=== PATIENT | female | born 1990 | race Caucasian/White ===

== ENCOUNTER 2019-05-08 18:53 | Inpatient (IN) | payer MEDICAID, SELFPAY ==
[2019-05-08 18:53] VITALS: BP 108/82; PULSE 86; RESP 16; TEMP 36.9; O2SAT 99
[2019-05-08 18:54] VITALS: BP 117/86; PULSE 88; RESP 16; TEMP 37; O2SAT 98; BMI 31.6
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
[2019-05-08 19:41] LABS: Basophils # 0.1 10^3/uL (0.0-0.1); Basophils % 0.5 %; Eosinophils # 0.3 10^3/uL (0.0-0.8); Eosinophils % 2.3 %; Hematocrit 39.1 % (37.0-47.0); Lymphocytes # 3.5 10^3/uL (0.8-4.8); Mean Corpuscular HGB Conc 33.2 g/dL (30.0-36.0); Mean Corpuscular Hemoglobin 28.3 pg (28.0-34.0); Mean Platelet Volume 9.3 fL (7.4-10.4); Monocytes # 0.8 10^3/uL (0.2-0.9); Monocytes % 6.2 %; Neutrophils # 8.6 10^3/uL (1.8-7.7); Neutrophils % 64.5 %; Nucleated Red Blood Cells % 0 %; Platelet Count 405 10^3/cmm (130-400); Red Cell Distribution Width 12.3 % (12.1-15.1); White Blood Count 13.3 10^3/uL (4.0-10.0)
--- NOTE | 2019-05-08 19:45 | PC.NURSE ---
Allergy band applied to wrist.
--- NOTE | 2019-05-08 19:50 | PC.NURSE ---
Addendum entered by Seun Viera 05/08/19 23:03: Pt placed in blue scrubs and all items secured in file cabinet. Original Note: Introduced self to patient and initiated vital signs. Patient presents A&O x 3. NAD, ABCs intact, MAEW and agreeable to treatment. Respirations are even and unlabored. Pt states that the chief complaint for the ER visit today is due to suicidal ideation. Pt has plan and would jump off of a bridge or hang herself. Pt denies any vision disturbances or lightheadedness. Bed left in lowest position in semi-fowlers with side rails up.Reassured patient of needs and will continue to monitor. Awaiting provider at bedside.
[2019-05-08 19:52] LABS: HCG Qualitative Urine. Negative (Negative)
[2019-05-08 20:09] LABS: Alanine Aminotransferase 14 U/L (0-33); Albumin Level 4.7 g/dL (3.5-5.2); Alkaline Phosphatase 58 IU/L (35-105); Anion Gap 19.6 (5-19); Aspartate Amino Transferase 15 U/L (0-32); Blood Urea Nitrogen 8 mg/dL (6-20); Calcium 9.9 mg/dL (8.5-10.5); Carbon Dioxide 23 mmol/L (22-29); Chloride 101 mmol/L (98-107); Globulin 2.9 g/dL (1.3-4.6); Glomerular Filtration Rate 98.3 mL/min (90-130); Glucose 115 mg/dL (65-115); Potassium 3.6 mmol/L (3.5-5.1); Sodium 140 mmol/L (136-145); Thyroid Stimulating Hormone 4.35 uIU/mL (0.27-4.20); Total Bilirubin 0.3 mg/dL (0.15-1.2); Total Protein 7.6 g/dL (6.6-8.7)
[2019-05-08 20:10] LABS: Acetaminophen < 5.0 ug/mL (10-30); Alcohol Level < 10 mg/dL (0-10); Salicylate < 0.3 mg/dL (3-10)
[2019-05-08] MEDS: nicotine 2 mg Gum 4 MG BUCCAL (20:53)
[2019-05-08 22:04] LABS: Add Urine Microscopic? YES; Bilirubin Urine Neg (NEGATIVE); Blood Urine Trace (Negative); Glucose Urine UA Norm (Normal); Ketones Urine Negative (Negative); Leukocyte Esterase Urine Negative (Negative); Nitrate Urine Negative (Negative); Protein Urine Neg (Negative); Urine Appearance Clear (CLEAR); Urine Color Straw (Yellow); Urobilinogen Urine Norm (Negative); pH Urine 5 (5-7)
[2019-05-08 22:11] LABS: Amphetamines Screen Urine Negative (Negative); Barbiturates Screen Urine Negative (Negative); Benzodiazepines Screen Urine Negative (Negative); Cocaine Screen Urine Negative (Negative); Opiate Screen Urine Negative (Negative); PCP Screen Urine Negative (Negative); THC Screen Urine Negative (Negative)
[2019-05-08 22:12] LABS: Add Urine Culture? No; Bacteria Urine 1+; Mucus Urine TRACE; RBC Urine 0-4 /hpf (0-2); Squamous Epithelial Cell Urine 0-4 (0-5)
[2019-05-08 22:25] VITALS: PULSE 68; RESP 16; O2SAT 98
[2019-05-08 23:43] VITALS: BP 117/80; PULSE 83; RESP 18; TEMP 36.8; O2SAT 97
[2019-05-09] MEDS: mirtazapine 15 mg Tablet PO (00:18)
[2019-05-09] MEDS: hyDROXYzine 25 mg Capsule 50 MG PO ×2 (00:18→20:53)
[2019-05-09 06:00] VITALS: BP 109/71; PULSE 81; RESP 21; TEMP 36.9; O2SAT 98
[2019-05-09] MEDS: acetaminophen 325 mg Tablet 650 MG PO ×2 (07:39→14:41)
[2019-05-09] MEDS: metformin 500 mg Tablet PO ×2 (09:21→17:33)
[2019-05-09] MEDS: atorvastatin 40 mg Tablet 20 MG PO (09:21)
[2019-05-09] MEDS: levothyroxine 50 mcg Tablet PO (09:21)
[2019-05-09 13:34] VITALS: BP 106/68; PULSE 75; RESP 20; TEMP 36.8; O2SAT 98
[2019-05-09] MEDS: nicotine 2 mg Gum BUCCAL ×2 (14:42→17:33)
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
[2019-05-09 17:54] LABS: Free T4 Free Thyroxine 1.65 ng/dL (0.82-1.77); Thyroid Stimulating Hormone 4.42 uIU/mL (0.27-4.20)
[2019-05-09] MEDS: mirtazapine 30 mg Tablet PO (20:52)
[2019-05-09 21:28] VITALS: BP 111/68; PULSE 74; RESP 19; TEMP 36.9; O2SAT 99
[2019-05-10 05:55] VITALS: BP 109/68; PULSE 85; RESP 17; TEMP 37.1; O2SAT 97
--- NOTE | 2019-05-10 08:14 | P.DS_ITS ---
Diagnoses at Discharge Discharge Diagnosis (1) Adjustment disorder with mixed disturbance of emotions and conduct: Status: Acute Reason for Visit Reason for Visit: Reason For Visit: SI Hospital Course Discharge Summary Chief complaint: I got upset yesterday. At the. The kidney out of my home. I just lost it. History of present illness: Afia Vidales is a 29 year old female who carries a questionable diagnosis of schizoaffective disorder by history with a documented history of major depression?recurrent and borderline intellectual function. She also has risk factors for PTSD. In spite of all that, she reported that she had been doing well. However she has poor coping skills and decompensates under strong emotion. She ripped her pants at the sheltered workshop yesterday. This was incredibly embarrassing for her and she felt as though that nobody was helping her avoid worsened embarrassment. Then when she returned to her half-way at [facility], they told her that she was going to find another place to live. The exact details of how that occurred remain unclear because it has become apparent that in fact she is welcome to go back there if she likes. At any rate, she decided that this was all too much for her and she was going to go throw herself off a bridge or in front of a moving vehicle. This was not an idle threat. She was intent on seriously doing that. However, after she slept and by the next morning, all of these thoughts of self injury were gone. She would like to go back to her home and she would also like to go back to work. She denies suicidal or homicidal ideation. She denies auditory or visual hallucinations. She does complain about her medications. She says that the Invega is not working because she has episodes of depression. She has poor understanding of the intended uses of her medications. At the same time, she denies a history of hallucinations except when she is in acute distress or medical depression. Mental health history: she has 4 prior hospitalizations in this unit extending back over the last 3 years. Her last hospitalization was in October 2018 a similar circumstances were she became agitated over adverse events in her life and made threats to harm herself. Over her for hospitalizations, her average length of stay is approximately 48 hours. She is active in outpatient treatment and has an outpatient provider [facility]. Diagnoses:adjustment disorder with disturbance of mood and conduct Major depression?recurrent, in remission Borderline intellectual function Assessment: the patient is admitted to the psychiatric unit primarily due to the fact that her coping skills were overwhelmed with the rather severe acute stressors that she describes. her chart was reviewed. She does complain of symptoms that might be due to her Invega. The lack of christa psychotic symptoms and the lack of support for a historic diagnosis of schizoaffective disorder questions the utility of that medication. Intense this time is to reduce the dosage milligrams daily consideration of discontinuing by her outpatient and psychiatrist if warranted. mirtazapine be continued. Treatment plan: Due to the psychiatric conditions and treatment listed in the Assessment and Plan - the patient requires continued hospitalization. Will provide a safe and therapeutic environment for patient.. Will continue inpatient treatment to allow for medication adjustment and monitoring. Will continue q15 min safety checks. decrease Invega to 3 mg in the morning and continue mirtazapine 30 mg at bedtime. Will get thyroid panel while here. Laboratory Tests 05/08/19 19:35 TSH 4.42 H Free T4 1.65 Involuntary Hold Information 96 Hour Hold: 96 Hour Involuntary Admission: No Mental Status Exam MSE Comments: Mental Status Exam: the patient is alert interpersonally engaged female appearing approximately her stated age. Eye contact is good. She is believed to be a reliable informant the best of her ability. She has difficulty providing much complicated personal history but that she provides is internally consistent and consistent with fat in the chart. Appearance: hygiene is fair; no gross neurological deficits., gait is unremarkable; AIMS=0 Speech: Speech is of normal rate and rhythm and easily understood. Thought processes: Thought processes are concrete. Judgment is adequate for safety. Associations: intact Psychotic processes: There is no indication of guarding or paranoia. There is no attention to the internal stimuli. Auditory and visual hallucinations are denied. Judgment: Insight is fair. Problem solving skills are adequate for safety. Orientation: The patient is oriented to person, place time and situation. Memory: no deficits noted in immediate, intermediate, or remote spheres. Attention: The patient is alert and interpersonally engaged. Language: Verbalizations are coherent. Fund of knowledge: Fund of knowledge is adequate. Affect/Mood: Affect is consistent with a euthymic mood. she denied suicidal ideation Affective range appropriate. Psychosis: perception unimpaired except through cognitive distortion; reality testing intact. Discharge Data Data Completed and Pending: Labs from last 24 hours 05/08/19 19:35 TSH 4.42 H Free T4 1.65 Vitals: Last Vital Signs Temp 98.8 F 05/10/19 05:55 Pulse 85 05/10/19 05:55 Resp 17 05/10/19 05:55 BP 109/68 05/10/19 05:55 Pulse Ox 97 05/10/19 05:55 Discharge Plan Discharge Patient Disposition: Home, Self-Care Condition: Stable Prescriptions: New paliperidone 3 mg Tablet Extended Release 24hr 3 mg PO DAILY Qty: 30 RF: 4 Continued levothyroxine 50 mcg capsule 50 mcg PO QDAY RF: 0 Lo Loestrin Fe 1 mg-10 mcg (24)/10 mcg (2) tablet 1 tab PO QDAY RF: 0 metformin 500 mg tablet 500 mg PO BID RF: 0 simvastatin 20 mg tablet 20 mg PO QDAY RF: 0 sumatriptan succinate [Imitrex] 50 mg tablet 50 mg PO ONCE RF: 0 ergocalciferol (vitamin D2) 1,250 mcg (50,000 unit) capsule 1,250 mcg PO .COMPLEX RF: 0 mirtazapine [Remeron] 15 mg tablet 15 mg PO .QHS Qty: 30 RF: 4 hydroxyzine HCl 50 mg tablet 50 mg PO BID PRN (Reason: anxiety) Qty: 60 RF: 3 Discontinued paliperidone [Invega] 6 mg tablet extended release 24hr 6 mg PO QAM Qty: 30 RF: 4 Discharge Orders: Discharge Order (Routine); Ordered 05/10/19 Ordered By: Ángel Celeste Referrals: Dorita Madden, PMHNP [Staff Physician] - 07/12/19 9:15 am Discharge Attestations NPU Time Spent in Discharge Care*: greater than 30 min Coding Level of Care Code Acute Distribution A Class Lineman for Chg Fwd Diagnoses Adjustment disorder with mixed disturbance of emotions and conduct F43.25
[2019-05-10] MEDS: atorvastatin 40 mg Tablet 20 MG PO (08:35)
[2019-05-10] MEDS: metformin 500 mg Tablet PO (08:35)
[2019-05-10] MEDS: paliperidone ER 3 mg Tablet PO (08:35)
[2019-05-10] MEDS: levothyroxine 50 mcg Tablet PO (08:35)
[2019-05-10 10:14] VITALS: BP 109/68; PULSE 85; RESP 17; TEMP 37.1; O2SAT 97
--- NOTE | 2019-05-10 11:32 | PC.SOCIAL ---
Medicaid ride called, trip ID #[id number]. Should arrive between 11:30am-2:30pm. If for some reason the ride does not show up you may call the Where's My Ride number at
[2019-05-10] MEDS: nicotine 2 mg Gum BUCCAL (13:00)
== END 2019-05-10 13:57 | disposition home or self-care (01) | DRG 882 ==
LOC: ER 19:22 → NP 22:41
PROVIDERS: Admitting Provider Psychiatry & Neurology Psychiatry; Emergency Provider Family Medicine; Family Provider Physician Assistant; Visit Provider Psychiatry & Neurology Psychiatry
DX: F43.25 Adjustment disorder with mixed disturbance of emotions and conduct (principal); R45.851 Suicidal ideations; F33.40 Major depressive disorder, recurrent, in remission, unspecified; Z87.891 Personal history of nicotine dependence; R41.83 Borderline intellectual functioning; E11.9 Type 2 diabetes mellitus without complications; R01.1 Cardiac murmur, unspecified
CPT/HCPCS: 12345; 36415; 80053; 80306; 80307; 81001; 81025; 84439; 84443; 85025; 99284

== ENCOUNTER 2019-05-08 18:53 | Emergency (ER) | payer MEDICAID, SELFPAY | END 2019-05-08 23:15 | disposition admitted as inpatient to this hospital (09) | LOC: ER 06-13 12:12 | PROVIDERS: Emergency Provider Family Medicine; Family Provider Physician Assistant | DX: Z76.89 Persons encountering health services in other specified circumstances (principal) | CPT/HCPCS: 36415; 80053; 80306; 80307; 81001; 81025; 84439; 84443; 85025; 99284; 99285 ==

== ENCOUNTER → 2019-07-12 08:04 | Outpatient (BNVA) | payer MEDICAID, SELFPAY | PROVIDERS: Family Provider Physician Assistant; Visit Provider Nurse Practitioner Psychiatric/Mental Health | DX: F25.0 Schizoaffective disorder, bipolar type (principal); F43.12 Post-traumatic stress disorder, chronic; F71 Moderate intellectual disabilities; F17.220 Nicotine dependence, chewing tobacco, uncomplicated | CPT/HCPCS: 99213 ==

== ENCOUNTER 2019-08-15 21:52 | Inpatient (IN) | payer MEDICAID, SELFPAY ==
[2019-08-15 21:53] VITALS: BP 124/75; PULSE 78; RESP 16; TEMP 36.6; O2SAT 97; BMI 27.8
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
[2019-08-15 22:21] LABS: Basophils # 0.1 10^3/uL (0.0-0.1); Basophils % 0.6 %; Eosinophils # 0.6 10^3/uL (0.0-0.8); Eosinophils % 4.9 %; Lymphocytes # 4.3 10^3/uL (0.8-4.8); Lymphocytes % 32.8 %; Mean Corpuscular HGB Conc 32.4 g/dL (30.0-36.0); Mean Corpuscular Hemoglobin 27.5 pg (28.0-34.0); Mean Corpuscular Volume 84.9 fL (81-99); Mean Platelet Volume 9.5 fL (7.4-10.4); Monocytes # 0.9 10^3/uL (0.2-0.9); Monocytes % 6.9 %; Neutrophils # 7.1 10^3/uL (1.8-7.7); Neutrophils % 54.3 %; Nucleated Red Blood Cells % 0 %; Platelet Count 316 10^3/cmm (130-400); Red Blood Count 4.36 10^6/uL (4.1-5.3); Red Cell Distribution Width 12.2 % (12.1-15.1)
[2019-08-15 22:48] LABS: Alanine Aminotransferase 12 U/L (0-33); Albumin Level 4.2 g/dL (3.5-5.2); Alkaline Phosphatase 44 IU/L (35-105); Anion Gap 19.3 (5-19); Aspartate Amino Transferase 13 U/L (0-32); Blood Urea Nitrogen 10 mg/dL (6-20); Calcium 10.3 mg/dL (8.5-10.5); Carbon Dioxide 25 mmol/L (22-29); Chloride 100 mmol/L (98-107); Globulin 2.5 g/dL (1.3-4.6); Glomerular Filtration Rate 117.4 mL/min (90-130); Glucose 114 mg/dL (65-115); Osmolality Calculated 287 mOsm/kg (285-295); Potassium 4.3 mmol/L (3.5-5.1); Sodium 140 mmol/L (136-145); Thyroid Stimulating Hormone 6.92 uIU/mL (0.27-4.20); Total Bilirubin 0.4 mg/dL (0.15-1.2); Total Protein 6.7 g/dL (6.6-8.7)
[2019-08-15 22:49] LABS: Acetaminophen < 5.0 ug/mL (10-30); Alcohol Level < 10 mg/dL (0-10); Salicylate < 0.3 mg/dL (3-10)
[2019-08-15 23:11] LABS: HCG Qualitative Urine. Negative (Negative)
[2019-08-15 23:22] LABS: Slide Review Slide Review Perform
[2019-08-15 23:31] VITALS: BP 117/82; PULSE 94; RESP 21; TEMP 36.8; O2SAT 100
[2019-08-16] MEDS: mirtazapine 15 mg Tablet PO ×2 (00:41→20:13)
[2019-08-16] MEDS: gabapentin 300 mg Capsule PO ×4 (00:41→20:13)
[2019-08-16] MEDS: trazodone 50 mg Tablet PO ×2 (00:41→20:13)
[2019-08-16 03:21] LABS: Add Urine Microscopic? NO
[2019-08-16 03:25] LABS: Bilirubin Urine Neg (NEGATIVE); Blood Urine Neg (Negative); Glucose Urine UA Norm (Normal); Ketones Urine Negative (Negative); Leukocyte Esterase Urine Negative (Negative); Nitrate Urine Negative (Negative); Protein Urine Neg (Negative); Urine Appearance Clear (CLEAR); Urine Color Yellow (Yellow); Urobilinogen Urine Norm (Negative); pH Urine 7 (5-7)
[2019-08-16 03:50] LABS: Amphetamines Screen Urine Negative (Negative); Barbiturates Screen Urine Negative (Negative); Benzodiazepines Screen Urine Negative (Negative); Cocaine Screen Urine Negative (Negative); Opiate Screen Urine Negative (Negative); PCP Screen Urine Negative (Negative); THC Screen Urine Negative (Negative)
[2019-08-16 06:00] VITALS: BP 103/71; PULSE 91; RESP 20; TEMP 36.8; O2SAT 96
[2019-08-16 06:17] LABS: Glucose Point of Care 167 mg/dL (70-110)
[2019-08-16] MEDS: paliperidone ER 3 mg Tablet PO (08:25)
[2019-08-16] MEDS: metformin 500 mg Tablet PO ×2 (08:25→17:07)
[2019-08-16] MEDS: levothyroxine 50 mcg Tablet PO (08:25)
[2019-08-16] MEDS: atorvastatin 40 mg Tablet 20 MG PO (08:26)
[2019-08-16] MEDS: nicotine 2 mg Gum BUCCAL ×3 (12:39→18:41)
[2019-08-16 13:59] VITALS: BP 118/82; PULSE 112; RESP 18; TEMP 37; O2SAT 97
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
[2019-08-16 16:13] LABS: Glucose Point of Care 243 mg/dL (70-110)
[2019-08-16 19:49] LABS: Glucose Point of Care 123 mg/dL (70-110)
[2019-08-16 21:18] VITALS: BP 108/73; PULSE 103; RESP 22; TEMP 36.9; O2SAT 97
[2019-08-17 06:00] VITALS: BP 108/76; PULSE 60; RESP 17; TEMP 36.5; O2SAT 96
[2019-08-17] MEDS: gabapentin 300 mg Capsule PO ×3 (06:08→22:01)
[2019-08-17 06:23] LABS: Glucose Point of Care 137 mg/dL (70-110)
[2019-08-17] MEDS: paliperidone ER 3 mg Tablet PO ×2 (08:09→12:49)
[2019-08-17] MEDS: atorvastatin 40 mg Tablet 20 MG PO (08:09)
[2019-08-17] MEDS: metformin 500 mg Tablet PO ×2 (08:09→17:21)
[2019-08-17] MEDS: levothyroxine 50 mcg Tablet PO (08:09)
--- NOTE | 2019-08-17 13:52 | PM.NPN ---
Subjective NPU Subjective: Interval history: Afia presented today reporting that she feels a little better. But still struggling with the likely plan to discharge back to her intermediate. We reviewed the plan increase Invega to 6 mg daily and she understood and agreed to proceed as is documented in this note. She reported a plan to contact her intermediate to see if they were still will allow her to come home which we discussed the fact that they were no indications of any plan to get rid of her. Mental Status Exam MSE Comments: This is an obese white female with adequate dress grooming and eye contact. No abnormal movements except for mild psychomotor retardation. Cooperative with exam in no acute distress. Speech was more normal rate and volume mood described as less depressed, affect congruent. Thought process organized. Thought content: Patient denied any suicidal or homicidal ideation there were no delusions reported or noted, she denied any auditory or visual hallucinations. Attention and concentration were intact and memory was unreliable but none were formally tested. She is alert and oriented x3. Insight and judgment are improving. Impulse control is limited. Intellectual ability is impaired. Vitals/I&O/Wt Last Vital Signs Temp 97.9 F 08/17/19 22:00 Pulse 90 08/17/19 22:00 Resp 16 08/17/19 22:00 BP 123/89 08/17/19 22:00 Pulse Ox 97 08/17/19 22:00 Data NPU : 08/15/19 22:16 08/15/19 22:16 A&P Additional A&P Information (1) Adjustment disorder with mixed disturbance of emotions and conduct: This is a 29-year-old white female with a long history of mental health issues intellectual disability and para-suicidal ideation and threats who presents after a conflict with a coworker which led to her voicing a desire to move and be admitted to the hospital. 1. Continue current medication except: increase Invega to 6 mg daily. 2. We will speak with guardian to confirm increasing the Invega. 3. Continue individual, group and milieu therapy. 4. Continue to 15-minute checks for safety. 5. Encourage some de-stressing exercises to practice when in the midst of conflicts. (2) Schizoaffective disorder, bipolar type: (3) Chronic post-traumatic stress disorder: (4) Moderate intellectual disabilities: (5) Nicotine dependence, chewing tobacco, uncomplicated: Involuntary Hold Information 96 Hour Hold: 96 Hour Involuntary Admission: No Attestations NPU Medical Necessity Statement*: Inpatient hospitalization is medically necessary and the clinically appropriate intervention at this time. She will be in the hospital for over 2 midnights. We will monitor her medication and evaluate for adjustments as indicated. Likely length of stay 1-3 days. Coding Level of Care Code Acute Traveling Accountant for Eh Vallecillo
[2019-08-17 14:00] VITALS: BP 117/63; PULSE 81; RESP 17; TEMP 37
[2019-08-17 16:47] LABS: Glucose Point of Care 129 mg/dL (70-110)
[2019-08-17] MEDS: nicotine 2 mg Gum BUCCAL ×2 (18:06→22:24)
[2019-08-17 22:00] VITALS: BP 123/89; PULSE 90; RESP 16; TEMP 36.6; O2SAT 97
[2019-08-17] MEDS: mirtazapine 15 mg Tablet PO (22:01)
[2019-08-17] MEDS: hyDROXYzine 25 mg Capsule 50 MG PO (22:02)
[2019-08-18] MEDS: gabapentin 300 mg Capsule PO ×3 (05:49→20:29)
[2019-08-18 06:00] VITALS: BP 136/81; PULSE 74; RESP 15; TEMP 36.4; O2SAT 96
[2019-08-18 06:30] LABS: Glucose Point of Care 106 mg/dL (70-110)
[2019-08-18] MEDS: paliperidone ER 6 mg Tablet PO (08:44)
[2019-08-18] MEDS: levothyroxine 50 mcg Tablet PO (08:45)
[2019-08-18] MEDS: atorvastatin 40 mg Tablet 20 MG PO (08:45)
[2019-08-18] MEDS: metformin 500 mg Tablet PO ×2 (08:45→16:44)
[2019-08-18] MEDS: nicotine 2 mg Gum BUCCAL ×5 (11:59→20:59)
--- NOTE | 2019-08-18 13:07 | P.PN_ITS ---
Subjective NPU Subjective: Interval history: Afia presented today reporting that she is feeling much better and interested in going home. We had attempted to call her senior living without significant success yesterday. We discussed the plan to discharge her to her senior living as soon as they are available to receive her and comfortable with her progress. She was somewhat frustrated feeling the staff at her senior living were saying she could not return, which we assured her that was not the message we were getting. Mental Status Exam 2 MSE Comments: This is an obese white female with adequate dress grooming and eye contact. No abnormal movements except for improving psychomotor retardation. Cooperative with exam in no acute distress. Speech was more normal rate and volume mood described as pretty good, affect congruent. Thought process organized. Thought content: Patient denied any suicidal or homicidal ideation there were no delusions reported or noted, she denied any auditory or visual hallucinations. Attention and concentration were intact and memory was more reliable but none were formally tested. She is alert and oriented x3. Insight and judgment are improving. Impulse control is limited. Intellectual ability is impaired. Vitals/I&O/Wt Last Vital Signs Temp 98.4 F 08/18/19 20:02 Pulse 94 08/18/19 20:02 Resp 17 08/18/19 20:02 BP 106/74 08/18/19 20:02 Pulse Ox 97 08/18/19 20:02 08/18/19 08/18/19 08/19/19 14:59 22:59 06:59 Intake Total 360 / 360 Balance 360 / 360 Weight last 48 hrs Weight 63.049 kg Data NPU : 08/15/19 22:16 08/15/19 22:16 A&P Additional A&P Information (1) Adjustment disorder with mixed disturbance of emotions and conduct: This is a 29-year-old white female with a long history of mental health issues intellectual disability and para-suicidal ideation and threats who pr esents after a conflict with a coworker which led to her voicing a desire to move and be admitted to the hospital. 1. Continue current medication except: increase Invega to 6 mg daily. 2. We will speak with guardian to confirm increasing the Invega. 3. Continue individual, group and milieu therapy. 4. Continue to 15-minute checks for safety. 5. Encourage some de-stressing exercises to practice when in the midst of conflicts.Plan for discharge tomorrow. (2) Schizoaffective disorder, bipolar type: (3) Chronic post-traumatic stress disorder: (4) Moderate intellectual disabilities: (5) Nicotine dependence, chewing tobacco, uncomplicated: Involuntary Hold Information 96 Hour Hold: 96 Hour Involuntary Admission: No Attestations NPU Medical Necessity Statement*: Inpatient hospitalization is medically necessary and the clinically appropriate intervention at this time. We will monitor her medication and evaluate for adjustments as indicated. Likely length of stay 1-2 days. Tentative plan for discharge tomorrow. Coding Level of Care Code Acute Industrial Automation Specialist for Eh Vallecillo
[2019-08-18 14:00] VITALS: BP 112/73; PULSE 84; RESP 19; TEMP 36.9
[2019-08-18] MEDS: acetaminophen 325 mg Tablet 650 MG PO (14:52)
[2019-08-18 17:32] LABS: Glucose Point of Care 178 mg/dL (70-110)
[2019-08-18 20:02] VITALS: BP 106/74; PULSE 94; RESP 17; TEMP 36.9; O2SAT 97
[2019-08-18] MEDS: mirtazapine 15 mg Tablet PO (20:29)
[2019-08-19 06:00] VITALS: BP 108/74; PULSE 68; RESP 16; TEMP 36.3; O2SAT 97
[2019-08-19] MEDS: gabapentin 300 mg Capsule PO ×2 (06:27→11:55)
[2019-08-19 06:36] LABS: Glucose Point of Care 117 mg/dL (70-110)
[2019-08-19] MEDS: metformin 500 mg Tablet PO (08:22)
[2019-08-19] MEDS: levothyroxine 50 mcg Tablet PO (08:22)
[2019-08-19] MEDS: paliperidone ER 6 mg Tablet PO (08:22)
[2019-08-19] MEDS: atorvastatin 40 mg Tablet 20 MG PO (08:23)
[2019-08-19] MEDS: nicotine 2 mg Gum BUCCAL ×2 (09:48→11:53)
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
[2019-08-19 13:42] VITALS: BP 108/74; PULSE 68; RESP 16; TEMP 36.3; O2SAT 97
== END 2019-08-19 14:03 | disposition home or self-care (01) | DRG 882 ==
LOC: ER 22:37 → NP 23:18
PROVIDERS: Admitting Provider Psychiatry & Neurology Psychiatry; Emergency Provider Nurse Practitioner Family; Family Provider Family Medicine; PCP Family Medicine; Visit Provider Psychiatry & Neurology Psychiatry
DX: F43.25 Adjustment disorder with mixed disturbance of emotions and conduct (principal); F25.0 Schizoaffective disorder, bipolar type; F43.12 Post-traumatic stress disorder, chronic; F71 Moderate intellectual disabilities; F17.220 Nicotine dependence, chewing tobacco, uncomplicated; E11.9 Type 2 diabetes mellitus without complications
CPT/HCPCS: 12345; 36416; 80053; 80306; 80307; 81003; 81025; 82962; 84443; 85025; 99281; 99285

== ENCOUNTER 2019-08-15 21:52 | Emergency (ER) | payer MEDICAID, SELFPAY | END 2019-08-15 23:18 | disposition home or self-care (01) | LOC: ER 08-29 01:28 | PROVIDERS: Emergency Provider Nurse Practitioner Family; Family Provider Family Medicine; PCP Family Medicine | DX: R45.851 Suicidal ideations (principal) | CPT/HCPCS: 12345; 80053; 80307; 81025; 84443; 85025; 99281; 99285 ==

== ENCOUNTER 2019-09-14 16:40 | Emergency (ER) | payer MEDICAID, SELFPAY ==
[2019-09-14 16:41] VITALS: BMI 30.2
[2019-09-14 16:46] VITALS: BP 110/82; PULSE 116; RESP 20; TEMP 36.8; O2SAT 97
--- NOTE | 2019-09-14 19:03 | PC.NURSE ---
Report received from KOREY Guerrero and care transferred to KOREY Evangelista
--- NOTE | 2019-09-14 19:23 | ED_ITS ---
HPI - Psych General: Chief Complaint: Psychiatric Symptoms Stated Complaint: PSYCH EVAL Time Seen by Provider: 09/14/19 16:46 Source: patient Mode of arrival: EMS History of Present Illness: HPI Narrative: 29-year-old female patient with a history of developmental delay and frequent ER visits for behavioral issues was recently placed in a half-way because her parents were unable to care for her any longer. Today the patient attempted to run away from the half-way. When asked why she told me that it was because she wanted to see her kids and her adopted stepparents. She said the home refused to let her do these things and so she ran away. She complains that they are treating her like a kid when she is not 1. She would rather not go back today home. She denies homicidal or suicidal ideation, she just wants to see her parents. Associated symptoms: Deny auditory hallucinations, visual hallucinations, homicidal ideation or suicidal ideation Review of Systems General: Reports: 10 or more systems reviewed and unremarkable except in HPI and below Const: Denies: fever(s), chills or body aches Eyes: Denies: change in vision or blurry vision ENMT: Denies: throat pain, enlarged tonsils, odynophagia, hoarseness, mouth pain or swelling of lips/tongue Card: Denies: palpitations, irregular heart rhythm, edema or swelling of feet/ankles Resp: Denies: dyspnea, productive cough or non-productive cough GI: Denies: abdominal pain, nausea or vomiting : Denies: flank pain, difficulty voiding, dysuria, urinary frequency, urinary urgency or urinary hesitancy Musc: Denies: neck pain, back pain or extremity swelling Skin/Breast: Denies: rash, pruritus or erythema Neuro: Denies: headache(s), numbness in extremities or weakness in extremities Psych: Reports: mood swings and irritability; Denies: visual hallucinations, auditory hallucinations, tactile hallucinations, suicidal ideation or homicidal ideation Endo: Denies: polyuria, polydipsia or tired all the time PFS ED PFSH: Medical History Chronic post-traumatic stress disorder Moderate intellectual disabilities Nicotine dependence, chewing tobacco, uncomplicated Schizoaffective disorder, bipolar type Social History Smoking and tobacco status: never smoked Physical Exam Const: COMMON NORMALS: no acute distress, average body habitus, patient oriented x3, no limitations, healthy appearing, alert and well nourished Neck/C-Spine: COMMON NORMALS: no meningeal signs and no JVD Resp: COMMON NORMALS: normal respiratory effort, No retractions, No use of accessory muscles, clear to auscultation bilaterally and percussion normal AUSCULTATION: clear to auscultation bilaterally PERCUSSION: percussion normal Cardio: COMMON NORMALS: no JVD, regular rate, regular rhythm, S1 normal heart sound present, S2 normal heart sound present, No gallops present (Cardio), No clicks present (Cardio), No murmurs present (Cardio), No rub (Cardio) and Peripheral pulses 2+ throughout RATE: regular rate RHYTHM: regular rhythm HEART SOUNDS: S1 normal heart sound present and S2 normal heart sound present PERIPHERAL PULSES: Peripheral pulses 2+ throughout GI: COMMON NORMALS: Normal to inspection, nondistended, normoactive bowel so unds present, Soft to palpation, non-tender, No hepatosplenomegaly present, no masses and no bruits PALPATION: Yes Soft to palpation and Yes No hepatosplenomegaly present Extremity: COMMON NORMALS: normal to inspection, full ROM, capillary refill normal, no calf tenderness and no pedal edema Neuro: COMMON NORMALS: patient oriented x3 SENSORIUM/ORIENTATION: Yes alert MENINGEAL SIGNS: Yes no meningeal signs Psych: APPEARANCE: Yes grossly normal ATTITUDE: Yes paranoid ACTIVITY/MOTOR BEHAVIOR: Yes psychomotor agitation THOUGHT CONTENT: No Suicidality present and No Homicidality present Skin: COMMON NORMALS: no rashes or lesions noted, no wounds, turgor normal, no jaundice, no petechiae and no mottling GENERAL SKIN EXAM: no rashes or lesions noted and turgor normal MDM - Psych MDM Narrative: Medical decision making narrative: 29-year-old female patient with developmental delay and behavioral issues run away from her half-way today. After evaluation by the psychiatrist in this hospital it was decided she could be discharged back to her home. I got in touch with her legal guardian Stu Mcintyre who said the patient can be discharged back to the home. The half-way initially said that they would not accept her back and felt like a legal guardian had abandoned her but eventually they accepted the patient back. Medical Records: Attestation: I reviewed the patient's medical records. Lab Data: Attestation: I reviewed the patient's lab results. Discharge Plan Discharge Patient Disposition: Home, Self-Care Clinical Impression: Adjustment disorder with mixed disturbance of emotions and conduct, Schizoaffective disorder, bipolar type, Behavior involving running away Condition: Stable Prescriptions: Continued levothyroxine 50 mcg capsule 50 mcg PO DAILY RF: 0 metformin 500 mg tablet 500 mg PO BID RF: 0 simvastatin 20 mg tablet 40 mg PO DAILY RF: 0 ergocalciferol (vitamin D2) 1,250 mcg (50,000 unit) capsule 1,250 mcg PO Q7D RF: 0 hydroxyzine HCl 50 mg tablet 50 mg PO BID PRN (Reason: anxiety) Qty: 60 RF: 3 Vitamin B-12 1,000 mcg Tablet 1,000 mcg PO DAILY RF: 0 Lo Loestrin Fe 1 mg-10 mcg (24)/10 mcg (2) Tablet 1 tab PO DAILY RF: 0 paliperidone 6 mg tablet extended release 24hr 6 mg PO QAM RF: 0 gabapentin 300 mg Capsule 300 mg PO TID RF: 0 mirtazapine [Remeron] 15 mg tablet 15 mg PO BEDTIME RF: 0 Discharge Orders: Discharge Order (Routine); Ordered 09/14/19 Ordered By: Tee St Referrals: Jose Dinero [Primary Care Provider] - 4-7 days Activity Restrictions/Additional Instructions: Return for any new or worsening symptoms. It is important that you cooperate with the staff at [facility]. Have a conversation with your legal guardian and your parents during the week so you guys can come up with some plan for permanent placement so he can have a place to live that you like. Discharge Date/Time: 09/14/19 22:40 Coding Level of Care Code ED Professor Of Chemical Engineering for Eh Vallecillo
[2019-09-14 22:40] VITALS: PULSE 98; RESP 16; O2SAT 96
== END 2019-09-14 22:40 | disposition home or self-care (01) ==
PROVIDERS: Emergency Provider Family Medicine; PCP Family Medicine
DX: F43.25 Adjustment disorder with mixed disturbance of emotions and conduct (principal); F25.0 Schizoaffective disorder, bipolar type
CPT/HCPCS: 12345; 99284

== ENCOUNTER → 2021-11-02 15:37 | Outpatient (BNVA) | payer MEDICAID, SELFPAY | PROVIDERS: PCP Family Medicine; Referring Provider Nurse Practitioner Family; Visit Provider Podiatrist Foot & Ankle Surgery | DX: M21.611 Bunion of right foot (principal); M79.671 Pain in right foot | CPT/HCPCS: 73630; 99204 ==

== ENCOUNTER 2021-11-26 08:21 | Day surgery (SDC) | payer MEDICAID, SELFPAY ==
--- NOTE | 2021-11-26 | SCC_ITS ---
Left Lapidus bunionectomy. CPT code 05994 Left Abilio osteotomy. CPT code 38753 57 seconds of fluoroscopic guidance, for a cumulative dose of 0.971 mGy, was provided to Dr. Francisco by the radiology department. C-arm images of the RIGHT foot were saved for the patient's permanent record. [facility]
[2021-11-26] MEDS: sodium chloride 0.9% 1,000 ML 30 ML IV (09:00)
[2021-11-26 09:11] LABS: Glucose Point of Care 120 mg/dL (70-110)
--- NOTE | 2021-11-26 09:24 | P.OP_ITS ---
Operative Report Date of procedure: November 26, 2021 Pre-op diagnosis: Preop Diagnosis Left bunion Post-op diagnosis: Left bunion deformity, left hallux valgus. Procedure done: Left Lapidus bunionectomy. CPT code 69457 Left Abilio osteotomy. CPT code 35967 Implants: 3-0 Vicryl, 4-0 Vicryl, 4-0 nylon, Abilio screw provided by [employer], Lapaplasty dual plate with locking screw x8 provided by [employer] Specimens removed/disposition: None Pathology: None Surgeon: Bob Francisco D.P.M. Radiology Orderly: Pritesh Estimated blood loss: Less than 5 110 minutes IV fluids: None Urine output: None Complications: None Findings: Capsular adhesions with decreased plantarflexion at the right first metatarsophalangeal joint. Brief History: Patient is a pleasant 31-year-old female lives in a long term, presents with complaints of bilateral bunion pain right is more severe.? Had a history of previous bunionectomies they were distal metatarsal osteotomies, has had a reoccurrence of the deformity that causes pain on a daily basis.? She has already been wearing wider shoes, wearing prefabricated orthotics, daily stretching anti-inflammatories and activity modifications.? States that her bunions prevent her from being more active and wearing shoes.? Would like to discuss revision of her right bunion and eventually her left.? States that she would like to proceed with next available surgical opportunity as she has failed conservative treatments over the course of several years.? Recommended Lapidus bunionectomy with possible Abilio osteotomy given her hypermobility and young age.? Risks include but are not limited to pain, bleeding, numbness, infection, under correction of deformity, overcorrection of deformity, delayed union, malunion, nonunion, hardware rotation, hardware failure, decreased range of motion at the first metatarsal phalangeal joint, painful scar, paresthesias, chronic swelling, hallux varus, need for further surgical intervention.? Also risk for deep vein thrombosis, heart attack, stroke and .? Patient advised on recovery consisting of approximately 6 to 8 weeks of nonweightbearing and immobilization transitioning into weightbearing in the cam boot for approximately 2 weeks additional and potentially to a tennis shoe at approximately 8 to 12 weeks out.? She was advised that the aches and pains of surgical intervention for this type of a bunionectomy could linger for approximately 12 months or even permanently Procedure: Under mild sedation the patient was brought to the operating room and placed on the operating table in supine position. A timeout was performed. Anesthesia was then administered by the anesthesia service. Local anesthesia was injected by myself consisting of 30 cc of 0.5% Marcaine plain and a proximal Abrams block fashion to the right foot. Well-padded pneumatic tourniquet was then applied to the right high calf. The right lower extremity was then scrubbed, prepped and draped utilizing normal aseptic technique. Attention was directed to the dorsal medial aspect of the right first metatarsal base and medial cuneiform joint. A linear longitudinal incision was made medial and parallel to the extensor houses longus tendon. Dissection was carried down through subcutaneous tissue to the layer of periosteum and joint capsule utilizing a combination of blunt and sharp technique. Care was taken to retract and preserve neurovascular and tendinous structures. All bleeders were ligated and cauterized as necessary. Periosteal and capsular incision was performed dorsally at the first tarsometatarsal joint and the joint was accessed and planes with a sagittal saw followed by release of all capsular and soft tissue attachments at the first metatarsal base and distal articular surface of the medial cuneiform. Next utilizing a cut guide dorsally a sagittal saw was utilized to resect the base of the first metatarsal perpendicular to its longitudinal access as well as the distal articular surface of the medial cuneiform taking more laterally to allow correction of intermetatarsal angle, wafers were removed and the incision was flushed with saline solution followed by subchondral drilling at the base of the first metatarsal and distal surface of the medial cuneiform. Utilizing instrumentation to reduce the intermetatarsal angle this was a jig provided by [employer] securing it to the second metatarsal through a stab incision the intermetatarsal angle of the first intermetatarsal space was reduced parallel to the second metatarsal followed by fixation utilizing standard AO technique with a dorsal plate and medial plate with locking screws with excellent bony apposition and compression noted. Each plate had 4 screws with a total of 8 screws inserted. Intraoperative fluoroscopy demonstrated reduction of the intermetatarsal angle and frontal plane correction with improved sesamoid position, excellent placement of hardware not violating the cuneiforms joints or navicular cuneiform joints or intercuneiform joints. Incision was flushed with copious amounts of sterile skin solution, temporary fixation was removed and the incision was closed in a layered fashion with periosteum closed with 3-0 Vicryl, subcutaneous tissue closed with 4-0 Vicryl and skin with 4-0 nylon. Range of motion dorsally at the right first metatarsal phalangeal joint was appreciated at 50 degrees, there was no plantarflexion appreciated and this was attributed to likely capsular adhesions from previous bunionectomy dorsally at the right first metatarsal phalangeal joint. There was residual hallux valgus intraoperatively appreciated even after intermetatarsal angle of the first and second metatarsals of the right foot was reduced and corrected. This necessitated a release of capsular adhesions and Abilio osteotomy for further correction. A linear longitudinal incision was made medial to the first metatarsal phalangeal joint at the right foot with a #15 blade with dissection carried down bluntly and sharply to the layer of periosteum and first metatarsal phalangeal joint capsule. Care was taken to retract and preserve neurovascular and tendinous structures. All bleeders were ligated and cauterized as necessary. Capsular incision was performed and adhesions were released sharply at the dorsal aspect of the first metatarsal phalangeal joint with increased plantar flexion appreciated. A lateral release was also performed of the suspensory sesamoid ligament and lateral capsule, hallux valgus remained and decision was made to perform a Abiilo osteotomy followed by fixation with 2.7 millimeter screw provided by [employer] with excellent bony apposition and compression noted and maintaining a lateral cortical hinge. The Boundary osteotomy was performed with a sagittal saw and a rectus first ray was appreciated after fixation. All 3 views of intraoperative fluoroscopy confirmed excellent placement of the Khushboo screw not violating the first metatarsal phalangeal joint and bicortical fashion was appreciated. The incision was flushed with saline solution and closed in a layered fashion with periosteum and capsule closed with 3-0 Vicryl and skin closed with 4-0 nylon. The incision sites were then dressed with Adaptic, sterile 4 x 4, Kerlix and Edouard wrap followed by application of cam boot. Tourniquet was deflated and a prompt hyperemic response was noted to the distal digits of the right foot. Patient tolerated the procedure and anesthesia well and was transferred to the PACU with vital signs stable and vascular status intact. Following a period of postop monitoring she will be discharged home is to be protected weightbearing as tolerated below threshold to pain with a cam boot at all times. She is to elevate her right foot while resting. She was prescribed hydrocodone to be taken judiciously as needed for pain and has scheduled follow-up next week in podiatry clinic. She was also provided my cell phone number to contact me with any postoperative questions or concerns.
[2021-11-26] MEDS: clindamycin 600 MG/50 ML PREMIX 100 MG IV (10:00)
--- NOTE | 2021-11-26 10:00 | W.PM.OPSUD ---
Surgery/Procedure H&P Update DATE OF PROCEDURE: November 26, 2021 DATE H&P PERFORMED: 11/02/21 CHANGES TO PREVIOUS DOCUMENTATION: none PREOP DIAGNOSIS: Left bunion PLANNED PROCEDURE: Operation Date: 11/26/21 10:00 Proposed Procedures p Lapidus and Abilio bunionectomy, right foot [id number],M21.611(Right) - Bob Francisco DPM
--- NOTE | 2021-11-26 10:15 | P.ANESASSM_ITS ---
Pre-Anesthetic Assessment Height/Weight: Height 1.4 m Weight 55.111 kg O2 Del Method 11/26/21 09:00 Preop Diagnosis: Left bunion Operation Date: 11/26/21 10:00 Proposed Procedures p Lapidus and Abilio bunionectomy, right foot [id number],M21.611(Right) - Bob Francisco DPM Familial anesthetic complications: none Was Beta Vidhya taken within 24 hours: N/A Was Clonidine taken within 24 hours: N/A Last intake: Intake Last Liquid Date 11/25/21 Last Liquid Time 19:00 Last Solid Date 11/25/21 Last Solid Time 19:00 Social Tobacco and No alcohol Exam alert, oriented x 3, clear to auscultation bilaterally and regular rate & rhythm Airway Submandibular: within normal limits Cervical ROM: within normal limits Mallampati: Class II Dentition: false CV/HEM Murmur h/o ASD repair Metabolic Thyroid Disease Neuropsych schizoaffective Anesthetic Plan ASA status: 3 Anesthesia: General Medications/Allergies Home Medications Medication Instructions Recorded Confirmed Last Taken Type ergocalciferol (vitamin D2) 1,250 1,250 mcg PO Q7D 04/15/19 11/26/21 11/25/21 History mcg (50,000 unit) capsule levothyroxine 50 mcg capsule 50 mcg PO DAILY 04/15/19 11/26/21 11/25/21 History metformin 500 mg tablet 500 mg PO BID 04/15/19 11/26/21 11/25/21 History simvastatin 20 mg tablet 40 mg PO DAILY 04/15/19 11/26/21 11/25/21 History hydroxyzine HCl 50 mg tablet 50 mg PO BID PRN anxiety #60 tabs 07/12/19 11/26/21 11/25/21 Rx gabapentin 300 mg capsule 300 mg PO TID 08/15/19 11/26/21 11/25/21 History mirtazapine 15 mg tablet (Remeron) 15 mg PO BEDTIME 08/15/19 11/26/21 11/25/21 History cyanocobalamin (vitamin B-12) 1,000 mcg PO DAILY 09/14/19 11/26/21 11/25/21 History 1,000 mcg tablet (Vitamin B-12) norethindrone 1 mg-ethinyl 1 tab PO DAILY 09/14/19 11/26/2111/25/22 History estradiol 10 mcg (24)-iron 10 mcg(2) tablet (Lo Loestrin Fe) atorvastatin 40 mg tablet 40 mg PO DAILY 11/25/21 11/26/21 11/25/21 History buspirone 10 mg tablet 10 mg PO TID 11/25/21 11/26/21 11/25/21 History dulaglutide 1.5 mg/0.5 mL 1.5 mg SUBCUT DIRECTED 11/25/21 11/26/21 11/25/21 History subcutaneous pen injector (Trulicity) loratadine 10 mg tablet 10 mg PO DAILY 11/25/21 11/26/21 11/25/21 History mirtazapine 7.5 mg tablet 7.5 mg PO DAILY 11/25/21 11/26/21 11/25/21 History norgestimate 0.25 mg-ethinyl 0.25 tab PO DAILY 11/25/21 11/26/21 11/25/21 History estradiol 35 mcg tablet (Estarylla) olanzapine 5 mg tablet 5 mg PO BID 11/25/21 11/26/21 11/25/21 History prazosin 5 mg capsule 5 mg PO DAILY 11/25/21 11/26/21 11/25/21 History trazodone 100 mg tablet 100 mg PO DAILY 11/25/21 11/26/21 11/25/21 History valacyclovir 500 mg tablet 500 mg PO DAILY 11/25/21 11/26/21 11/25/21 History ziprasidone HCl 60 mg capsule 60 mg PO DAILY 11/25/21 11/26/21 11/25/21 History Allergies Allergy/AdvReac Type Severity Reaction Status Date / Time ibuprofen Allergy Unknown Unknown Verified 11/02/21 15:27 Penicillins Allergy Unknown Unknown Verified 11/02/21 15:27 strawberry Allergy Unknown Unknown Verified 11/02/21 15:27 carbamazepine Allergy Unknown Verified 11/02/21 15:27 egg Allergy Unknown Verified 11/25/21 10:06 latex Allergy Unknown Verified 11/25/21 10:06 REPLACED BY [facility] Anesthesia Medical History Chronic post-traumatic stress disorder Moderate intellectual disabilities Nicotine dependence, chewing tobacco, uncomplicated Schizoaffective disorder, bipolar type Social History Smoking and tobacco status: never smoked Female Reproductive History Date of last menstrual period: 11/11/21 Data Anesthesia Cardiac Studies: No Data to Display
[2021-11-26 12:14] VITALS: BP 111/71; PULSE 94; RESP 15; TEMP 36.8; O2SAT 99
[2021-11-26 12:15] VITALS: BP 111/71; PULSE 110; RESP 19; O2SAT 98
--- NOTE | 2021-11-26 12:18 | XR_ITS ---
WS: [id number] Right foot, 3 views portable, 11/26/2021 Clinical Data: post op Comparison: Right foot, 11/02/2021. Findings: The joint space between the right first metatarsal and first cuneiform has been fused with 2 plates a nd multiple screws. The right first toe proximal phalanx has had an osteotomy which is held in place by an oblique orthopedic pin. There is soft tissue swelling over the operative site. XR/XR foot RT min 3V* [id number] Impression: Fusion of the right first metatarsal cuneiform joint and osteotomy of the right first toe proximal phalanx correcting a bunion.
[2021-11-26 12:20] VITALS: BP 105/68; PULSE 95; RESP 20; TEMP 36.8; O2SAT 99
[2021-11-26 12:25] VITALS: BP 111/75; PULSE 92; RESP 17; TEMP 36.8; O2SAT 99
--- NOTE | 2021-11-26 12:34 | SUR.PHASEI ---
1212 PT TO PACU 5 PT AWAKE ALERT FOLLOWS COMMMAND, GOOD RESP EFFORT, MONITOR SR NO ECTOPY, IV TO RT AC #20 WITH NS 200ML UP AT KVO RATE PER GRAVITY, BOOT AND SOFT DRESSING IN PLACE DISTAL TOES PINK FOOT ELEVATED PER DR BALBUENA AT BEDSIDE, PT DENIES PAIN AND NAUSEA WARM BLANKETS TO PT X 3 ID BRACELET TO LT WRIST PT ID/D. X RAY CALLED 1226 PT VERY AAWKE ALERT ASKING FOR MOM, PT COOPERATIVE, DENIES PAIN AND NAUSEA VERBALLY X RAYS DONE, VSS PT TO OPS BAY 9 HANDOFF AT BEDSIDE, FAMILY AT BEDSIDE WELL.
--- NOTE | 2021-11-26 14:51 | ANE.PACU2 ---
Inpatient post-anesthesia follow up: Airway intact: Yes Vital signs: Temperature 98.3 F Pulse Rate 92 Respiratory Rate 17 Blood Pressure 111/75 Pulse Oximetry 99 Oxygen Delivery Me thod Room Air Oxygen Flow Rate Fraction of Inspir ed Oxygen Hydration adequate: Yes Nausea and vomiting: No Pain level: 2 Mental status: Baseline
== END 2021-11-26 13:18 | disposition home or self-care (01) ==
PROVIDERS: PCP Family Medicine; Visit Provider Podiatrist Foot & Ankle Surgery
PROC: (CPT 28297; principal; 2021-11-26 09:50)
DX: M21.612 Bunion of left foot (principal); M20.12 Hallux valgus (acquired), left foot; F17.220 Nicotine dependence, chewing tobacco, uncomplicated
CPT/HCPCS: 28297; 28298; 36416; 73630; 76000; 82962; C1713 ×2; C9290; J1100; J2250; J2405; J2704; J3010; J3490; J7030

== ENCOUNTER → 2021-12-09 14:48 | Outpatient (BNVA) | payer MEDICAID, SELFPAY | PROVIDERS: PCP Nurse Practitioner Family; Visit Provider Podiatrist Foot & Ankle Surgery | DX: Z98.890 Other specified postprocedural states (principal) | CPT/HCPCS: 73630; 99024 ==

== ENCOUNTER → 2021-12-23 14:16 | Outpatient (BNVA) | payer MEDICAID, SELFPAY | PROVIDERS: PCP Nurse Practitioner Family; Visit Provider Podiatrist Foot & Ankle Surgery | DX: Z98.890 Other specified postprocedural states (principal) | CPT/HCPCS: 73630; 99024 ==

== ENCOUNTER → 2022-01-13 09:54 | Outpatient (BNVA) | payer MEDICAID, SELFPAY | PROVIDERS: PCP Nurse Practitioner Family; Visit Provider Podiatrist Foot & Ankle Surgery | DX: Z98.890 Other specified postprocedural states (principal) | CPT/HCPCS: 73630; 99024 ==

== ENCOUNTER 2022-01-15 19:34 | Emergency (ER) | payer MEDICAID, SELFPAY ==
--- NOTE | 2022-01-15 19:38 | ED.C_ITS ---
Documented by User: Rancho Zapien MD 01/23/22 16:35 HPI - Psych General: Chief Complaint: Psychiatric Symptoms Stated Complaint: SI Time Seen by Provider: 01/15/22 19:37 History of Present Illness: Ms. Muniz is a 31-year-old lady with history of moderate intellectual disability, PTSD, schizoaffective disorder presenting to the emergency department due to suicidal ideation with a plan. She reports worsening symptoms for a few days which seems to be triggered by increased social stressors. She endorses difficulty sleeping associated with hallucinations and thoughts of hanging herself. Some auditory hallucinations tell her to kill her self. She sees visual hallucinations of family members. Denies actual attempt at this time. Intensity symptoms is severe. Course has worsened. No other specific changes in health, exacerbating, or alleviating factors identified. Onset (ago): day(s) Duration: getting worse History of same: Yes Context: significant life stressor Associated psychiatric symptoms: suicidal ideation Associated symptoms: Reports visual hallucinations, suicidal ideation and racing thoughts If self harm: admits thoughts of self harm and has plan Review of Systems General: Reports: 10 or more systems reviewed and unremarkable except in HPI and below Psych: Reports: visual hallucinations and suicidal ideation PFS ED PFSH: Medical History (Updated 01/15/22 @ 22:20 by Rancho Zapien MD) Chronic post-traumatic stress disorder Moderate intellectual disabilities Nicotine dependence, chewing tobacco, uncomplicated Schizoaffective disorder, bipolar type Social History Smoking and tobacco status: never smoked Female Reproductive History: Date of last menstrual period: 11/11/21 Physical Exam Const: COMMON NORMALS: alert GENERAL APPEARANCE: cooperative and well developed HENMT: COMMON NORMALS: normocephalic and atraumatic HEAD & SCALP: normocephalic and atraumatic THROAT: posterior oropharynx normal Eye: COMMON NORMALS: conjunctivae normal CONJUNCTIVA: Yes conjunctivae normal SCLERA: sclerae normal Neck/C-Spine: COMMON NORMALS: supple GENERAL: Yes trachea midline Resp: COMMON NORMALS: normal respiratory effort EFFORT & INSPECTION: Yes able to speak in complete sentences Cardio: COMMON NORMALS: regular rate and regular rhythm RATE: regular rate RHYTHM: regular rhythm GI: COMMON NORMALS: Soft to palpation PALPATION: Yes Soft to palpation and No Tenderness to palpation present (GI) PERCUSSION: normal to percussion Extremity: GENERAL: Yes normal exam except as noted and No edema Neuro: COMMON NORMALS: moves all extremities SENSORIUM/ORIENTATION: Yes alert and No Orientation impaired Psych: COMMON NORMALS: mental status grossly normal and Normal thought process present ATTITUDE: Yes Withdrawn affect present MOOD & AFFECT: Yes depressed mood THOUGHT PROCESS: Normal thought process present THOUGHT CONTENT: Yes Suicidality present and Yes Hallucination(s) present INSIGHT: Good insight present (Psych) Course Vital Signs: Vital signs: Vital Signs Temperature 96.7 F L 01/16/22 05:04 Pulse Rate 108 H 01/16/22 17:17 Respiratory Rate 12 01/16/22 05:04 Blood Pressure 118/74 01/16/22 17:17 Pulse Oximetry 98 01/16/22 17:17 Oxygen Delivery Me thod 01/16/22 05:04 MDM - Psych Medical Decision Making 31-year-old with history of schizoaffective disorder presenting to the emergency department due to depression with suicidal ideation and plan to hang herself. Worsening symptoms over the past few days in the context of social stressors. Has been compliant with medication regimen. Initial exam with cooperative calm patient, nontoxic in appearance without medical complaints. EKG shows nonspecific changes though given absence of cardiac symptoms and patient's age as well as risk factors this does not require acute intervention or testing further, okay for further outpatient follow-up with primary care provider. Laboratory studies reviewed, mild leukocytosis which is nonspecific in the ab sence of infectious symptoms, hemoglobin negative. Electrolyte panel unremarkable. TSH elevated but free T4 is normal. Urinalysis not concerning for urinary tract infection. hCG negative. Toxic ingestions and UDS negative. No indication for imaging at this time. Based on worsening symptoms including suicidal ideation with a plan I believe the patient is reasonable for inpatient management and psychiatric assessment, stabilization, and treatment. Based on ED evaluation at this point there is no obvious condition that would preclude inpatient management of psychiatric concerns. Plan to look for placement as our facility has no beds at this time. Patient handed off to Dr. Cruz pending accepting outside facility. Medical Records I reviewed the patient's medical records. Lab Data I reviewed the patient's lab results. : 01/15/22 19:55 01/15/22 19:55 Laboratory Results WBC 12.9 10^3/uL (4.0-10.0) H 01/15/22 19:55 RBC 4.32 10^6/uL (4.1-5.3) 01/15/22 19:55 Hgb 13.1 g/dL (11.5-15.3) 01/15/22 19:55 Hct 40.2 % (37.0-47.0) 01/15/22 19:55 MCV 93.1 fl (81-99) 01/15/22 19:55 MCH 30.3 pg (28.0-34.0) 01/15/22 19:55 MCHC 32.6 g/dL (30.0-36.0) 01/15/22 19:55 RDW 12.8 % (12.1-15.1) 01/15/22 19:55 Plt Count 368 10^3/cmm (130-400) 01/15/22 19:55 MPV 9.5 fL (7.4-10.4) 01/15/22 19:55 Neut % (Auto) 56.7 % 01/15/22 19:55 Lymph % (Auto) 33.2 % 01/15/22 19:55 Sully % (Auto) 5.0 % 01/15/22 19:55 Eos % (Auto) 4.2 % 01/15/22 19:55 Baso % (Auto) 0.5 % 01/15/22 19:55 Neut # (Auto) 7.34 10^3/uL (1.8-7.7) 01/15/22 19:55 Lymph # (Auto) 4.3 10^3/uL (0.8-4.8) 01/15/22 19:55 Sully # (Auto) 0.7 10^3/uL (0.2-0.9) 01/15/22 19:55 Eos # (Auto) 0.5 10^3/uL (0.0-0.8) 01/15/22 19:55 Baso # (Auto) 0.1 10^3/uL (0.0-0.1) 01/15/22 19:55 Nucleated RBC % (auto) 0 % 01/15/22 19:55 Nucleated RBCs # 0.0 /100WBC 01/15/22 19:55 Sodium 136 mmol/L (136-145) 01/15/22 19:55 Potassium 3.8 mmol/L (3.5-5.1) 01/15/22 19:55 Chloride 104 mmol/L (98-107) 01/15/22 19:55 Carbon Dioxide 20 mmol/L (22-29) L 01/15/22 19:55 Anion Gap 15.8 (5-19) 01/15/22 19:55 BUN 8 mg/dL (6-20) 01/15/22 19:55 Creatinine 0.7 mg/dL (0.5-0.9) 01/15/22 19:55 GFR Calculation 97.0 mL/min (90-130) 01/15/22 19:55 Glucose 113 mg/dL (65-115) 01/15/22 19:55 Calculated Osmolality 281 mOsm/kg (285-295) L 01/15/22 19:55 Calcium 9.4 mg/dL (8.5-10.5) 01/15/22 19:55 Total Bilirubin 0.2 mg/dL (0.15-1.2) 01/15/22 19:55 AST 14 U/L (0-32) 01/15/22 19:55 ALT 24 U/L (0-33) 01/15/22 19:55 Alkaline Phosphatase 74 U/L (35-105) 01/15/22 19:55 Total Protein 6.8 g/dL (6.6-8.7) 01/15/22 19:55 Albumin 4.0 g/dL (3.5-5.2) 01/15/22 19:55 Globulin 2.8 g/dL (1.3-4.6) 01/15/22 19:55 TSH 6.15 uIU/mL (0.27-4.20) H 01/15/22 19:55 Free T4 1.40 ng/dL (0.82-1.77) 01/15/22 19:55 HCG, Qual Negative (Negative) 01/15/22 20:19 Urine Color Yellow (Yellow) 01/15/22 20:19 Urine Appearance Sl hazy (CLEAR) A 01/15/22 20:19 Urine pH 9 (5-7) H 01/15/22 20:19 Ur Specific [place] 1.015 (1.005-1.030) 01/15/22 20:19 Urine Protein Neg (Negative) 01/15/22 20:19 Urine Glucose (UA) Norm (Normal) 01/15/22 20:19 Urine Ketones Negative (Negative) 01/15/22 20:19 Urine Blood Neg (Negative) 01/15/22 20:19 Urine Nitrate Negative (Negative) 01/15/22 20:19 Urine Bilirubin Neg (Negative) 01/15/22 20:19 Prot Sulfosalicylic Acd Negative (Negative) 01/15/22 20:19 Urine Urobilinogen 1 mg/dL (Negative) H 01/15/22 20:19 Ur Leukocyte Esterase Negative (Negative) 01/15/22 20:19 Salicylates < 0.3 mg/dL (3-10) L 01/15/22 19:55 Urine Opiates Screen Negative ng/mL (Negative) 01/15/22 20:19 Acetaminophen < 5.0 ug/mL (10-30) L 01/15/22 19:55 Ur Barbiturates Screen Negative ng/mL (Negative) 01/15/22 20:19 Ur Phencyclidine Scrn Negative ng/mL (Negative) 01/15/22 20:19 Ur Amphetamines Screen Negative ng/mL (Negative) 01/15/22 20:19 U Benzodiazepines Scrn Negative ng/mL (Negative) 01/15/22 20:19 Urine Cocaine Screen Negative ng/mL (Negative) 01/15/22 20:19 U Marijuana (THC) Screen Negative ng/mL (Negative) 01/15/22 20:19 Ethyl Alcohol < 10 mg/dL (0-10) 01/15/22 19:55 SARS-CoV-2 Ag (Rapid) negative (Negative) 01/15/22 20:25 Discharge Plan Discharge Patient Disposition: Home Clinical Impression: Schizoaffective disorder, bipolar type, Depression with suicidal ideation, Hallucinations Condition: Stable Prescriptions: No Action levothyroxine 50 mcg capsule 50 mcg PO DAILY metformin 500 mg tablet 500 mg PO BID simvastatin 20 mg tablet 40 mg PO DAILY ergocalciferol (vitamin D2) 1,250 mcg (50,000 unit) capsule 1,250 mcg PO Q7D Rx Instructions: TAKES ON MONDAY hydroxyzine HCl 50 mg tablet 50 mg PO BID PRN (Reason: anxiety) Qty: 60 3RF cyanocobalamin (vitamin B-12) [Vitamin B-12] 1,000 mcg Tablet 1,000 mcg PO DAILY Lo Loestrin Fe 1 mg-10 mcg (24)/10 mcg (2) Tablet 1 tab PO DAILY gabapentin 300 mg Capsule 300 mg PO TID mirtazapine [Remeron] 15 mg tablet 15 mg PO BEDTIME atorvastatin 40 mg tablet 40 mg PO DAILY norgestimate-ethinyl estradiol [Estarylla] 0.25-35 mg-mcg tablet 0.25 tab PO DAILY olanzapine 5 mg tablet 5 mg PO BID valacyclovir 500 mg tablet 500 mg PO DAILY prazosin 5 mg capsule 5 mg PO DAILY trazodone 100 mg tablet 100 mg PO DAILY buspirone 10 mg tablet 10 mg PO TID ziprasidone HCl 60 mg capsule 60 mg PO DAILY loratadine 10 mg tablet 10 mg PO DAILY mirtazapine 7.5 mg tablet 7.5 mg PO DAILY Trulicity 1.5 mg/0.5 mL pen injector 1.5 mg SUBCUT DIRECTED Rx Instructions: once weekly Discharge Orders: Discharge ED (Routine); Ordered 01/16/22 Ordered By: Emory Bergman Referrals: Alayna Holland FNP [Primary Care Provider] - Discharge Diet: Usual diet Discharge Activity: Resume usual activity Patient Instructions: Opioid Safety, Pain Management Activity Restrictions/Additional Instructions: These follow-up with outpatient behavioral health and follow discharge plans discussed with Dr. Lowe Sign Out Sign Out Data: Patient Sign Out occurred on 01/16/22 at 06:45. Patient's care was discussed, and care was transferred from to Emory Bergman DO. Coding Level of Care Code ED Director Of Diagnostic Imaging for Chg Fwd Exam Comprehensive Documented by User: Elijah Cruz DO 01/16/22 05:14 HPI - Psych General: Chief Complaint: Psychiatric Symptoms Stated Complaint: SI Time Seen by Provider: 01/15/22 19:37 PFSH ED PFSH: Medical History (Updated 01/15/22 @ 22:20 by Rancho Zapien MD) Chronic post-traumatic stress disorder Moderate intellectual disabilities Nicotine dependence, chewing tobacco, uncomplicated Schizoaffective disorder, bipolar type Social History Smoking and tobacco status: never smoked Course Vital Signs: Vital signs: Vital Signs Temperature 96.7 F L 01/16/22 05:04 Pulse Rate 108 H 01/16/22 17:17 Respiratory Rate 12 01/16/22 05:04 Blood Pressure 118/74 01/16/22 17:17 Pulse Oximetry 98 01/16/22 17:17 Oxygen Delivery Me thod 01/16/22 05:04 MDM - Psych Medical Decision Making 31-year-old with history of schizoaffective disorder presenting to the emergency department due to depression with suicidal ideation and plan to hang herself. Worsening symptoms over the past few days in the context of social stressors. Has been compliant with medication regimen. Initial exam with cooperative calm patient, nontoxic in appearance without medical complaints. EKG shows nonspecific changes though given absence of cardiac symptoms and new méndez's age as well as risk factors this does not require acute intervention or testing further, okay for further outpatient follow-up with primary care provider. Laboratory studies reviewed, mild leukocytosis which is nonspecific in the absence of infectious symptoms, hemoglobin negative. Electrolyte panel unremarkable. TSH elevated but free T4 is normal. Urinalysis not concerning for urinary tract infection. hCG negative. Toxic ingestions and UDS negative. No indication for imaging at this time. Based on worsening symptoms including suicidal ideation with a plan I believe the patient is reasonable for inpatient management and psychiatric assessment, stabilization, and treatment. Based on ED evaluation at this point there is no obvious condition that would preclude inpatient management of psychiatric concerns. Plan to look for placement as our facility has no beds at this time. Patient handed off to Dr. Cruz pending accepting outside facility. 5:08 AM: This patient was checked out to me at shift change as above. She remains medically stable. No beds available at our facility. We are still looking for her a bed at an appropriate psychiatric facility. She will be leidy cked out to the oncoming physician at shift change. Lab Data : 01/15/22 19:55 01/15/22 19:55 Laboratory Results WBC 12.9 10^3/uL (4.0-10.0) H 01/15/22 19:55 RBC 4.32 10^6/uL (4.1-5.3) 01/15/22 19:55 Hgb 13.1 g/dL (11.5-15.3) 01/15/22 19:55 Hct 40.2 % (37.0-47.0) 01/15/22 19:55 MCV 93.1 fl (81-99) 01/15/22 19:55 MCH 30.3 pg (28.0-34.0) 01/15/22 19:55 MCHC 32.6 g/dL (30.0-36.0) 01/15/22 19:55 RDW 12.8 % (12.1-15.1) 01/15/22 19:55 Plt Count 368 10^3/cmm (130-400) 01/15/22 19:55 MPV 9.5 fL (7.4-10.4) 01/15/22 19:55 Neut % (Auto) 56.7 % 01/15/22 19:55 Lymph % (Auto) 33.2 % 01/15/22 19:55 Sully % (Auto) 5.0 % 01/15/22 19:55 Eos % (Auto) 4.2 % 01/15/22 19:55 Baso % (Auto) 0.5 % 01/15/22 19:55 Neut # (Auto) 7.34 10^3/uL (1.8-7.7) 01/15/22 19:55 Lymph # (Auto) 4.3 10^3/uL (0.8-4.8) 01/15/22 19:55 Sully # (Auto) 0.7 10^3/uL (0.2-0.9) 01/15/22 19:55 Eos # (Auto) 0.5 10^3/uL (0.0-0.8) 01/15/22 19:55 Baso # (Auto) 0.1 10^3/uL (0.0-0.1) 01/15/22 19:55 Nucleated RBC % (auto) 0 % 01/15/22 19:55 Nucleated RBCs # 0.0 /100WBC 01/15/22 19:55 Sodium 136 mmol/L (136-145) 01/15/22 19:55 Potassium 3.8 mmol/L (3.5-5.1) 01/15/22 19:55 Chloride 104 mmol/L (98-107) 01/15/22 19:55 Carbon Dioxide 20 mmol/L (22-29) L 01/15/22 19:55 Anion Gap 15.8 (5-19) 01/15/22 19:55 BUN 8 mg/dL (6-20) 01/15/22 19:55 Creatinine 0.7 mg/dL (0.5-0.9) 01/15/22 19:55 GFR Calculation 97.0 mL/min (90-130) 01/15/22 19:55 Glucose 113 mg/dL (65-115) 01/15/22 19:55 Calculated Osmolality 281 mOsm/kg (285-295) L 01/15/22 19:55 Calcium 9.4 mg/dL (8.5-10.5) 01/15/22 19:55 Total Bilirubin 0.2 mg/dL (0.15-1.2) 01/15/22 19:55 AST 14 U/L (0-32) 01/15/22 19:55 ALT 24 U/L (0-33) 01/15/22 19:55 Alkaline Phosphatase 74 U/L (35-105) 01/15/22 19:55 Total Protein 6.8 g/dL (6.6-8.7) 01/15/22 19:55 Albumin 4.0 g/dL (3.5-5.2) 01/15/22 19:55 Globulin 2.8 g/dL (1.3-4.6) 01/15/22 19:55 TSH 6.15 uIU/mL (0.27-4.20) H 01/15/22 19:55 Free T4 1.40 ng/dL (0.82-1.77) 01/15/22 19:55 HCG, Qual Negative (Negative) 01/15/22 20:19 Urine Color Yellow (Yellow) 01/15/22 20:19 Urine Appearance Sl hazy (CLEAR) A 01/15/22 20:19 Urine pH 9 (5-7) H 01/15/22 20:19 Ur Specific [place] 1.015 (1.005-1.030) 01/15/22 20:19 Urine Protein Neg (Negative) 10/29/22 20:19 Urine Glucose (UA) Norm (Normal) 01/15/22 20:19 Urine Ketones Negative (Negative) 01/15/22 20:19 Urine Blood Neg (Negative) 01/15/22 20:19 Urine Nitrate Negative (Negative) 01/15/22 20:19 Urine Bilirubin Neg (Negative) 01/15/22 20:19 Prot Sulfosalicylic Acd Negative (Negative) 01/15/22 20:19 Urine Urobilinogen 1 mg/dL (Negative) H 01/15/22 20:19 Ur Leukocyte Esterase Negative (Negative) 01/15/22 20:19 Salicylates < 0.3 mg/dL (3-10) L 01/15/22 19:55 Urine Opiates Screen Negative ng/mL (Negative) 01/15/22 20:19 Acetaminophen < 5.0 ug/mL (10-30) L 01/15/22 19:55 Ur Barbiturates Screen Negative ng/mL (Negative) 01/15/22 20:19 Ur Phencyclidine Scrn Negative ng/mL (Negative) 01/15/22 20:19 Ur Amphetamines Screen Negative ng/mL (Negative) 01/15/22 20:19 U Benzodiazepines Scrn Negative ng/mL (Negative) 01/15/22 20:19 Urine Cocaine Screen Negative ng/mL (Negative) 01/15/22 20:19 U Marijuana (THC) Screen Negative ng/mL (Negative) 01/15/22 20:19 Ethyl Alcohol < 10 mg/dL (0-10) 01/15/22 19:55 SARS-CoV-2 Ag (Rapid) negative (Negative) 01/15/22 20:25 Discharge Plan Discharge Patient Disposition: Home Clinical Impression: Schizoaffective disorder, bipolar type, Depression with suicidal ideation, Hallucinations Condition: Stable Prescriptions: No Action levothyroxine 50 mcg capsule 50 mcg PO DAILY metformin 500 mg tablet 500 mg PO BID simvastatin 20 mg tablet 40 mg PO DAILY ergocalciferol (vitamin D2) 1,250 mcg (50,000 unit) capsule 1,250 mcg PO Q7D Rx Instructions: TAKES ON MONDAY hydroxyzine HCl 50 mg tablet 50 mg PO BID PRN (Reason: anxiety) Qty: 60 3RF cyanocobalamin (vitamin B-12) [Vitamin B-12] 1,000 mcg Tablet 1,000 mcg PO DAILY Lo Loestrin Fe 1 mg-10 mcg (24)/10 mcg (2) Tablet 1 tab PO DAILY gabapentin 300 mg Capsule 300 mg PO TID mirtazapine [Remeron] 15 mg tablet 15 mg PO BEDTIME atorvastatin 40 mg tablet 40 mg PO DAILY norgestimate-ethinyl estradiol [Estarylla] 0.25-35 mg-mcg tablet 0.25 tab PO DAILY olanzapine 5 mg tablet 5 mg PO BID valacyclovir 500 mg tablet 500 mg PO DAILY prazosin 5 mg capsule 5 mg PO DAILY trazodone 100 mg tablet 100 mg PO DAILY buspirone 10 mg tablet 10 mg PO TID ziprasidone HCl 60 mg capsule 60 mg PO DAILY loratadine 10 mg tablet 10 mg PO DAILY mirtazapine 7.5 mg tablet 7.5 mg PO DAILY Trulicity 1.5 mg/0.5 mL pen injector 1.5 mg SUBCUT DIRECTED Rx Instructions: once weekly Discharge Orders: Discharge ED (Routine); Ordered 01/16/22 Ordered By: Emory Bergman Referrals: Alayna Holland FNP [Primary Care Provider] - Discharge Diet: Usual diet Discharge Activity: Resume usual activity Patient Instructions: Opioid Safety, Pain Management Activity Restrictions/Additional Instructions: These follow-up with outpatient behavioral health and follow discharge plans discussed with Dr. Lowe Sign Out Sign Out Data: Patient Sign Out occurred on 01/16/22 at 06:45. Patient's care was discussed, and care was transferred from to Emory Bergman DO. Coding Level of Care Code ED Director Of Diagnostic Imaging for Chg Fwd Exam Comprehensive Documented by User: Emory Bergman DO 01/16/22 17:09 HPI - Psych General: Chief Complaint: Psychiatric Symptoms Stated Complaint: SI Time Seen by Provider: 01/15/22 19:37 PFSH ED PFSH: Medical History (Updated 01/15/22 @ 22:20 by Rancho Zapien MD) Chronic post-traumatic stress disorder Moderate intellectual disabilities Nicotine dependence, chewing tobacco, uncomplicated Schizoaffective disorder, bipolar type Social History Smoking and tobacco status: never smoked Course Vital Signs: Vital signs: Vital Signs Temperature 96.7 F L 01/16/22 05:04 Pulse Rate 108 H 01/16/22 17:17 Respiratory Rate 12 01/16/22 05:04 Blood Pressure 118/74 01/16/22 17:17 Pulse Oximetry 98 01/16/22 17:17 Oxygen Delivery Me thod 01/16/22 05:04 MDM - Psych Medical Decision Making 31-year-old with history of schizoaffective disorder presenting to the emergency department due to depression with suicidal ideation and plan to hang herself. Worsening symptoms over the past few days in the context of social stressors. Has been compliant with medication regimen. Initial exam with cooperative calm patient, nontoxic in appearance without medical complaints. EKG shows nonspecific changes though given absence of cardiac symptoms and patie nt's age as well as risk factors this does not require acute intervention or testing further, okay for further outpatient follow-up with primary care provider. Laboratory studies reviewed, mild leukocytosis which is nonspecific in the absence of infectious symptoms, hemoglobin negative. Electrolyte panel unremarkable. TSH elevated but free T4 is normal. Urinalysis not concerning for urinary tract infection. hCG negative. Toxic ingestions and UDS negative. No indication for imaging at this time. Based on worsening symptoms including suicidal ideation with a plan I believe the patient is reasonable for inpatient management and psychiatric assessment, stabilization, and treatment. Based on ED evaluation at this point there is no obvious condition that would preclude inpatient management of psychiatric concerns. Plan to look for placement as our facility has no beds at this time. Patient handed off to Dr. Cruz pending accepting outside facility. 5:08 AM: This patient was checked out to me at shift change as above. She remains medically stable. No beds available at our facility. We are still looking for her a bed at an appropriate psychiatric facility. She will be checked out to the oncoming physician at shift change. 1700 patient was reevaluated by Dr. Lowe. Following reevaluation Dr. Lowe felt that she was okay to be discharged home as she is not currently suicidal and she does have some developmental delay. Patient remained stable throughout her ER stay. Patient was discharged in stable condition Lab Data : 01/15/22 19:55 01/15/22 19:55 Laboratory Results WBC 12.9 10^3/uL (4.0-10.0) H 01/15/22 19:55 RBC 4.32 10^6/uL (4.1-5.3) 01/15/22 19:55 Hgb 13.1 g/dL (11.5-15.3) 01/15/22 19:55 Hct 40.2 % (37.0-47.0) 01/15/22 19:55 MCV 93.1 fl (81-99) 01/15/22 19:55 MCH 30.3 pg (28.0-34.0) 01/15/22 19:55 MCHC 32.6 g/dL (30.0-36.0) 01/15/22 19:55 RDW 12.8 % (12.1-15.1) 01/15/22 19:55 Plt Count 368 10^3/cmm (130-400) 01/15/22 19:55 MPV 9.5 fL (7.4-10.4) 01/15/22 19:55 Neut % (Auto) 56.7 % 01/15/22 19:55 Lymph % (Auto) 33.2 % 01/15/22 19:55 Sully % (Auto) 5.0 % 01/15/22 19:55 Eos % (Auto) 4.2 % 01/15/22 19:55 Baso % (Auto) 0.5 % 01/15/22 19:55 Neut # (Auto) 7.34 10^3/uL (1.8-7.7) 01/15/22 19:55 Lymph # (Auto) 4.3 10^3/uL (0.8-4.8) 01/15/22 19:55 Sully # (Auto) 0.7 10^3/uL (0.2-0.9) 01/15/22 19:55 Eos # (Auto) 0.5 10^3/uL (0.0-0.8) 01/15/22 19:55 Baso # (Auto) 0.1 10^3/uL (0.0-0.1) 01/15/22 19:55 Nucleated RBC % (auto) 0 % 01/15/22 19:55 Nucleated RBCs # 0.0 /100WBC 01/15/22 19:55 Sodium 136 mmol/L (136-145) 01/15/22 19:55 Potassium 3.8 mmol/L (3.5-5.1) 01/15/22 19:55 Chloride 104 mmol/L (98-107) 01/15/22 19:55 Carbon Dioxide 20 mmol/L (22-29) L 01/15/22 19:55 Anion Gap 15.8 (5-19) 01/15/22 19:55 BUN 8 mg/dL (6-20) 01/15/22 19:55 Creatinine 0.7 mg/dL (0.5-0.9) 01/15/22 19:55 GFR Calculation 97.0 mL/min (90-130) 01/15/22 19:55 Glucose 113 mg/dL (65-115) 01/15/22 19:55 Calculated Osmolality 281 mOsm/kg (285-295) L 01/15/22 19:55 Calcium 9.4 mg/dL (8.5-10.5) 01/15/22 19:55 Total Bilirubin 0.2 mg/dL (0.15-1.2) 01/15/22 19:55 AST 14 U/L (0-32) 01/15/22 19:55 ALT 24 U/L (0-33) 01/15/22 19:55 Alkaline Phosphatase 74 U/L (35-105) 01/15/22 19:55 Total Protein 6.8 g/dL (6.6-8.7) 01/15/22 19:55 Albumin 4.0 g/dL (3.5-5.2) 01/15/22 19:55 Globulin 2.8 g/dL (1.3-4.6) 01/15/22 19:55 TSH 6.15 uIU/mL (0.27-4.20) H 01/15/22 19:55 Free T4 1.40 ng/dL (0.82-1.77) 01/15/22 19:55 HCG, Qual Negative (Negative) 01/15/22 20:19 Urine Color Yellow (Yellow) 01/15/22 20:19 Urine Appearance Sl hazy (CLEAR) A 01/15/22 20:19 Urine pH 9 (5-7) H 01/15/22 20:19 Ur Specific [place] 1.015 (1.005-1.030) 01/15/22 20:19 Urine Protein Neg (Negative) 01/15/22 20:19 Urine Glucose (UA) Norm (Normal) 01/15/22 20:19 Urine Ketones Negative (Negative) 01/15/22 20:19 Urine Blood Neg (Negative) 01/15/22 20:19 Urine Nitrate Negative (Negative) 01/15/22 20:19 Urine Bilirubin Neg (Negative) 01/15/22 20:19 Prot Sulfosalicylic Acd Negative (Negative) 01/15/22 20:19 Urine Urobilinogen 1 mg/dL (Negative) H 01/15/22 20:19 Ur Leukocyte Esterase Negative (Negative) 01/15/22 20:19 Salicylates < 0.3 mg/dL (3-10) L 01/15/22 19:55 Urine Opiates Screen Negative ng/mL (Negative) 01/15/22 20:19 Acetaminophen < 5.0 ug/mL (10-30) L 01/15/22 19:55 Ur Barbiturates Screen Negative ng/mL (Negative) 01/15/22 20:19 Ur Phencyclidine Scrn Negative ng/mL (Negative) 01/15/22 20:19 Ur Amphetamines Screen Negative ng/mL (Negative) 01/15/22 20:19 U Benzodiazepines Scrn Negative ng/mL (Negative) 01/15/22 20:19 Urine Cocaine Screen Negative ng/mL (Negative) 01/15/22 20:19 U Marijuana (THC) Screen Negative ng/mL (Negative) 01/15/22 20:19 Ethyl Alcohol < 10 mg/dL (0-10) 01/15/22 19:55 SARS-CoV-2 Ag (Rapid) negative (Negative) 01/15/22 20:25 Discharge Plan Discharge Patient Disposition: Home Clinical Impression: Schizoaffective disorder, bipolar type, Depression with suicidal ideation, Hallucinations Condition: Stable Prescriptions: No Action levothyroxine 50 mcg capsule 50 mcg PO DAILY metformin 500 mg tablet 500 mg PO BID simvastatin 20 mg tablet 40 mg PO DAILY ergocalciferol (vitamin D2) 1,250 mcg (50,000 unit) capsule 1,250 mcg PO Q7D Rx Instructions: TAKES ON MONDAY hydroxyzine HCl 50 mg tablet 50 mg PO BID PRN (Reason: anxiety) Qty: 60 3RF cyanocobalamin (vitamin B-12) [Vitamin B-12] 1,000 mcg Tablet 1,000 mcg PO DAILY Lo Loestrin Fe 1 mg-10 mcg (24)/10 mcg (2) Tablet 1 tab PO DAILY gabapentin 300 mg Capsule 300 mg PO TID mirtazapine [Remeron] 15 mg tablet 15 mg PO BEDTIME atorvastatin 40 mg tablet 40 mg PO DAILY norgestimate-ethinyl estradiol [Estarylla] 0.25-35 mg-mcg tablet 0.25 tab PO DAILY olanzapine 5 mg tablet 5 mg PO BID valacyclovir 500 mg tablet 500 mg PO DAILY prazosin 5 mg capsule 5 mg PO DAILY trazodone 100 mg tablet 100 mg PO DAILY buspirone 10 mg tablet 10 mg PO TID ziprasidone HCl 60 mg capsule 60 mg PO DAILY loratadine 10 mg tablet 10 mg PO DAILY mirtazapine 7.5 mg tablet 7.5 mg PO DAILY Trulicity 1.5 mg/0.5 mL pen injector 1.5 mg SUBCUT DIRECTED Rx Instructions: once weekly Discharge Orders: Discharge ED (Routine); Ordered 01/16/22 Ordered By: Emory Bergman Referrals: Alayna Holland FNP [Primary Care Provider] - Discharge Diet: Usual diet Discharge Activity: Resume usual activity Patient Instructions: Opioid Safety, Pain Management Activity Restrictions/Additional Instructions: These follow-up with outpatient behavioral health and follow discharge plans discussed with Dr. Lowe Sign Out Sign Out Data: Patient Sign Out occurred on 01/16/22 at 06:45. Patient's care was discussed, and care was transferred from to Emory Bergman DO. Coding Level of Care Code ED Director Of Diagnostic Imaging for Misag Fwd Exam Comprehensive
[2022-01-15 19:44] VITALS: BP 128/84; PULSE 96; RESP 17; O2SAT 97; BMI 28.1
[2022-01-15 19:48] VITALS: TEMP 36.8
[2022-01-15 20:14] LABS: Basophils # 0.1 10^3/uL (0.0-0.1); Basophils % 0.5 %; Eosinophils # 0.5 10^3/uL (0.0-0.8); Eosinophils % 4.2 %; Hematocrit 40.2 % (37.0-47.0); Hemoglobin 13.1 g/dL (11.5-15.3); Lymphocytes # 4.3 10^3/uL (0.8-4.8); Lymphocytes % 33.2 %; Mean Corpuscular HGB Conc 32.6 g/dL (30.0-36.0); Mean Corpuscular Hemoglobin 30.3 pg (28.0-34.0); Mean Corpuscular Volume 93.1 fl (81-99); Mean Platelet Volume 9.5 fL (7.4-10.4); Monocytes # 0.7 10^3/uL (0.2-0.9); Neutrophils # 7.34 10^3/uL (1.8-7.7); Neutrophils % 56.7 %; Nucleated Red Blood Cells % 0 %; Platelet Count 368 10^3/cmm (130-400); Red Blood Count 4.32 10^6/uL (4.1-5.3); Red Cell Distribution Width 12.8 % (12.1-15.1); White Blood Count 12.9 10^3/uL (4.0-10.0)
--- NOTE | 2022-01-15 20:19 | ECG_ITS ---
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 Measurements Intervals [place] Rate: 76 P: 36 IN: 145 QRS: 78 QRSD: 91 T: 19 QT: 372 QTc: 420 Interpretive Statements SINUS RHYTHM LOW QRS VOLTAGE IN PRECORDIAL LEADS [QRS DEFLECTION < 1.0 mV IN CHEST LEADS] INCOMPLETE RIGHT BUNDLE BRANCH BLOCK [90+ ms QRS DURATION, TERMINAL R IN V1/V2, 40+ ms S IN I/aVL/V4/V5/V6] Compared to ECG 08/11/2018 11:19:16 Low QRS voltage now present Incomplete right bundle-branch block now present T-wave abnormality no longer present Possible ischemia no longer present Electronically Signed On 01-16-2022 10:15:43 CDT by Eddie Solano M.D. [id number]
[2022-01-15 20:25] LABS: Add Urine Microscopic? NO; Charge for UA Resulting for Rev
[2022-01-15 20:27] LABS: HCG Qualitative Urine. Negative (Negative)
[2022-01-15 20:32] LABS: Bilirubin Urine Neg (Negative); Blood Urine Neg (Negative); Glucose Urine UA Norm (Normal); Ketones Urine Negative (Negative); Leukocyte Esterase Urine Negative (Negative); Nitrate Urine Negative (Negative); Protein Urine Neg (Negative); Specific Gravity, Urine 1.015 (1.005-1.030); Sulfosalicylic Acid Urine Negative (Negative); Urine Appearance SL Hazy (CLEAR); Urine Color Yellow (Yellow); Urobilinogen Urine 1 mg/dL (Negative); pH Urine 9 (5-7)
[2022-01-15 20:36] LABS: Amphetamines Screen Urine Negative (Negative); Barbiturates Screen Urine Negative (Negative); Benzodiazepines Screen Urine Negative (Negative); Cocaine Screen Urine Negative (Negative); Opiate Screen Urine Negative (Negative); PCP Screen Urine Negative (Negative); THC Screen Urine Negative (Negative)
[2022-01-15 20:41] LABS: Alanine Aminotransferase 24 U/L (0-33); Alkaline Phosphatase 74 U/L (35-105); Anion Gap 15.8 (5-19); Aspartate Amino Transferase 14 U/L (0-32); Blood Urea Nitrogen 8 mg/dL (6-20); Calcium 9.4 mg/dL (8.5-10.5); Carbon Dioxide 20 mmol/L (22-29); Chloride 104 mmol/L (98-107); Globulin 2.8 g/dL (1.3-4.6); Glucose 113 mg/dL (65-115); Osmolality Calculated 281 mOsm/kg (285-295); Potassium 3.8 mmol/L (3.5-5.1); Salicylate < 0.3 mg/dL (3-10); Sodium 136 mmol/L (136-145); Thyroid Stimulating Hormone 6.15 uIU/mL (0.27-4.20); Total Bilirubin 0.2 mg/dL (0.15-1.2); Total Protein 6.8 g/dL (6.6-8.7)
[2022-01-15 20:42] LABS: Acetaminophen < 5.0 ug/mL (10-30); Alcohol Level < 10 mg/dL (0-10)
[2022-01-15 20:47] LABS: Slide Review Slide Review Perform
[2022-01-15 21:04] LABS: SARS Covid-2 Antigen negative (Negative)
[2022-01-15] MEDS: mirtazapine 15 mg Tablet 7.5 MG PO (21:52)
[2022-01-15] MEDS: OLANZapine 5 mg TABLET PO (21:53)
[2022-01-15] MEDS: trazodone 100 mg Tablet PO (21:53)
[2022-01-15] MEDS: gabapentin 300 mg Capsule PO (21:53)
[2022-01-15] MEDS: atorvastatin 40 mg Tablet PO (21:53)
[2022-01-15] MEDS: mirtazapine 15 mg Tablet PO (21:54)
[2022-01-15] MEDS: BuSPIRONE 10 mg Tablet PO (21:54)
[2022-01-15 22:54] VITALS: BP 104/76; PULSE 85; O2SAT 100
[2022-01-15] MEDS: prazosin 5 mg Capsule PO (22:55)
[2022-01-16 05:04] VITALS: BP 93/57; PULSE 77; RESP 12; TEMP 35.9; O2SAT 97
--- NOTE | 2022-01-16 07:41 | PC.NURSE ---
report given to KOREY Fetnon @0735
[2022-01-16] MEDS: cyanocobalamin 1,000 mcg Tablet 1000 MCG PO (09:44)
[2022-01-16] MEDS: levothyroxine 50 mcg Tablet PO (09:44)
[2022-01-16] MEDS: gabapentin 300 mg Capsule PO ×2 (09:44→16:12)
[2022-01-16] MEDS: loratadine 10 mg Tablet PO (09:44)
[2022-01-16] MEDS: metformin 500 mg Tablet PO (09:44)
[2022-01-16] MEDS: OLANZapine 5 mg TABLET PO (09:44)
[2022-01-16] MEDS: BuSPIRONE 10 mg Tablet PO ×2 (09:44→16:12)
[2022-01-16] MEDS: topiramate 25 mg Tablet 75 MG PO (09:45)
[2022-01-16] MEDS: ziprasidone hcl 60 mg Capsule PO (16:12)
[2022-01-16 17:17] VITALS: BP 118/74; PULSE 108; O2SAT 98
== END 2022-01-16 17:18 | disposition home or self-care (01) ==
PROVIDERS: Emergency Medicine; Emergency Provider Student in an Organized Health Care Education/Training Program; PCP Nurse Practitioner Family
DX: R45.851 Suicidal ideations (principal); F25.0 Schizoaffective disorder, bipolar type; F32.A Depression, unspecified; R44.0 Auditory hallucinations; R44.1 Visual hallucinations; Z79.85 Long-term (current) use of injectable non-insulin antidiabetic drugs; Z20.822 Contact with and (suspected) exposure to COVID-19
CPT/HCPCS: 36415; 80053; 80306; 80307; 81003; 81025; 84439; 84443; 85025; 87426; 93005; 99284

== ENCOUNTER 2022-02-03 10:52 | Outpatient (CLI) | payer MEDICAID, SELFPAY ==
[2022-02-03 12:01] LABS: Amphetamines Screen Urine Negative (Negative); Barbiturates Screen Urine Negative (Negative); Benzodiazepines Screen Urine Negative (Negative); Cocaine Screen Urine Negative (Negative); Opiate Screen Urine Negative (Negative); PCP Screen Urine Negative (Negative); THC Screen Urine Negative (Negative)
[2022-02-03 12:31] LABS: Alanine Aminotransferase 25 U/L (0-33); Albumin Level 4.1 g/dL (3.5-5.2); Alkaline Phosphatase 63 U/L (35-105); Anion Gap 18.9 (5-19); Aspartate Amino Transferase 16 U/L (0-32); Blood Urea Nitrogen 9 mg/dL (6-20); Calcium 9.6 mg/dL (8.5-10.5); Carbon Dioxide 18 mmol/L (22-29); Chloride 104 mmol/L (98-107); Globulin 2.6 g/dL (1.3-4.6); Glomerular Filtration Rate 115.9 mL/min (90-130); Glucose 157 mg/dL (65-115); Osmolality Calculated 286 mOsm/kg (285-295); Potassium 3.9 mmol/L (3.5-5.1); Sodium 137 mmol/L (136-145); Thyroid Stimulating Hormone 1.49 uIU/mL (0.27-4.20); Total Bilirubin 0.3 mg/dL (0.15-1.2); Total Protein 6.7 g/dL (6.6-8.7)
[2022-02-03 12:54] LABS: 25 Hydroxy Vitamin D > 100 ng/mL (30-100)
[2022-02-03 13:15] LABS: Free T4 Free Thyroxine 1.48 ng/dL (0.82-1.77)
== END 2022-02-03 10:53 | disposition home or self-care (01) ==
LOC: LAB 11:12
PROVIDERS: PCP Nurse Practitioner Family; Visit Provider Nurse Practitioner
DX: F25.0 Schizoaffective disorder, bipolar type (principal)
CPT/HCPCS: 36415; 80053; 80306; 82306; 84439; 84443

== ENCOUNTER → 2022-02-24 13:26 | Outpatient (BNVA) | payer MEDICAID, SELFPAY | PROVIDERS: PCP Nurse Practitioner Family; Visit Provider Podiatrist Foot & Ankle Surgery | DX: Z98.890 Other specified postprocedural states (principal); M21.611 Bunion of right foot; M21.612 Bunion of left foot | CPT/HCPCS: 73630; 99024 ==

== ENCOUNTER 2022-03-20 17:22 | Emergency (ER) | payer MEDICAID, SELFPAY ==
[2022-03-20 18:08] LABS: Add Urine Microscopic? NO; Charge for UA Resulting for Rev
[2022-03-20 18:18] LABS: Bilirubin Urine Neg (Negative); Blood Urine Neg (Negative); Glucose Urine UA Norm (Normal); Ketones Urine Negative (Negative); Leukocyte Esterase Urine Negative (Negative); Nitrate Urine Negative (Negative); Protein Urine Neg (Negative); Urine Appearance Clear (CLEAR); Urine Color Yellow (Yellow); Urobilinogen Urine Norm (Negative); pH Urine 7 (5-7)
[2022-03-20 18:19] LABS: Amphetamines Screen Urine Negative (Negative); Barbiturates Screen Urine Negative (Negative); Benzodiazepines Screen Urine Negative (Negative); Cocaine Screen Urine Negative (Negative); Opiate Screen Urine Negative (Negative); PCP Screen Urine Negative (Negative); THC Screen Urine Negative (Negative)
--- NOTE | 2022-03-20 18:21 | ED.C_ITS ---
Documented by User: Emory Bergman DO 03/20/22 18:43 HPI - Psych General: Chief Complaint: Psychiatric Symptoms Stated Complaint: PSYCH EVAL Time Seen by Provider: 03/20/22 17:28 History of Present Illness: 31-year-old female presents with what she states is auditory hallucinations telling her to strangle herself and herself. Patient reports that she has had these in the past. That she really does not want to hurt her self but these hallucinations are telling her to. Associated symptoms: Reports auditory hallucinations and suicidal ideation Review of Systems Const: Denies: fever(s) or chills Eyes: Denies: change in vision or blurry vision Card: Denies: chest pain or palpitations GI: Denies: abdominal pain, nausea or vomiting : Denies: flank pain, difficulty voiding or dysuria Musc: Denies: neck pain or back pain Skin/Breast: Denies: rash or pruritus Neuro: Denies: headache(s) or Slurred speech present Psych: Reports: auditory hallucinations and suicidal ideation [facility] PFSH: Medical History (Updated 03/20/22 @ 23:58 by Diane Lu MD) Chronic post-traumatic stress disorder Moderate intellectual disabilities Nicotine dependence, chewing tobacco, uncomplicated Schizoaffective disorder, bipolar type Social History Smoking and tobacco status: never smoked Female Reproductive History: Date of last menstrual period: 11/11/21 Physical Exam Const: COMMON NORMALS: no acute distress, alert and well nourished HENMT: COMMON NORMALS: normocephalic, atraumatic, hearing grossly normal bilaterally and moist oral mucous membranes HEAD & SCALP: normocephalic and atraumatic Eye: COMMON NORMALS: Equal, round and reactive pupils present and EOMs intact bilaterally PUPIL: Yes Equal, round and reactive pupils present Chest: OTHER: scar midline chest Resp: COMMON NORMALS: normal respiratory effort, No use of accessory muscles and clear to auscultation bilaterally AUSCULTATION: clear to auscultation bilaterally Cardio: COMMON NORMALS: regular rate and regular rhythm RATE: regular rate RHYTHM: regular rhythm GI: COMMON NORMALS: Soft to palpation and non-tender PALPATION: Yes Soft to palpation Extremity: COMMON NORMALS: normal to inspection, full ROM and capillary refill normal Neuro: COMMON NORMALS: CN's II-XII intact bilaterally, no focal motor deficits and no sensory deficits noted SENSORIUM/ORIENTATION: Yes alert Psych: COMMON NORMALS: speech normal APPEARANCE: Yes grossly normal SPEECH: Yes normal speech MOOD & AFFECT: Yes euthymic mood THOUGHT CONTENT: Yes Suicidality present and Yes Hallucination(s) present auditory Skin: COMMON NORMALS: turgor normal GENERAL SKIN EXAM: turgor normal MDM - Psych Lab Data 03/20/22 18:45 03/20/22 18:44 Laboratory Results WBC 14.1 10^3/uL (4.0-10.0) H 03/20/22 18:45 RBC 4.38 10^6/uL (4.1-5.3) 03/20/22 18:45 Hgb 13.0 g/dL (11.5-15.3) 03/20/22 18:45 Hct 39.2 % (37.0-47.0) 03/20/22 18:45 MCV 89.5 fl (81-99) 03/20/22 18:45 MCH 29.7 pg (28.0-34.0) 03/20/22 18:45 MCHC 33.2 g/dL (30.0-36.0) 03/20/22 18:45 RDW 12.5 % (12.1-15.1) 03/20/22 18:45 Plt Count 406 10^3/cmm (130-400) H 03/20/22 18:45 MPV 9.7 fL (7.4-10.4) 03/20/22 18:45 Neut % (Auto) 57.1 % 03/20/22 18:45 Lymph % (Auto) 33.5 % 03/20/22 18:45 [place] % (Auto) 6.1 % 03/20/22 18:45 Eos % (Auto) 2.4 % 03/20/22 18:45 Baso % (Auto) 0.4 % 03/20/22 18:45 Neut # (Auto) 8.04 10^3/uL (1.8-7.7) H 03/20/22 18:45 Lymph # (Auto) 4.7 10^3/uL (0.8-4.8) 03/20/22 18:45 [place] # (Auto) 0.9 10^3/uL (0.2-0.9) 03/20/22 18:45 Eos # (Auto) 0.3 10^3/uL (0.0-0.8) 03/20/22 18:45 Baso # (Auto) 0.1 10^3/uL (0.0-0.1) 03/20/22 18:45 Nucleated RBC % (auto) 0 % 03/20/22 18:45 Nucleated RBCs # 0.0 /100WBC 03/20/22 18:45 Sodium 136 mmol/L (136-145) 03/20/22 18:44 Potassium 3.3 mmol/L (3.5-5.1) L 03/20/22 18:44 Chloride 103 mmol/L (98-107) 03/20/22 18:44 Carbon Dioxide 18 mmol/L (22-29) L 03/20/22 18:44 Anion Gap 18.3 (5-19) 03/20/22 18:44 BUN 10 mg/dL (6-20) 03/20/22 18:44 Creatinine 0.6 mg/dL (0.5-0.9) 03/20/22 18:44 GFR Calculation 115.9 mL/min (90-130) 03/20/22 18:44 Glucose 137 mg/dL (65-115) H 03/20/22 18:44 Calculated Osmolality 283 mOsm/kg (285-295) L 03/20/22 18:44 Calcium 9.5 mg/dL (8.5-10.5) 03/20/22 18:44 Total Bilirubin 0.2 mg/dL (0.15-1.2) 03/20/22 18:44 AST 13 U/L (0-32) 03/20/22 18:44 ALT 17 U/L (0-33) 03/20/22 18:44 Alkaline Phosphatase 55 U/L (35-105) 03/20/22 18:44 Total Protein 6.6 g/dL (6.6-8.7) 03/20/22 18:44 Albumin 4.0 g/dL (3.5-5.2) 03/20/22 18:44 Globulin 2.6 g/dL (1.3-4.6) 03/20/22 18:44 TSH 5.99 uIU/mL (0.27-4.20) H 03/20/22 18:44 Free T4 1.30 ng/dL (0.82-1.77) 03/20/22 18:44 HCG, Qual Negative (Negative) 03/20/22 17:40 Urine Color Yellow (Yellow) 03/20/22 17:40 Urine Appearance Clear (CLEAR) 03/20/22 17:40 Urine pH 7 (5-7) 03/20/22 17:40 Ur Specific [place] 1.010 (1.005-1.030) 03/20/22 17:40 Urine Protein Neg (Negative) 03/20/22 17:40 Urine Glucose (UA) Norm (Normal) 03/20/22 17:40 Urine Ketones Negative (Negative) 03/20/22 17:40 Urine Blood Neg (Negative) 03/20/22 17:40 Urine Nitrate Negative (Negative) 03/20/22 17:40 Urine Bilirubin Neg (Negative) 03/20/22 17:40 Urine Urobilinogen Norm mg/dL (Negative) 03/20/22 17:40 Ur Leukocyte Esterase Negative (Negative) 03/20/22 17:40 Salicylates 0.5 mg/dL (3-10) L 03/20/22 18:44 Urine Opiates Screen Negative ng/mL (Negative) 03/20/22 17:40 Acetaminophen < 5.0 ug/mL (10-30) L 03/20/22 18:44 Ur Barbiturates Screen Negative ng/mL (Negative) 03/20/22 17:40 Ur Phencyclidine Scrn Negative ng/mL (Negative) 03/20/22 17:40 Ur Amphetamines Screen Negative ng/mL (Negative) 03/20/22 17:40 U Benzodiazepines Scrn Negative ng/mL (Negative) 03/20/22 17:40 Urine Cocaine Screen Negative ng/mL (Negative) 03/20/22 17:40 U Marijuana (THC) Screen Negative ng/mL (Negative) 03/20/22 17:40 Ethyl Alcohol < 10 mg/dL (0-10) 03/20/22 18:44 Influenza Type A Ag negative (Negative) 03/20/22 20:30 Influenza Type B Ag negative (Negative) 03/20/22 20:30 SARS-CoV-2 Ag (Rapid) negative (Negative) 03/20/22 20:30 Discharge Plan Discharge Patient Disposition: Xfer Short-Term Hosp Clinical Impression: Suicidal ideation Condition: Stable Prescriptions: No Action levothyroxine 50 mcg capsule 50 mcg PO DAILY metformin 500 mg tablet 500 mg PO BID simvastatin 20 mg tablet 40 mg PO DAILY ergocalciferol (vitamin D2) 1,250 mcg (50,000 unit) capsule 1,250 mcg PO Q7D Rx Instructions: TAKES ON MONDAY hydroxyzine HCl 50 mg tablet 50 mg PO BID PRN (Reason: anxiety) Qty: 60 3RF cyanocobalamin (vitamin B-12) [Vitamin B-12] 1,000 mcg Tablet 1,000 mcg PO DAILY Lo Loestrin Fe 1 mg-10 mcg (24)/10 mcg (2) Tablet 1 tab PO DAILY gabapentin 300 mg Capsule 300 mg PO TID mirtazapine [Remeron] 15 mg tablet 15 mg PO BEDTIME atorvastatin 40 mg tablet 40 mg PO DAILY norgestimate-ethinyl estradiol [Estarylla] 0.25-35 mg-mcg tablet 0.25 tab PO DAILY olanzapine 5 mg tablet 5 mg PO BID valacyclovir 500 mg tablet 500 mg PO DAILY prazosin 5 mg capsule 5 mg PO DAILY trazodone 100 mg tablet 100 mg PO DAILY buspirone 10 mg tablet 10 mg PO TID ziprasidone HCl 60 mg capsule 60 mg PO DAILY loratadine 10 mg tablet 10 mg PO DAILY mirtazapine 7.5 mg tablet 7.5 mg PO DAILY Trulicity 1.5 mg/0.5 mL pen injector 1.5 mg SUBCUT DIRECTED Rx Instructions: once weekly Referrals: Alayna Holland FNP [Primary Care Provider] - Coding Level of Care Code ED Renewals Specialist for g Fwd Exam Comprehensive Documented by User: Diane Lu MD 03/20/22 23:58 HPI - Psych General: Chief Complaint: Psychiatric Symptoms Stated Complaint: PSYCH EVAL Time Seen by Provider: 03/20/22 17:28 PFSH ED PFSH: Medical History (Updated 03/20/22 @ 23:58 by Diane Lu MD) Chronic post-traumatic stress disorder Moderate intellectual disabilities Nicotine dependence, chewing tobacco, uncomplicated Schizoaffective disorder, bipolar type Social History Smoking and tobacco status: never smoked [facility] - Psych Medical Decision Making Patient presents here with depression patient's been medically cleared she is excepted at [place] as we do not have any beds here will transfer there. Lab Data 03/20/22 18:45 03/20/22 18:44 Laboratory Results WBC 14.1 10^3/uL (4.0-10.0) H 03/20/22 18:45 RBC 4.38 10^6/uL (4.1-5.3) 03/20/22 18:45 Hgb 13.0 g/dL (11.5-15.3) 03/20/22 18:45 Hct 39.2 % (37.0-47.0) 03/20/22 18:45 MCV 89.5 fl (81-99) 03/20/22 18:45 MCH 29.7 pg (28.0-34.0) 03/20/22 18:45 MCHC 33.2 g/dL (30.0-36.0) 03/20/22 18:45 RDW 12.5 % (12.1-15.1) 03/20/22 18:45 Plt Count 406 10^3/cmm (130-400) H 03/20/22 18:45 MPV 9.7 fL (7.4-10.4) 03/20/22 18:45 Neut % (Auto) 57.1 % 03/20/22 18:45 Lymph % (Auto) 33.5 % 03/20/22 18:45 [place] % (Auto) 6.1 % 03/20/22 18:45 Eos % (Auto) 2.4 % 03/20/22 18:45 Baso % (Auto) 0.4 % 03/20/22 18:45 Neut # (Auto) 8.04 10^3/uL (1.8-7.7) H 03/20/22 18:45 Lymph # (Auto) 4.7 10^3/uL (0.8-4.8) 03/20/22 18:45 [place] # (Auto) 0.9 10^3/uL (0.2-0.9) 03/20/22 18:45 Eos # (Auto) 0.3 10^3/uL (0.0-0.8) 03/20/22 18:45 Baso # (Auto) 0.1 10^3/uL (0.0-0.1) 03/20/22 18:45 Nucleated RBC % (auto) 0 % 03/20/22 18:45 Nucleated RBCs # 0.0 /100WBC 03/20/22 18:45 Sodium 136 mmol/L (136-145) 03/20/22 18:44 Potassium 3.3 mmol/L (3.5-5.1) L 03/20/22 18:44 Chloride 103 mmol/L (98-107) 03/20/22 18:44 Carbon Dioxide 18 mmol/L (22-29) L 03/20/22 18:44 Anion Gap 18.3 (5-19) 03/20/22 18:44 BUN 10 mg/dL (6-20) 03/20/22 18:44 Creatinine 0.6 mg/dL (0.5-0.9) 03/20/22 18:44 GFR Calculation 115.9 mL/min (90-130) 03/20/22 18:44 Glucose 137 mg/dL (65-115) H 03/20/22 18:44 Calculated Osmolality 283 mOsm/kg (285-295) L 03/20/22 18:44 Calcium 9.5 mg/dL (8.5-10.5) 03/20/22 18:44 Total Bilirubin 0.2 mg/dL (0.15-1.2) 03/20/22 18:44 AST 13 U/L (0-32) 03/20/22 18:44 ALT 17 U/L (0-33) 03/20/22 18:44 Alkaline Phosphatase 55 U/L (35-105) 03/20/22 18:44 Total Protein 6.6 g/dL (6.6-8.7) 03/20/22 18:44 Albumin 4.0 g/dL (3.5-5.2) 03/20/22 18:44 Globulin 2.6 g/dL (1.3-4.6) 03/20/22 18:44 TSH 5.99 uIU/mL (0.27-4.20) H 03/20/22 18:44 Free T4 1.30 ng/dL (0.82-1.77) 03/20/22 18:44 HCG, Qual Negative (Negative) 03/20/22 17:40 Urine Color Yellow (Yellow) 03/20/22 17:40 Urine Appearance Clear (CLEAR) 03/20/22 17:40 Urine pH 7 (5-7) 03/20/22 17:40 Ur Specific [place] 1.010 (1.005-1.030) 03/20/22 17:40 Urine Protein Neg (Negative) 03/20/22 17:40 Urine Glucose (UA) Norm (Normal) 03/20/22 17:40 Urine Ketones Negative (Negative) 03/20/22 17:40 Urine Blood Neg (Negative) 03/20/22 17:40 Urine Nitrate Negative (Negative) 03/20/22 17:40 Urine Bilirubin Neg (Negative) 03/20/22 17:40 Urine Urobilinogen Norm mg/dL (Negative) 03/20/22 17:40 Ur Leukocyte Esterase Negative (Negative) 03/20/22 17:40 Salicylates 0.5 mg/dL (3-10) L 03/20/22 18:44 Urine Opiates Screen Negative ng/mL (Negative) 03/20/22 17:40 Acetaminophen < 5.0 ug/mL (10-30) L 03/20/22 18:44 Ur Barbiturates Screen Negative ng/mL (Negative) 03/20/22 17:40 Ur Phencyclidine Scrn Negative ng/mL (Negative) 03/20/22 17:40 Ur Amphetamines Screen Negative ng/mL (Negative) 03/20/22 17:40 U Benzodiazepines Scrn Negative ng/mL (Negative) 03/20/22 17:40 Urine Cocaine Screen Negative ng/mL (Negative) 03/20/22 17:40 U Marijuana (THC) Screen Negative ng/mL (Negative) 03/20/22 17:40 Ethyl Alcohol < 10 mg/dL (0-10) 03/20/22 18:44 Influenza Type A Ag negative (Negative) 03/20/22 20:30 Influenza Type B Ag negative (Negative) 03/20/22 20:30 SARS-CoV-2 Ag (Rapid) negative (Negative) 03/20/22 20:30 Discharge Plan Discharge Patient Disposition: Xfer Short-Term Hosp Clinical Impression: Suicidal ideation Condition: Stable Prescriptions: No Action levothyroxine 50 mcg capsule 50 mcg PO DAILY metformin 500 mg tablet 500 mg PO BID simvastatin 20 mg tablet 40 mg PO DAILY ergocalciferol (vitamin D2) 1,250 mcg (50,000 unit) capsule 1,250 mcg PO Q7D Rx Instructions: TAKES ON MONDAY hydroxyzine HCl 50 mg tablet 50 mg PO BID PRN (Reason: anxiety) Qty: 60 3RF cyanocobalamin (vitamin B-12) [Vitamin B-12] 1,000 mcg Tablet 1,000 mcg PO DAILY Lo Loestrin Fe 1 mg-10 mcg (24)/10 mcg (2) Tablet 1 tab PO DAILY gabapentin 300 mg Capsule 300 mg PO TID mirtazapine [Remeron] 15 mg tablet 15 mg PO BEDTIME atorvastatin 40 mg tablet 40 mg PO DAILY norgestimate-ethinyl estradiol [Estarylla] 0.25-35 mg-mcg tablet 0.25 tab PO DAILY olanzapine 5 mg tablet 5 mg PO BID valacyclovir 500 mg tablet 500 mg PO DAILY prazosin 5 mg capsule 5 mg PO DAILY trazodone 100 mg tablet 100 mg PO DAILY buspirone 10 mg tablet 10 mg PO TID ziprasidone HCl 60 mg capsule 60 mg PO DAILY loratadine 10 mg tablet 10 mg PO DAILY mirtazapine 7.5 mg tablet 7.5 mg PO DAILY Trulicity 1.5 mg/0.5 mL pen injector 1.5 mg SUBCUT DIRECTED Rx Instructions: once weekly Referrals: Alayna Holland FNP [Primary Care Provider] - Coding Level of Care Code ED Renewals Specialist for Chg Fwd Exam Comprehensive
[2022-03-20] MEDS: nicotine 21 mg Patch 1 PATCH TRANSDERMA (18:48)
[2022-03-20 19:19] LABS: Basophils # 0.1 10^3/uL (0.0-0.1); Basophils % 0.4 %; Eosinophils # 0.3 10^3/uL (0.0-0.8); Eosinophils % 2.4 %; Hematocrit 39.2 % (37.0-47.0); Lymphocytes # 4.7 10^3/uL (0.8-4.8); Lymphocytes % 33.5 %; Mean Corpuscular HGB Conc 33.2 g/dL (30.0-36.0); Mean Corpuscular Hemoglobin 29.7 pg (28.0-34.0); Mean Corpuscular Volume 89.5 fl (81-99); Mean Platelet Volume 9.7 fL (7.4-10.4); Monocytes # 0.9 10^3/uL (0.2-0.9); Monocytes % 6.1 %; Neutrophils # 8.04 10^3/uL (1.8-7.7); Neutrophils % 57.1 %; Nucleated Red Blood Cells % 0 %; Platelet Count 406 10^3/cmm (130-400); Red Blood Count 4.38 10^6/uL (4.1-5.3); Red Cell Distribution Width 12.5 % (12.1-15.1); White Blood Count 14.1 10^3/uL (4.0-10.0)
[2022-03-20 19:39] LABS: Alanine Aminotransferase 17 U/L (0-33); Alkaline Phosphatase 55 U/L (35-105); Anion Gap 18.3 (5-19); Aspartate Amino Transferase 13 U/L (0-32); Blood Urea Nitrogen 10 mg/dL (6-20); Calcium 9.5 mg/dL (8.5-10.5); Carbon Dioxide 18 mmol/L (22-29); Chloride 103 mmol/L (98-107); Globulin 2.6 g/dL (1.3-4.6); Glomerular Filtration Rate 115.9 mL/min (90-130); Glucose 137 mg/dL (65-115); Osmolality Calculated 283 mOsm/kg (285-295); Potassium 3.3 mmol/L (3.5-5.1); Salicylate 0.5 mg/dL (3-10); Sodium 136 mmol/L (136-145); Total Bilirubin 0.2 mg/dL (0.15-1.2); Total Protein 6.6 g/dL (6.6-8.7)
[2022-03-20 19:44] LABS: Acetaminophen < 5.0 ug/mL (10-30)
[2022-03-20 19:58] LABS: Slide Review Slide Review Perform
--- NOTE | 2022-03-20 20:44 | ECG_ITS ---
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 Measurements Intervals [place] Rate: 75 P: 18 [place]: 154 QRS: 57 QRSD: 94 T: 15 QT: 375 QTc: 420 Interpretive Statements SINUS RHYTHM INCOMPLETE RIGHT BUNDLE BRANCH BLOCK [90+ ms QRS DURATION, TERMINAL R IN V1/V2, 40+ ms S IN I/aVL/V4/V5/V6] MODERATE T-WAVE ABNORMALITY, CONSIDER ANTERIOR ISCHEMIA [-0.1+ mV T-WAVE IN V3/V4] Compared to ECG 01/15/2022 20:39:03 T-wave abnormality now present Possible ischemia now present Electronically Signed On 03-22-2022 9:21:56 INSPECTOR PENETRANT by Janessa Hernandez M.D. [id number]
[2022-03-20 20:57] LABS: Thyroid Stimulating Hormone 5.99 uIU/mL (0.27-4.20)
[2022-03-20 20:58] LABS: Influenza A by IFA negative (Negative); Influenza B by IFA negative (Negative)
[2022-03-20 20:59] LABS: SARS Covid-2 Antigen negative (Negative)
[2022-03-20 21:03] LABS: Alcohol Level < 10 mg/dL (0-10)
[2022-03-20] MEDS: OLANZapine 10 mg ODT PO (21:03)
[2022-03-20 21:29] LABS: HCG Qualitative Urine. Negative (Negative)
[2022-03-21 00:05] VITALS: BP 134/89; PULSE 90; RESP 18; O2SAT 97
[2022-03-21] MEDS: mirtazapine 15 mg Tablet PO (00:25)
[2022-03-21] MEDS: BuSPIRONE 10 mg Tablet PO (00:25)
[2022-03-21] MEDS: gabapentin 300 mg Capsule PO (00:25)
[2022-03-21] MEDS: trazodone 100 mg Tablet PO (00:25)
[2022-03-21] MEDS: metformin XR 500 MG Tablet PO (00:51)
[2022-03-21] MEDS: prazosin 5 mg Capsule PO (00:51)
--- NOTE | 2022-03-21 01:09 | PC.NURSE ---
[facility] arrived to get patient
== END 2022-03-21 01:11 | disposition short-term general hospital (02) ==
PROVIDERS: Student in an Organized Health Care Education/Training Program; Emergency Provider Emergency Medicine; PCP Nurse Practitioner Family
DX: R45.851 Suicidal ideations (principal); Z79.85 Long-term (current) use of injectable non-insulin antidiabetic drugs; Z20.822 Contact with and (suspected) exposure to COVID-19
CPT/HCPCS: 36415; 80053; 80306; 80307; 81003; 81025; 84439; 84443; 85025; 87426; 87804; 93005; 99285

== ENCOUNTER 2022-04-21 16:54 | Emergency (ER) | payer MEDICAID, SELFPAY ==
[2022-04-21 17:13] VITALS: BP 111/76; PULSE 77; RESP 16; TEMP 36.5; O2SAT 97; BMI 29.4
--- NOTE | 2022-04-21 17:58 | XRR_ITS ---
PROCEDURE INFORMATION: Exam: XR Abdomen Exam date and time: 04/21/2022 6:52 PM Age: 31 years old Clinical indication: Constipation and other: Abd pain; Prior surgery; Surgery date: 6+ months; Surgery type: Csections; Patient HX: Abd pain and constipation/n/v TECHNIQUE: Imaging protocol: Radiologic exam of the abdomen. Views: Frontal supine view of the abdomen. 1 View. COMPARISON: CT abdomen pelvis w con* [id number] 11/12/2016 11:48 PM FINDINGS: Gastrointestinal tract: Nonobstructive bowel gas pattern. There is a moderate to large amount of stool throughout the colon and rectum, suggestive of constipation. Bones/joints: Unremarkable. XR/XR KUB portable [id number] IMPRESSION: Imaging findings suggestive of constipation.
[2022-04-21 18:28] LABS: Basophils # 0.1 10^3/uL (0.0-0.1); Basophils % 0.3 %; Eosinophils # 0.4 10^3/uL (0.0-0.8); Eosinophils % 2.7 %; Hematocrit 41.9 % (37.0-47.0); Hemoglobin 13.4 g/dL (11.5-15.3); Lymphocytes # 5.3 10^3/uL (0.8-4.8); Mean Corpuscular Volume 90.7 fl (81-99); Mean Platelet Volume 9.4 fL (7.4-10.4); Monocytes # 0.8 10^3/uL (0.2-0.9); Monocytes % 5.6 %; Neutrophils # 7.75 10^3/uL (1.8-7.7); Nucleated Red Blood Cells % 0 %; Platelet Count 424 10^3/cmm (130-400); Red Blood Count 4.62 10^6/uL (4.1-5.3); Red Cell Distribution Width 12.1 % (12.1-15.1); White Blood Count 14.4 10^3/uL (4.0-10.0)
[2022-04-21 18:47] LABS: Alanine Aminotransferase 13 U/L (0-33); Albumin Level 4.7 g/dL (3.5-5.2); Alkaline Phosphatase 58 U/L (35-105); Anion Gap 14.6 (5-19); Aspartate Amino Transferase 13 U/L (0-32); Blood Urea Nitrogen 10 mg/dL (6-20); Calcium 9.8 mg/dL (8.5-10.5); Carbon Dioxide 25 mmol/L (22-29); Chloride 102 mmol/L (98-107); Globulin 2.6 g/dL (1.3-4.6); Glucose 115 mg/dL (65-115); Lipase 73 U/L (13-60); Osmolality Calculated 286 mOsm/kg (285-295); Potassium 3.6 mmol/L (3.5-5.1); Sodium 138 mmol/L (136-145); Total Bilirubin 0.3 mg/dL (0.15-1.2); Total Protein 7.3 g/dL (6.6-8.7)
--- NOTE | 2022-04-21 20:04 | W.ED.ABDPA2 ---
HPI - Abdominal Pain General: Chief Complaint: Abdominal Pain Stated Complaint: constipation/out of meds Time Seen by Provider: 04/21/22 19:54 Source: patient Mode of arrival: ambulatory Limitations: no limitations History of Present Illness: Patient is a 31-year-old female presents to ED today along with her caregiver as she is a resident of the [facility] here for complaints of constipation/abdominal pain and refills of medication. Caregiver states she was told to ask for refills of most of patient's psychiatric medications as she recently fired her psychiatrist. She states she has an appointment with a new psychiatrist on 05/03 but does not have enough medication to last her until this appointment. Patient has no psychiatric complaints at this time. In regards to the constipation she states she chronically has constipation and states her abdominal pain feels similar to this. Last bowel movement was 2 days ago. She reports stools are very hard at that time. She has not had any vomiting. No fevers. Urinary complaints. MD elicited complaint: abdominal pain Pertinent past history: constipation Onset (ago): day(s) Pain Consistency: constant Location: Diffuse Severity: mild Quality: aching Radiation: none Migration to: no migration Exacerbating factors: nothing Relieving factors: nothing Associated Symptoms: Reports no associated symptoms and constipation; Denies chills, diarrhea, dysuria, fever(s), heartburn, hematochezia, melena, nausea, syncope and vomiting Related Data: Date of Last Menstrual Period: 11/11/21 Patient : No Review of Systems Const: Denies: fever(s), chills, body aches, fatigue or malaise Eyes: Denies: change in vision or blurry vision Card: Denies: chest pain, palpitations, irregular heart rhythm, lightheadedness, syncope or dyspnea on exertion Resp: Denies: dyspnea, productive cough or pain on inspiration GI: Reports: abdominal pain and constipation; Denies: nausea, vomiting, heartburn, diarrhea, rectal swelling, hematochezia, melena or white/light colored stool : Denies: flank pain, difficulty voiding, dysuria, urinary frequency, urinary urgency or urinary hesitancy Musc: Denies: neck pain, back pain, extremity pain or joint pain Skin/Breast: Denies: rash Neuro: Denies: headache(s) or dizziness Psych: Denies: visual hallucinations, auditory hallucinations, suicidal ideation or homicidal ideation [facility] ED PFSH: Medical History Chronic post-traumatic stress disorder Moderate intellectual disabilities Nicotine dependence, chewing tobacco, uncomplicated Schizoaffective disorder, bipolar type Social History Smoking and tobacco status: never smoked Female Reproductive History: Date of last menstrual period: 11/11/21 Physical Exam Const: COMMON NORMALS: no acute distress, average body habitus, patient oriented x3, no limitations, healthy appearing, alert and well nourished GENERAL APPEARANCE: cooperative ORIENTATION/CONSCIOUSNESS: Yes awake, Yes oriented to person, Yes oriented to place and Yes oriented to time HENMT: COMMON NORMALS: normocephalic and atraumatic HEAD & SCALP: normal to inspection, normocephalic and atraumatic Neck/C-Spine: COMMON NORMALS: full ROM, no lymphadenopathy, supple and no meningeal signs Chest: COMMONS NORMALS: normal inspection of the chest Resp: COMMON NORMALS: normal respiratory effort and clear to auscultation bilaterally AUSCULTATION: clear to auscultation bilaterally Cardio: COMMON NORMALS: regular rate and regular rhythm RATE: regular rate RHYTHM: regular rhythm GI: COMMON NORMALS: Normal to inspection, nondistended, normoactive bowel sounds present, Soft to palpation, No hepatosplenomegaly present and no masses INSPECTION: Yes normal to inspection AUSCULTATION: Yes normoactive bowel sounds PALPATION: Yes Soft to palpation, Yes Tenderness to palpation present (GI) (mild diffuse tenderness-non surgical exam), No Guarding due to palpation present (GI), No Rigid due to palpation and Yes No hepatosplenomegaly present : COMMON NORMALS: Yes no CVA tenderness BLADDER/KIDNEY EXAM: Yes no CVA tenderness Back/Pelvis: COMMON NORMALS: no CVA tenderness and thoracic and lumbar spine normal to inspection Extremity: COMMON NORMALS: normal to inspection Neuro: ROBIN COMA SCALE: document GCS findings Robin coma scale eye opening: Spontaneous Robin coma scale verbal response: Orientated Robin coma scale motor response: Obey commands Robin coma scale total score: 15 COMMON NORMALS: patient oriented x3 SENSORIUM/ORIENTATION: Yes alert, Yes oriented to person, Yes oriented to place and Yes oriented to time MENINGEAL SIGNS: Yes no meningeal signs Skin: COMMON NORMALS: no rashes or lesions noted GENERAL SKIN EXAM: no rashes or lesions noted Course Vital Signs: Vital signs: Vital Signs Temperature 97.7 F 04/21/22 17:13 Pulse Rate 77 04/21/22 17:13 Respiratory Rate 16 04/21/22 17:13 Blood Pressure 111/76 04/21/22 17:13 Pulse Oximetry 97 04/21/22 17:13 Oxygen Delivery Me thod 04/21/22 17:13 MDM - Abdominal Pain Medical Decision Making Patient appears in no acute distress her vital signs are perfect. Blood work showing mild leukocytosis with a white count of 14.4. Chemistry panel overall looks good. Lipase is scantly elevated at 73. She was not having any urinary symptoms this UA was not performed. KUB findings suggestive of constipation which matches patient's history. Recommend starting MiraLAX for treatment of constipation. She will be provided two weeks worth of her psychiatric medications until she can see her new psychiatrist. Return to ED precautions given. Lab Data 04/21/22 18:20 04/21/22 18:20 Labs/Radiology: Radiology Impressions KUB X-Ray 04/21/22 17:58 IMPRESSION: Imaging findings suggestive of constipation. Laboratory Results WBC 14.4 10^3/uL (4.0-10.0) H 04/21/22 18:20 RBC 4.62 10^6/uL (4.1-5.3) 04/21/22 18:20 Hgb 13.4 g/dL (11.5-15.3) 04/21/22 18:20 Hct 41.9 % (37.0-47.0) 04/21/22 18:20 MCV 90.7 fl (81-99) 04/21/22 18:20 MCH 29.0 pg (28.0-34.0) 04/21/22 18:20 MCHC 32.0 g/dL (30.0-36.0) 04/21/22 18:20 RDW 12.1 % (12.1-15.1) 04/21/22 18:20 Plt Count 424 10^3/cmm (130-400) H 04/21/22 18:20 MPV 9.4 fL (7.4-10.4) 04/21/22 18:20 Neut % (Auto) 54.0 % 04/21/22 18:20 Lymph % (Auto) 37.0 % 04/21/22 18:20 [place] % (Auto) 5.6 % 04/21/22 18:20 Eos % (Auto) 2.7 % 04/21/22 18:20 Baso % (Auto) 0.3 % 04/21/22 18:20 Neut # (Auto) 7.75 10^3/uL (1.8-7.7) H 04/21/22 18:20 Lymph # (Auto) 5.3 10^3/uL (0.8-4.8) H 04/21/22 18:20 [place] # (Auto) 0.8 10^3/uL (0.2-0.9) 04/21/22 18:20 Eos # (Auto) 0.4 10^3/uL (0.0-0.8) 04/21/22 18:20 Baso # (Auto) 0.1 10^3/uL (0.0-0.1) 04/21/22 18:20 Nucleated RBC % (auto) 0 % 04/21/22 18:20 Nucleated RBCs # 0.0 /100WBC 04/21/22 18:20 Sodium 138 mmol/L (136-145) 04/21/22 18:20 Potassium 3.6 mmol/L (3.5-5.1) 04/21/22 18:20 Chloride 102 mmol/L (98-107) 04/21/22 18:20 Carbon Dioxide 25 mmol/L (22-29) 04/21/22 18:20 Anion Gap 14.6 (5-19) 04/21/22 18:20 BUN 10 mg/dL (6-20) 04/21/22 18:20 Creatinine 0.7 mg/dL (0.5-0.9) 04/21/22 18:20 GFR Calculation 97.0 mL/min (90-130) 04/21/22 18:20 Glucose 115 mg/dL (65-115) 04/21/22 18:20 Calculated Osmolality 286 mOsm/kg (285-295) 04/21/22 18:20 Calcium 9.8 mg/dL (8.5-10.5) 04/21/22 18:20 Total Bilirubin 0.3 mg/dL (0.15-1.2) 04/21/22 18:20 AST 13 U/L (0-32) 04/21/22 18:20 ALT 13 U/L (0-33) 04/21/22 18:20 Alkaline Phosphatase 58 U/L (35-105) 04/21/22 18:20 Total Protein 7.3 g/dL (6.6-8.7) 04/21/22 18:20 Albumin 4.7 g/dL (3.5-5.2) 04/21/22 18:20 Globulin 2.6 g/dL (1.3-4.6) 04/21/22 18:20 Lipase 73 U/L (13-60) H 04/21/22 18:20 Discharge Plan Discharge Patient Disposition: Home Clinical Impression: Constipation, Medication refill Condition: Stable Prescriptions: New topiramate 50 mg tablet 75 mg PO BID Qty: 40 0RF bupropion HCl 150 mg tablet extended release 24 hr 150 mg PO DAILY Qty: 15 0RF Miralax 17 gram powder in packet 17 g PO BID 5 Days Qty: 30 0RF Continued olanzapine 5 mg tablet 5 mg PO BID Qty: 30 0RF prazosin 5 mg capsule 5 mg PO DAILY Qty: 14 0RF trazodone 100 mg tablet 100 mg PO DAILY Qty: 14 0RF buspirone 10 mg tablet 10 mg PO TID Qty: 40 0RF Remeron 15 mg tablet 15 mg PO BEDTIME Qty: 14 0RF Changed ziprasidone HCl 60 mg capsule 60 mg PO BID Qty: 30 0RF Discontinued mirtazapine 7.5 mg tablet 7.5 mg PO DAILY No Action levothyroxine 50 mcg capsule 50 mcg PO DAILY metformin 500 mg tablet 500 mg PO BID simvastatin 20 mg tablet 40 mg PO DAILY ergocalciferol (vitamin D2) 1,250 mcg (50,000 unit) capsule 1,250 mcg PO Q7D Rx Instructions: TAKES ON MONDAY hydroxyzine HCl 50 mg tablet 50 mg PO BID PRN (Reason: anxiety) Qty: 60 3RF cyanocobalamin (vitamin B-12) [Vitamin B-12] 1,000 mcg Tablet 1,000 mcg PO DAILY Lo Loestrin Fe 1 mg-10 mcg (24)/10 mcg (2) Tablet 1 tab PO DAILY gabapentin 300 mg Capsule 300 mg PO TID atorvastatin 40 mg tablet 40 mg PO DAILY norgestimate-ethinyl estradiol [Estarylla] 0.25-35 mg-mcg tablet 0.25 tab PO DAILY valacyclovir 500 mg tablet 500 mg PO DAILY loratadine 10 mg tablet 10 mg PO DAILY Trulicity 1.5 mg/0.5 mL pen injector 1.5 mg SUBCUT DIRECTED Rx Instructions: once weekly Discharge Orders: Discharge ED (Routine); Ordered 04/21/22 Ordered By: Jovana Carlin Referrals: Alayna Holland FNP [Primary Care Provider] - Coding Level of Care Code ED [employer] Salesperson for Eh Vallecillo
[2022-04-21 20:33] VITALS: BP 105/66; PULSE 92; RESP 18; O2SAT 99
== END 2022-04-21 20:34 | disposition home or self-care (01) ==
PROVIDERS: Emergency Medicine; Emergency Provider Physician Assistant; PCP Nurse Practitioner Family
DX: K59.00 Constipation, unspecified (principal); Z76.0 Encounter for issue of repeat prescription
CPT/HCPCS: 36415; 74018; 80053; 83690; 85025; 99284

== ENCOUNTER → 2022-04-25 12:52 | Outpatient (BNVA) | payer MEDICAID, SELFPAY | PROVIDERS: PCP Nurse Practitioner Family; Visit Provider Podiatrist Foot & Ankle Surgery | DX: M21.612 Bunion of left foot (principal); M20.5X2 Other deformities of toe(s) (acquired), left foot | CPT/HCPCS: 99214 ==

== ENCOUNTER 2022-05-09 13:58 | Outpatient (CLI) | payer MEDICAID, SELFPAY ==
--- NOTE | 2022-05-09 14:10 | MM_ITS ---
WS: [id number] BILATERAL 3D TOMOSYNTHESIS DIGITAL DIAGNOSTIC MAMMOGRAPHY WITH CAD CLINICAL INFORMATION: LT BREAST LUMP HISTORY: 2 palpable LEFT breast lumps COMPARISON: None. TECHNIQUE: Bilateral CC, MLO, and ML views. FINDINGS: The breasts are composed of heterogeneous fibroglandular density, which can limit the detection of sm all underlying mass lesions. Palpable marker LEFT breast. Dense parenchymal tissue in some areas. Ultrasound described below. No suspicious focal mass, asymmetry, calcifications, or architectural distortion. No evidence of jessica gnancy. ULTRASOUND BREAST LEFT TECHNIQUE: Ultrasound left breast focused area of concern. CLINICAL INFORMATION: LT BREAST LUMP FINDINGS: Ultrasound LEFT breast at the 12:00 and 2:00 position corresponding to the areas of palpable abnormal ity. Areas of dense underlying parenchymal tissue. No cystic or solid lesions. No suspicious lesions to target for biopsy. MM/[place] [id number] IMPRESSION: BI-RADS: 2-Benign FOLLOW UP: Age 39 Recommend annual screening mammography age 39
== END 2022-05-09 13:59 | disposition home or self-care (01) ==
PROVIDERS: PCP Nurse Practitioner Family; Visit Provider Nurse Practitioner Family
DX: N63.25 Unspecified lump in the left breast, overlapping quadrants (principal)
CPT/HCPCS: 76642; 77062; G0279

== ENCOUNTER 2022-05-20 07:51 | Day surgery (SDC) | payer MEDICAID, SELFPAY ==
[2022-05-20] VITALS (7 sets, daily range): BP systolic 112–130; BP diastolic 66–88; PULSE 77–110; RESP 16–22; TEMP 36.3–36.8; O2SAT 94–98
[2022-05-20] MEDS: sodium chloride 0.9% 1,000 ML 30 ML IV (08:18)
[2022-05-20] MEDS: gabapentin 300 mg Capsule PO (08:19)
[2022-05-20] MEDS: scopolamine 1.5 Patch 1 PATCH TRANSDERMA (08:44)
--- NOTE | 2022-05-20 08:47 | ANES.PREANE2 ---
Pre-Anesthetic Assessment Height/Weight: Height 1.37 m Weight 55.338 kg Temp Pulse Resp BP Pulse Ox O2 Del Method 97.3 F L 84 16 130/77 98 05/20/22 08:07 05/20/22 08:07 05/20/22 08:07 05/20/22 08:07 05/20/22 08:07 05/20/22 08:22 Preop Diagnosis: Left bunion, left ankle equinus. Operation Date: 05/20/22 09:35 Proposed Procedures p Lapidus bunionectomy, Abilio osteotomy and possible gastrocnemius recession left lower extremity 73292, 60574, 96835, M21.612,M21.962(Left) - LUMA Aranda Abilio Bunionectomy(Left) - LUMA Aranda Gastrocnemius Recession(Left) - Bob Francisco DPM Familial anesthetic complications: none Was Beta Vidhya taken within 24 hours: N/A Was Clonidine taken within 24 hours: N/A Last intake: Intake Last Liquid Date 05/19/22 Last Liquid Time 20:00 Last Solid Date 05/19/22 Last Solid Time 20:00 Social Tobacco (chews) and No alcohol Exam alert, oriented x 3, clear to auscultation bilaterally and regular rate & rhythm Airway Submandibular: within normal limits Cervical ROM: within normal limits Mallampati: Class II Dentition: false Metabolic Diabetes Mellitus, Hyperlipidemia and Thyroid Disease Neuropsych Anxiety and Depression schizoaffective, intellectual dissablities Anesthetic Plan ASA status: 3 Anesthesia: Choice Medications/Allergies Home Medications Medication Instructions Recorded Confirmed Last Taken Type ergocalciferol (vitamin D2) 1,250 1,250 mcg PO Q7D 04/15/19 05/19/22 05/20/22 History mcg (50,000 unit) capsule levothyroxine 50 mcg capsule 50 mcg PO DAILY 04/15/19 05/19/22 05/20/22 History metformin 500 mg tablet 500 mg PO BID 04/15/19 05/19/22 05/19/22 History hydroxyzine HCl 50 mg tablet 50 mg PO BID PRN anxiety #60 tabs 07/12/19 05/19/22 05/12/22 Rx gabapentin 300 mg capsule 300 mg PO TID 08/15/19 05/19/22 05/20/22 History atorvastatin 40 mg tablet 40 mg PO DAILY 11/25/21 05/19/22 05/20/22 History dulaglutide 1.5 mg/0.5 mL 1.5 mg SUBCUT DIRECTED 11/25/21 05/19/22 05/19/22 History subcutaneous pen injector (Trulicity) loratadine 10 mg tablet 10 mg PO DAILY 11/25/21 05/19/22 05/20/22 History norgestimate 0.25 mg-ethinyl 0.25 tab PO DAILY 11/25/21 05/19/22 05/19/22 History estradiol 35 mcg tablet (Estarylla) valacyclovir 500 mg tablet 500 mg PO DAILY 11/25/21 05/19/22 05/20/22 History bupropion HCl 150 mg 24 hr tablet, 150 mg PO DAILY #15 tabs 04/21/22 05/19/22 05/20/22 Rx extended release mirtazapine 15 mg tablet (Remeron) 15 mg PO BEDTIME #14 tabs 04/21/22 05/19/22 05/19/22 Rx olanzapine 5 mg tablet 5 mg PO BID #30 tabs 04/21/22 05/19/22 05/20/22 Rx prazosin 5 mg capsule 5 mg PO DAILY #14 caps 04/21/22 05/19/22 05/20/22 Rx topiramate 50 mg tablet 75 mg PO BID #40 tabs 04/21/22 05/19/22 05/20/22 Rx trazodone 100 mg tablet 100 mg PO DAILY #14 tabs 04/21/22 05/19/22 05/20/22 Rx ziprasidone HCl 60 mg capsule 60 mg PO BID #30 caps 04/21/22 05/19/22 05/20/22 Rx ondansetron HCl 4 mg tablet 4 mg PO BID PRN nausea and 05/12/22 05/19/22 05/18/22 Rx vomiting 5 days #10 tabs buspirone 10 mg tablet 15 mg PO TID 05/19/22 05/19/22 05/20/22 History docusate sodium 100 mg capsule 100 mg PO DAILY 05/19/22 05/19/22 05/20/22 History Allergies Allergy/AdvReac Type Severity Reaction Status Date / Time ibuprofen Allergy Unknown Unknown Verified 05/19/22 09:37 Penicillins Allergy Unknown Unknown Verified 05/19/22 09:37 carbamazepine Allergy Unknown Verified 05/19/22 09:37 latex Allergy Unknown Verified 05/19/22 09:37 Current Medications Generic Name Dose Route Start Last Admin Trade Name Freq PRN Reason Stop Dose Admin Sodium Chloride 1,000 mls @ 30 mls/hr 05/20/22 08:15 05/20/22 08:18 Sodium Chloride 0.9% IV 05/21/22 08:14 30 mls/hr .Q24H CARTER Administration PFSH Anesthesia Medical History Chronic post-traumatic stress disorder Moderate intellectual disabilities Nicotine dependence, chewing tobacco, uncomplicated Schizoaffective disorder, bipolar type Social History Smoking and tobacco status: never smoked Female Reproductive History Date of last menstrual period: 04/26/22 Data Anesthesia Cardiac Studies: No Data to Display
--- NOTE | 2022-05-20 08:57 | P.OP_ITS ---
Operative Report Date of procedure: May 20, 2022 Pre-op diagnosis: Preop Diagnosis Left bunion, left ankle equinus. Post-op diagnosis: Bunion left foot, hallux valgus, left foot. Post-op findings: None Procedure done: ?Lapidus bunionectomy, Abilio osteotomy left lower extremity. CPT codes 30127, 10924. Implants: [place] 4 mm homerun screw, 3.5 mm locking screws, primary Lapidus plate, Abilio stable 10 mm straight, 3-0 Vicryl, 4-0 Vicryl, 4 nylon Specimens removed/disposition: None Pathology: None Surgeon: Bob Francisco D.P.M. Manufacturing Leader: Adriel Estimated blood loss: 5 60 IV fluids: 0 Urine output: None Complications: None Findings: None Brief History: Patient is a pleasant 31-year-old female lives in a [facility], presents with complaints of left bunion pain.? Had a history of previous bunionectomies they were distal metatarsal osteotomies, has had a reoccurrence of the deformity that causes pain on a daily basis.? She has already been wearing wider shoes, wearing prefabricated orthotics, daily stretching anti-inflammatories and activity mo difications.? States that her bunions prevent her from being more active and wearing shoes.? She is requesting surgical correction of her left foot.? States that she would like to proceed with next available surgical opportunity as she has failed conservative treatments over the course of several years.? Recommended Lapidus bunionectomy with possible Abilio osteotomy and possible gastrocnemius recession given her hypermobility and young age.? Risks include but are not limited to pain, bleeding, numbness, infection, under correction of deformity, overcorrection of deformity, delayed union, malunion, nonunion, hardware rotation, hardware failure, decreased range of motion at the first metatarsal phalangeal joint, painful scar, paresthesias, chronic swelling, hallux varus, need for further surgical intervention.? Also risk for deep vein thrombosis, heart attack, stroke and .? Patient advised on recovery consisting of approximately 6 to 8 weeks of nonweightbearing and immobilization transitioning into weightbearing in the cam boot for approximately 2 weeks additional and potentially to a tennis shoe at approximately 8 to 12 weeks out.? She was advised that the aches and pains of surgical intervention for this type of a bunionectomy could linger for approximately 12 months or even permanently.? May 20, 2022, Lapidus bunionectomy, Abilio osteotomy and possible gastrocnemius recession left lower extremity.? Outpatient, general anesthesia, [facility], 90 minutes.? Will need TPS, mini C arm, [place] 28 hardware. Hallux noted to be an abducted position. Tibial sesamoid position: 5. 1 - 2 IM angle is greater than 18 degrees. Hallux abductus angle is approximately 30 degrees. Metatarsal adductus angle is 2 degrees. Sieberg index of 2 mm. Procedure: Under mild sedation the patient was brought to the operating room and remained on the [place] in supine position. A timeout was performed. Anesthesia was then administered by the anesthesia service. Local anesthesia was injected by myself consisting of 0.5% Marcaine plain in a proximal Abrams block fashion to the left foot. Total of 30 cc were utilized. 20 cc of Exparel subcutaneously proximal to the operative site per manufacture recommendation in a grid like fashion was also administered. Well-padded pneumatic tourniquet was applied to the left high calf. Left lower extremity was scrubbed, prepped and draped utilizing normal aseptic technique. Left foot was exanguinated with an Esmarch bandage and the tourniquet inflated to 250 mmHg. Attention was directed to the dorsal medial aspect of the first metatarsal base and down to the diaphyseal portion of the proximal phalanx of the left foot medial and parallel to the extensor houses longus tendon. Skin incision was performed followed by sharp and blunt dissection down through subcutaneous tissue to the layer of periosteum and joint capsule utilizing sharp and blunt technique. Care was taken to retract and preserve neurovascular and tendinous structures. All bleeders were ligated and cauterized as necessary. The base of the first metatarsal was freed from its capsular and soft tissue attachments and prepped for arthrodesis utilizing curettage followed by saline flush, subchondral drilling followed by fixation utilizing standard AO technique once the first metatarsal was reduced in its increased intermetatarsal angle down to near 0 and parallel to the second metatarsal. [place] 4.0 headed homerun screw from dorsal distal to proximal plantar not violating the navicular cuneiform joint this was confirmed with all 3 standard views of intraoperative C arm. Excellent bony apposition and reduction of the bunion deformity was appreciated. Additional locking plate dorsal medial aspect of the first metatarsal and medial cuneiform was fixated utilizing standard technique 3.5 mm locking and nonlocking screws with excellent bony apposition and compression noted. Excellent placement hardware and reduction of bunion was appreciated in all 3 standard views of intraoperative C-arm not violating adjacent joints with hardware. Abilio osteotomy was then performed at the proximal phalanx diaphysis maintaining a lateral cortical hinge and fixated utilizing a straight 10 mm [place] staple with excellent bony apposition and compression. Confirmed that the staple legs did not violate the metatarsophalangeal joint with AP, oblique and lateral view utilizing intraoperative C arm. First metatarsal phalangeal joint was smooth without crepitus or catching and had full range of motion. The incisions were irrigated with copious amounts of sterile skin solution followed by closure of periosteum and capsule with 3-0 Vicryl, subcutaneous tissue reapproximated utilizing 4-0 Vicryl and skin with 4-0 nylon. The incision was dressed with Adaptic, sterile 4 x 4, Kerlix and Edouard wrap. Tourniquet was deflated and a prompt hyperemic response was noted to the distal digits of the left foot. Patient tolerated the procedure and anesthesia well and was transferred to the PACU with vital signs stable and vascular status intact. She was fitted with a cam boot. She was discharged with at home care instructions, follow-up and provided with my cell phone number to contact with any postoperative questions or concerns.
--- NOTE | 2022-05-20 08:57 | W.PM.OPSUD ---
Surgery/Procedure H&P Update DATE OF PROCEDURE: May 20, 2022 DATE H&P PERFORMED: 04/25/22 PREOP DIAGNOSIS: Left bunion, left ankle equinus. PRIMARY INDICATION FOR PROCEDURE: None PLANNED PROCEDURE: Operation Date: 05/20/22 09:35 Proposed Procedures p Lapidus bunionectomy, Abilio osteotomy and possible gastrocnemius recession left lower extremity 09105, 40139, 77125, M21.612,M21.962(Left) - Bob Francisco DPM s Abilio Bunionectomy(Left) - LUMA Aranda Gastrocnemius Recession(Left) - Bob Francisco DPM
--- NOTE | 2022-05-20 08:58 | W.PM.OPSUD ---
Surgery/Procedure H&P Update DATE OF PROCEDURE: May 20, 2022 DATE H&P PERFORMED: 04/25/22 CHANGES TO PREVIOUS DOCUMENTATION: None PREOP DIAGNOSIS: Left bunion, left ankle equinus. PLANNED PROCEDURE: Operation Date: 05/20/22 09:35 Proposed Procedures p Lapidus bunionectomy, Abilio osteotomy and possible gastrocnemius recession left lower extremity 82353, 93434, 79752, M21.612,M21.962(Left) - Bob Francisco DPM s Abilio Bunionectomy(Left) - Bob Francisco DPM s Gastrocnemius Recession(Left) - Bob Francisco DPM
[2022-05-20] MEDS: clindamycin 600 MG/50 ML PREMIX 100 MG IV (09:21)
--- NOTE | 2022-05-20 09:24 | XR_ITS ---
WS: [id number] XR foot LT min 3V* [id number] REASON FOR EXAM: post op FINDINGS: Osteotomy of the first proximal phalanx with small plate and screw fixation. Plate and screw arthrodesis of the first tarsal metatarsal joint. Bony components and surgical appliances are in proper position and alignment. XR/XR foot LT min 3V* [id number] IMPRESSION: Postoperative left foot as above.
[2022-05-20 15:35] LABS: OR HCG Qualitative Urine Negative (Negative)
--- NOTE | 2022-05-20 15:48 | ANE.PACU2 ---
Inpatient post-anesthesia follow up: Airway intact: Yes Vital signs: Temperature 98.0 F Pulse Rate 77 Respiratory Rate 16 Blood Pressure 121/81 Pulse Oximetry 95 Oxygen Delivery Me thod Room Air Oxygen Flow Rate 7 Fraction of Inspir ed Oxygen Hydration adequate: Yes Nausea and vomiting: No Pain level: 2 Mental status: Baseline
== END 2022-05-20 11:50 | disposition home or self-care (01) ==
PROVIDERS: PCP Nurse Practitioner Family; Visit Provider Podiatrist Foot & Ankle Surgery
PROC: (CPT 28297; principal; 2022-05-20 09:25)
PROC: (CPT 28298; 2022-05-20 09:25)
DX: M21.612 Bunion of left foot (principal); M20.12 Hallux valgus (acquired), left foot; E11.9 Type 2 diabetes mellitus without complications; I10 Essential (primary) hypertension; F17.220 Nicotine dependence, chewing tobacco, uncomplicated; Z79.84 Long term (current) use of oral hypoglycemic drugs; Z88.0 Allergy status to penicillin
CPT/HCPCS: 28298; 73630; 76000; 84703; C1713; C9290; J2250; J2704; J3010; J3490; J7030

== ENCOUNTER 2022-05-21 18:04 | Emergency (ER) | payer MEDICAID, SELFPAY ==
[2022-05-21 18:20] VITALS: BP 123/89; PULSE 109; RESP 16; TEMP 36.9; O2SAT 97
--- NOTE | 2022-05-21 19:36 | ED_ITS ---
HPI - Extremity Problem General: Chief complaint: Extremity Problem,Nontraumatic Stated complaint: surgical stiches bleeding Time Seen by Provider: 05/21/22 19:35 History of Present Illness: 32-year-old female comes in today concerns of drainage from her surgical wound for a hammertoe/bunion repair of her left foot. Patient denies any fever. Patient also is requesting some acetaminophen for pain. Patient appears nontoxic. Patient appears in mild to moderate pain. Associated symptoms: Deny chest pain, fever(s) or rash Review of Systems General: Reports: 10 or more systems reviewed and unremarkable except in HPI and below Const: Denies: fever(s) Card: Denies: chest pain Resp: Denies: dyspnea GI: Denies: nausea or vomiting Musc: Reports: extremity pain and other (Drainage through surgical wound dressing) Skin/Breast: Denies: rash PFSH ED PFSH: Medical History (Updated 05/21/22 @ 19:55 by HUMERA Khanna) Chronic post-traumatic stress disorder Moderate intellectual disabilities Nicotine dependence, chewing tobacco, uncomplicated Schizoaffective disorder, bipolar type Social History Smoking and tobacco status: never smoked Physical Exam Const: COMMON NORMALS: alert HENMT: COMMON NORMALS: normocephalic HEAD & SCALP: normocephalic Resp: COMMON NORMALS: normal respiratory effort Cardio: COMMON NORMALS: regular rate RATE: regular rate Extremity: LEFT LOWER EXTREMITY: Yes foot & digits (Well intact wound with no surrounding redness, mild ecchymosis) Left foot and digits: Yes inspection, Yes palpation and Yes ROM Neuro: SENSORIUM/ORIENTATION: Yes alert Skin: WOUNDS: Yes surgical site (Serosanguineous drainage to the dressing, well appearing wound) Course Vital Signs: Vital signs: Vital Signs Temperature 98.5 F 05/21/22 18:20 Pulse Rate 109 H 05/21/22 18:20 Respiratory Rate 16 05/21/22 18:20 Blood Pressure 123/89 05/21/22 18:20 Pulse Oximetry 97 05/21/22 18:20 Oxygen Delivery Me thod 05/21/22 18:20 MDM - Extremity (Nontraumatic) Medical Decision Making Patient came in due to significant drainage to her surgical site. On exam patient has serosanguineous drainage that has covered the external part of her dressing. Patient did have some drainage into her walking boot. Patient reports that she had been up on her foot most of yesterday and this was after having the surgery. Patient appears nontoxic. Examination of the surgical site noted a well approximated wound site with some mild ecchymosis and minimal swelling. Dressing around the wound was dry with serosanguineous fluid. Wound was redressed with clean Curlex gauze and dressing. Patient tolerated well. Differential diagnosis includes wound dehiscence, surgical hemorrhage, uncontrolled surgical pain. Patient did also complain of uncontrolled pain. Patient was written a prescription for acetaminophen a short course for hydrocodone. Recommended resting and elevating foot more. Since the drainage was dry on the dressing really did not expect much more draining from the wound site. No signs of dehiscence, or serious illness or injury. Reassured patient and family with recommendations to follow-up with primary care/surgeon. Discharge Plan Discharge Patient Disposition: Home Clinical Impression: Postoperative pain of extremity Draining postoperative wound Qualifiers: Encounter type: initial encounter Qualified Code(s): T81.89XA - Other complications of procedures, not elsewhere classified, initial encounter Condition: Stable Prescriptions: New acetaminophen 500 mg capsule 1,000 mg PO Q8H PRN (Reason: pain) Qty: 60 0RF hydrocodone-acetaminophen 5-325 mg tablet 1 tab PO Q8H PRN (Reason: pain (scale score 7-10)) Qty: 7 0RF No Action levothyroxine 50 mcg capsule 50 mcg PO DAILY metformin 500 mg tablet 500 mg PO BID ergocalciferol (vitamin D2) 1,250 mcg (50,000 unit) capsule 1,250 mcg PO Q7D Rx Instructions: TAKES ON MONDAY hydroxyzine HCl 50 mg tablet 50 mg PO BID PRN (Reason: anxiety) Qty: 60 3RF ondansetron HCl 4 mg tablet 4 mg PO BID PRN (Reason: nausea and vomiting) 5 Days Qty: 10 0RF gabapentin 300 mg Capsule 300 mg PO TID atorvastatin 40 mg tablet 40 mg PO DAILY norgestimate-ethinyl estradiol [Estarylla] 0.25-35 mg-mcg tablet 0.25 tab PO DAILY valacyclovir 500 mg tablet 500 mg PO DAILY loratadine 10 mg tablet 10 mg PO DAILY Trulicity 1.5 mg/0.5 mL pen injector 1.5 mg SUBCUT DIRECTED Rx Instructions: once weekly topiramate 50 mg tablet 75 mg PO BID Qty: 40 0RF bupropion HCl 150 mg tablet extended release 24 hr 150 mg PO DAILY Qty: 15 0RF olanzapine 5 mg tablet 5 mg PO BID Qty: 30 0RF prazosin 5 mg capsule 5 mg PO DAILY Qty: 14 0RF trazodone 100 mg tablet 100 mg PO DAILY Qty: 14 0RF mirtazapine [Remeron] 15 mg tablet 15 mg PO BEDTIME Qty: 14 0RF ziprasidone HCl 60 mg capsule 60 mg PO BID Qty: 30 0RF docusate sodium 100 mg capsule 100 mg PO DAILY buspirone 10 mg tablet 15 mg PO TID Discharge Orders: Discharge ED (Routine); Ordered 05/21/22 Ordered By: Fausto Silva Referrals: Alayna Holland FNP [Primary Care Provider] - Discharge Diet: Usual diet Discharge Activity: Increase activity as tolerated Patient Instructions: Musculoskeletal Pain (ED), Opioid Safety Activity Restrictions/Additional Instructions: Home and rest. Drink plenty of water and fluids. Elevate extremity is much as possible. Continue routine care as directed by surgeon. Use acetaminophen as needed for control of pain. Use hydrocodone for severe pain. Follow-up with surgeon at scheduled appointment, call surgeon earlier for worsening symptoms or new concerns. Coding Level of Care Code ED Machine Turner for Eh Vallecillo
[2022-05-21 20:09] VITALS: BP 119/83; PULSE 98; RESP 16; O2SAT 99
== END 2022-05-21 20:10 | disposition home or self-care (01) ==
PROVIDERS: Emergency Provider Nurse Practitioner Family; PCP Nurse Practitioner Family
DX: T81.89XA Other complications of procedures, not elsewhere classified, initial encounter (principal); Y83.8 Other surgical procedures as the cause of abnormal reaction of the patient, or of later complication, without mention of misadventure at the time of the procedure
CPT/HCPCS: 99283

== ENCOUNTER → 2022-05-23 15:12 | Outpatient (BNVA) | payer MEDICAID, SELFPAY | PROVIDERS: PCP Nurse Practitioner Family; Visit Provider Podiatrist Foot & Ankle Surgery | DX: M79.672 Pain in left foot (principal); Z48.89 Encounter for other specified surgical aftercare | CPT/HCPCS: 99024 ==

== ENCOUNTER → 2022-06-02 14:14 | Outpatient (BNVA) | payer MEDICAID, SELFPAY | PROVIDERS: PCP Nurse Practitioner Family; Visit Provider Podiatrist Foot & Ankle Surgery | DX: Z98.890 Other specified postprocedural states (principal) | CPT/HCPCS: 73630; 99024 ==

== ENCOUNTER → 2022-06-09 08:06 | Outpatient (BNVA) | payer MEDICAID, SELFPAY | PROVIDERS: PCP Nurse Practitioner Family; Visit Provider Podiatrist Foot & Ankle Surgery | DX: Z98.890 Other specified postprocedural states (principal) | CPT/HCPCS: 99024 ==

== ENCOUNTER 2022-07-04 19:26 | Emergency (ER) | payer MEDICAID, SELFPAY ==
[2022-07-04 20:31] VITALS: BP 133/88; PULSE 89; RESP 18; TEMP 36.8; O2SAT 98; BMI 29.1
--- NOTE | 2022-07-05 00:46 | W.ED.DIZZY ---
HPI - Dizziness General: Chief Complaint: Dizziness Stated Complaint: Hit Head in Shower Time Seen by Provider: 07/05/22 00:40 History of Present Illness: HPI Narrative: 32-year-old female comes in today for concerns of head injury. Patient was using this shower and slipped and fell hitting the back of her head against the tub. No loss of consciousness was reported. Patient reports that she does have a occasional episodes of dizziness which has been related to position change. Dizziness is not new to patient. Patient appears nontoxic. Patient appears in no pain. Patient reports some pain at the site of impact. Associated symptoms: Reports headache(s); Denies chest pain or vomiting Review of Systems General: Reports: 10 or more systems reviewed and unremarkable except in HPI and below Const: Denies: fever(s) Eyes: Denies: change in vision ENMT: Denies: throat pain Card: Denies: chest pain Resp: Denies: dyspnea GI: Denies: vomiting : Denies: difficulty voiding Musc: Denies: neck pain or back pain Neuro: Reports: headache(s) PFSH ED PFSH: Medical History (Updated 07/05/22 @ 00:58 by HUMERA Khanna) Chronic post-traumatic stress disorder Moderate intellectual disabilities Nicotine dependence, chewing tobacco, uncomplicated Schizoaffective disorder, bipolar type Social History Smoking and tobacco status: never smoked Physical Exam Const: COMMON NORMALS: alert HENMT: COMMON NORMALS: normocephalic, atraumatic and TM's normal bilaterally HEAD & SCALP: normocephalic and atraumatic TYMPANIC MEMBRANE: TM's normal bilaterally THROAT: posterior oropharynx normal Eye: GENERAL EYE: appearance normal, both eyes and all related structures Neck/C-Spine: COMMON NORMALS: full ROM CERVICAL SPINE: No Cervical spine tenderness Resp: COMMON NORMALS: normal respiratory effort and clear to auscultation bilaterally AUSCULTATION: clear to auscultation bilaterally Cardio: COMMON NORMALS: regular rate and regular rhythm RATE: regular rate RHYTHM: regular rhythm GI: COMMON NORMALS: Soft to palpation PALPATION: Yes Soft to palpation Extremity: COMMON NORMALS: normal to inspection Neuro: SENSORIUM/ORIENTATION: Yes alert Skin: COMMON NORMALS: turgor normal GENERAL SKIN EXAM: turgor normal Course Vital Signs: Vital signs: Vital Signs Temperature 98.2 F 07/04/22 20:31 Pulse Rate 89 07/04/22 20:31 Respiratory Rate 18 07/04/22 20:31 Blood Pressure 133/88 07/04/22 20:31 Pulse Oximetry 98 07/04/22 20:31 Oxygen Delivery Me thod Room Air 07/04/22 20:31 MDM - Dizziness Medical Decision Making 32-year-old female comes in today for complaints of of fall and head injury. On exam patient appears nontoxic. No visible injuries noted to the scalp or neck. No tenderness is noted along the cervical spine. Patient moves neck without difficulty. Patient moves all extremities well. Pupils are equal and reactive. Posterior pharynx is pink and moist. Respirations are even lungs are clear to auscultation. Patient moves all extremities well. No signs of focal neural deficits or severe head injury are noted. Differential diagnosis includes contusion, cervical strain, concussion. Reviewed exam with patient and caregiver with recommendations for treatment and further follow-up. Caregiver also reported some concerns for surgical site tenderness and persistent swelling to the foot. Patient had a bunionectomy done in May. No signs of severe redness or swelling or induration was noted along the surgical site. There is some mild swelling. Recommended contacting surgeons office tomorrow to discuss and for further evaluation. No signs infection is noted at this time. Caregiver reported understanding and agreed to plan. Discharge Plan Discharge Patient Disposition: Home Clinical Impression: Fall in shower, S/P bunionectomy Head injury Qualifiers: Encounter type: initial encounter Qualified Code(s): S09.90XA - Unspecified injury of head, initial encounter Condition: Stable Prescriptions: No Action levothyroxine 50 mcg capsule 50 mcg PO DAILY metformin 500 mg tablet 500 mg PO BID ergocalciferol (vitamin D2) 1,250 mcg (50,000 unit) capsule 1,250 mcg PO Q7D Rx Instructions: TAKES ON MONDAY hydroxyzine HCl 50 mg tablet 50 mg PO BID PRN (Reason: anxiety) Qty: 60 3RF ondansetron HCl 4 mg tablet 4 mg PO BID 5 Days Qty: 10 0RF eucalyptus-menthol Lozenge 1 jocelynn mucous membrane Q4H PRN (Reason: cough) Qty: 30 0RF ondansetron 8 mg tablet,disintegrating 8 mg PO Q8H PRN (Reason: nausea and vomiting) 5 Days Qty: 15 0RF aspirin 81 mg tablet,chewable 81 mg PO DAILY 45 Days Qty: 45 0RF gabapentin 300 mg Capsule 300 mg PO TID atorvastatin 40 mg tablet 40 mg PO DAILY norgestimate-ethinyl estradiol [Estarylla] 0.25-35 mg-mcg tablet 0.25 tab PO DAILY valacyclovir 500 mg tablet 500 mg PO DAILY loratadine 10 mg tablet 10 mg PO DAILY Trulicity 1.5 mg/0.5 mL pen injector 1.5 mg SUBCUT DIRECTED Rx Instructions: once weekly topiramate 50 mg tablet 75 mg PO BID Qty: 40 0RF bupropion HCl 150 mg tablet extended release 24 hr 150 mg PO DAILY Qty: 15 0RF olanzapine 5 mg tablet 5 mg PO BID Qty: 30 0RF prazosin 5 mg capsule 5 mg PO DAILY Qty: 14 0RF trazodone 100 mg tablet 100 mg PO DAILY Qty: 14 0RF mirtazapine [Remeron] 15 mg tablet 15 mg PO BEDTIME Qty: 14 0RF ziprasidone HCl 60 mg capsule 60 mg PO BID Qty: 30 0RF docusate sodium 100 mg capsule 100 mg PO DAILY buspirone 10 mg tablet 15 mg PO TID acetaminophen 500 mg capsule 1,000 mg PO Q8H PRN (Reason: pain) Qty: 60 0RF hydrocodone-acetaminophen 5-325 mg tablet 1 tab PO Q8H PRN (Reason: pain (scale score 7-10)) Qty: 7 0RF Discharge Orders: Discharge ED (Routine); Ordered 07/05/22 Ordered By: Fausto Silva Referrals: Alayna Holland FNP [Primary Care Provider] - Discharge Diet: Usual diet Discharge Activity: Increase activity as tolerated Patient Instructions: Head Injury (ED) Activity Restrictions/Additional Instructions: Home and rest. Activity as tolerated. Change positions slowly in order to avoid dizziness. Drink plenty of water with medications. Follow-up with Dr. Francisco's office in the morning regarding surgery and repeat evaluation of foot. Return to ED for worsening symptoms such as severe headache, high fever, or increased redness and swelling to the foot. Coding Level of Care Code ED [facility] Tender for Eh Vallecillo
== END 2022-07-05 01:10 | disposition home or self-care (01) ==
PROVIDERS: Emergency Provider Nurse Practitioner Family; PCP Nurse Practitioner Family
DX: S09.90XA Unspecified injury of head, initial encounter (principal); Z98.890 Other specified postprocedural states; Z79.82 Long term (current) use of aspirin; Z79.85 Long-term (current) use of injectable non-insulin antidiabetic drugs; Z79.84 Long term (current) use of oral hypoglycemic drugs; W18.2XXA Fall in (into) shower or empty bathtub, initial encounter
CPT/HCPCS: 99282

== ENCOUNTER → 2022-07-11 13:58 | Outpatient (BNVA) | payer MEDICAID, SELFPAY | PROVIDERS: PCP Nurse Practitioner Family; Visit Provider Podiatrist Foot & Ankle Surgery | DX: Z98.890 Other specified postprocedural states (principal) | CPT/HCPCS: 73630; 99024 ==

== ENCOUNTER 2022-07-23 21:30 | Emergency (ER) | payer MEDICAID, SELFPAY ==
[2022-07-23 21:33] VITALS: BP 141/95; PULSE 91; RESP 16; TEMP 36.6; O2SAT 99; BMI 30.6
[2022-07-23 21:45] VITALS: BP 141/95; PULSE 86; RESP 16; O2SAT 99
--- NOTE | 2022-07-23 22:04 | XRR_ITS ---
PROCEDURE INFORMATION: Exam: XR Abdomen Exam date and time: 07/23/2022 10:32 PM Age: 32 years old Clinical indication: Vomiting; Additional info: Vomiting and diarrhea TECHNIQUE: Imaging protocol: Radiologic exam of the abdomen. Views: 2 Views. Upright and supine views. COMPARISON: CR XR chest 1V [id number] 02/02/2018 9:02 PM FINDINGS: Gastrointestinal tract: There is stool throughout colon. No bowel dilation. Intraperitoneal space: Normal. No free air. Bones/joints: Unremarkable for age. XR/XR acute abdomen series [id number] IMPRESSION: No acute findings.
[2022-07-23] MEDS: sodium chloride 0.9% 1,000 ML 999 ML IV (22:12)
[2022-07-23] MEDS: ondansetron 2 mg/ML SDV 2 mL 4 MG IVP (22:13)
[2022-07-23 22:21] LABS: Basophils # 0.1 10^3/uL (0.0-0.1); Basophils % 0.6 %; Eosinophils # 1.3 10^3/uL (0.0-0.8); Eosinophils % 11.9 %; Hematocrit 34.9 % (37.0-47.0); Hemoglobin 11.1 g/dL (11.5-15.3); Lymphocytes # 3.9 10^3/uL (0.8-4.8); Lymphocytes % 34.8 %; Mean Corpuscular HGB Conc 31.8 g/dL (30.0-36.0); Mean Corpuscular Hemoglobin 29.4 pg (28.0-34.0); Mean Corpuscular Volume 92.3 fl (81-99); Mean Platelet Volume 9.7 fL (7.4-10.4); Monocytes # 1.1 10^3/uL (0.2-0.9); Monocytes % 9.7 %; Neutrophils # 4.73 10^3/uL (1.8-7.7); Neutrophils % 42.4 %; Nucleated Red Blood Cells % 0 %; Platelet Count 325 10^3/cmm (130-400); Red Blood Count 3.78 10^6/uL (4.1-5.3); Red Cell Distribution Width 12.5 % (12.1-15.1); White Blood Count 11.2 10^3/uL (4.0-10.0)
[2022-07-23 22:43] LABS: Alanine Aminotransferase 14 U/L (0-33); Albumin Level 3.8 g/dL (3.5-5.2); Alkaline Phosphatase 64 U/L (35-105); Anion Gap 16.7 (5-19); Aspartate Amino Transferase 9 U/L (0-32); Blood Urea Nitrogen 6 mg/dL (6-20); C Reactive Protein 8.4 mg/L (0.0-4.9); Calcium 8.5 mg/dL (8.5-10.5); Carbon Dioxide 23 mmol/L (22-29); Chloride 106 mmol/L (98-107); Globulin 1.8 g/dL (1.3-4.6); Glomerular Filtration Rate 183.8 mL/min (90-130); Glucose 138 mg/dL (65-115); Osmolality Calculated 294 mOsm/kg (285-295); Potassium 3.7 mmol/L (3.5-5.1); Sodium 142 mmol/L (136-145); Total Bilirubin 0.2 mg/dL (0.15-1.2); Total Protein 5.6 g/dL (6.6-8.7)
--- NOTE | 2022-07-23 22:50 | ED_ITS ---
HPI - SOB/Dyspnea General: Chief Complaint: Shortness of Breath/Dyspnea Stated Complaint: COUGH Time Seen by Provider: 07/23/22 21:42 History of Present Illness: HPI Narrative: 32-year-old female presents emergency department chief complaint of having nausea and vomiting diarrhea and moderate productive cough with shortness of breath is been ongoing for last 2 to 3 days patient has no prior history of heart or lung issues. Patient presents to the ER with her sister for further assessment and management patient reports concerns of dehydration with lack of appetite and oral intake. Associated symptoms: Reports abdominal pain, nausea and vomiting; Deny chest pain, extremity pain, fever(s) or palpitations Review of Systems General: Reports: 10 or more systems reviewed and unremarkable except in HPI and below Narrative: Patient appears nontoxic he is currently afebrile Const: Denies: fever(s), chills, fatigue or malaise Eyes: Denies: change in vision or blurry vision ENMT: Reports: other (Upper sinus congestion appreciated over the maxillary and frontal sinuses) Card: Denies: chest pain or palpitations Resp: Reports: productive cough; Denies: dyspnea GI: Reports: abdominal pain, nausea and vomiting : Denies: flank pain Musc: Denies: extremity pain or extremity swelling Skin/Breast: Denies: rash or pruritus Neuro: Denies: headache(s) Psych: Denies: anxiety or depression Walter/Lymph: Denies: easy bleeding All/Imm: Denies: urticaria, throat swelling or facial swelling [facility] ED PFSH: Medical History (Updated 07/23/22 @ 23:23 by Narinder Ochoa) Chronic post-traumatic stress disorder Moderate intellectual disabilities Nicotine dependence, chewing tobacco, uncomplicated Schizoaffective disorder, bipolar type Social History Smoking and tobacco status: never smoked Physical Exam Narrative: EXAM NARRATIVE: Patient appears nontoxic appears in no obvious acute distress currently afebrile Const: COMMON NORMALS: no acute distress, patient oriented x3 and healthy appearing HENMT: COMMON NORMALS: normocephalic and atraumatic HEAD & SCALP: normocephalic, atraumatic and other (Moderate pain to palpation over the frontal sinus on exam mild pain to palp) Eye: COMMON NORMALS: Equal, round and reactive pupils present and EOMs intact bilaterally PUPIL: Yes Equal, round and reactive pupils present Neck/C-Spine: COMMON NORMALS: full ROM, supple and no JVD Lymph: LYMPHATIC: no lymphadenopathy noted Chest: COMMONS NORMALS: normal inspection of the chest and normal palpation of entire chest wall Resp: COMMON NORMALS: normal respiratory effort, No retractions and clear to auscultation bilaterally EFFORT & INSPECTION: Yes able to speak in complete sentences and Yes symmetric chest movement AUSCULTATION: clear to auscultation bilaterally Cardio: COMMON NORMALS: no JVD, regular rate and regular rhythm RATE: regular rate RHYTHM: regular rhythm GI: COMMON NORMALS: Normal to inspection, nondistended, normoactive bowel sounds present, Soft to palpation and non-tender INSPECTION: Yes normal to inspection PALPATION: Yes Soft to palpation OTHER: Generalized abdominal tenderness noted mostly located to the right epigastric region otherwise soft and nontender. : COMMON NORMALS: Yes no CVA tenderness BLADDER/KIDNEY EXAM: Yes no CVA tenderness Back/Pelvis: COMMON NORMALS: no CVA tenderness Extremity: COMMON NORMALS: normal to inspection and full ROM Neuro: COMMON NORMALS: patient oriented x3, CN's II-XII intact bilaterally, moves all extremities and no focal motor deficits Psych: COMMON NORMALS: mental status grossly normal, Normal thought process present, cooperative and normal affect THOUGHT PROCESS: Normal thought process present Skin: COMMON NORMALS: no rashes or lesions noted GENERAL SKIN EXAM: no rashes or lesions noted Course Vital Signs: Vital signs: Vital Signs Temperature 97.8 F 07/23/22 21:33 Pulse Rate 86 07/23/22 21:45 Respiratory Rate 16 07/23/22 21:45 Blood Pressure 141/95 07/23/22 21:45 Pulse Oximetry 99 07/23/22 21:45 MDM - SOB/Dyspnea Medical Decision Making Due to the patient's symptoms and condition IV will be established basic lab work imaging obtained IV fluids provided for hydration we will continue to follow. Was able to tolerate p.o. challenge remainder lab work came back reassuring patient appears to have acute frontal sinusitis when she started on antibiotics for she was able to tolerate a p.o. challenge will be simply discharged on medications for her nausea and abdominal symptoms did advise further follow-up primary care in 3 to 5 days which patient was advised return the interim if any of her symptoms persist or worse. Lab Data 07/23/22 21:45 07/23/22 21:45 Labs/Radiology: Laboratory Results WBC 11.2 10^3/uL (4.0-10.0) H 07/23/22 21:45 RBC 3.78 10^6/uL (4.1-5.3) L 07/23/22 21:45 Hgb 11.1 g/dL (11.5-15.3) L 07/23/22 21:45 Hct 34.9 % (37.0-47.0) L 07/23/22 21:45 MCV 92.3 fl (81-99) 07/23/22 21:45 MCH 29.4 pg (28.0-34.0) 07/23/22 21:45 MCHC 31.8 g/dL (30.0-36.0) 07/23/22 21:45 RDW 12.5 % (12.1-15.1) 07/23/22 21:45 Plt Count 325 10^3/cmm (130-400) 07/23/22 21:45 MPV 9.7 fL (7.4-10.4) 07/23/22 21:45 Neut % (Auto) 42.4 % 07/23/22 21:45 Lymph % (Auto) 34.8 % 07/23/22 21:45 [place] % (Auto) 9.7 % 07/23/22 21:45 Eos % (Auto) 11.9 % 07/23/22 21:45 Baso % (Auto) 0.6 % 07/23/22 21:45 Neut # (Auto) 4.73 10^3/uL (1.8-7.7) 07/23/22 21:45 Lymph # (Auto) 3.9 10^3/uL (0.8-4.8) 07/23/22 21:45 [place] # (Auto) 1.1 10^3/uL (0.2-0.9) H 07/23/22 21:45 Eos # (Auto) 1.3 10^3/uL (0.0-0.8) H 07/23/22 21:45 Baso # (Auto) 0.1 10^3/uL (0.0-0.1) 07/23/22 21:45 Nucleated RBC % (auto) 0 % 07/23/22 21:45 Nucleated RBCs # 0.0 /100WBC 07/23/22 21:45 Sodium 142 mmol/L (136-145) 07/23/22 21:45 Potassium 3.7 mmol/L (3.5-5.1) 07/23/22 21:45 Chloride 106 mmol/L (98-107) 07/23/22 21:45 Carbon Dioxide 23 mmol/L (22-29) 07/23/22 21:45 Anion Gap 16.7 (5-19) 07/23/22 21:45 BUN 6 mg/dL (6-20) 07/23/22 21:45 Creatinine 0.4 mg/dL (0.5-0.9) L 07/23/22 21:45 GFR Calculation 183.8 mL/min (90-130) H 07/23/22 21:45 Glucose 138 mg/dL (65-115) H 07/23/22 21:45 Calculated Osmolality 294 mOsm/kg (285-295) 07/23/22 21:45 Calcium 8.5 mg/dL (8.5-10.5) 07/23/22 21:45 Total Bilirubin 0.2 mg/dL (0.15-1.2) 07/23/22 21:45 AST 9 U/L (0-32) 07/23/22 21:45 ALT 14 U/L (0-33) 07/23/22 21:45 Alkaline Phosphatase 64 U/L (35-105) 07/23/22 21:45 C-Reactive Protein 8.4 mg/L (0.0-4.9) H 07/23/22 21:45 Total Protein 5.6 g/dL (6.6-8.7) L 07/23/22 21:45 Albumin 3.8 g/dL (3.5-5.2) 07/23/22 21:45 Globulin 1.8 g/dL (1.3-4.6) 07/23/22 21:45 Urine Color Yellow (Yellow) 07/23/22 22:22 Urine Appearance Clear (CLEAR) 07/23/22 22:22 Urine pH 5 (5-7) 07/23/22 22:22 Ur Specific [place]ridge 1.015 (1.005-1.030) 05/06/23 22:22 Urine Protein Neg (Negative) 07/23/22 22:22 Urine Glucose (UA) Norm (Normal) 07/23/22 22:22 Urine Ketones Negative (Negative) 07/23/22 22:22 Urine Blood 3+ (Negative) H 07/23/22 22:22 Urine Nitrate Negative (Negative) 07/23/22 22:22 Urine Bilirubin 1+ (Negative) H 07/23/22 22:22 Urine Urobilinogen 1 mg/dL (Negative) H 07/23/22 22:22 Ur Leukocyte Esterase Negative (Negative) 07/23/22 22:22 Urine RBC 5-10 /hpf (0-2) H 07/23/22 22:22 Urine WBC 0-4 /hpf (0-5) H 07/23/22 22:22 Ur Squamous Epith Cells 0-4 /hpf (0-5) H 07/23/22 22:22 Amorphous Sediment Not Reportable 07/23/22 22:22 Urine Bacteria Trace /hpf (NONE) 07/23/22 22:22 Discharge Plan Discharge Patient Disposition: Home Clinical Impression: Gastroenteritis, Acute dehydration, Sinusitis chronic, frontal Condition: Stable Prescriptions: New prednisone 20 mg tablet 20 mg PO BID 7 Days Qty: 14 0RF Bactrim DS 800-160 mg tablet 1 tab PO DAILY 7 Days Qty: 14 0RF ondansetron 4 mg tablet,disintegrating 4 mg PO Q8H PRN (Reason: nausea and vomiting) 4 Days Qty: 14 0RF tramadol 100 mg tablet 100 mg PO Q8H PRN (Reason: pain) Qty: 10 0RF No Action levothyroxine 50 mcg capsule 50 mcg PO DAILY metformin 500 mg tablet 500 mg PO BID ergocalciferol (vitamin D2) 1,250 mcg (50,000 unit) capsule 1,250 mcg PO Q7D Rx Instructions: TAKES ON MONDAY hydroxyzine HCl 50 mg tablet 50 mg PO BID PRN (Reason: anxiety) Qty: 60 3RF ondansetron HCl 4 mg tablet 4 mg PO BID 5 Days Qty: 10 0RF eucalyptus-menthol Lozenge 1 jocelynn mucous membrane Q4H PRN (Reason: cough) Qty: 30 0RF ondansetron 8 mg tablet,disintegrating 8 mg PO Q8H PRN (Reason: nausea and vomiting) 5 Days Qty: 15 0RF aspirin 81 mg tablet,chewable 81 mg PO DAILY 45 Days Qty: 45 0RF gabapentin 300 mg Capsule 300 mg PO TID atorvastatin 40 mg tablet 40 mg PO DAILY norgestimate-ethinyl estradiol [Estarylla] 0.25-35 mg-mcg tablet 0.25 tab PO DAILY valacyclovir 500 mg tablet 500 mg PO DAILY loratadine 10 mg tablet 10 mg PO DAILY Trulicity 1.5 mg/0.5 mL pen injector 1.5 mg SUBCUT DIRECTED Rx Instructions: once weekly topiramate 50 mg tablet 75 mg PO BID Qty: 40 0RF bupropion HCl 150 mg tablet extended release 24 hr 150 mg PO DAILY Qty: 15 0RF olanzapine 5 mg tablet 5 mg PO BID Qty: 30 0RF prazosin 5 mg capsule 5 mg PO DAILY Qty: 14 0RF trazodone 100 mg tablet 100 mg PO DAILY Qty: 14 0RF mirtazapine [Remeron] 15 mg tablet 15 mg PO BEDTIME Qty: 14 0RF ziprasidone HCl 60 mg capsule 60 mg PO BID Qty: 30 0RF docusate sodium 100 mg capsule 100 mg PO DAILY buspirone 10 mg tablet 15 mg PO TID acetaminophen 500 mg capsule 1,000 mg PO Q8H PRN (Reason: pain) Qty: 60 0RF Discharge Orders: Discharge ED (Routine); Ordered 07/23/22 Ordered By: Narinder Ochoa Referrals: Alayna Holland FNP [Primary Care Provider] - 1-3 days Discharge Diet: Advance as tolerated Discharge Activity: Increase activity as tolerated Patient Instructions: Dehydration - Adult, Gastroenteritis (ED), Opioid Safety, Pain Management, Sinusitis - Acute Activity Restrictions/Additional Instructions: Please follow-up with your primary care doctor in 2 to 3 days, please take medications as prescribed and please return the interim if any of her symptoms persist or worse. Coding Level of Care Code ED Sales Technician for Eh Vallecillo
[2022-07-23 23:03] LABS: Add Urine Culture? No; Add Urine Microscopic? YES; Bacteria Urine TRACE /hpf; Bilirubin Urine 1+ (Negative); Blood Urine 3+ (Negative); Glucose Urine UA Norm (Normal); Ketones Urine Negative (Negative); Leukocyte Esterase Urine Negative (Negative); Nitrate Urine Negative (Negative); Protein Urine Neg (Negative); Specific Gravity, Urine 1.015 (1.005-1.030); Squamous Epithelial Cell Urine 0-4 /hpf (0-5); Urine Appearance Clear (CLEAR); Urine Color Yellow (Yellow); Urobilinogen Urine 1 mg/dL (Negative); WBC Urine 0-4 /hpf (0-5); pH Urine 5 (5-7)
[2022-07-23] MEDS: acetaminophen 325 mg Tablet 650 MG PO (23:30)
[2022-07-23] MEDS: dexamethasone 10 mg/mL INJ IVP (23:30)
[2022-07-23 23:42] VITALS: BP 141/95; PULSE 86; RESP 16; TEMP 36.6; O2SAT 99
== END 2022-07-23 23:43 | disposition home or self-care (01) ==
PROVIDERS: Emergency Provider Emergency Medicine; PCP Nurse Practitioner Family
DX: K52.9 Noninfective gastroenteritis and colitis, unspecified (principal); E86.0 Dehydration; J32.1 Chronic frontal sinusitis; Z79.82 Long term (current) use of aspirin; Z79.85 Long-term (current) use of injectable non-insulin antidiabetic drugs; Z79.84 Long term (current) use of oral hypoglycemic drugs
CPT/HCPCS: 74022; 80053; 81001; 85025; 86140; 96374; 96375; 99285; J1100; J2405; J7030

== ENCOUNTER 2022-07-26 20:35 | Emergency (ER) | payer MEDICAID, SELFPAY ==
[2022-07-26 20:43] VITALS: BP 113/80; PULSE 106; RESP 16; TEMP 36.7; O2SAT 97
--- NOTE | 2022-07-26 21:20 | W.ED.DIZZY ---
HPI - Dizziness General: Chief Complaint: Dizziness Stated Complaint: Fall/ head injury Time Seen by Provider: 07/26/22 21:10 History of Present Illness: HPI Narrative: Patient is getting over a bout of gastroenteritis and was treated on the 6 with IV fluids. Today patient was feeling better was moving around and had taken a shower. While in the shower she became dizzy and fell forward striking her head against the flat shower faucet. No loss of consciousness was reported. No bleeding or noticeable injury is seen. Associated symptoms: Denies chest pain or vomiting Review of Systems Const: Denies: fever(s) Card: Denies: chest pain Resp: Denies: dyspnea GI: Denies: vomiting : Denies: difficulty voiding Musc: Denies: neck pain Neuro: Reports: dizziness [facility] ED PFSH: Medical History (Updated 07/26/22 @ 21:40 by HUMERA Khanna) Chronic post-traumatic stress disorder Moderate intellectual disabilities Nicotine dependence, chewing tobacco, uncomplicated Schizoaffective disorder, bipolar type Social History Smoking and tobacco status: never smoked Physical Exam Const: COMMON NORMALS: alert HENMT: COMMON NORMALS: normocephalic and atraumatic HEAD & SCALP: normocephalic and atraumatic Neck/C-Spine: COMMON NORMALS: full ROM Resp: COMMON NORMALS: normal respiratory effort Cardio: COMMON NORMALS: regular rate and regular rhythm RATE: regular rate RHYTHM: regular rhythm GI: COMMON NORMALS: non-tender Extremity: COMMON NORMALS: normal to inspection Neuro: SENSORIUM/ORIENTATION: Yes alert Skin: COMMON NORMALS: no rashes or lesions noted GENERAL SKIN EXAM: no rashes or lesions noted Course Vital Signs: Vital signs: Vital Signs Temperature 98.1 F 07/26/22 21:54 Pulse Rate 95 07/26/22 21:54 Respiratory Rate 16 07/26/22 21:54 Blood Pressure 136/85 07/26/22 21:54 Pulse Oximetry 98 07/26/22 21:54 Oxygen Delivery Me thod Room Air 07/26/22 20:43 MDM - Dizziness Medical Decision Making Patient was brought in for evaluation of head injury. On exam patient has no noticeable external markings to the scalp. Pupils are equal and reactive. Patient was all extremities well. Vital signs are normal. Differential diagnosis includes contusion, concussion, orthostatic hypotension, mild dehydration, positional vertigo. Orthostatic vital signs were normal. Blood glucose was 158. No signs of severe illness/injury was noted. Reviewed exam with patient and caregiver with recommendations for monitoring and follow-up. They reported understanding. Lab Data Laboratory Results POC Glucose 158 mg/dL (70-110) H 07/26/22 21:31 Discharge Plan Discharge Patient Disposition: Home Clinical Impression: Fall in shower Head injury Qualifiers: Encounter type: initial encounter Qualified Code(s): S09.90XA - Unspecified injury of head, initial encounter Condition: Stable Prescriptions: No Action levothyroxine 50 mcg capsule 50 mcg PO DAILY metformin 500 mg tablet 500 mg PO BID ergocalciferol (vitamin D2) 1,250 mcg (50,000 unit) capsule 1,250 mcg PO Q7D Rx Instructions: TAKES ON MONDAY hydroxyzine HCl 50 mg tablet 50 mg PO BID PRN (Reason: anxiety) Qty: 60 3RF ondansetron HCl 4 mg tablet 4 mg PO BID 5 Days Qty: 10 0RF eucalyptus-menthol Lozenge 1 jocelynn mucous membrane Q4H PRN (Reason: cough) Qty: 30 0RF ondansetron 8 mg tablet,disintegrating 8 mg PO Q8H PRN (Reason: nausea and vomiting) 5 Days Qty: 15 0RF aspirin 81 mg tablet,chewable 81 mg PO DAILY 45 Days Qty: 45 0RF gabapentin 300 mg Capsule 300 mg PO TID atorvastatin 40 mg tablet 40 mg PO DAILY norgestimate-ethinyl estradiol [Estarylla] 0.25-35 mg-mcg tablet 0.25 tab PO DAILY valacyclovir 500 mg tablet 500 mg PO DAILY loratadine 10 mg tablet 10 mg PO DAILY Trulicity 1.5 mg/0.5 mL pen injector 1.5 mg SUBCUT DIRECTED Rx Instructions: once weekly topiramate 50 mg tablet 75 mg PO BID Qty: 40 0RF bupropion HCl 150 mg tablet extended release 24 hr 150 mg PO DAILY Qty: 15 0RF olanzapine 5 mg tablet 5 mg PO BID Qty: 30 0RF prazosin 5 mg capsule 5 mg PO DAILY Qty: 14 0RF trazodone 100 mg tablet 100 mg PO DAILY Qty: 14 0RF mirtazapine [Remeron] 15 mg tablet 15 mg PO BEDTIME Qty: 14 0RF ziprasidone HCl 60 mg capsule 60 mg PO BID Qty: 30 0RF prednisone 20 mg tablet 20 mg PO BID 7 Days Qty: 14 0RF Bactrim DS 800-160 mg tablet 1 tab PO DAILY 7 Days Qty: 14 0RF ondansetron 4 mg tablet,disintegrating 4 mg PO Q8H PRN (Reason: nausea and vomiting) 4 Days Qty: 14 0RF tramadol 100 mg tablet 100 mg PO Q8H PRN (Reason: pain) Qty: 10 0RF docusate sodium 100 mg capsule 100 mg PO DAILY buspirone 10 mg tablet 15 mg PO TID acetaminophen 500 mg capsule 1,000 mg PO Q8H PRN (Reason: pain) Qty: 60 0RF Discharge Orders: Discharge ED (Routine); Ordered 07/26/22 Ordered By: Fausto Silva Referrals: Alayna Holland FNP [Primary Care Provider] - Discharge Diet: Usual diet Discharge Activity: Increase activity as tolerated Patient Instructions: Head Injury (ED) Activity Restrictions/Additional Instructions: Encourage plenty of fluids. Use ondansetron as needed for nausea. Use acetaminophen as needed for headache. Follow-up with primary care in 2 to 3 days for recheck. Return to ED for new concerns or worsening symptoms such as severe headache, persistent nausea and vomiting, seizure activity, or unresponsiveness. Coding Level of Care Code ED Bundle Collector for Eh Vallecilol
[2022-07-26 21:26] VITALS: BP 136/85; PULSE 95; RESP 16; O2SAT 98
[2022-07-26 21:35] VITALS: BP 101/83; BP 115/77; BP 126/78; PULSE 104; PULSE 93; PULSE 95
[2022-07-26 21:41] LABS: Glucose Point of Care 158 mg/dL (70-110)
[2022-07-26 21:54] VITALS: BP 136/85; PULSE 95; RESP 16; TEMP 36.7; O2SAT 98
== END 2022-07-26 21:54 | disposition home or self-care (01) ==
PROVIDERS: Emergency Provider Nurse Practitioner Family; PCP Nurse Practitioner Family
DX: S09.90XA Unspecified injury of head, initial encounter (principal); Z79.82 Long term (current) use of aspirin; Z79.85 Long-term (current) use of injectable non-insulin antidiabetic drugs; Z79.84 Long term (current) use of oral hypoglycemic drugs; W18.2XXA Fall in (into) shower or empty bathtub, initial encounter
CPT/HCPCS: 36416; 82962; 99283

== ENCOUNTER 2022-08-02 17:47 | Observation (INO) | payer MEDICAID, SELFPAY ==
[2022-08-02] VITALS (7 sets, daily range): BP systolic 96–121; BP diastolic 65–84; PULSE 84–115; RESP 18–20; TEMP 36.7; O2SAT 96–98; BMI 28.0
--- NOTE | 2022-08-02 18:07 | ECG_ITS ---
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 Measurements Intervals [place] Rate: 106 P: 85 TX: 133 QRS: 149 QRSD: 96 T: 32 QT: 343 QTc: 456 Interpretive Statements SINUS TACHYCARDIA INCOMPLETE RIGHT BUNDLE BRANCH BLOCK [90+ ms QRS DURATION, TERMINAL R IN V1/V2, 40+ ms S IN I/aVL/V4/V5/V6] POSSIBLE RIGHT VENTRICULAR HYPERTROPHY [SOME/ALL OF: PROMINENT R IN V1, LATE TRANSITION, RAD, VICKIE, SSS] NONSPECIFIC T-WAVE ABNORMALITY Compared to ECG 03/20/2022 20:44:38 Sinus rhythm no longer present Possible ischemia no longer present T-wave abnormality still present Electronically Signed On 08-03-2022 17:50:16 CDT by Julio C Persaud M.D. [email or web address]
--- NOTE | 2022-08-02 18:08 | XRR_ITS ---
PROCEDURE INFORMATION: Exam: XR Chest Exam date and time: 08/02/2022 6:17 PM Age: 32 years old Clinical indication: Pain; Other: Low blood count; Chest pressure; Additional info: Cp TECHNIQUE: Imaging protocol: Radiologic exam of the chest. Views: 1 view. COMPARISON: CR XR chest 1V [id number] 02/02/2018 9:02 PM FINDINGS: Lungs: Unremarkable. No consolidation. Pleural spaces: Unremarkable. No pleural effusion. No pneumothorax. Heart/Mediastinum: Unremarkable. No cardiomegaly. Bones/joints: Unremarkable. XR/XR chest 1V portable [id number] IMPRESSION: No acute findings.
[2022-08-02 18:45] LABS: Hematocrit 40.2 % (37.0-47.0); Hemoglobin 13.5 g/dL (11.5-15.3); Mean Corpuscular HGB Conc 33.6 g/dL (30.0-36.0); Mean Corpuscular Hemoglobin 29.6 pg (28.0-34.0); Mean Corpuscular Volume 88.2 fl (81-99); Mean Platelet Volume 9.3 fL (7.4-10.4); Platelet Count 421 10^3/cmm (130-400); Red Blood Count 4.56 10^6/uL (4.1-5.3); Red Cell Distribution Width 12.5 % (12.1-15.1)
[2022-08-02 19:01] LABS: Troponin(5th) Baseline 7 ng/L (0-10)
[2022-08-02 19:06] LABS: Alanine Aminotransferase 13 U/L (0-33); Albumin Level 4.5 g/dL (3.5-5.2); Alkaline Phosphatase 53 U/L (35-105); Anion Gap 21.8 (5-19); Aspartate Amino Transferase 8 U/L (0-32); Blood Urea Nitrogen 12 mg/dL (6-20); Carbon Dioxide 22 mmol/L (22-29); Chloride 97 mmol/L (98-107); Glomerular Filtration Rate 82.6 mL/min (90-130); Glucose 124 mg/dL (65-115); Osmolality Calculated 285 mOsm/kg (285-295); Potassium 3.8 mmol/L (3.5-5.1); Sodium 137 mmol/L (136-145); Total Bilirubin 0.3 mg/dL (0.15-1.2); Total Protein 6.5 g/dL (6.6-8.7)
[2022-08-02 19:10] LABS: Absolute Eosinophils 0.3 10^3/cmm (0.0-0.7); Absolute Neutrophil 17.5 10^3/cmm (1.4-6.5); Absolute Segmented Neutrophil 17.5 10/cmm (1.6-7.1); Eosinophils 1 %; Lymphocytes 29 %; Lymphocytes Absolute 10.6 10^3/cmm (1.2-3.4); Monocytes Absolute 1.6 10^3/cmm (0.1-0.6); Platelet Estimate Increased (Normal); Segmented Neutrophils 56 %; Slide Review Slide Review Perform; Total Cells Counted 100 (0-100)
[2022-08-02 19:11] LABS: White Blood Count 31.2 10^3/uL (4.0-10.0)
[2022-08-02] MEDS: sodium chloride 0.9% 1,000 ML 999 ML IV ×2 (19:58→21:04)
--- NOTE | 2022-08-02 20:12 | CTR_ITS ---
PROCEDURE INFORMATION: Exam: CTA Chest With Contrast Exam date and time: 08/02/2022 8:33 PM Age: 32 years old Clinical indication: Abdominal pain; Generalized; Chest pressure; Additional info: Cp/abd pain TECHNIQUE: Imaging protocol: Computed tomographic angiography of the chest with contrast. 3D rendering (Not supervised by radiologist): MIP and/or 3D reconstructed images were created by the technologist. Radiation optimization: All CT scans at this facility use at least one of these dose optimization techniques: automated exposure control; mA and/or kV adjustment per patient size (includes targeted exams where dose is matched to clinical indication); or iterative reconstruction. Contrast material: OMNI 350; Contrast volume: 100 ml; Contrast route: INTRAVENOUS (IV); REPORTING DATA: Count of CT and Cardiac NM exams in prior 12 months: This patient has received 0 known CTs and 0 known cardiac nuclear medicine studies in the 12 months prior to the current study. COMPARISON: CR (CHEST, ) 08/02/2022 6:17 PM RADIATION DOSE METRICS: Total DLP (mGy-cm): 578.08 FINDINGS: Pulmonary arteries: Overall exam quality is good for evaluating the pulmonary arteries. There are tubular nonocclusive filling defects in the right lower lobe lateral basal and posterior basal segments indicative of pulmonary embolism. There also smaller nonocclusive emboli in the left upper lobe pulmonary arteries. The right pulmonary arteries are patent. There is no central or saddle embolus. Great vessels off aortic arch: Incidental retroesophageal right subclavian artery. Aorta: Unremarkable. No aortic aneurysm. No aortic dissection. Lungs: Unremarkable. No consolidation. No masses. Pleural spaces: Unremarkable. No pneumothorax. No pleural effusion. Heart: See Heart RV/LV ratio finding. Heart RV/LV ratio: The RV/LV ratio is 0.8 which is normal. The left ventricle is enlarged. Lymph nodes: Unremarkable. No enlarged lymph nodes. Bones/joints: Unremarkable. No acute fracture. Soft tissues: Unremarkable. Other findings: No RV strain. PROCEDURE INFORMATION: Exam: CT Abdomen And Pelvis With Contrast Exam date and time: 08/02/2022 8:33 PM Age: 32 years old Clinical indication: Abdominal pain; Generalized; Chest pressure; Additional info: Cp/abd pain TECHNIQUE: Imaging protocol: Computed tomography of the abdomen and pelvis with contrast. Radiation optimization: All CT scans at this facility use at least one of these dose optimization techniques: automated exposure control; mA and/or kV adjustment per patient size (includes targeted exams where dose is matched to clinical indication); or iterative reconstruction. Contrast material: OMNI 350; Contrast volume: 100 ml; Contrast route: INTRAVENOUS (IV); REPORTING DATA: Count of CT and Cardiac NM exams in prior 12 months: This patient has received 0 known CTs and 0 known cardiac nuclear medicine studies in the 12 months prior to the current study. COMPARISON: CR (ABDOMEN, ) 07/23/2022 10:32 PM RADIATION DOSE METRICS: Total DLP (mGy-cm): 578.08 FINDINGS: Liver: Normal. No mass. Gallbladder and bile ducts: Normal. No calcified stones. No ductal dilation. Pancreas: Normal. No ductal dilation. Spleen: Normal. No splenomegaly. Adrenal glands: Normal. No mass. Kidneys and ureters: Normal. No hydronephrosis. Stomach and bowel: No bowel obstruction or ileus. No free fluid, free air or abscess. Appendix: No evidence of appendicitis. Intraperitoneal space: See Stomach and bowel finding. Vasculature: Unremarkable. No abdominal aortic aneurysm. Lymph nodes: Unremarkable. No enlarged lymph nodes. Urinary bladder: Unremarkable as visualized. Reproductive: Unremarkable as visualized. Bones/joints: At L5-S1 there are bilateral chronic pars defects but without subluxation. Soft tissues: Unremarkable. CT/CT angio chest w abd pel w con IMPRESSION: Acute nonocclusive pulmonary emboli in the left lower and upper lobes. No central or saddle embolus. No RV strain. IMPRESSION: No significant abdominopelvic findings.
--- NOTE | 2022-08-02 20:12 | CTR_ITS ---
PROCEDURE INFORMATION: Exam: CT Head Without Contrast Exam date and time: 08/02/2022 8:29 PM Age: 32 years old Clinical indication: Pain; Headache; Additional info: REINOSO TECHNIQUE: Imaging protocol: Computed tomography of the head without contrast. Radiation optimization: All CT scans at this facility use at least one of these dose optimization techniques: automated exposure control; mA and/or kV adjustment per patient size (includes targeted exams where dose is matched to clinical indication); or iterative reconstruction. REPORTING DATA: Count of CT and Cardiac NM exams in prior 12 months: This patient has received 0 known CTs and 0 known cardiac nuclear medicine studies in the 12 months prior to the current study. COMPARISON: CT head wo con* [id number] 09/25/2018 8:10 PM RADIATION DOSE METRICS: Total DLP (mGy-cm): 917.78 FINDINGS: Brain: Normal. No hemorrhage. Unremarkable white matter. No mass effect. Cerebral ventricles: No ventriculomegaly. Paranasal sinuses: Visualized sinuses are unremarkable. No fluid levels. Mastoid air cells: Visualized mastoid air cells are well aerated. Bones/joints: Unremarkable. No acute fracture. Soft tissues: Unremarkable. CT/CT head wo con* [id number] IMPRESSION: No acute intracranial abnormality.
--- NOTE | 2022-08-02 20:25 | ED_ITS ---
HPI - Chest Pain General: Chief Complaint: Chest Pain Stated Complaint: low wbc count, raji sent Time Seen by Provider: 08/02/22 19:23 Source: patient Mode of arrival: ambulatory Limitations: no limitations History of Present Illness: 32-year-old female who states that over the last 2 days she had some dizziness, chest pain states she had some slight abdominal pain as well. States she had multiple falls she denies any fevers she is well-appearing in the room laughing and joking she had seen her PCP today and had a high white count and was sent here her white blood cell count here is 31. She denies any dysuria denies vomiting or diarrhea Associated symptoms: Reports abdominal pain; Deny dyspnea, fever(s), nausea or vomiting Review of Systems Const: Denies: fever(s), chills, body aches or change in appetite Eyes: Denies: blurry vision or eye discomfort ENMT: Denies: throat pain or dental pain Card: Reports: chest pain Resp: Denies: dyspnea GI: Reports: abdominal pain; Denies: nausea, vomiting or diarrhea : Denies: dysuria Musc: Denies: neck pain or back pain Skin/Breast: Denies: rash Neuro: Reports: dizziness; Denies: headache(s) Psych: Denies: depression PFSH ED PFSH: Medical History (Updated 08/02/22 @ 22:08 by Jose A Marie MD) Chronic post-traumatic stress disorder Moderate intellectual disabilities Nicotine dependence, chewing tobacco, uncomplicated Schizoaffective disorder, bipolar type Social History Smoking and tobacco status: never smoked Female Reproductive History: Date of last menstrual period: 07/18/22 Physical Exam Const: COMMON NORMALS: patient oriented x3 HENMT: COMMON NORMALS: normocephalic and atraumatic HEAD & SCALP: normocephalic and atraumatic Eye: COMMON NORMALS: Equal, round and reactive pupils present and EOMs intact bilaterally PUPIL: Yes Equal, round and reactive pupils present Neck/C-Spine: COMMON NORMALS: full ROM and supple Chest: COMMONS NORMALS: normal inspection of the chest and normal palpation of entire chest wall Resp: COMMON NORMALS: normal respiratory effort, No retractions, No use of accessory muscles and clear to auscultation bilaterally AUSCULTATION: clear to auscultation bilaterally Cardio: COMMON NORMALS: regular rate, regular rhythm and No murmurs present (Cardio) RATE: regular rate RHYTHM: regular rhythm GI: COMMON NORMALS: Normal to inspection, nondistended, normoactive bowel sounds present, Soft to palpation, non-tender and no masses PALPATION: Yes Soft to palpation Extremity: COMMON NORMALS: normal to inspection and full ROM Neuro: COMMON NORMALS: patient oriented x3, moves all extremities and no focal motor deficits Psych: COMMON NORMALS: mental status grossly normal, Normal thought process present and cooperative THOUGHT PROCESS: Normal thought process present Skin: COMMON NORMALS: no rashes or lesions noted and no wounds GENERAL SKIN EXAM: no rashes or lesions noted Course Vital Signs: Vital signs: Vital Signs Temperature 98.0 F 08/02/22 18:44 Pulse Rate 89 08/02/22 21:26 Respiratory Rate 18 08/02/22 21:26 Blood Pressure 114/74 08/02/22 21:26 Pulse Oximetry 97 08/02/22 21:26 Oxygen Delivery Me thod Room Air 08/02/22 21:26 MDM - Chest Pain Medical Decision Making Patient presents here with a leukocytosis she does have a white count here of 31 no signs of infectious cause found here she also does have an elevated lactate CT of her chest did show a PE did start her on antibiotics get blood cultures I spoke to the hospitalist and will admit at this time. Medical Records I reviewed the patient's medical records. Lab Data I reviewed the patient's lab results. 08/02/22 18:31 08/02/22 18:31 Radiology Impressions Chest X-Ray 08/02/22 18:08 IMPRESSION: No acute findings. Chest/Abdomen/Pelvis CT 08/02/22 20:12 IMPRESSION: Acute nonocclusive pulmonary emboli in the left lower and upper lobes. No central or saddle embolus. No RV strain. IMPRESSION: No significant abdominopelvic findings. ADDENDUM: 08/02/22 [id number] THIS REPORT CONTAINS FINDINGS THAT MAY BE CRITICAL TO PATIENT CARE. The findings were verbally communicated via telephone conference with JOSE A MARIE at 9:46 PM CDT on 08/02/2022. The findings were acknowledged and understood. Head CT 08/02/22 20:12 IMPRESSION: No acute intracranial abnormality. Laboratory Results WBC 31.2 10^3/uL (4.0-10.0) H* 08/02/22 18:31 RBC 4.56 10^6/uL (4.1-5.3) 08/02/22 18:31 Hgb 13.5 g/dL (11.5-15.3) 08/02/22 18: Hct 40.2 % (37.0-47.0) 08/02/22 18: MCV 88.2 fl (81-99) 08/02/22 18: MCH 29.6 pg (28.0-34.0) 08/02/22 18: MCHC 33.6 g/dL (30.0-36.0) 08/02/22 18: RDW 12.5 % (12.1-15.1) 08/02/22 18:31 Plt Count 421 10^3/cmm (130-400) H 08/02/22 18:31 MPV 9.3 fL (7.4-10.4) 08/02/22 18:31 Lymph % (Auto) Not Reportable 08/02/22 18:31 [place] % (Auto) Not Reportable 08/02/22 18: Lymph # (Auto) Not Reportable 08/02/22 18:31 [place] # (Auto) Not Reportable 08/02/22 18:31 Total Counted 100 (0-100) 08/02/22 18: Atypical Lymphs % 5.0 % (0-5) 08/02/22 18: Absolute Neutrophils 17.5 10^3/cmm (1.4-6.5) H 08/02/22 18:31 Segmented Neutrophils 56 % 08/02/22 18: Abs Segm Neuts (Man) 17.5 10/cmm (1.6-7.1) H 08/02/22 18:31 Band Neutrophils 0.0 % 08/02/22 18: Abs Band Neuts (Man) 0.0 10^3/cmm (0.0-1.2) 08/02/22 18:31 Absolute Lymphocytes 10.6 10^3/cmm (1.2-3.4) H 08/02/22 18:31 Lymphocytes (Manual) 29 % 08/02/22 18:31 Monocytes (Manual) 5.0 % 08/02/22 18:31 Absolute Monocytes 1.6 10^3/cmm (0.1-0.6) H 08/02/22 18:31 Eosinophils (Manual) 1 % 08/02/22 18:31 Absolute Eosinophils 0.3 10^3/cmm (0.0-0.7) 08/02/22 18:31 Basophils (Manual) 0.0 % 08/02/22 18:31 Absolute Basophils 0.0 10^3/cmm (0.0-0.2) 08/02/22 18:31 Metamyelocytes 2.0 % 08/02/22 18:31 Myelocytes 2.0 % 08/02/22 18:31 Platelet Estimate Increased (Normal) H 08/02/22 18:31 Sodium 137 mmol/L (136-145) 08/02/22 18:31 Potassium 3.8 mmol/L (3.5-5.1) 08/02/22 18:31 Chloride 97 mmol/L (98-107) L 08/02/22 18:31 Carbon Dioxide 22 mmol/L (22-29) 08/02/22 18:31 Anion Gap 21.8 (5-19) H 08/02/22 18:31 BUN 12 mg/dL (6-20) 08/02/22 18:31 Creatinine 0.8 mg/dL (0.5-0.9) 08/02/22 18:31 GFR Calculation 82.6 mL/min (90-130) L 08/02/22 18:31 Glucose 124 mg/dL (65-115) H 08/02/22 18:31 Calculated Osmolality 285 mOsm/kg (285-295) 08/02/22 18:31 Lactic Acid 3.6 mmol/L (0.5-2.2) H 08/02/22 19:49 Calcium 9.0 mg/dL (8.5-10.5) 08/02/22 18:31 Total Bilirubin 0.3 mg/dL (0.15-1.2) 08/02/22 18:31 AST 8 U/L (0-32) 08/02/22 18:31 ALT 13 U/L (0-33) 08/02/22 18:31 Alkaline Phosphatase 53 U/L (35-105) 08/02/22 18:31 Troponin T Baseline 7 ng/L (0-10) 08/02/22 18:31 Troponin T 120 Minute 6.45 ng/L (0-10) 08/02/22 20:20 Delta Troponin T -0.55 ABS# (0-10) L 08/02/22 20:20 Total Protein 6.5 g/dL (6.6-8.7) L 08/02/22 18: Albumin 4.5 g/dL (3.5-5.2) 08/02/22 18: Globulin 2.0 g/dL (1.3-4.6) 08/02/22 18:31 HCG, Qual Negative (Negative) 08/02/22 18:00 Urine Color Yellow (Yellow) 08/02/22 18:00 Urine Appearance Sl hazy (CLEAR) A 08/02/22 18:00 Urine pH 5 (5-7) 08/02/22 18:00 Ur Specific Mun[place] 1.015 (1.005-1.030) 08/02/22 18:00 Urine Protein Neg (Negative) 08/02/22 18:00 Urine Glucose (UA) Norm (Normal) 08/02/22 18:00 Urine Ketones Negative (Negative) 08/02/22 18:00 Urine Blood 2+ (Negative) H 08/02/22 18:00 Urine Nitrate Negative (Negative) 08/02/22 18:00 Urine Bilirubin Neg (Negative) 08/02/22 18:00 Urine Urobilinogen Norm mg/dL (Negative) 08/02/22 18:00 Ur Leukocyte Esterase Negative (Negative) 08/02/22 18:00 Urine RBC 0-4 /hpf (0-2) H 08/02/22 18:00 Urine WBC 0-4 /hpf (0-5) H 08/02/22 18:00 Ur Squamous Epith Cells 0-4 /hpf (0-5) H 08/02/22 18:00 Amorphous Sediment Not Reportable 08/02/22 18:00 Urine Bacteria Trace /hpf (NONE) 08/02/22 18:00 Discharge Plan Discharge Patient Disposition: Admitted As Inpatient Clinical Impression: Leukocytosis, Pulmonary embolism Condition: Stable Prescriptions: No Action levothyroxine 50 mcg capsule 50 mcg PO DAILY metformin 500 mg tablet 500 mg PO BID ergocalciferol (vitamin D2) 1,250 mcg (50,000 unit) capsule 1,250 mcg PO Q7D Rx Instructions: TAKES ON MONDAY hydroxyzine HCl 50 mg tablet 50 mg PO BID PRN (Reason: anxiety) Qty: 60 3RF ondansetron HCl 4 mg tablet 4 mg PO BID 5 Days Qty: 10 0RF eucalyptus-menthol Lozenge 1 jocelynn mucous membrane Q4H PRN (Reason: cough) Qty: 30 0RF ondansetron 8 mg tablet,disintegrating 8 mg PO Q8H PRN (Reason: nausea and vomiting) 5 Days Qty: 15 0RF aspirin 81 mg tablet,chewable 81 mg PO DAILY 45 Days Qty: 45 0RF gabapentin 300 mg Capsule 300 mg PO TID atorvastatin 40 mg tablet 40 mg PO DAILY norgestimate-ethinyl estradiol [Estarylla] 0.25-35 mg-mcg tablet 0.25 tab PO DAILY valacyclovir 500 mg tablet 500 mg PO DAILY loratadine 10 mg tablet 10 mg PO DAILY Trulicity 1.5 mg/0.5 mL pen injector 1.5 mg SUBCUT DIRECTED Rx Instructions: once weekly topiramate 50 mg tablet 75 mg PO BID Qty: 40 0RF bupropion HCl 150 mg tablet extended release 24 hr 150 mg PO DAILY Qty: 15 0RF olanzapine 5 mg tablet 5 mg PO BID Qty: 30 0RF prazosin 5 mg capsule 5 mg PO DAILY Qty: 14 0RF trazodone 100 mg tablet 100 mg PO DAILY Qty: 14 0RF mirtazapine [Remeron] 15 mg tablet 15 mg PO BEDTIME Qty: 14 0RF ziprasidone HCl 60 mg capsule 60 mg PO BID Qty: 30 0RF tramadol 100 mg tablet 100 mg PO Q8H PRN (Reason: pain) Qty: 10 0RF docusate sodium 100 mg capsule 100 mg PO DAILY buspirone 10 mg tablet 15 mg PO TID acetaminophen 500 mg capsule 1,000 mg PO Q8H PRN (Reason: pain) Qty: 60 0RF Referrals: Alayna Holland, FPGA DES[employer] ENGINEER [Primary Care Provider] - Coding Level of Care Code ED Outreach Representative for g Fwrobin
[2022-08-02 20:41] LABS: Lactic Sepsis W/Reflex 3.6 mmol/L (0.5-2.2)
[2022-08-02] MEDS: iohexol 350 mg/mL 500 mL Btl (per mL) IV (20:41)
[2022-08-02 20:53] LABS: Troponin 5 2HR 6.45 ng/L (0-10)
[2022-08-02] MEDS: vancomycin 1,000 MG in sodium chloride 0.9% 250 ML 250 MG IV (21:03)
[2022-08-02 21:15] LABS: Add Urine Microscopic? YES; Bilirubin Urine Neg (Negative); Blood Urine 2+ (Negative); Glucose Urine UA Norm (Normal); Ketones Urine Negative (Negative); Leukocyte Esterase Urine Negative (Negative); Nitrate Urine Negative (Negative); Protein Urine Neg (Negative); Specific Gravity, Urine 1.015 (1.005-1.030); Urine Appearance SL Hazy (CLEAR); Urine Color Yellow (Yellow); Urobilinogen Urine Norm (Negative); pH Urine 5 (5-7)
[2022-08-02 21:16] LABS: Add Urine Culture? No; Bacteria Urine TRACE /hpf; RBC Urine 0-4 /hpf (0-2); Squamous Epithelial Cell Urine 0-4 /hpf (0-5); WBC Urine 0-4 /hpf (0-5)
[2022-08-02 21:23] LABS: Troponin 5 2HR Delta -0.55 ABS# (0-10)
[2022-08-02 21:36] LABS: HCG Qualitative Urine. Negative (Negative)
[2022-08-02 21:53] LABS: Reflex Lactate Order REFLEX LACTIC ORDERD
[2022-08-02 22:04] LABS: LAB Peripheral Smear Sent for Review
--- NOTE | 2022-08-02 22:18 | PC.NURSE ---
After receiving vancomycin, patient developed a red rash to body and face. Vancomycin immediately stopped and Dr. Lu notified. Vital signs stable, no acute distress noted. Dr. Lu ordered benadryl 50 mg IVP for reaction. Allergies updated in chart.
[2022-08-02] MEDS: diphenhydrAMINE 50 mg/mL SDV 1mL IVP (22:25)
[2022-08-02] MEDS: morphine 4 mg/mL SDV 1 mL IVP (22:25)
[2022-08-02] MEDS: enoxaparin 60 mg/0.6 mL Syringe SUBCUT (22:26)
[2022-08-02] MEDS: ondansetron 2 mg/ML SDV 2 mL 4 MG IVP (22:26)
[2022-08-02] MEDS: aztreonam 2,000 MG in sodium chloride 0.9% (plus) 100 ML 200 MG IV (22:46)
[2022-08-02 23:24] LABS: Lactic Acid level (Lactate) 3.6 mmol/L (0.5-2.2)
[2022-08-02] MEDS: trazodone 100 mg Tablet 300 MG PO (23:36)
[2022-08-02] MEDS: BuSPIRONE 10 mg Tablet 15 MG PO (23:36)
[2022-08-02] MEDS: OLANZapine 5 mg TABLET PO (23:36)
[2022-08-02] MEDS: gabapentin 300 mg Capsule PO (23:36)
[2022-08-02] MEDS: metformin 500 mg Tablet 1000 MG PO (23:36)
[2022-08-02] MEDS: atorvastatin 40 mg Tablet PO (23:36)
--- NOTE | 2022-08-02 23:49 | PM.HP ---
Providers/Chief Complaint Admitting Physician: Xenia Zepeda MD Primary Care Provider: HUMERA Briceno Chief Complaint: low wbc count, raji sent History of Present Illness Afia Vidales is a 32 year old female with a past medical history of mild intellectual disability, PTSD, currently presenting to the hospital with 2 weeks of chest pain. Patient states that her symptoms started about 2 weeks ago. She initially had some mild cough and sinus congestion for which she received antibiotics and was given prednisone 40 mg daily on July 23, 2022. She took the steroids for about 7 to 10 days. Her sinus congestion cleared up however she continued to have chest pain. She followed up with her primary care provider today, where she was noted to have a white blood cell count of 30,000 and sent over to the emergency room for further evaluation. Patient currently denies any fever chills dyspnea palpitations syncope nausea abdominal pain vomiting or diarrhea. No cellulitis. Leukocytosis today at 31,000, of which only 56% are segmented neutrophils. She is hemodynamically stable. CT of the chest abdomen and pelvis was performed for infectious source evaluation, while the study was negative for the same it did reveal bilateral PE. Review of medication shows patient is on combined oral contraceptive which she has been taking for the past year. Other pertinent past medical history is that for ventricular septal defect which was repaired when she was 3 years old. She does not have any lingering cardiac issues as far as she is aware. No family history of PE. No recent travel or surgeries. Review of Systems General: Reports: 10 or more systems reviewed and unremarkable except in HPI and below Const: Denies: fever(s), chills or body aches Eyes: Denies: change in vision, blurry vision or photophobia ENMT: Reports: hoarseness; Denies: throat pain, enlarged tonsils, odynophagia or nasal congestion Card: Denies: chest pain, palpitations, irregular heart rhythm, edema, swelling of feet/ankles, lightheadedness, pre-syncope, dyspnea on exertion or orthopnea Resp: Denies: dyspnea, productive cough, non-productive cough, wheezing, stridor, pain on inspiration, change in phlegm color, hemoptysis or chest congestion GI: Denies: abdominal pain, nausea, vomiting, hematemesis, coffee ground emesis, dysphagia, heartburn, diarrhea, constipation, GI cramping, change in stool character, hematochezia or melena : Denies: flank pain, difficulty voiding, dysuria, urinary frequency, urinary urgency, urinary hesitancy or hematuria Musc: Denies: neck pain, back pain, extremity pain, joint swelling, joint warmth or deformity Neuro: Denies: headache(s), numbness in extremities, weakness in extremities, sensory changes, difficulty walking, frequent falls, dizziness, vertigo, behavioral changes, Slurred speech present or seizure-like activity Psych: Denies: anxiety, depression, suicidal ideation or homicidal ideation Endo: Denies: polyuria, polydipsia, tired all the time, cold intolerance or hot flashes Walter/Lymph: Denies: easy bruising or easy bleeding Medications/Allergies Home Medications Medication Instructions Recorded Confirmed Last Taken Type ergocalciferol (vitamin D2) 1,250 1,250 mcg PO Q7D 04/15/19 07/11/22 05/20/22 History mcg (50,000 unit) capsule levothyroxine 50 mcg capsule 50 mcg PO DAILY 04/15/19 07/11/22 05/20/22 History metformin 500 mg tablet 500 mg PO BID 04/15/19 07/11/22 05/19/22 History hydroxyzine HCl 50 mg tablet 50 mg PO BID PRN anxiety #60 tabs 07/12/19 07/11/22 05/12/22 Rx gabapentin 300 mg capsule 300 mg PO TID 08/15/19 07/11/22 05/20/22 History atorvastatin 40 mg tablet 40 mg PO DAILY 11/25/21 07/11/22 05/20/22 History dulaglutide 1.5 mg/0.5 mL 1.5 mg SUBCUT DIRECTED 11/25/21 07/11/22 05/19/22 History subcutaneous pen injector (Trulicity) loratadine 10 mg tablet 10 mg PO DAILY 11/25/21 07/11/22 05/20/22 History norgestimate 0.25 mg-ethinyl 0.25 tab PO DAILY 11/25/21 07/11/22 05/19/22 History estradiol 35 mcg tablet (Estarylla) valacyclovir 500 mg tablet 500 mg PO DAILY 11/25/21 07/11/22 05/20/22 History bupropion HCl 150 mg 24 hr tablet, 150 mg PO DAILY #15 tabs 04/21/22 07/11/22 05/20/22 Rx extended release mirtazapine 15 mg tablet (Remeron) 15 mg PO BEDTIME #14 tabs 04/21/22 07/11/22 05/19/22 Rx olanzapine 5 mg tablet 5 mg PO BID #30 tabs 04/21/22 07/11/22 05/20/22 Rx prazosin 5 mg capsule 5 mg PO DAILY #14 caps 04/21/22 07/11/22 05/20/22 Rx topiramate 50 mg tablet 75 mg PO BID #40 tabs 04/21/22 07/11/22 05/20/22 Rx trazodone 100 mg tablet 100 mg PO DAILY #14 tabs 04/21/22 07/11/22 05/20/22 Rx ziprasidone HCl 60 mg capsule 60 mg PO BID #30 caps 04/21/22 07/11/22 05/20/22 Rx buspirone 10 mg tablet 15 mg PO TID 05/19/22 07/11/22 05/20/22 History docusate sodium 100 mg capsule 100 mg PO DAILY 05/19/22 07/11/22 05/20/22 History acetaminophen 500 mg capsule 1,000 mg PO Q8H PRN pain #60 caps 05/21/22 07/11/22 Unknown Rx aspirin 81 mg chewable tablet 81 mg PO DAILY 45 days #45 tabs 05/23/22 07/11/22 Unknown Rx eucalyptus-menthol oral mucosal 1 jocelynn mucous membrane Q4H PRN 06/07/22 07/11/22 Unknown Rx lozenge cough #30 ea ondansetron HCl 4 mg tablet 4 mg PO BID 5 days #10 tabs 06/07/22 07/11/22 Unknown Rx ondansetron 8 mg disintegrating 8 mg PO Q8H PRN nausea and 06/17/22 07/11/22 Unknown Rx tablet vomiting 5 days #15 tabs tramadol 100 mg tablet 100 mg PO Q8H PRN pain #10 tabs 07/23/22 Unknown Rx Allergies Allergy/AdvReac Type Severity Reaction Status Date / Time ibuprofen Allergy Unknown Unknown Verified 07/26/22 20:47 Penicillins Allergy Unknown Unknown Verified 07/26/22 20:47 carbamazepine Allergy Unknown Verified 07/26/22 20:47 latex Allergy Unknown Verified 07/26/22 20:47 vancomycin Allergy ALGY-Rash Verified 08/02/22 22:20 PFSH Acute PFSH: Medical History Chronic post-traumatic stress disorder Moderate intellectual disabilities Nicotine dependence, chewing tobacco, uncomplicated Schizoaffective disorder, bipolar type Social History Smoking and tobacco status: never smoked Female Reproductive History: Date of last menstrual period: 07/18/22 Vitals/I&O/Wt Last Vital Signs Temp 98.0 F 08/02/22 18:44 Pulse 98 08/02/22 23:00 Resp 20 H 08/02/22 23:00 BP 120/74 08/02/22 23:00 Pulse Ox 96 08/02/22 23:00 O2 Del Method Room Air 08/02/22 23:00 08/02/22 08/02/22 08/03/22 14:59 22:59 06:59 Intake Total 1250 / 1250 1100 / 2350 Balance 1250 / 1250 1100 / 2350 Weight last 48 hrs Weight 56.699 kg Physical Exam Narrative: General: No acute distress, AO x3 HEENT: PERRLA, pupils bilaterally equal and reactive, pallors not present Chest: Normal vesicular breath sounds, no added sounds, equal good air entry bilaterally CVS: S1-S2 regular, no murmurs, no tachycardia, no gallops, no rubs Abdomen: Soft, nontender, no organomegaly, bowel sounds present Neuro: No focal deficits, no facial deformity, AO x3, power 5/5 in all limbs Extremities: No edema clubbing or cyanosis Data 08/02/22 18:31 08/02/22 18:31 Micro: Microbiology 08/02/22 19:39 Blood Culture - Preliminary Blood SPECIMEN COLLECTED 08/02/22 19:49 Blood Culture - Preliminary Blood SPECIMEN COLLECTED Other data: [address] [address] CT Scan Report Signed with Addenda Patient: Afia Vidales Unit #: [id number] : 1990 Age/Sex: 32 / F ADM Date: 08/02/22 Loc: ER Room/Bed: Attending Dr: Ordering Provider/Ordering MD: Jose A Marie MD Date of Service: 08/02/22 Procedure(s): CT angio chest w abd pel w con Accession Number(s): [id number] Report Number: [id number]/CT angio chest w abd pel w con THIS REPORT CONTAINS FINDINGS THAT MAY BE CRITICAL TO PATIENT CARE. The findings were verbally communicated via telephone conference with JOSE A MARIE at 9:46 PM CDT on 08/02/2022. The findings were acknowledged and understood. ? Addendum Dictated By: ?Geena Curran MD Addendum Signed By: ?Geena Curran MD Signed Date/Time: 08/02/222148 Addendum Cosigned By: ? PROCEDURE INFORMATION: Exam: CTA Chest With Contrast Exam date and time: 08/02/2022 8:33 PM Age: 32 years old Clinical indication: Abdominal pain; Generalized; Chest pressure; Additional info: Cp/abd pain TECHNIQUE: Imaging protocol: Computed tomographic angiography of the chest with contrast. 3D rendering (Not supervised by radiologist): MIP and/or 3D reconstructed images were created by the technologist. Radiation optimization: All CT scans at this facility use at least one of these dose optimization techniques: automated exposure control; mA and/or kV adjustment per patient size (includes targeted exams where dose is matched to clinical indication); or iterative reconstruction. Contrast material: OMNI 350; Contrast volume: 100 ml; Contrast route: INTRAVENOUS (IV);? REPORTING DATA: Count of CT and Cardiac NM exams in prior 12 months: This patient has received 0 known CTs and 0 known cardiac nuclear medicine studies in the 12 months prior to the current study. COMPARISON: CR (CHEST, ) 08/02/2022 6:17 PM RADIATION DOSE METRICS: Total DLP (mGy-cm): 578.08 FINDINGS: Pulmonary arteries: Overall exam quality is good for evaluating the pulmonary arteries. There are tubular nonocclusive filling defects in the right lower lobe lateral basal and posterior basal segments indicative of pulmonary embolism. There also smaller nonocclusive emboli in the left upper lobe pulmonary arteries. The right pulmonary arteries are patent. There is no central or saddle embolus. Great vessels off aortic arch: Incidental retroesophageal right subclavian artery. Aorta: Unremarkable. No aortic aneurysm. No aortic dissection. Lungs: Unremarkable. No consolidation. No masses. Pleural spaces: Unremarkable. No pneumothorax. No pleural effusion. Heart: See Heart RV/LV ratio finding. Heart RV/LV ratio: The RV/LV ratio is 0.8 which is normal. The left ventricle is enlarged. Lymph nodes: Unremarkable. No enlarged lymph nodes. Bones/joints: Unremarkable. No acute fracture. Soft tissues: Unremarkable. Other findings: No RV strain. PROCEDURE INFORMATION: Exam: CT Abdomen And Pelvis With Contrast Exam date and time: 08/02/2022 8:33 PM Age: 32 years old Clinical indication: Abdominal pain; Generalized; Chest pressure; Additional info: Cp/abd pain TECHNIQUE: Imaging protocol: Computed tomography of the abdomen and pelvis with contrast. Radiation optimization: All CT scans at this facility use at least one of these dose optimization techniques: automated exposure control; mA and/or kV adjustment per patient size (includes targeted exams where dose is matched to clinical indication); or iterative reconstruction. Contrast material: OMNI 350; Contrast volume: 100 ml; Contrast route: INTRAVENOUS (IV);? REPORTING DATA: Count of CT and Cardiac NM exams in prior 12 months: This patient has received 0 known CTs and 0 known cardiac nuclear medicine studies in the 12 months prior to the current study. COMPARISON: CR (ABDOMEN, ) 07/23/2022 10:32 PM RADIATION DOSE METRICS: Total DLP (mGy-cm): 578.08 FINDINGS: Liver: Normal. No mass. Gallbladder and bile ducts: Normal. No calcified stones. No ductal dilation. Pancreas: Normal. No ductal dilation. Spleen: Normal. No splenomegaly. Adrenal glands: Normal. No mass. Kidneys and ureters: Normal. No hydronephrosis. Stomach and bowel: No bowel obstruction or ileus. No free fluid, free air or abscess. Appendix: No evidence of appendicitis. Intraperitoneal space: See Stomach and bowel finding. Vasculature: Unremarkable. No abdominal aortic aneurysm. Lymph nodes: Unremarkable. No enlarged lymph nodes. Urinary bladder: Unremarkable as visualized. Reproductive: Unremarkable as visualized. Bones/joints: At L5-S1 there are bilateral chronic pars defects but without subluxation. Soft tissues: Unremarkable. CT/CT angio chest w abd pel w con IMPRESSION: Acute nonocclusive pulmonary emboli in the left lower and upper lobes. No central or saddle embolus. No RV strain. ? ? IMPRESSION: No significant abdominopelvic findings. [address] [address] [address] Scan Report Signed Patient: Afia Vidales Unit #: [id number] : 1990 Age/Sex: 32 / F ADM Date: 08/02/22 Loc: ER Room/Bed: Attending Dr: Ordering Provider/Ordering MD: Jose A Marie MD Date of Service: 08/02/22 Procedure(s): CT head wo con* [id number] Accession Number(s): [id number] Report Number: [id number] PROCEDURE INFORMATION: Exam: CT Head Without Contrast Exam date and time: 08/02/2022 8:29 PM Age: 32 years old Clinical indication: Pain; Headache; Additional info: REINOSO TECHNIQUE: Imaging protocol: Computed tomography of the head without contrast. Radiation optimization: All CT scans at this facility use at least one of these dose optimization techniques: automated exposure control; mA and/or kV adjustment per patient size (includes targeted exams where dose is matched to clinical indication); or iterative reconstruction. REPORTING DATA: Count of CT and Cardiac NM exams in prior 12 months: This patient has received 0 known CTs and 0 known cardiac nuclear medicine studies in the 12 months prior to the current study. COMPARISON: CT head wo con* [id number] 09/25/2018 8:10 PM RADIATION DOSE METRICS: Total DLP (mGy-cm): 917.78 FINDINGS: Brain: Normal. No hemorrhage. Unremarkable white matter. No mass effect. Cerebral ventricles: No ventriculomegaly. Paranasal sinuses: Visualized sinuses are unremarkable. No fluid levels. Mastoid air cells: Visualized mastoid air cells are well aerated. Bones/joints: Unremarkable. No acute fracture. Soft tissues: Unremarkable. CT/CT head wo con* [id number] IMPRESSION: No acute intracranial abnormality. ?? A&P Assessment and plan (1) Pulmonary embolism: Patient with chest pain of 2 weeks duration, discovered today to have bilateral PE. Start treatment with Lovenox 1 mg/kg every 12 hours plan to transition to oral anticoagulation when nearing discharge. Based on review of history and medications, current risk factor may be related to combined oral contraceptive use. We will discontinue this going forward. Check SETH profile, lupus anticoagulant for underlying autoimmune disease which may be predisposing her Check lower extremity venous duplex Check echocardiogram to evaluate for right heart strain Hemodynamically stable, clinically well-appearing, saturating well on room air. No noted underlying malignancy, no history of malignancy in the past. Given leukocytosis of 31, will obtain peripheral smear to assess for any abnormal cell lineage. Suspect that leukocytosis may be related to steroid use in the absence of any gross signs of infection, however given this finding of PE in a young patient would want to rule out hematological malignancy. No current indication for steroids. (2) Leukocytosis: Leukocytosis at 31,000 without any overt signs or symptoms of infection. CT of chest abdomen and pelvis without any obvious infectious source. No reported dysuria. UA without signs of infection. Suspect that this may be related to margination from steroids. Given finding of PE, will obtain peripheral smear to evaluate for any abnormal cell lineage. Differential without any significantly elevated atypical lymphocytes. Normal saline 75 cc an hour, reassess with hydration and stopping steroids. She took her last dose of prednisone yesterday. Plan Elevated lactate: No gross signs of sepsis. Repeat with hydration. Several home medications needing to be confirmed. Attestations Medical Necessity Statement*: Anticipate less than 2 midnights stay at this current point in time. Coding Level of Care Code Acute Code for Chg Fwd Diagnoses Pulmonary embolism I26.99 Leukocytosis D72.829
[2022-08-02] MEDS: sodium chloride 0.9% 1,000 ML 75 ML IV (23:59)
[2022-08-02] MEDS: ziprasidone hcl 60 mg Capsule PO (23:59)
[2022-08-03] VITALS (11 sets, daily range): BP systolic 96–114; BP diastolic 63–75; PULSE 77–105; RESP 15–20; TEMP 36.4–37.1; O2SAT 95–97
[2022-08-03 00:52] LABS: Adenovirus Not Detected (NOT DETECT); Chlamydia Pneumoniae Not Detected (NOT DETECT); Coronavirus 229E,HKU1,NL63,OC4 Not Detected (NOT DETECT); Human Metapneumovirus Not Detected (NOT DETECT); Human Rhinovirus/Enterovirus Not Detected (NOT DETECT); Influenza A Not Detected (NOT DETECT); Influenza A H1 Not Detected (NOT DETECT); Influenza A H1-2009 Not Detected (NOT DETECT); Influenza A H3 Not Detected (NOT DETECT); Influenza B Not Detected (NOT DETECT); Mycoplasma Pneumoniae Not Detected (NOT DETECT); Parainfluenza Virus Type 1 Not Detected (NOT DETECT); Parainfluenza Virus Type 2 Not Detected (NOT DETECT); Parainfluenza Virus Type 3 Not Detected (NOT DETECT); Parainfluenza Virus Type 4 Not Detected (NOT DETECT); Respiratory Syncytial Virus A Not Detected (NOT DETECT); Respiratory Syncytial Virus B Not Detected (NOT DETECT); SARS-COV-2 Not Detected (NOT DETECT)
[2022-08-03 06:35] LABS: Glucose Point of Care 119 mg/dL (70-110)
--- NOTE | 2022-08-03 06:37 | USCV_ITS ---
Afia Vidales Age: 32 Gender: F : 1990 Exam Date: 08/03/2022 08:15 Ordering Phys: Xenia Zepeda MD Technologist: CT Exam Location: [facility] [place] Indication: pe BP: 140 / 79 HR: 69 Rhythm: Sinus Technical Quality: MEASUREMENTS (Male / Female) Normal Values 2D ECHO LV Diastolic Diameter PLAX 4.1 cm 4.2 - 5.9 / 3.9 - 5.3 cm LV Systolic Diameter PLAX 2.8 cm LV Chamber Size 3.6 cm IVS Diastolic Thickness 0.7 cm 0.6 - 1.0 / 0.6 - 0.9 cm IVS Systolic Thickness 1.2 cm LVPW Diastolic Thickness 1.1 cm 0.6 - 1.0 / 0.6 - 0.9 cm LVPW Systolic Thickness 1.7 cm LVOT Diameter 2.0 cm LV Ejection Fraction 2D Teich 61.2 % LV Ejection Fraction MOD 2C 74.0 % LV Ejection Fraction 2C AL 74.0 % LA Diameter 3.2 cm LA Width 2.6 cm LA Height 4.5 cm RA Width 2.7 cm RA Height 4.2 cm Aorta at Sinotubular Diameter 2.0 cm IVC Diameter 1.4 cm M-MODE Aortic Annulus Diameter 2.9 cm LA Ao Ratio MM 1.1 MV E Point Septal Separation 0.2 cm DOPPLER AV Peak Velocity 100.0 cm/s LVOT Peak Velocity 98.0 cm/s AV Area Cont Eq vti 3.2 cm squared AV Area Cont Eq pk 3.2 cm squared MV Peak Velocity 117.0 cm/s MV Area PHT 5.0 cm squared Mitral E to A Ratio 2.1 MV E' Velocity 59.5 cm/s Mitral E to MV E' Ratio 9.3 Mitral E to LV E' Lateral Ratio 8.2 Mitral E to LV E' Septal Ratio 10.9 TR Peak Velocity 187.2 cm/s TR Peak Gradient 14.0 mmHg TR Mean Velocity 168.7 cm/s TR Mean Gradient 11.5 mmHg TR Velocity Time Integral 43.7 cm TV Peak E Velocity 67.0 cm/s Right Atrial Pressure 3.0 mmHg Pulmonary Artery Systolic Pressu 17.0 mmHg PV Peak Velocity 95.0 cm/s FINDINGS Left Ventricle Normal LV size and ejection fraction of around 55%. Abnormal septal motion consistent with conduction abnormality. Right Ventricle The right ventricle is normal in size and function. Right Atrium The right atrium is normal in size. Left Atrium The left atrium is normal in size. Mitral Valve No gross abnormalities noted Aortic Valve No gross abnormalities noted Tricuspid Valve Mild tricuspid valve regurgitation. Pulmonic Valve No gross abnormalities noted Pericardium Normal pericardium without effusion. Aorta Normal ascending aorta dimension. IVC The inferior vena cava appears normal. CONCLUSIONS Normal LV size and ejection fraction of around 55%. Abnormal septal motion consistent with conduction abnormality. Mild tricuspid valve regurgitation. Estimated pulmonary artery peak systolic pressure 17 mmHg There is no pericardial effusion. There are no intracardiac masses. No similar previous studies are available for comparison. Dr Janessa Hernandez MD FACC (Electronically Signed) Final Date: 05 Aug 2022 10:11 S
[2022-08-03 06:40] LABS: Basophils # 0.1 10^3/uL (0.0-0.1); Basophils % 0.6 %; Eosinophils # 0.6 10^3/uL (0.0-0.8); Eosinophils % 2.5 %; Hemoglobin 12.1 g/dL (11.5-15.3); Lymphocytes # 8.1 10^3/uL (0.8-4.8); Lymphocytes % 36.9 %; Mean Corpuscular HGB Conc 31.8 g/dL (30.0-36.0); Mean Corpuscular Hemoglobin 29.4 pg (28.0-34.0); Mean Corpuscular Volume 92.2 fl (81-99); Mean Platelet Volume 9.9 fL (7.4-10.4); Monocytes # 1.2 10^3/uL (0.2-0.9); Monocytes % 5.6 %; Neutrophils # 11.09 10^3/uL (1.8-7.7); Neutrophils % 50.8 %; Nucleated Red Blood Cells % 0 %; Platelet Count 313 10^3/cmm (130-400); Red Blood Count 4.12 10^6/uL (4.1-5.3); Red Cell Distribution Width 12.9 % (12.1-15.1); White Blood Count 21.8 10^3/uL (4.0-10.0)
[2022-08-03 06:57] LABS: Lactic Sepsis W/Reflex 3.8 mmol/L (0.5-2.2)
[2022-08-03 07:10] LABS: Alanine Aminotransferase 10 U/L (0-33); Albumin Level 3.4 g/dL (3.5-5.2); Alkaline Phosphatase 48 U/L (35-105); Anion Gap 19.8 (5-19); Aspartate Amino Transferase 8 U/L (0-32); Blood Urea Nitrogen 8 mg/dL (6-20); Carbon Dioxide 18 mmol/L (22-29); Chloride 102 mmol/L (98-107); Globulin 1.8 g/dL (1.3-4.6); Glomerular Filtration Rate 115.1 mL/min (90-130); Glucose 117 mg/dL (65-115); Osmolality Calculated 281 mOsm/kg (285-295); Potassium 3.8 mmol/L (3.5-5.1); Sodium 136 mmol/L (136-145); Thyroid Stimulating Hormone 12.15 uIU/mL (0.27-4.20); Total Bilirubin 0.3 mg/dL (0.15-1.2); Total Protein 5.2 g/dL (6.6-8.7)
[2022-08-03 07:44] LABS: Hepatitis A Antibody IgM Non-Reactive (Nonreactive); Hepatitis B Core AB, Total Non-Reactive (Nonreactive); Hepatitis B Surface AB 33.5 (11.5-1000); Hepatitis B Surface Antigen Non-Reactive (Nonreactive); Hepatitis C Virus Antibody Non-Reactive (Nonreactive)
[2022-08-03 07:46] LABS: LAB Peripheral Smear Sent for Review
[2022-08-03 07:52] LABS: Procalcitonin 0.04 ng/mL (0-0.5)
[2022-08-03 07:57] LABS: Troponin 5 6HR Delta -0.45 ng/L (0-12)
[2022-08-03 08:19] LABS: Reflex Lactate Order REFLEX LACTIC ORDERD
[2022-08-03 08:52] LABS: HIV 1 & 2 Antibody Non-Reactive (Non-Reactiv); HIV 1 & 2 Antigen Non-Reactive (Non-Reactiv)
[2022-08-03 09:27] LABS: Lactic Acid level (Lactate) 2.7 mmol/L (0.5-2.2)
[2022-08-03] MEDS: pantoprazole DR 40 mg Tablet PO (09:42)
[2022-08-03 10:52] LABS: Free T4 Free Thyroxine 1.59 ng/dL (0.82-1.77); T3 Free 2.2 PG/ML (2.0-4.4)
[2022-08-03 11:32] LABS: Glucose Point of Care 119 mg/dL (70-110)
[2022-08-03] MEDS: enoxaparin 40 mg/0.4 mL Syringe 60 MG SUBCUT ×2 (12:02→22:02)
[2022-08-03] MEDS: polyethylene glycol 3350 Pkt 17 gm PO (12:02)
[2022-08-03] MEDS: sodium chloride 0.9% 1,000 ML 75 ML IV (12:58)
--- NOTE | 2022-08-03 13:55 | W.PM.EVENTAC ---
Event Note Event Note: Admitted overnight. H&P and labs appreciated. Today morning patient seen comfortable sitting in bed. Denies any nausea, pain, headache. Asking if her home medications can be restarted. Vitals appreciated. Medical reconciliation done from the shelter. Home medications restarted including multiple psych medications like bupropion, BuSpar, olanzapine, ziprasidone, trazodone. Doses confirmed. Stop IV fluids. Continue with full dose Lovenox for now. Echocardiogram awaited. Will transition to oral anticoagulation on discharge. Discharge plan: Plan to discharge back in the next 24 hours if remains hemodynamically stable. Moderate MDM includes number and complexity of problems actively addressed during encounter, amount and/or complexity of data reviewed/ordered [ previous or external records, resulted lab(s)/test(s), ordered lab(s)/test(s), independent test interpretation and other healthcare professional discussion] and described risk of complication, morbidity or mortality of management as documented
[2022-08-03] MEDS: OLANZapine 5 mg TABLET PO ×2 (14:31→21:38)
[2022-08-03] MEDS: gabapentin 300 mg Capsule PO ×2 (14:31→21:38)
[2022-08-03] MEDS: BuSPIRONE 10 mg Tablet 15 MG PO ×2 (14:31→21:38)
[2022-08-03 17:04] LABS: Glucose Point of Care 187 mg/dL (70-110)
[2022-08-03] MEDS: morphine 4 mg/mL SDV 1 mL 2 MG IVP (18:40)
[2022-08-03 20:59] LABS: Glucose Point of Care 176 mg/dL (70-110)
[2022-08-03] MEDS: trazodone 150 mg Tablet 300 MG PO (21:38)
[2022-08-03] MEDS: prazosin 5 mg Capsule PO (21:38)
[2022-08-03] MEDS: ziprasidone hcl 60 mg Capsule PO (21:39)
--- NOTE | 2022-08-03 23:48 | USR_ITS ---
PROCEDURE INFORMATION: Exam: US Duplex Lower Extremity Veins, Bilateral Exam date and time: 08/03/2022 12:23 AM Age: 32 years old Clinical indication: Other: Pulmonary emboli; Additional info: Evalate for dvt, patient with known pe TECHNIQUE: Imaging protocol: Real-time duplex ultrasound of the bilateral extremities with 2-D cortez scale, color Doppler flow and spectral waveform analysis including responses to compression and other maneuvers (when performed) with image documentation. Complete exam focused on the lower extremity veins. COMPARISON: CT angio chest w abd pel w con 08/02/2022 8:33 PM FINDINGS: Right deep veins: Unremarkable. The common femoral, femoral, proximal profunda femoral and popliteal veins are patent without thrombus. Normal Doppler waveforms. Normal compressibility and/or augmentation response. Right superficial veins: Saphenofemoral junction is patent without thrombus. Left deep veins: Unremarkable. The common femoral, femoral, proximal profunda femoral and popliteal veins are patent without thrombus. Normal Doppler waveforms. Normal compressibility and/or augmentation response. Left superficial veins: Saphenofemoral junction is patent without thrombus. Soft tissues: Unremarkable. US/[place] [id number] IMPRESSION: No evidence of deep vein thrombosis.
[2022-08-04] VITALS: BP 107/74; PULSE 103; RESP 18; TEMP 36.4; O2SAT 96
[2022-08-04] MEDS: sodium chloride 0.9% 1,000 ML 75 ML IV (01:55)
[2022-08-04 04:00] VITALS: BP 94/63; PULSE 85; RESP 16; TEMP 36.4; O2SAT 96
--- NOTE | 2022-08-04 04:26 | PC.NURSE ---
Pt has rested well this night. One of the [employer] workers came and stayed the night with her so pt would not be scared being in a strange place. Pt has been able to voice wants and needs without difficulty. Pt has had 1 episode of incontinence this night. This nurse also noted that pt has very prominent night sweats. Caregiver stated that pt has night sweats a lot, after pt has nightmares. Pt has not voiced any complaints of pain this night. Caregiver has been at pt's bedside all night.
[2022-08-04 06:28] LABS: Glucose Point of Care 162 mg/dL (70-110)
[2022-08-04 06:45] VITALS: PULSE 89
[2022-08-04 08:00] VITALS: BP 111/77; PULSE 82; RESP 15; TEMP 36.8; O2SAT 97
[2022-08-04] MEDS: gabapentin 300 mg Capsule PO (09:41)
[2022-08-04] MEDS: polyethylene glycol 3350 Pkt 17 gm PO (09:41)
[2022-08-04] MEDS: ziprasidone hcl 60 mg Capsule PO (09:41)
[2022-08-04] MEDS: nicotine 2 mg Gum 4 MG BUCCAL (09:41)
[2022-08-04] MEDS: BuSPIRONE 10 mg Tablet 15 MG PO (09:42)
[2022-08-04] MEDS: OLANZapine 5 mg TABLET PO (09:42)
[2022-08-04] MEDS: atorvastatin 40 mg Tablet PO (09:42)
[2022-08-04] MEDS: pantoprazole DR 40 mg Tablet PO (09:42)
[2022-08-04] MEDS: buPROPion XL (24 HR) 150 mg Tablet PO (09:42)
[2022-08-04] MEDS: docusate sodium 100 mg Capsule PO (09:42)
[2022-08-04] MEDS: levothyroxine 75 mcg Tablet PO (09:42)
--- NOTE | 2022-08-04 10:49 | PM.DCS ---
Discharge Providers Date of Admission: 08/03/22 01:07 Date of Discharge: August 04, 2022 Attending Provider at Admission: Xenia Zepeda MD Attending Provider at Discharge: Seferino Morales MD Primary Care Provider: HUMERA Briceno Diagnoses at Discharge Discharge Diagnosis (1) Pulmonary embolism: Status: Acute (2) Leukocytosis: Status: Acute Reason for Visit Reason for Visit: low wbc count, raji sent Hospital Course Hospital Course Afia Vidales is a 32 year old female with a past medical history of mild intellectual disability, PTSD, currently presenting to the hospital with 2 weeks of chest pain.? Patient states that her symptoms started about 2 weeks ago.? She initially had some mild cough and sinus congestion for which she received antibiotics and was given prednisone 40 mg daily on July 23, 2022.? She took the steroids for about 7 to 10 days.? Her sinus congestion cleared up however she continued to have chest pain.? She followed up with her primary care provider today, where she was noted to have a white blood cell count of 30,000 and sent over to the emergency room for further evaluation.? Patient currently denies any fever chills dyspnea palpitations syncope nausea abdominal pain vomiting or diarrhea.? No cellulitis. Leukocytosis today at 31,000, of which only 56% are segmented neutrophils.? She is hemodynamically stable.? CT of the chest abdomen and pelvis was performed for infectious source evaluation, while the study was negative for the same it did reveal bilateral PE.? Review of medication shows patient is on combined oral contraceptive which she has been taking for the past year. Other pertinent past medical history is that for ventricular septal defect which was repaired when she was 3 years old.? She does not have any lingering cardiac issues as far as she is aware.? No family history of PE.? No recent travel or surgeries. Patient was admitted to the hospital further evaluation and management for pulmonary embolism. Lower limb Dopplers were negative for DVT. Pulm embolism is most likely in setting of OCP use but given her young age further work-up with SETH profile and lupus anticoagulant has been sent out. She was started on anticoagulation with Lovenox 1 mg/kg body weight. He responded well to the treatment. Hospitalization was unremarkable. Leukocytosis is thought to be most likely in setting of steroids as an outpatient. During hospitalization she remained hemodynamically stable, afebrile off antibiotics. She has been discharged back to senior care on oral Eliquis 10 mg twice daily for next 7 days followed by 5 mg twice daily. Her oral antibiotics and valacyclovir along with OCPs have been stopped. She is to continue anticoagulation for at least next 6 months. She is to follow-up with a primary care provider within next 1 week for further evaluation. Physical Exam Narrative: General: No acute distress, AO x3 HEENT: PERRLA, pupils bilaterally equal and reactive, pallors not present Chest: Normal vesicular breath sounds, no added sounds, equal good air entry bilaterally CVS: S1-S2 regular, no murmurs, no tachycardia, no gallops, no rubs Abdomen: Soft, nontender, no organomegaly, bowel sounds present Neuro: No focal deficits, no facial deformity, AO x3, power 5/5 in all limbs Extremities: No edema clubbing or cyanosis Discharge Data Studies Completed and Pending Completed Studies During Hospitalization Category Date Time Status CT angio chest w abd pel w con Stat Cat Scan 08/02/22 20:[address] head wo con* [id number] Stat Cat Scan 08/02/22 20:12 Completed CXRP [XR chest 1V portable [id number]] Stat Exams 08/02/22 18:08 [place] [id number] Routine Ultrasound 08/03/22 23:48 Completed Pending at discharge Category Date Time Status SETH Profile Rheumatology AM LABS Lab 08/03/22 06:10 Received Blood Culture Stat Lab 08/02/22 19:39 Results Lupus Inhibitor Panel Anticoag Routine Lab 08/03/22 06:10 Received Tick Panel AM LABS Lab 08/03/22 06:10 Received CV. echo complete* [id number] Routine Ultrasound 08/03/22 06:37 Taken Radiology Impressions Chest X-Ray 08/02/22 18:08 IMPRESSION: No acute findings. Chest/Abdomen/Pelvis CT 08/02/22 20:12 IMPRESSION: Acute nonocclusive pulmonary emboli in the left lower and upper lobes. No central or saddle embolus. No RV strain. IMPRESSION: No significant abdominopelvic findings. ADDENDUM: 08/02/22 [id number] THIS REPORT CONTAINS FINDINGS THAT MAY BE CRITICAL TO PATIENT CARE. The findings were verbally communicated via telephone conference with JOSE A MARIE at 9:46 PM CDT on 08/02/2022. The findings were acknowledged and understood. Head CT 08/02/22 20:12 IMPRESSION: No acute intracranial abnormality. Venous Duplex 08/03/22 23:48 IMPRESSION: No evidence of deep vein thrombosis. Laboratory Results WBC 21.8 10^3/uL (4.0-10.0) H 08/03/22 06:10 RBC 4.12 10^6/uL (4.1-5.3) 08/03/22 06:10 Hgb 12.1 g/dL (11.5-15.3) 08/03/22 06:10 Hct 38.0 % (37.0-47.0) 08/03/22 06:10 MCV 92.2 fl (81-99) 08/03/22 06:10 MCH 29.4 pg (28.0-34.0) 08/03/22 06:10 MCHC 31.8 g/dL (30.0-36.0) D 08/03/22 06:10 RDW 12.9 % (12.1-15.1) 08/03/22 06:10 Plt Count 313 10^3/cmm (130-400) 08/03/22 06:10 MPV 9.9 fL (7.4-10.4) 08/03/22 06:10 Neut % (Auto) 50.8 % 08/03/22 06:10 Lymph % (Auto) 36.9 % 08/03/22 06:10 [place] % (Auto) 5.6 % 08/03/22 06:10 Eos % (Auto) 2.5 % 08/03/22 06:10 Baso % (Auto) 0.6 % 08/03/22 06:10 Neut # (Auto) 11.09 10^3/uL (1.8-7.7) H 08/03/22 06:10 Lymph # (Auto) 8.1 10^3/uL (0.8-4.8) H 08/03/22 06:10 [place] # (Auto) 1.2 10^3/uL (0.2-0.9) H 08/03/22 06:10 Eos # (Auto) 0.6 10^3/uL (0.0-0.8) 08/03/22 06:10 Baso # (Auto) 0.1 10^3/uL (0.0-0.1) 08/03/22 06:10 Nucleated RBC % (auto) 0 % 08/03/22 06:10 Total Counted 100 (0-100) 08/02/22 18:31 Atypical Lymphs % 5.0 % (0-5) 08/02/22 18:31 Absolute Neutrophils 17.5 10^3/cmm (1.4-6.5) H 08/02/22 18:31 Segmented Neutrophils 56 % 08/02/22 18:31 Abs Segm Neuts (Man) 17.5 10/cmm (1.6-7.1) H 08/02/22 18:31 Band Neutrophils 0.0 % 08/02/22 18: Abs Band Neuts (Man) 0.0 10^3/cmm (0.0-1.2) 08/02/22 18:31 Absolute Lymphocytes 10.6 10^3/cmm (1.2-3.4) H 08/02/22 18:31 Lymphocytes (Manual) 29 % 08/02/22 18:31 Monocytes (Manual) 5.0 % 08/02/22 18:31 Absolute Monocytes 1.6 10^3/cmm (0.1-0.6) H 08/02/22 18:31 Eosinophils (Manual) 1 % 08/02/22 18:31 Absolute Eosinophils 0.3 10^3/cmm (0.0-0.7) 08/02/22 18:31 Basophils (Manual) 0.0 % 08/02/22 18:31 Absolute Basophils 0.0 10^3/cmm (0.0-0.2) 08/02/22 18:31 Metamyelocytes 2.0 % 08/02/22 18:31 Myelocytes 2.0 % 08/02/22 18:31 Nucleated RBCs # 0.0 /100WBC 08/03/22 06:10 Platelet Estimate Increased (Normal) H 08/02/22 18:31 Sodium 136 mmol/L (136-145) 08/03/22 06:10 Potassium 3.8 mmol/L (3.5-5.1) 08/03/22 06:10 Chloride 102 mmol/L (98-107) 08/03/22 06:10 Carbon Dioxide 18 mmol/L (22-29) L 08/03/22 06:10 Anion Gap 19.8 (5-19) H 08/03/22 06:10 BUN 8 mg/dL (6-20) 08/03/22 06:10 Creatinine 0.6 mg/dL (0.5-0.9) 08/03/22 06:10 GFR Calculation 115.1 mL/min (90-130) 08/03/22 06:10 Glucose 117 mg/dL (65-115) H 08/03/22 06:10 POC Glucose 162 mg/dL (70-110) H 08/04/22 06:13 Calculated Osmolality 281 mOsm/kg (285-295) L 08/03/22 06:10 Lactic Acid 3.8 mmol/L (0.5-2.2) H 08/03/22 06:10 Lactic Acid (Sepsis) 2.7 mmol/L (0.5-2.2) H 08/03/22 09:02 Calcium 8.0 mg/dL (8.5-10.5) L 08/03/22 06:10 Total Bilirubin 0.3 mg/dL (0.15-1.2) 08/03/22 06:10 AST 8 U/L (0-32) 08/03/22 06:10 ALT 10 U/L (0-33) 08/03/22 06:10 Alkaline Phosphatase 48 U/L (35-105) 08/03/22 06:10 Troponin T Baseline 7 ng/L (0-10) 08/02/22 18:31 Troponin T 120 Minute 6.45 ng/L (0-10) 08/02/22 20:20 Delta Troponin T -0.55 ABS# (0-10) L 08/02/22 20:20 Troponin T Hi Sens 6Hr 6.00 ng/L (0-10) 08/03/22 06:10 Troponin T Hi Sens 6Hr Delta -0.45 ng/L (0-12) L 08/03/22 06:10 Total Protein 5.2 g/dL (6.6-8.7) L 08/03/22 06:10 Albumin 3.4 g/dL (3.5-5.2) L 08/03/22 06:10 Globulin 1.8 g/dL (1.3-4.6) 08/03/22 06:10 Procalcitonin 0.04 ng/mL (0-0.5) 08/03/22 06:10 TSH 12.15 uIU/mL (0.27-4.20) H 08/03/22 06:10 Free T4 1.59 ng/dL (0.82-1.77) 08/03/22 06:10 Free T3 2.2 PG/ML (2.0-4.4) 08/03/22 06:10 HCG, Qual Negative (Negative) 08/02/22 18:00 Urine Color Yellow (Yellow) 08/02/22 18:00 Urine Appearance Sl hazy (CLEAR) A 08/02/22 18:00 Urine pH 5 (5-7) 08/02/22 18:00 Ur Specific [place] 1.015 (1.005-1.030) 08/02/22 18:00 Urine Protein Neg (Negative) 08/02/22 18:00 Urine Glucose (UA) Norm (Normal) 08/02/22 18:00 Urine Ketones Negative (Negative) 08/02/22 18:00 Urine Blood 2+ (Negative) H 08/02/22 18:00 Urine Nitrate Negative (Negative) 08/02/22 18:00 Urine Bilirubin Neg (Negative) 08/02/22 18:00 Urine Urobilinogen Norm mg/dL (Negative) 08/02/22 18:00 Ur Leukocyte Esterase Negative (Negative) 08/02/22 18:00 Urine RBC 0-4 /hpf (0-2) H 08/02/22 18:00 Urine WBC 0-4 /hpf (0-5) H 08/02/22 18:00 Ur Squamous Epith Cells 0-4 /hpf (0-5) H 08/02/22 18:00 Amorphous Sediment Not Reportable 08/02/22 18:00 Urine Bacteria Trace /hpf (NONE) 08/02/22 18:00 Coronavirus 229E (PCR) Not detected (NOT DETECT) 08/02/22 22:56 Hepatitis A IgM Ab Non-reactive (Nonreactive) 08/03/22 06:10 Hep Bs Antigen Non-reactive (Nonreactive) 08/03/22 06:10 Hep Bs Antibody 33.5 (11.5-1000) 08/03/22 06:10 Hep B Core Total Ab Non-reactive (Nonreactive) 08/03/22 06:10 Hepatitis C Antibody Non-reactive (Nonreactive) 08/03/22 06:10 HIV 1&2 Ab & HIV 1 Ag Non-reactive (Non-Reactiv) 08/03/22 06:10 HIV 1&2 Antibody Non-reactive (Non-Reactiv) 08/03/22 06:10 SARS-CoV-2 (PCR) Not detected (NOT DETECT) 08/02/22 22:56 Vitals Last Vital Signs Temp 98.2 F 08/04/22 08:00 Pulse 82 08/04/22 08:00 Resp 15 08/04/22 08:00 BP 111/77 08/04/22 08:00 Pulse Ox 97 08/04/22 08:00 O2 Del Method Room Air 08/04/22 08:00 Discharge Plan Discharge Patient Disposition: Home Condition: Stable Prescriptions: New pantoprazole 40 mg Tablet,Delayed Release (Dr/Ec) 40 mg PO DAILY Qty: 30 0RF Eliquis DVT-PE Treat 30D Start 5 mg (74 tabs) tablets,dose pack See Rx Instructions .ROUTE .COMPLEX Qty: 74 0RF Rx Instructions: orally per package directions Continued ergocalciferol (vitamin D2) 1,250 mcg (50,000 unit) capsule 1,250 mcg PO Q7D Rx Instructions: TAKES ON MONDAY eucalyptus-menthol Lozenge 1 jocelynn mucous membrane Q4H PRN (Reason: cough) Qty: 30 0RF gabapentin 300 mg Capsule 300 mg PO TID atorvastatin 40 mg tablet 40 mg PO DAILY loratadine 10 mg tablet 10 mg PO DAILY Trulicity 1.5 mg/0.5 mL pen injector 1.5 mg SUBCUT Q7D Rx Instructions: On Monday bupropion HCl 150 mg tablet extended release 24 hr 150 mg PO DAILY Qty: 15 0RF ziprasidone HCl 60 mg capsule 60 mg PO BID Qty: 30 0RF multivitamin Tablet 1 tab PO DAILY acetaminophen 325 mg Tablet 650 mg PO Q6H PRN (Reason: Pain) levothyroxine 75 mcg Tablet 75 mcg PO DAILY trazodone 300 mg Tablet 300 mg PO BEDTIME ondansetron HCl 4 mg tablet 4 mg PO BID PRN (Reason: Nausea) olanzapine 5 mg tablet 5 mg PO TID hydroxyzine HCl 50 mg tablet 50 mg PO TID PRN (Reason: anxiety) prazosin 5 mg capsule 5 mg PO BEDTIME metformin 1,000 mg Tablet 1,000 mg PO BID docusate sodium 100 mg capsule 100 mg PO DAILY buspirone 10 mg tablet 15 mg PO TID acetaminophen 500 mg capsule 1,000 mg PO Q8H PRN (Reason: pain) Qty: 60 0RF Discontinued norgestimate-ethinyl estradiol [Estarylla] 0.25-35 mg-mcg tablet 1 tab PO DAILY valacyclovir 500 mg tablet 500 mg PO DAILY sulfamethoxazole-trimethoprim [Bactrim DS] 800-160 mg Tablet 1 tab PO BID Discharge Orders: Discharge Order (Routine); Ordered 08/04/22 Ordered By: Seferino Morales Referrals: Alayna Holland FNP [Primary Care Provider] - 7-10 days (Will call patient with appointment information.) Discharge Diet: Usual diet and Regular Discharge Activity: Resume usual activity and Increase activity as tolerated Patient Instructions: Pantoprazole (By mouth), Apixaban (By mouth), Pulmonary Embolism (GEN), Opioid Safety Discharge Attestations Time Spent in Discharge Care*: greater than 30 min Specific Discharge Activities: educating patient, educating and/or supporting family/caregiver, discussing with pcp/other providers, discussing with caser in/social workers/dc planners, documenting/other paperwork and evaluating patient/reviewing data Status at Discharge: Cognitive status at discharge: mildly impaired cognition, Behavioral status at discharge: cooperative, Functional status at discharge: independent ambulation, Overall status at discharge: patient is back to baseline Quality Metrics Clinical Quality Measures [ Venous Thromboembolism { Contraindication to Overlap Therapy: None; Overlap threrpy ordered; VTE Discharge Education: Education about anticoagulant therapy/Care Notes given; Deep Vein Thrombosis/Pulmonary Embolism Present on Admission: Yes;}] Coding Level of Care Code 44758 Total time (in minutes) for Discharge: 60 Diagnoses Pulmonary embolism I26.99 Leukocytosis D72.829
[2022-08-04] MEDS: enoxaparin 40 mg/0.4 mL Syringe 60 MG SUBCUT (11:20)
[2022-08-04 12:00] VITALS: BP 111/77; PULSE 82; RESP 15; TEMP 36.8; O2SAT 97
[2022-08-04 12:02] LABS: Glucose Point of Care 249 mg/dL (70-110)
--- NOTE | 2022-08-04 12:31 | PC.CHAP ---
Pastoral Care Encounter/Spiritual Assessment Type of Contact [] Declined internal salesperson visit [] Patient/Family/Request visit [] Outpatient visit [] Follow-up visit [] Physician referral [] Code/Alert [x] Routine visit [] Staff referral [] Actively dying [] Patient sleeping [] Family support [] [] Out of room [] Palliative care [] [x] Receiving care in room [] Pre-surgical visit [] Trauma [] Long length of stay [] ICU visit [] Other: Relational/Emotional Strength [] Patient feels connected with others/family/visitors/staff [] Distress [] Loneliness/isolation [] Abandonment Spirituality of Patient [] Person of Brandi [] Attends Jain of their Brandi [] Believes in Prayer [] Reads Bible or Buddhism materials [] There are Spiritual issues to be addressed Supervisor Sleeping Bag Department Interventions [] Prayer [] Active listening [] Non-anxious presence [] Spiritual/emotional support [] Crisis/trauma care [] Spiritual counseling [] Bereavement support [] Provided bereavement packet [] Provided Bible/devotional materials [] Provided toy/stuffed animal, coloring book to patient or family member [] Provided Communion [] Anointing/[place] [] Salvation [] Completed spiritual assessment [] Other: Impact on Illness or Injury [] Angry [] Fearful [] Anxious [] Often cries [] Exhaustion [] Unable to work [] Unable to attend methodist [] Unable to walk/stand [] Unable to read [] Unable to drive [] Unable to eat/drink [] Unable to sleep [] Unable to be with family [] Patient intubated [] Other: Summary Declined internal salesperson visit Time spent with patient 5 mins
[2022-08-04 13:52] VITALS: BP 111/77; PULSE 82; RESP 15; TEMP 36.8; O2SAT 97
[2022-08-04 14:00] LABS: Lyme AB Screen <0.90 index
[2022-08-04 16:00] LABS: CENTROMERE B ANTIBODY <1.0 NEG AI (<1.0 NEG); JO-1 ANTIBODY <1.0 NEG AI (<1.0 NEG); RNP ANTIBODY <1.0 NEG AI (<1.0 NEG); SCL-70 ANTIBODY <1.0 NEG AI (<1.0 NEG); SJOGREN'S ANTIBODY (SS-A) <1.0 NEG AI (<1.0 NEG); SM ANTIBODY <1.0 NEG AI (<1.0 NEG); SS-B <1.0 NEG AI (<1.0 NEG)
[2022-08-04 17:04] LABS: ANA SCREEN, IFA NEGATIVE (NEGATIVE)
[2022-08-04 17:09] LABS: COMPLEMENT COMPONENT C3C 124 mg/dL (83-193); COMPLEMENT COMPONENT C4C 26 mg/dL (15-57)
[2022-08-04 20:01] LABS: PTT-LA-Screen 34 sec (< OR = 40)
[2022-08-05 14:34] LABS: COMPLEMENT, TOTAL (CH50) 46 U/mL (31-60)
[2022-08-06 12:00] LABS: DNA AB (DS) CRITHIDIA,IFA NEGATIVE (NEGATIVE)
[2022-08-08 13:59] LABS: THYROID PEROXIDASE ANTIBODIES 13 IU/mL (<9)
[2022-08-11 21:29] LABS: E. Chaffeensis AB IGG <1:64; E. Chaffeensis AB IGM <1:20
[2022-08-12 17:11] LABS: RMSF IGG NOT DETECTED; RMSF IGM NOT DETECTED
== END 2022-08-04 13:42 | disposition home or self-care (01) ==
LOC: ER 22:08 → MEDSURG 08-03 01:07
PROVIDERS: Admitting Provider Student in an Organized Health Care Education/Training Program; Emergency Provider Emergency Medicine; PCP Nurse Practitioner Family; Visit Provider Student in an Organized Health Care Education/Training Program
DX: I26.99 Other pulmonary embolism without acute cor pulmonale (principal); D72.829 Elevated white blood cell count, unspecified; F70 Mild intellectual disabilities; F43.10 Post-traumatic stress disorder, unspecified; R00.0 Tachycardia, unspecified; I45.10 Unspecified right bundle-branch block; F25.0 Schizoaffective disorder, bipolar type; F17.290 Nicotine dependence, other tobacco product, uncomplicated
CPT/HCPCS: 36415; 36416; 70450; 71045; 71275; 74177; 80053; 80503; 81001; 81025; 82962; 83605; 84145; 84439; 84443; 84481; 84484; 85007; 85025; 85613; 85730; 86160; 86162; 86235; 86255; 86376; 86618; 86666; 86705; 86706; 86709; 86757; 86803; 87040; 87340; 87635; 87806; 93005; 93306; 93970; 96361; 96365; 96367; 96372; 96375; 96376; 99285; G0378; J1200; J1650; J2270; J2405; J3370; J3490; J7030; J7050; Q9967

== ENCOUNTER → 2022-08-11 13:41 | Outpatient (BNVA) | payer MEDICAID, SELFPAY | PROVIDERS: PCP Nurse Practitioner Family; Visit Provider Podiatrist Foot & Ankle Surgery | DX: Z98.890 Other specified postprocedural states (principal); S82.832A Other fracture of upper and lower end of left fibula, initial encounter for closed fracture; X50.9XXA Other and unspecified overexertion or strenuous movements or postures, initial encounter | CPT/HCPCS: 73600; 73630; 99213 ==

== ENCOUNTER 2022-08-11 15:37 | Outpatient (CLI) | payer MEDICAID, SELFPAY | END 2022-08-11 15:38 | disposition home or self-care (01) | LOC: SPT 15:38 | PROVIDERS: PCP Nurse Practitioner Family; Visit Provider Podiatrist Foot & Ankle Surgery | DX: Z46.89 Encounter for fitting and adjustment of other specified devices (principal); M25.572 Pain in left ankle and joints of left foot | CPT/HCPCS: 97760; L1902 ==

== ENCOUNTER 2022-08-12 12:55 | Emergency (ER) | payer MEDICAID, SELFPAY ==
[2022-08-12 13:00] VITALS: BP 121/76; PULSE 102; RESP 18; TEMP 36.7; O2SAT 98; BMI 31.4
--- NOTE | 2022-08-12 13:08 | XR_ITS ---
WS: [id number] Portable AP upright chest, 08/12/2022 Clinical Data: chest pain Comparison: Portable chest, 08/02/2022 Findings: No nodules, masses or effusions are seen. The heart is normal. The pulmonary vascularity is not increased. No pneumonia or pneumothorax is seen. Midline sternotomy sutures are present. XR/XR chest 1V portable [id number] Impression: Negative chest.
--- NOTE | 2022-08-12 13:08 | ECG_ITS ---
[facility] Test Date: 2022-08-12 Pat Name: Afia Vidales Department: Room: Gender: Female [place]: : 1990 Requested By: Cheryl Polk Order Number: [id number] Mark MD: Julio C Persaud M.D. Measurements Intervals [place] Rate: 104 P: 8 [place]: 143 QRS: 85 QRSD: 82 T: 23 QT: 326 QTc: 430 Interpretive Statements SINUS TACHYCARDIA ST DEVIATION AND MODERATE T-WAVE ABNORMALITY, CONSIDER ANTERIOR ISCHEMIA [-0.1+ mV T-WAVE IN V3/V4] Compared to ECG 08/02/2022 18:47:18 Possible ischemia now present Incomplete right bundle-branch block no longer present Atrial abnormality no longer present T-wave abnormality still present Electronically Signed On 08-13-2022 6:53:40 CDT by Julio C Persaud M.D. [email or web address]
[2022-08-12 13:33] VITALS: BP 106/73; PULSE 87; RESP 18; O2SAT 96
[2022-08-12 14:30] LABS: Basophils # 0.1 10^3/uL (0.0-0.1); Basophils % 0.5 %; Eosinophils # 0.4 10^3/uL (0.0-0.8); Eosinophils % 3.8 %; Hematocrit 36.7 % (37.0-47.0); Hemoglobin 11.6 g/dL (11.5-15.3); Lymphocytes # 3.1 10^3/uL (0.8-4.8); Lymphocytes % 29.8 %; Mean Corpuscular HGB Conc 31.6 g/dL (30.0-36.0); Mean Corpuscular Volume 94.8 fl (81-99); Mean Platelet Volume 9.7 fL (7.4-10.4); Monocytes # 0.9 10^3/uL (0.2-0.9); Monocytes % 8.4 %; Neutrophils # 5.85 10^3/uL (1.8-7.7); Neutrophils % 56.6 %; Nucleated Red Blood Cells % 0 %; Platelet Count 320 10^3/cmm (130-400); Red Blood Count 3.87 10^6/uL (4.1-5.3); Red Cell Distribution Width 13.1 % (12.1-15.1); White Blood Count 10.3 10^3/uL (4.0-10.0)
[2022-08-12 14:33] VITALS: BP 108/75; PULSE 99; RESP 17; TEMP 36.7; O2SAT 98
[2022-08-12 14:56] LABS: Troponin(5th) Baseline 6 ng/L (0-10)
[2022-08-12 15:02] LABS: Alanine Aminotransferase 34 U/L (0-33); Albumin Level 4.1 g/dL (3.5-5.2); Alkaline Phosphatase 49 U/L (35-105); Aspartate Amino Transferase 25 U/L (0-32); Blood Urea Nitrogen 5 mg/dL (6-20); Carbon Dioxide 22 mmol/L (22-29); Chloride 105 mmol/L (98-107); Creatine Phosphokinase 54 U/L (26-192); Creatinine Clr Calc Pharmacy 149.2591; Globulin 2.3 g/dL (1.3-4.6); Glomerular Filtration Rate 142.1 mL/min (90-130); Glucose 124 mg/dL (65-115); NT Pro B Type Natriuretic Pept 36 pg/mL (0-125); Osmolality Calculated 289 mOsm/kg (285-295); Sodium 140 mmol/L (136-145); Total Bilirubin 0.3 mg/dL (0.15-1.2); Total Protein 6.4 g/dL (6.6-8.7)
[2022-08-12 15:17] LABS: INR 1.23 (0.8-1.2)
[2022-08-12 15:18] LABS: Partial Thromboplastin Time 29.2 SECONDS (23.9-36.7)
[2022-08-12 15:30] VITALS: BP 102/58; PULSE 98; RESP 17; TEMP 36.7; O2SAT 98
--- NOTE | 2022-08-12 16:41 | W.ED.CHESTPA ---
HPI - Chest Pain General: Chief Complaint: Chest Pain Stated Complaint: chest pain Time Seen by Provider: 08/12/22 16:35 History of Present Illness: Patient presents to the ER with complaints of chest pain this pain radiates to the patient's back. This is also increased with deep respiratory inspiration. Patient was diagnosed approximately 1 week ago with PEs and is put was put on Eliquis at that time. Patient has been using [id number] Tylenol as needed for pain and this has not been working. MD complaint: chest pain Pertinent past history: other (Recent diagnosis of PEs) Onset (ago): day(s) (Back 2 days ago) Timing of current episode: constant Prior episodes: No Pain location: substernal Pain radiation: back Severity: mild Relieving factors: nothing Exacerbating factors: inspiration Context: history of DVT/PE Associated symptoms: Reports no associated symptoms; Deny abdominal pain, dyspnea, fever(s), nausea, palpitations or vomiting Treatment prior to arrival: none Review of Systems General: Reports: 10 or more systems reviewed and unremarkable except in HPI and below Const: Denies: fever(s) or chills Eyes: Denies: change in vision or photophobia ENMT: Denies: throat pain or enlarged tonsils Card: Reports: chest pain; Denies: palpitations or irregular heart rhythm Resp: Denies: dyspnea, productive cough or non-productive cough GI: Denies: abdominal pain, nausea or vomiting : Denies: flank pain, difficulty voiding or dysuria Musc: Reports: back pain; Denies: neck pain or extremity pain [facility] ED PFSH: Medical History (Updated 08/12/22 @ 16:50 by Layo Anderson DO) Chronic post-traumatic stress disorder Moderate intellectual disabilities Nicotine dependence, chewing tobacco, uncomplicated Schizoaffective disorder, bipolar type Social History Smoking and tobacco status: never smoked Physical Exam Const: COMMON NORMALS: no acute distress, average body habitus, patient oriented x3, no limitations, healthy appearing, alert and well nourished HENMT: COMMON NORMALS: normocephalic, atraumatic, hearing grossly normal bilaterally, external ears normal, Normal external nose present and moist oral mucous membranes HEAD & SCALP: normocephalic and atraumatic NOSE: Normal external nose present EXTERNAL EAR: Yes external ears normal Eye: COMMON NORMALS: Equal, round and reactive pupils present, EOMs intact bilaterally, conjunctivae normal and no scleral icterus CONJUNCTIVA: Yes conjunctivae normal PUPIL: Yes Equal, round and reactive pupils present Neck/C-Spine: COMMON NORMALS: full ROM, no lymphadenopathy and no JVD Lymph: LYMPHATIC: no lymphadenopathy noted and no lymphedema noted Chest: COMMONS NORMALS: normal inspection of the chest and normal palpation of entire chest wall Resp: COMMON NORMALS: normal respiratory effort, No retractions, No use of accessory muscles and clear to auscultation bilaterally AUSCULTATION: clear to auscultation bilaterally Cardio: COMMON NORMALS: no JVD, regular rhythm, S1 normal heart sound present, S2 normal heart sound present, No gallops present (Cardio), No clicks present (Cardio), No murmurs present (Cardio) and No rub (Cardio) RHYTHM: regular rhythm HEART SOUNDS: S1 normal heart sound present and S2 normal heart sound present GI: COMMON NORMALS: Normal to inspection, nondistended, normoactive bowel sounds present, Soft to palpation, non-tender, No hepatosplenomegaly present and no masses PALPATION: Yes Soft to palpation and Yes No hepatosplenomegaly present : COMMON NORMALS: Yes no CVA tenderness BLADDER/KIDNEY EXAM: Yes no CVA tenderness Back/Pelvis: COMMON NORMALS: no CVA tenderness Neuro: COMMON NORMALS: patient oriented x3 SENSORIUM/ORIENTATION: Yes alert Course Vital Signs: Vital signs: Vital Signs Temperature 98.0 F 08/12/22 15:30 Pulse Rate 92 08/12/22 17:26 Respiratory Rate 17 08/12/22 15:30 Blood Pressure 104/76 08/12/22 17:26 Pulse Oximetry 97 08/12/22 17:26 Oxygen Delivery Me thod Room Air 08/12/22 13:00 MDM - Chest Pain Medical Decision Making Patient presents to the ER with chest pain that radiates to her back. She diagnosed last week with 2 blood clots in her lungs. She is currently on Eliquis. When patient was discharged she was told that she would have the pain for quite a while. The patient says keeps getting worse. Work-up was obtained which was benign. Patient was given tramadol p.o. Patient should follow-up with her family doctor within 1 week. Medical Records I reviewed the patient's medical records. Lab Data I reviewed the patient's lab results. 08/12/22 14:03 08/12/22 14:03 Radiology Impressions Chest X-Ray 08/12/22 13:08 Impression: Negative chest. Laboratory Results WBC 10.3 10^3/uL (4.0-10.0) H 08/12/22 14:03 RBC 3.87 10^6/uL (4.1-5.3) L 08/12/22 14:03 Hgb 11.6 g/dL (11.5-15.3) 08/12/22 14:03 Hct 36.7 % (37.0-47.0) L 08/12/22 14:03 MCV 94.8 fl (81-99) 08/12/22 14:03 MCH 30.0 pg (28.0-34.0) 08/12/22 14:03 MCHC 31.6 g/dL (30.0-36.0) 08/12/22 14:03 RDW 13.1 % (12.1-15.1) 08/12/22 14:03 Plt Count 320 10^3/cmm (130-400) 08/12/22 14:03 MPV 9.7 fL (7.4-10.4) 08/12/22 14:03 Neut % (Auto) 56.6 % 08/12/22 14:03 Lymph % (Auto) 29.8 % 08/12/22 14:03 [place] % (Auto) 8.4 % 08/12/22 14:03 Eos % (Auto) 3.8 % 08/12/22 14:03 Baso % (Auto) 0.5 % 08/12/22 14:03 Neut # (Auto) 5.85 10^3/uL (1.8-7.7) 08/12/22 14:03 Lymph # (Auto) 3.1 10^3/uL (0.8-4.8) 08/12/22 14:03 [place] # (Auto) 0.9 10^3/uL (0.2-0.9) 08/12/22 14:03 Eos # (Auto) 0.4 10^3/uL (0.0-0.8) 08/12/22 14:03 Baso # (Auto) 0.1 10^3/uL (0.0-0.1) 08/12/22 14:03 Nucleated RBC % (auto) 0 % 08/12/22 14:03 Nucleated RBCs # 0.0 /100WBC 08/12/22 14:03 PT 15.90 SECONDS (12.1-14.9) H 08/12/22 14:03 INR 1.23 (0.8-1.2) H 08/12/22 14:03 APTT 29.2 SECONDS (23.9-36.7) 08/12/22 14:03 Sodium 140 mmol/L (136-145) 08/12/22 14:03 Potassium 4.0 mmol/L (3.5-5.1) 08/12/22 14:03 Chloride 105 mmol/L (98-107) 08/12/22 14:03 Carbon Dioxide 22 mmol/L (22-29) 08/12/22 14:03 Anion Gap 17.0 (5-19) 08/12/22 14:03 BUN 5 mg/dL (6-20) L 08/12/22 14:03 Creatinine 0.5 mg/dL (0.5-0.9) 08/12/22 14:03 GFR Calculation 142.1 mL/min (90-130) H 08/12/22 14:03 Glucose 124 mg/dL (65-115) H 08/12/22 14:03 Calculated Osmolality 289 mOsm/kg (285-295) 08/12/22 14:03 Calcium 9.0 mg/dL (8.5-10.5) 08/12/22 14:03 Total Bilirubin 0.3 mg/dL (0.15-1.2) 08/12/22 14:03 AST 25 U/L (0-32) 08/12/22 14:03 ALT 34 U/L (0-33) H 08/12/22 14:03 Alkaline Phosphatase 49 U/L (35-105) 08/12/22 14:03 Creatine Kinase 54 U/L (26-192) 08/12/22 14:03 Troponin T Baseline 6 ng/L (0-10) 08/12/22 14:03 NT-Pro-B Natriuret Pep 36 pg/mL (0-125) 08/12/22 14:03 Total Protein 6.4 g/dL (6.6-8.7) L 08/12/22 14:03 Albumin 4.1 g/dL (3.5-5.2) 08/12/22 14:03 Globulin 2.3 g/dL (1.3-4.6) 08/12/22 14:03 EKG Data EKG 1: I personally reviewed and interpreted this EKG as follows: EKG interpretation date: 08/12/22 EKG interpretation time: 13:07 Prior EKG tracings: not available for review Interpretation: EKG showed rate of 104 bpm, WA 143, QRS 82, QTc of 430, sinus tach, ST deviation moderate T wave abnormality consider anterior ischemia negative T waves in leads V3 and V4. Discharge Plan Discharge Patient Disposition: Home Clinical Impression: Atypical chest pain Pulmonary embolism Qualifiers: Pulmonary embolism type: unspecified Chronicity: unspecified Acute cor pulmonale presence: unspecified Qualified Code(s): I26.99 - Other pulmonary embolism without acute cor pulmonale Condition: Stable Prescriptions: New tramadol 50 mg tablet 25 mg PO Q6H PRN (Reason: pain) Qty: 14 0RF No Action ergocalciferol (vitamin D2) 1,250 mcg (50,000 unit) capsule 1,250 mcg PO Q7D Rx Instructions: TAKES ON MONDAY eucalyptus-menthol Lozenge 1 jocelynn mucous membrane Q4H PRN (Reason: cough) Qty: 30 0RF (DME) ASO to the left See Rx Instructions .Route .MEDSUPPLY Qty: 1 0RF Rx Instructions: As directed gabapentin 300 mg Capsule 300 mg PO TID atorvastatin 40 mg tablet 40 mg PO DAILY loratadine 10 mg tablet 10 mg PO DAILY Trulicity 1.5 mg/0.5 mL pen injector 1.5 mg SUBCUT Q7D Rx Instructions: On Monday bupropion HCl 150 mg tablet extended release 24 hr 150 mg PO DAILY Qty: 15 0RF ziprasidone HCl 60 mg capsule 60 mg PO BID Qty: 30 0RF multivitamin Tablet 1 tab PO DAILY acetaminophen 325 mg Tablet 650 mg PO Q6H PRN (Reason: Pain) levothyroxine 75 mcg Tablet 75 mcg PO DAILY trazodone 300 mg Tablet 300 mg PO BEDTIME ondansetron HCl 4 mg tablet 4 mg PO BID PRN (Reason: Nausea) olanzapine 5 mg tablet 5 mg PO TID hydroxyzine HCl 50 mg tablet 50 mg PO TID PRN (Reason: anxiety) prazosin 5 mg capsule 5 mg PO BEDTIME pantoprazole 40 mg Tablet,Delayed Release (Dr/Ec) 40 mg PO DAILY Qty: 30 0RF Eliquis DVT-PE Treat 30D Start 5 mg (74 tabs) tablets,dose pack See Rx Instructions .ROUTE .COMPLEX Qty: 74 0RF Rx Instructions: orally per package directions metformin 1,000 mg Tablet 1,000 mg PO BID docusate sodium 100 mg capsule 100 mg PO DAILY buspirone 10 mg tablet 15 mg PO TID acetaminophen 500 mg capsule 1,000 mg PO Q8H PRN (Reason: pain) Qty: 60 0RF Discharge Orders: Discharge ED (Routine); Ordered 08/12/22 Ordered By: Layo Anderson Referrals: Alayna Holland FNP [Primary Care Provider] - 1 week Patient Instructions: Chest Pain - Noncardiac, Opioid Safety, Pain Management Coding Level of Care Code ED Well Surveying Engineer for Eh Vallecillo
[2022-08-12 17:12] VITALS: BP 108/80; PULSE 94; O2SAT 98
[2022-08-12] MEDS: TRAMadol 50 mg Tablet PO (17:15)
[2022-08-12 17:26] VITALS: BP 104/76; PULSE 92; O2SAT 97
== END 2022-08-12 17:27 | disposition home or self-care (01) ==
PROVIDERS: Physician Assistant; Emergency Provider Emergency Medicine; PCP Nurse Practitioner Family
DX: R07.89 Other chest pain (principal); I26.99 Other pulmonary embolism without acute cor pulmonale; Z79.85 Long-term (current) use of injectable non-insulin antidiabetic drugs; Z79.01 Long term (current) use of anticoagulants; Z79.84 Long term (current) use of oral hypoglycemic drugs; Z86.711 Personal history of pulmonary embolism
CPT/HCPCS: 71045; 80053; 82550; 83880; 84484; 85025; 85610; 85730; 93005; 99285

== ENCOUNTER 2022-08-18 06:00 | Outpatient (RCR) | payer MEDICAID, SELFPAY | END 2022-09-16 23:59 | disposition home or self-care (01) | LOC: SPT 06:00 | PROVIDERS: PCP Nurse Practitioner Family; Visit Provider Podiatrist Foot & Ankle Surgery | DX: X58.XXXD Exposure to other specified factors, subsequent encounter; S82.832D Other fracture of upper and lower end of left fibula, subsequent encounter for closed fracture with routine healing | CPT/HCPCS: 97110; 97140; 97162 ==

== ENCOUNTER 2022-08-19 20:53 | Emergency (ER) | payer MEDICAID, SELFPAY ==
[2022-08-19 21:10] VITALS: BP 109/72; PULSE 94; RESP 18; TEMP 36.6; O2SAT 98; BMI 30.6
--- NOTE | 2022-08-19 21:51 | PC.NURSE ---
[facility] in [facility], if I would see if the doctor could get them in and out , because she believes that the patient is doing this for attention. Caregiver states that she barely hit her head and she knows that the [facility] policy states that if they hurt their head or their chest then they have to be seen in the ER. Pt. was diagnosed with blood clots in her chest 3 weeks ago and is being treated. Worker states that her chest only hurt when she wanted to come to the ER.
[2022-08-19 22:00] VITALS: BP 137/98; PULSE 98; RESP 16; O2SAT 98
--- NOTE | 2022-08-19 22:03 | ED_ITS ---
HPI - Head Injury General: Chief complaint: Head Injury Stated complaint: hit her head on fridge Time Seen by Provider: 08/19/22 22:03 History of Present Illness: Ms Vidales is a 32-year-old lady with history of psychiatric disorder who resides at [facility] and recent diagnosis of pulmonary embolism on anticoagulation presenting to the ER for 2 separate concerns. She notes continued and perhaps increased sharp pain in the left anterior chest radiating to the back earlier today. Additionally she hit her head on a freezer door and has had moderate to severe intensity headache. No other specific changes in health, exacerbating, or alleviating factors identified. Onset (ago): minute(s) Mechanism of Injury: other Place: home Loss of Consciousness: no Severity: moderate Quality: aching Context: other anticoagulant use Review of Systems General: Reports: 10 or more systems reviewed and unremarkable except in HPI and below PFSH ED PFSH: Medical History Chronic post-traumatic stress disorder Moderate intellectual disabilities Nicotine dependence, chewing tobacco, uncomplicated Schizoaffective disorder, bipolar type Social History Smoking and tobacco status: never smoked Physical Exam Const: COMMON NORMALS: alert GENERAL APPEARANCE: cooperative and well developed HENMT: COMMON NORMALS: normocephalic and atraumatic HEAD & SCALP: normocephalic and atraumatic OTHER: No gregorio signs or raccoon eyes. No hemotympanum. No otorrhea or rhinorrhea. Jaw alignment normal. Dentition baseline. No obvious bony step-offs. No septal hematoma. No evidence of ocular entrapment. Eye: COMMON NORMALS: conjunctivae normal CONJUNCTIVA: Yes conjunctivae normal SCLERA: sclerae normal Neck/C-Spine: COMMON NORMALS: supple GENERAL: Yes trachea midline Resp: COMMON NORMALS: clear to auscultation bilaterally EFFORT & INSPECTION: Yes able to speak in complete sentences AUSCULTATION: clear to auscultation bilaterally Cardio: COMMON NORMALS: regular rate and regular rhythm RATE: regular rate RHYTHM: regular rhythm GI: COMMON NORMALS: Soft to palpation PALPATION: Yes Soft to palpation and No Tenderness to palpation present (GI) Extremity: GENERAL: Yes normal exam except as noted and No edema Neuro: COMMON NORMALS: moves all extremities SENSORIUM/ORIENTATION: Yes alert and No Orientation impaired Psych: COMMON NORMALS: mental status grossly normal and Normal thought process present THOUGHT PROCESS: Normal thought process present Course Vital Signs: Vital signs: Vital Signs Temperature 98 F 08/19/22 21:10 Pulse Rate 93 08/20/22 00:28 Respiratory Rate 14 08/20/22 00:28 Blood Pressure 90/64 08/20/22 00:28 Pulse Oximetry 95 08/20/22 00:28 Oxygen Delivery Me thod Room Air 08/19/22 22:00 MDM - Head Injury Medcial Decision Making 32-year-old lady with recent diagnosis of pulmonary embolism on anticoagulation presenting due to head injury and chest pain. Exam as above. EKG notable for sinus rhythm with normal axis and intervals, there is S1Q3T3 consistent with clinical history. Recent prior labs reviewed. Negative troponin and BNP. Head CT negative for intracranial hemorrhage. Chest x-ray with no lobar consolidation or pneumothorax. Low clinical suspicion for failure of anticoagulation. Satisfactory for continued outpatient management. The results of ED evaluation were discussed with the patient including prescriptions and/or symptomatic cares (if applicable) including appropriate and responsible use, followup plan, and return precautions. The patient verbalized understanding and felt safe for discharge. Medical Records I reviewed the patient's medical records. Lab Data I reviewed the patient's lab results. Radiology Impressions Chest X-Ray 08/19/22 22:08 IMPRESSION: Negative for infiltrate. Head CT 08/19/22 22:30 IMPRESSION: No acute intracranial abnormality. Laboratory Results Troponin T Baseline 7 ng/L (0-10) 08/19/22 22:16 NT-Pro-B Natriuret Pep 41 pg/mL (0-125) 08/19/22 22:16 Discharge Plan Discharge Patient Disposition: Home Clinical Impression: Closed head injury, Chest pain Condition: Stable Prescriptions: No Action ergocalciferol (vitamin D2) 1,250 mcg (50,000 unit) capsule 1,250 mcg PO Q7D Rx Instructions: TAKES ON MONDAY eucalyptus-menthol Lozenge 1 jocelynn mucous membrane Q4H PRN (Reason: cough) Qty: 30 0RF (DME) ASO to the left See Rx Instructions .Route .MEDSUPPLY Qty: 1 0RF Rx Instructions: As directed gabapentin 300 mg Capsule 300 mg PO TID atorvastatin 40 mg tablet 40 mg PO DAILY loratadine 10 mg tablet 10 mg PO DAILY Trulicity 1.5 mg/0.5 mL pen injector 1.5 mg SUBCUT Q7D Rx Instructions: On Monday bupropion HCl 150 mg tablet extended release 24 hr 150 mg PO DAILY Qty: 15 0RF ziprasidone HCl 60 mg capsule 60 mg PO BID Qty: 30 0RF multivitamin Tablet 1 tab PO DAILY acetaminophen 325 mg Tablet 650 mg PO Q6H PRN (Reason: Pain) levothyroxine 75 mcg Tablet 75 mcg PO DAILY trazodone 300 mg Tablet 300 mg PO BEDTIME ondansetron HCl 4 mg tablet 4 mg PO BID PRN (Reason: Nausea) olanzapine 5 mg tablet 5 mg PO TID hydroxyzine HCl 50 mg tablet 50 mg PO TID PRN (Reason: anxiety) prazosin 5 mg capsule 5 mg PO BEDTIME pantoprazole 40 mg Tablet,Delayed Release (Dr/Ec) 40 mg PO DAILY Qty: 30 0RF Eliquis DVT-PE Treat 30D Start 5 mg (74 tabs) tablets,dose pack See Rx Instructions .ROUTE .COMPLEX Qty: 74 0RF Rx Instructions: orally per package directions metformin 1,000 mg Tablet 1,000 mg PO BID docusate sodium 100 mg capsule 100 mg PO DAILY buspirone 10 mg tablet 15 mg PO TID acetaminophen 500 mg capsule 1,000 mg PO Q8H PRN (Reason: pain) Qty: 60 0RF tramadol 50 mg tablet 25 mg PO Q6H PRN (Reason: pain) Qty: 14 0RF Discharge Orders: Discharge ED (Routine); Ordered 08/19/22 Ordered By: [place] Z[place]ien Referrals: Alayna Holland FNP [Primary Care Provider] - Discharge Diet: Usual diet Discharge Activity: Limit activity as instructed Patient Instructions: Chest Pain (ED), Head Injury (ED), Opioid Safety Activity Restrictions/Additional Instructions: Thank you for visiting the emergency department. You were seen and evaluated for head injury and chest pain. No evidence of abnormality requiring hospitalization was found at this time. I recommend continued symptom treatment. For chest pain it is reasonable to use tramadol. If vital signs are normal, you do not feel short of breath, pain is not severe, oxygen levels and blood pressure are normal it is reasonable to look for improvement in symptoms with tramadol and present to the emergency department if you do not improve or if any of the above listed are abnormal. Please follow-up with your primary care provider. Please continue your medication regimen. Return to the emergency department for anything else that you are concerned about and feel needs emergency department evaluation. Coding Level of Care Code ED Physical Biochemist for Eh Vallecillo
--- NOTE | 2022-08-19 22:08 | XRR_ITS ---
PROCEDURE INFORMATION: Exam: XR Chest Exam date and time: 08/19/2022 10:24 PM Age: 32 years old Clinical indication: Pain; Chest pressure; Additional info: Cp TECHNIQUE: Imaging protocol: Radiologic exam of the chest. Views: 1 view. COMPARISON: CR XR chest 1V portable [id number] 08/12/2022 2:20 PM FINDINGS: Lungs: Unremarkable. No consolidation. Pleural spaces: Unremarkable. No pleural effusion. No pneumothorax. Heart/Mediastinum: Unremarkable. No cardiomegaly. Bones/joints: Sternotomy wires. XR/XR chest 1V portable [id number] IMPRESSION: Negative for infiltrate.
--- NOTE | 2022-08-19 22:08 | ECG_ITS ---
[facility] Test Date: 2022-08-19 Pat Name: Afai Vidales Department: Room: Gender: Female Business Asst: : 1990 Requested By: [place] Zapien Order Number: [id number] Mark MD: Julio C Persaud M.D. Measurements Intervals [place] Rate: 93 P: 4 AR: 149 QRS: 65 QRSD: 83 T: -5 QT: 358 QTc: 446 Interpretive Statements SINUS RHYTHM POSSIBLE ANTERIOR MYOCARDIAL INFARCTION , OF INDETERMINATE AGE [30 ms Q WAVE IN V3/V4, OR R < 0.2 mV IN V4] Compared to ECG 08/12/2022 13:07:52 Myocardial infarct finding now present Sinus tachycardia no longer present T-wave abnormality no longer present Possible ischemia no longer present Electronically Signed On 08-20-2022 10:24:38 CDT by Julio C Persaud M.D. [id number] f
--- NOTE | 2022-08-19 22:30 | CTR_ITS ---
PROCEDURE INFORMATION: Exam: CT Head Without Contrast Exam date and time: 08/19/2022 11:04 PM Age: 32 years old Clinical indication: Injury or trauma; Fall; Blunt trauma (contusions or hematomas); Patient HX: Patient tripped and struck head against refrigerator. C/O REINOSO. On anticoagulants. ; Additional info: Hit head, headache, eliquis TECHNIQUE: Imaging protocol: Computed tomography of the head without contrast. Radiation optimization: All CT scans at this facility use at least one of these dose optimization techniques: automated exposure control; mA and/or kV adjustment per patient size (includes targeted exams where dose is matched to clinical indication); or iterative reconstruction. REPORTING DATA: Count of CT and Cardiac NM exams in prior 12 months: This patient has received 2 known CTs and 0 known cardiac nuclear medicine studies in the 12 months prior to the current study. COMPARISON: CT head wo con* [id number] 08/02/2022 8:29 PM RADIATION DOSE METRICS: Total DLP (mGy-cm): 896.08 FINDINGS: Brain: Normal. No hemorrhage. Unremarkable white matter. No mass effect. Cerebral ventricles: No ventriculomegaly. Paranasal sinuses: Visualized sinuses are unremarkable. No fluid levels. Mastoid air cells: Visualized mastoid air cells are well aerated. Bones/joints: Unremarkable. No acute fracture. Soft tissues: Unremarkable. CT/CT head wo con* [id number] IMPRESSION: No acute intracranial abnormality.
[2022-08-19 22:36] LABS: Troponin(5th) Baseline 7 ng/L (0-10)
[2022-08-19] MEDS: HYDROcodone-acetaminophen 5-325 mg Tablet 1 TAB PO (22:38)
[2022-08-19 22:44] LABS: NT Pro B Type Natriuretic Pept 41 pg/mL (0-125)
[2022-08-19] MEDS: ondansetron 4 MG Tablet PO (22:44)
[2022-08-20 00:28] VITALS: BP 90/64; PULSE 93; RESP 14; O2SAT 95
== END 2022-08-20 00:08 | disposition home or self-care (01) ==
PROVIDERS: Emergency Provider Emergency Medicine; PCP Nurse Practitioner Family
DX: S09.8XXA Other specified injuries of head, initial encounter (principal); R07.9 Chest pain, unspecified; Z79.85 Long-term (current) use of injectable non-insulin antidiabetic drugs; Z79.01 Long term (current) use of anticoagulants; Z79.84 Long term (current) use of oral hypoglycemic drugs; Z86.711 Personal history of pulmonary embolism; W22.8XXA Striking against or struck by other objects, initial encounter
CPT/HCPCS: 36415; 70450; 71045; 83880; 84484; 93005; 99285; Q0162

== ENCOUNTER → 2022-09-13 10:48 | Outpatient (BNVA) | payer MEDICAID, SELFPAY | PROVIDERS: PCP Nurse Practitioner Family; Visit Provider Internal Medicine Cardiovascular Disease | DX: Z98.890 Other specified postprocedural states (principal); Z90.89 Acquired absence of other organs; Z98.891 History of uterine scar from previous surgery; R94.31 Abnormal electrocardiogram [ECG] [EKG]; R07.9 Chest pain, unspecified; I45.10 Unspecified right bundle-branch block; I26.99 Other pulmonary embolism without acute cor pulmonale; F17.220 Nicotine dependence, chewing tobacco, uncomplicated; F71 Moderate intellectual disabilities; E11.9 Type 2 diabetes mellitus without complications; I45.19 Other right bundle-branch block | CPT/HCPCS: 93005; 99204 ==

== ENCOUNTER → 2022-09-14 08:56 | Outpatient (BNVA) | payer MEDICAID, SELFPAY | PROVIDERS: PCP Nurse Practitioner Family; Referring Provider Nurse Practitioner Family; Visit Provider Specialist | DX: R55 Syncope and collapse (principal); R56.9 Unspecified convulsions | CPT/HCPCS: 99204 ==

== ENCOUNTER → 2022-09-15 13:14 | Outpatient (BNVA) | payer MEDICAID, SELFPAY | PROVIDERS: PCP Nurse Practitioner Family; Visit Provider Podiatrist Foot & Ankle Surgery | DX: S90.32XA Contusion of left foot, initial encounter (principal); X58.XXXA Exposure to other specified factors, initial encounter | CPT/HCPCS: 73630; 99213 ==

== ENCOUNTER 2022-09-17 06:00 | Outpatient (RCR) | payer MEDICAID, SELFPAY | END 2022-09-27 23:59 | disposition home or self-care (01) | LOC: SPT 06:00 | PROVIDERS: PCP Nurse Practitioner Family; Visit Provider Podiatrist Foot & Ankle Surgery | DX: S82.832D Other fracture of upper and lower end of left fibula, subsequent encounter for closed fracture with routine healing (principal); X58.XXXD Exposure to other specified factors, subsequent encounter | CPT/HCPCS: 97110; 97140 ==

== ENCOUNTER → 2022-09-29 10:21 | Outpatient (BNVA) | payer MEDICAID, SELFPAY | PROVIDERS: PCP Nurse Practitioner Family; Referring Provider Specialist; Visit Provider Specialist | DX: R56.9 Unspecified convulsions (principal) | CPT/HCPCS: 95816 ==

== ENCOUNTER 2022-10-28 09:47 | Outpatient (CLI) | payer MEDICAID, SELFPAY ==
--- NOTE | 2022-10-28 | ECG_ITS ---
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 Interpretive Statements NAME OF STUDY: LEXISCAN SESTAMIBI STRESS TEST INDICATION: Abn ekg PROCEDURE: At the baseline, the blood pressure was 119/75 mm Hg with a heart rate of 72 bpm. The electrocardiogram showed sinus rhythm, right axis deviation, Incomplete RBBB. ??? The Lexiscan was infused over a period of 20 seconds. A total of 0.4 milligrams of Lexiscan was infused. The stress phase was continued for a total of 5 minutes. Heart rate at the end of the stress phase was 118 bpm with a blood pressure of 120/63 mm Hg. The EKG at the peak infusion revealed no significant ST-T wave changes. ??? Sestamibi was injected 20 seconds after the Lexiscan infusion. ??? Blood pressure at the end of the recovery phase was 112/65 mm Hg with a heart rate of 111 beats per minute. ??? CONCLUSION: 1. No significant EKG changes with the LexiScan infusion. 2. No LexiScan induced chest pain or cardiac arrhythmia. 3. Normal blood pressure and heart rate response. 4. Sestamibi/sestamibi perfusion scan pending; see separate report. Electronically Signed On 10-30-2022 14:38:14 CDT by Julieta Veras M.D. [id number]
[2022-10-28 10:04] VITALS: BMI 32.8
--- NOTE | 2022-10-28 10:04 | NMCV_ITS ---
NM svetlana perf SPECT r/s* [id number] Afia Vidales Age: 32 Gender: F : 1990 Exam Date: 10/28/2022 11:09 Ordering Phys: Julieta Veras MD ([email or web address]) Technologist: DOLORES Adame Exam Location: [facility] Indications: CHEST PAIN, SHORTNESS OF BREATH STRESS TEST Please see separate stress test report in [facility] for full findings IMAGE PROTOCOL Rest/Stress 1 Lexiscan Day Radiopharmaceutical Dose (mCi) Administration Site Administered by Rest: Tc-99m 10.6 IV DOLORES dAame Sestamibi Stress:Tc-99m 32.6 IV DOLORES Peterson Sestamibi Rest: 28-Oct-2022 60 Discovery 630 Stress: 28-Oct-2022 30 Discovery 630 0.4mg Lexiscan. Images obtained in supine and prone position. SPECT RESULTS Technical Quality: Good Raw Data Analysis: Subdiaphragmatic activity Image Corrections: No attenuation or motion correction applied Summed Stress Score: 1 Summed Rest Score: 0 Summed Difference Score: 1 PERFUSION FINDINGS SPECT images demonstrate homogeneous tracer distribution throughout the myocardium. FUNCTIONAL RESULTS (calculated via Gated SPECT) Stress Image LV EF (%): 87 Stress EDV (mL):52 TID: 0.8 Stress ESV (mL):7 FUNCTIONAL FINDINGS: The left ventricle is normal in size. Transient Ischemia Dilatation of 0.8. The left ventricular ejection fraction is normal with a value of 87%. There is hyperdynamic left ventricular wall thickening. IMPRESSIONS 1. Myocardial perfusion imaging is normal. 2. Overall left ventricular systolic function is normal without regional wall motion abnormalities, LVEF=87%. 3. EKG portion of the study will be reported separately. 4. Scan indicates low risk for cardiac events. Julieta Veras MD (Electronically Signed) Final Date: 30 October 2022 22:07 S
[2022-10-28 10:29] LABS: HCG, Serum Qual Negative (Negative)
[2022-10-28] MEDS: regadenoson 0.4 Mg/5 ml Syringe IVP (12:16)
[2022-10-28] MEDS: ondansetron 2 mg/ML SDV 2 mL 4 MG IVP (12:31)
[2022-10-28 12:38] VITALS: BP 112/65; PULSE 111
== END 2022-10-28 09:48 | disposition home or self-care (01) ==
LOC: CDL 09:48
PROVIDERS: PCP Nurse Practitioner Family; Visit Provider Internal Medicine Cardiovascular Disease
DX: R94.39 Abnormal result of other cardiovascular function study (principal)
CPT/HCPCS: 36415; 78452; 84703; 93017; 96374; 96375; A9500; J2405; J2785

== ENCOUNTER → 2022-11-02 08:30 | Outpatient (BNVA) | payer MEDICAID, SELFPAY | PROVIDERS: PCP Nurse Practitioner Family; Referring Provider Specialist; Visit Provider Specialist | DX: R56.9 Unspecified convulsions (principal) | CPT/HCPCS: 95813 ==

== ENCOUNTER 2022-11-16 20:01 | Emergency (ER) | payer MEDICAID, SELFPAY ==
[2022-11-16 20:03] VITALS: BP 122/76; PULSE 86; RESP 16; TEMP 37.1; O2SAT 99; BMI 30.2
[2022-11-16 20:41] LABS: Basophils # 0.1 10^3/uL (0.0-0.1); Basophils % 0.6 %; Eosinophils # 0.3 10^3/uL (0.0-0.8); Eosinophils % 3.3 %; Hematocrit 35.7 % (36-47); Lymphocytes # 3.3 10^3/uL (0.8-4.8); Lymphocytes % 35.3 %; Mean Corpuscular HGB Conc 33.3 g/dL (30-55); Mean Corpuscular Hemoglobin 28.5 pg (27-33); Mean Corpuscular Volume 85.6 fl (85-98); Mean Platelet Volume 9.5 fL (7.4-10.4); Monocytes # 0.8 10^3/uL (0.2-0.9); Monocytes % 8.2 %; Neutrophils # 4.93 10^3/uL (1.8-7.7); Neutrophils % 52.1 %; Nucleated Red Blood Cells % 0 %; Platelet Count 309 10^3/cmm (157-399); Red Blood Count 4.17 10^6/uL (3.85-5.65); Red Cell Distribution Width 12.6 % (12.1-15.1); White Blood Count 9.47 10^3/uL (3.29-11.43)
--- NOTE | 2022-11-16 20:46 | ECG_ITS ---
[facility] Test Date: 2022-11-16 Pat Name: Afia Vidales Department: Room: Gender: Female Information Systems Coordinator: : 1990 Requested By: Layo Anderson Order Number: [id number] Mark MD: Julio C Persaud M.D. Measurements Intervals [place] Rate: 73 P: 24 LA: 136 QRS: 98 QRSD: 113 T: 33 QT: 417 QTc: 460 Interpretive Statements SINUS RHYTHM BORDERLINE RIGHT AXIS DEVIATION [QRS AXIS > 90] INCOMPLETE RIGHT BUNDLE BRANCH BLOCK [90+ ms QRS DURATION, TERMINAL R IN V1/V2, 40+ ms S IN I/aVL/V4/V5/V6] MODERATE T-WAVE ABNORMALITY, CONSIDER ANTERIOR ISCHEMIA [-0.1+ mV T-WAVE IN V3/V4] Compared to ECG 09/13/2022 10:51:47 T-wave abnormality now present Possible ischemia now present Electronically Signed On 11-17-2022 6:48:23 CDT by Julio C Persaud M.D. [id number]
--- NOTE | 2022-11-16 20:52 | ED.C_ITS ---
HPI - Psych General: Chief Complaint: Psychiatric Symptoms Stated Complaint: MHE Time Seen by Provider: 11/16/22 20:04 History of Present Illness: Patient here from [facility] for evaluation of suicidal ideation after patient had an altercation with a staff member at the house. Patient reported she said she wanted to run away and . Review of Systems General: Reports: 10 or more systems reviewed and unremarkable except in HPI and below PFSH ED PFSH: Medical History Chronic post-traumatic stress disorder Diabetes mellitus Moderate intellectual disabilities Nicotine dependence, chewing tobacco, uncomplicated Schizoaffective disorder, bipolar type Surgical History History of heart surgery S/P section S/P tonsillectomy Family History Father Myocardial infarction Grandfather Myocardial infarction Social History Smoking and tobacco status: current every day smoker e-cigarettes E-Cigarette Details: vaporizer device Physical Exam Const: COMMON NORMALS: no acute distress, average body habitus, patient oriented x3, no limitations, healthy appearing, alert and well nourished HENMT: COMMON NORMALS: normocephalic, atraumatic, hearing grossly normal bilaterally, external ears normal, Normal external nose present and moist oral mucous membranes HEAD & SCALP: normocephalic and atraumatic NOSE: Normal external nose present EXTERNAL EAR: Yes external ears normal Neck/C-Spine: COMMON NORMALS: full ROM, no lymphadenopathy, supple, no meningeal signs, no JVD and Thyroid normal THYROID: Thyroid normal Chest: COMMONS NORMALS: normal inspection of the chest and normal palpation of entire chest wall Resp: COMMON NORMALS: normal respiratory effort, No retractions, No use of accessory muscles and clear to auscultation bilaterally AUSCULTATION: clear to auscultation bilaterally Cardio: COMMON NORMALS: no JVD, regular rate, regular rhythm, S1 normal heart sound present, S2 normal heart sound present, No gallops present (Cardio), No clicks present (Cardio), No murmurs present (Cardio) and No rub (Cardio) RATE: regular rate RHYTHM: regular rhythm HEART SOUNDS: S1 normal heart sound present and S2 normal heart sound present GI: COMMON NORMALS: Normal to inspection, nondistended, normoactive bowel sounds present, Soft to palpation, non-tender, No hepatosplenomegaly present and no masses PALPATION: Yes Soft to palpation and Yes No hepatosplenomegaly present : COMMON NORMALS: Yes no CVA tenderness BLADDER/KIDNEY EXAM: Yes no CVA t enderness Back/Pelvis: COMMON NORMALS: no CVA tenderness Neuro: COMMON NORMALS: patient oriented x3 SENSORIUM/ORIENTATION: Yes alert MENINGEAL SIGNS: Yes no meningeal signs Course Vital Signs: Vital signs: Vital Signs Temperature 98.7 F 11/16/22 20:03 Pulse Rate 86 11/16/22 20:03 Respiratory Rate 16 11/16/22 20:03 Blood Pressure 122/76 11/16/22 20:03 Pulse Oximetry 99 11/16/22 20:03 Oxygen Delivery Me thod Room Air 11/16/22 20:03 MDM - Psych Medical Decision Making After examining the patient reviewing the records talking to nursing staff patient was worked up in a normal psychiatric fashion as well as a chest pain fashion all of which was essentially benign. Is thought the patient is doing this to get attention and patient will be discharged back to the facility at [facility]. Patient should follow-up with her regular family doctor/counselor/psychiatrist within the next 7 days or if these episodes happen again staff can bring her back to the ER to be formally evaluated again. Differential Diagnosis Likely suicidal ideation; Unlikely acute psychosis, chronic schizophrenia, bipolar disorder, depression, drug-induced psychotic disorder or acute anxiety Medical Records I reviewed the patient's medical records. Lab Data I reviewed the patient's lab results. 11/16/22 20:34 11/16/22 20:34 Laboratory Results WBC 9.47 10^3/uL (3.29-11.43) 11/16/22 20:34 RBC 4.17 10^6/uL (3.85-5.65) 11/16/22 20:34 Hgb 11.90 g/dL (11.27-16.99) 11/16/22 20:34 Hct 35.7 % (36-47) L 11/16/22 20:34 MCV 85.6 fl (85-98) 11/16/22 20:34 MCH 28.5 pg (27-33) 11/16/22 20:34 MCHC 33.3 g/dL (30-55) 11/16/22 20:34 RDW 12.6 % (12.1-15.1) 11/16/22 20:34 Plt Count 309 10^3/cmm (157-399) 11/16/22 20:34 MPV 9.5 fL (7.4-10.4) 11/16/22 20:34 Neut % (Auto) 52.1 % 11/16/22 20:34 Lymph % (Auto) 35.3 % 11/16/22 20:34 [place] % (Auto) 8.2 % 11/16/22 20:34 Eos % (Auto) 3.3 % 11/16/22 20:34 Baso % (Auto) 0.6 % 11/16/22 20:34 Neut # (Auto) 4.93 10^3/uL (1.8-7.7) 11/16/22 20:34 Lymph # (Auto) 3.3 10^3/uL (0.8-4.8) 11/16/22 20:34 [place] # (Auto) 0.8 10^3/uL (0.2-0.9) 11/16/22 20:34 Eos # (Auto) 0.3 10^3/uL (0.0-0.8) 11/16/22 20:34 Baso # (Auto) 0.1 10^3/uL (0.0-0.1) 11/16/22 20:34 Nucleated RBC % (auto) 0 % 11/16/22 20:34 Nucleated RBCs # 0.0 /100WBC 11/16/22 20:34 D-Dimer <= 0.27 ug/mLFEU (0-0.59) 11/16/22 20:34 Sodium 139 mmol/L (136-145) 11/16/22 20:34 Potassium 3.7 mmol/L (3.5-5.1) 11/16/22 20:34 Chloride 102 mmol/L (98-107) 11/16/22 20:34 Carbon Dioxide 24 mmol/L (22-29) 11/16/22 20:34 Anion Gap 16.7 (5-19) 11/16/22 20:34 BUN 8 mg/dL (6-20) 11/16/22 20:34 Creatinine 0.6 mg/dL (0.5-0.9) 11/16/22 20:34 GFR Calculation 115.1 mL/min (90-130) 11/16/22 20:34 Glucose 136 mg/dL (65-115) H 11/16/22 20:34 Calculated Osmolality 288 mOsm/kg (285-295) 11/16/22 20:34 Calcium 9.3 mg/dL (8.5-10.5) 11/16/22 20:34 Total Bilirubin 0.4 mg/dL (0.15-1.2) 11/16/22 20:34 AST 15 U/L (0-32) 11/16/22 20:34 ALT 18 U/L (0-33) 11/16/22 20:34 Alkaline Phosphatase 64 U/L (35-105) 11/16/22 20:34 Troponin T Baseline 8 ng/L (0-10) 11/16/22 20:34 Total Protein 6.3 g/dL (6.6-8.7) L 11/16/22 20:34 Albumin 4.5 g/dL (3.5-5.2) 11/16/22 20:34 Globulin 1.8 g/dL (1.3-4.6) 11/16/22 20:34 HCG, Qual Negative (Negative) 11/16/22 20:28 Salicylates < 0.3 mg/dL (3-10) L 11/16/22 20:34 Acetaminophen 5.5 ug/mL (10-30) L 11/16/22 20:34 Ethyl Alcohol < 10 mg/dL (0-10) 11/16/22 20:34 SARS-CoV-2 Ag (Rapid) negative (Negative) 11/16/22 20:45 EKG Data EKG 1: I personally reviewed and interpreted this EKG as follows: EKG interpretation date: 11/16/22 EKG interpretation time: 20:46 Prior EKG tracings: not available for review Interpretation: EKG shows ventricular rate 73 bpm, ME interval 136, QRS duration 113, QTc of 442, sinus rhythm, borderline right axis deviation, incomplete right bundle branch block, T wave abnormality negative T waves in V3 and V4 Discharge Plan Discharge Patient Disposition: Home Clinical Impression: Suicidal ideation, Acute adjustment disorder with mixed disturbance of emotions and conduct Condition: Stable Prescriptions: No Action ergocalciferol (vitamin D2) 1,250 mcg (50,000 unit) capsule 1,250 mcg PO Q7D Rx Instructions: TAKES ON MONDAY eucalyptus-menthol Lozenge 1 jocelynn mucous membrane Q4H PRN (Reason: cough) Qty: 30 0RF Eliquis 5 mg tablet 5 mg PO BID (DME) ASO to the left See Rx Instructions .Route .MEDSUPPLY Qty: 1 0RF Rx Instructions: As directed gabapentin 300 mg Capsule 300 mg PO TID atorvastatin 40 mg tablet 40 mg PO DAILY loratadine 10 mg tablet 10 mg PO DAILY Trulicity 1.5 mg/0.5 mL pen injector 1.5 mg SUBCUT Q7D Rx Instructions: On Monday bupropion HCl 150 mg tablet extended release 24 hr 150 mg PO DAILY Qty: 15 0RF ziprasidone HCl 60 mg capsule 60 mg PO BID Qty: 30 0RF multivitamin Tablet 1 tab PO DAILY acetaminophen 325 mg Tablet 650 mg PO Q6H PRN (Reason: Pain) levothyroxine 75 mcg Tablet 75 mcg PO DAILY trazodone 300 mg Tablet 300 mg PO BEDTIME ondansetron HCl 4 mg tablet 4 mg PO BID PRN (Reason: Nausea) olanzapine 5 mg tablet 5 mg PO TID hydroxyzine HCl 50 mg tablet 50 mg PO TID PRN (Reason: anxiety) prazosin 5 mg capsule 5 mg PO BEDTIME pantoprazole 40 mg Tablet,Delayed Release (Dr/Ec) 40 mg PO DAILY Qty: 30 0RF metformin 1,000 mg Tablet 1,000 mg PO BID docusate sodium 100 mg capsule 100 mg PO DAILY buspirone 10 mg tablet 15 mg PO TID acetaminophen 500 mg capsule 1,000 mg PO Q8H PRN (Reason: pain) Qty: 60 0RF tramadol 50 mg tablet 25 mg PO Q6H PRN (Reason: pain) Qty: 14 0RF Discharge Orders: Discharge ED (Routine); Ordered 11/16/22 Ordered By: Layo Anderson Referrals: Alayna Holland FNP [Primary Care Provider] - 1 week Patient Instructions: Suicide Prevention (ED), Suicidal Ideation Activity Restrictions/Additional Instructions: Follow-up with your counselor or psychiatrist or family practice provider within the next 7 days. Please return to the ER if you feel like you are going to harm yourself or anyone else. Coding Level of Care Code ED Vp Patient for Eh Vallecillo
[2022-11-16 20:55] LABS: D Dimer <= 0.27 ug/mLFEU (0-0.59)
[2022-11-16 20:59] LABS: Troponin(5th) Baseline 8 ng/L (0-10)
[2022-11-16 21:01] LABS: Acetaminophen 5.5 ug/mL (10-30); Alanine Aminotransferase 18 U/L (0-33); Albumin Level 4.5 g/dL (3.5-5.2); Alkaline Phosphatase 64 U/L (35-105); Anion Gap 16.7 (5-19); Aspartate Amino Transferase 15 U/L (0-32); Blood Urea Nitrogen 8 mg/dL (6-20); Calcium 9.3 mg/dL (8.5-10.5); Carbon Dioxide 24 mmol/L (22-29); Chloride 102 mmol/L (98-107); Globulin 1.8 g/dL (1.3-4.6); Glomerular Filtration Rate 115.1 mL/min (90-130); Glucose 136 mg/dL (65-115); Osmolality Calculated 288 mOsm/kg (285-295); Potassium 3.7 mmol/L (3.5-5.1); Sodium 139 mmol/L (136-145); Total Bilirubin 0.4 mg/dL (0.15-1.2); Total Protein 6.3 g/dL (6.6-8.7)
[2022-11-16 21:05] LABS: Alcohol Level < 10 mg/dL (0-10); Salicylate < 0.3 mg/dL (3-10)
[2022-11-16 21:26] LABS: SARS Covid-2 Antigen negative (Negative)
[2022-11-16 22:31] LABS: HCG, Serum Qual Negative (Negative)
--- NOTE | 2022-11-16 22:33 | ECG_ITS ---
[facility] Test Date: 2022-11-16 Pat Name: Afia Vidales Department: Room: Gender: Female Representative Government Relations: : 1990 Requested By: Layo Anderson Order Number: [id number] Mark MD: Julio C Persaud M.D. Measurements Intervals [place] Rate: 71 P: 8 KS: 154 QRS: 104 QRSD: 105 T: 60 QT: 417 QTc: 455 Interpretive Statements SINUS RHYTHM RIGHT AXIS DEVIATION [QRS AXIS > 100] INCOMPLETE RIGHT BUNDLE BRANCH BLOCK [90+ ms QRS DURATION, TERMINAL R IN V1/V2, 40+ ms S IN I/aVL/V4/V5/V6] MODERATE T-WAVE ABNORMALITY, CONSIDER ANTERIOR ISCHEMIA [-0.1+ mV T-WAVE IN V3/V4] Compared to ECG 11/16/2022 20:46:53 No significant changes Electronically Signed On 11-17-2022 6:49:46 CDT by Julio C Persaud M.D. [id number]
[2022-11-16 23:03] LABS: Troponin 5 2HR 6.18 ng/L (0-10); Troponin 5 2HR Delta -1.82 ABS# (0-10)
[2022-11-16 23:31] VITALS: RESP 16
== END 2022-11-16 23:33 | disposition home or self-care (01) ==
PROVIDERS: Emergency Provider Emergency Medicine; PCP Nurse Practitioner Family
DX: R45.851 Suicidal ideations (principal); F43.25 Adjustment disorder with mixed disturbance of emotions and conduct; Z79.01 Long term (current) use of anticoagulants; Z79.85 Long-term (current) use of injectable non-insulin antidiabetic drugs; Z79.84 Long term (current) use of oral hypoglycemic drugs; Z20.822 Contact with and (suspected) exposure to COVID-19; E11.9 Type 2 diabetes mellitus without complications; F17.290 Nicotine dependence, other tobacco product, uncomplicated
CPT/HCPCS: 36415; 80053; 80307; 84484; 84703; 85025; 85378; 87426; 93005; 99284

== ENCOUNTER → 2022-11-18 09:45 | Outpatient (BNVA) | payer MEDICAID, SELFPAY | PROVIDERS: PCP Nurse Practitioner Family; Visit Provider Internal Medicine | DX: F29 Unspecified psychosis not due to a substance or known physiological condition (principal); I45.10 Unspecified right bundle-branch block | CPT/HCPCS: 93005 ==

== ENCOUNTER → 2022-12-21 12:59 | Outpatient (BNVA) | payer MEDICAID, SELFPAY | PROVIDERS: PCP Nurse Practitioner Family; Visit Provider Podiatrist Foot & Ankle Surgery | DX: Z98.890 Other specified postprocedural states (principal); S90.32XA Contusion of left foot, initial encounter; X58.XXXA Exposure to other specified factors, initial encounter | CPT/HCPCS: 73630; 99213 ==

== ENCOUNTER → 2023-02-27 08:05 | Outpatient (BNVA) | payer MEDICAID, SELFPAY | PROVIDERS: PCP Nurse Practitioner Family; Visit Provider Podiatrist Foot & Ankle Surgery | DX: E11.9 Type 2 diabetes mellitus without complications; S93.402A Sprain of unspecified ligament of left ankle, initial encounter; W19.XXXA Unspecified fall, initial encounter; M20.41 Other hammer toe(s) (acquired), right foot; M20.42 Other hammer toe(s) (acquired), left foot; Z79.84 Long term (current) use of oral hypoglycemic drugs | CPT/HCPCS: 73630; 99213 ==

== ENCOUNTER 2023-04-05 20:31 | Emergency (ER) | payer MEDICAID, SELFPAY ==
--- NOTE | 2023-04-05 20:35 | CTR_ITS ---
PROCEDURE INFORMATION: Exam: CT Head Without Contrast Exam date and time: 04/05/2023 8:43 PM Age: 32 years old Clinical indication: Injury or trauma; Fall; Blunt trauma (contusions or hematomas) TECHNIQUE: Imaging protocol: Computed tomography of the head without contrast. Radiation optimization: All CT scans at this facility use at least one of these dose optimization techniques: automated exposure control; mA and/or kV adjustment per patient size (includes targeted exams where dose is matched to clinical indication); or iterative reconstruction. COMPARISON: CT head wo con* [id number] 08/19/2022 11:04 PM RADIATION DOSE METRICS: Total DLP (mGy-cm): 1017 FINDINGS: Brain: There is no acute intracranial hemorrhage or abnormal extra-axial fluid collection identified. There is no intracranial mass effect or shift of midline structures. The cortez-white differentiation is preserved throughout. There is no sulcal effacement. The basilar cisterns are open. Cerebral ventricles: No hydrocephalus or ventricular effacement. Paranasal sinuses: Visualized sinuses are unremarkable. No fluid levels. Mastoid air cells: Visualized mastoid air cells are well aerated. Bones/joints: No calvarial fracture or destructive osseous lesions are seen. Soft tissues: Unremarkable. CT/CT head wo con* [id number] IMPRESSION: No acute intracranial pathology identified by CT.
--- NOTE | 2023-04-05 20:35 | CTR_ITS ---
PROCEDURE INFORMATION: Exam: CT Cervical Spine Without Contrast Exam date and time: 04/05/2023 8:46 PM Age: 32 years old Clinical indication: Injury or trauma; Fall; Blunt trauma TECHNIQUE: Imaging protocol: Computed tomography of the cervical spine without contrast. Radiation optimization: All CT scans at this facility use at least one of these dose optimization techniques: automated exposure control; mA and/or kV adjustment per patient size (includes targeted exams where dose is matched to clinical indication); or iterative reconstruction. COMPARISON: CT cervical spin wo con* [id number] 09/25/2018 8:14 PM RADIATION DOSE METRICS: Total DLP (mGy-cm): 155 FINDINGS: Bones/joints: There are no anterior wedging deformities. No acute lucent fracture lines are visualized. 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 Central stenosis is moderate at C3-C4 and C4-C5. Neural foraminal stenosis is seen on the left at C3-C4 and C4-C5. Lungs: Lung apices are normal. Soft tissues: Unremarkable. CT/CT cervical spin wo con* [id number] IMPRESSION: No acute cervical spinal injury demonstrated by CT.
--- NOTE | 2023-04-05 20:36 | W.ED.HEATRA ---
HPI - Head Injury General: Chief complaint: Fall Stated complaint: fall Time Seen by Provider: 04/05/23 20:32 Source: patient and EMS Mode of arrival: EMS Limitations: no limitations History of Present Illness: 32-year-old female who states she had fell backwards at her house and hit her head she states she has neck pain some mild head pain denies any loss conscious denies any pain elsewhere states neck pain is her worst pain and rates it a 7 out of 10. Patient was placed in a c-collar by EMS Associated symptoms: Reports neck pain; Deny nausea or vomiting Review of Systems Const: Denies: fever(s), chills, body aches or change in appetite Eyes: Denies: blurry vision or eye discomfort ENMT: Denies: throat pain or dental pain Card: Denies: chest pain Resp: Denies: dyspnea GI: Denies: abdominal pain, nausea, vomiting or diarrhea Musc: Reports: neck pain; Denies: back pain Skin/Breast: Denies: rash Neuro: Denies: headache(s) PFSH ED PFSH: Medical History Diabetes mellitus Nicotine dependence, chewing tobacco, uncomplicated Moderate intellectual disabilities Chronic post-traumatic stress disorder Schizoaffective disorder, bipolar type Surgical History S/P section S/P tonsillectomy History of heart surgery Family History Father Myocardial infarction Grandfather Myocardial infarction Social History Smoking and tobacco/nicotine status: current every day tobacco/nicotine user e-cigarettes E-Cigarette Details: vaporizer device Physical Exam Const: COMMON NORMALS: no acute distress, patient oriented x3 and healthy appearing HENMT: COMMON NORMALS: normocephalic HEAD & SCALP: normocephalic OTHER: tenderness to posterior scalp Eye: COMMON NORMALS: Equal, round and reactive pupils present and EOMs intact bilaterally PUPIL: Yes Equal, round and reactive pupils present Neck/C-Spine: OTHER: in c collar Chest: COMMONS NORMALS: normal inspection of the chest and normal palpation of entire chest wall Resp: COMMON NORMALS: normal respiratory effort, No retractions, No use of accessory muscles and clear to auscultation bilaterally AUSCULTATION: clear to auscultation bilaterally Cardio: COMMON NORMALS: regular rate, regular rhythm and No murmurs present (Cardio) RATE: regular rate RHYTHM: regular rhythm GI: COMMON NORMALS: Normal to inspection, nondistended, normoactive bowel sounds present, Soft to palpation, non-tender and no masses PALPATION: Yes Soft to palpation Extremity: COMMON NORMALS: normal to inspection and full ROM Neuro: COMMON NORMALS: patient oriented x3, moves all extremities and no focal motor deficits Psych: COMMON NORMALS: mental status grossly normal, Normal thought process present and cooperative THOUGHT PROCESS: Normal thought process present Skin: COMMON NORMALS: no rashes or lesions noted and no wounds GENERAL SKIN EXAM: no rashes or lesions noted Course Vital Signs: Vital signs: Vital Signs Temperature 98.6 F 04/05/23 20:39 Pulse Rate 95 04/05/23 20:39 Respiratory Rate 17 04/05/23 20:39 Blood Pressure 119/81 04/05/23 20:39 Pulse Oximetry 100 04/05/23 20:39 Oxygen Delivery Me thod Room Air 04/05/23 20:39 MDM - Head Injury Medcial Decision Making Patient presents here with a cervical strain along with a closed head injury from a fall imaging here is all normal she is well-appearing here she is stable for discharge she is follow-up with PCP and return if worsening. Medical Records I reviewed the patient's medical records. Lab Data Radiology Impressions Cervical Spine CT 04/05/23 20:35 IMPRESSION: No acute cervical spinal injury demonstrated by CT. Head CT 04/05/23 20:35 IMPRESSION: No acute intracranial pathology identified by CT. All radiology interpretation(s) finalized by discharge Discharge Plan Discharge Patient Disposition: Home Clinical Impression: Fall Closed head injury Qualifiers: Encounter type: initial encounter Qualified Code(s): S09.90XA - Unspecified injury of head, initial encounter Cervical strain Qualifiers: Encounter type: initial encounter Qualified Code(s): S16.1XXA - Strain of muscle, fascia and tendon at neck level, initial encounter Condition: Stable Prescriptions: No Action ergocalciferol (vitamin D2) 1,250 mcg (50,000 unit) capsule 1,250 mcg PO Q7D Rx Instructions: TAKES ON MONDAY eucalyptus-menthol Lozenge 1 jocelynn mucous membrane Q4H PRN (Reason: cough) Qty: 30 0RF Eliquis 5 mg tablet 5 mg PO BID diclofenac sodium [Voltaren Arthritis Pain] 1 % gel 2 g topical QID PRN (Reason: pain) Qty: 100 0RF Rx Instructions: apply to feet QID PRN pain (DME) Diabetic shoes with 3 sets of insoles See Rx Instructions .Route .MEDSUPPLY Qty: 1 0RF Rx Instructions: As directed by [facility] (DME) ASO to the left See Rx Instructions .Route .MEDSUPPLY Qty: 1 0RF Rx Instructions: As directed gabapentin 300 mg Capsule 300 mg PO TID atorvastatin 40 mg tablet 40 mg PO DAILY loratadine 10 mg tablet 10 mg PO DAILY Trulicity 1.5 mg/0.5 mL pen injector 1.5 mg SUBCUT Q7D Rx Instructions: On Monday bupropion HCl 150 mg tablet extended release 24 hr 150 mg PO DAILY Qty: 15 0RF ziprasidone HCl 60 mg capsule 60 mg PO BID Qty: 30 0RF multivitamin Tablet 1 tab PO DAILY acetaminophen 325 mg Tablet 650 mg PO Q6H PRN (Reason: Pain) levothyroxine 75 mcg Tablet 75 mcg PO DAILY trazodone 300 mg Tablet 300 mg PO BEDTIME ondansetron HCl 4 mg tablet 4 mg PO BID PRN (Reason: Nausea) olanzapine 5 mg tablet 5 mg PO TID hydroxyzine HCl 50 mg tablet 50 mg PO TID PRN (Reason: anxiety) prazosin 5 mg capsule 5 mg PO BEDTIME pantoprazole 40 mg Tablet,Delayed Release (Dr/Ec) 40 mg PO DAILY Qty: 30 0RF metformin 1,000 mg Tablet 1,000 mg PO BID docusate sodium 100 mg capsule 100 mg PO DAILY buspirone 10 mg tablet 15 mg PO TID acetaminophen 500 mg capsule 1,000 mg PO Q8H PRN (Reason: pain) Qty: 60 0RF tramadol 50 mg tablet 25 mg PO Q6H PRN (Reason: pain) Qty: 14 0RF Discharge Orders: Discharge ED (Routine); Ordered 04/05/23 Ordered By: Diane Lu Referrals: Alayna Holland, [employer] ATTENDANT AND C[employer]IER [Primary Care Provider] - 1-3 days Discharge Diet: Advance as tolerated Discharge Activity: Resume usual activity Patient Instructions: Cervical Strain (ED) Coding Level of Care Code ED Principal Clerk Typist for [facility]lec[facility]
[2023-04-05 20:39] VITALS: BP 119/81; PULSE 95; RESP 17; TEMP 37; O2SAT 100; BMI 24.0
[2023-04-05 21:34] VITALS: PULSE 96; O2SAT 98
== END 2023-04-05 21:35 | disposition home or self-care (01) ==
PROVIDERS: Emergency Provider Emergency Medicine; PCP Nurse Practitioner Family
DX: S09.90XA Unspecified injury of head, initial encounter (principal); W19.XXXA Unspecified fall, initial encounter
CPT/HCPCS: 70450; 72125; 99284

== ENCOUNTER → 2023-06-02 08:55 | Outpatient (BNVA) | payer MEDICAID, SELFPAY | PROVIDERS: PCP Nurse Practitioner Family; Visit Provider Internal Medicine Cardiovascular Disease | DX: I26.99 Other pulmonary embolism without acute cor pulmonale (principal); F43.25 Adjustment disorder with mixed disturbance of emotions and conduct; F25.0 Schizoaffective disorder, bipolar type; E11.9 Type 2 diabetes mellitus without complications; F71 Moderate intellectual disabilities; Z79.01 Long term (current) use of anticoagulants; F17.290 Nicotine dependence, other tobacco product, uncomplicated; Z79.84 Long term (current) use of oral hypoglycemic drugs | CPT/HCPCS: 99213 ==

== ENCOUNTER 2023-10-08 18:52 | Emergency (ER) | payer MEDICAID, SELFPAY ==
[2023-10-08 19:07] VITALS: BP 109/77; PULSE 95; RESP 18; TEMP 37.1; O2SAT 97; BMI 28.9
--- NOTE | 2023-10-08 19:39 | ED_ITS ---
HPI - Fall General: Chief Complaint: Fall Stated Complaint: Fell Head Pain Time Seen by Provider: 10/08/23 19:34 History of Present Illness: 33-year-old female comes in today for in jury secondary to a fall. Patient slipped in the shower and hit the back of her head reportedly. Patient appears nontoxic. Patient moves all extremities well. Patient ambulates without difficulty. Patient reports no significant headache or neck pain. Review of Systems General: Reports: 10 or more systems reviewed and unremarkable except in HPI and below PFSH ED PFSH: Medical History (Updated 10/08/23 @ 19:45 by HUMERA Khanna) Anticoagulation adequate with anticoagulant therapy Diabetes mellitus Nicotine dependence, chewing tobacco, uncomplicated Moderate intellectual disabilities Chronic post-traumatic stress disorder Schizoaffective disorder, bipolar type Surgical History S/P section S/P tonsillectomy History of heart surgery Family History Father Myocardial infarction Grandfather Myocardial infarction Social History Smoking and tobacco/nicotine status: current every day tobacco/nicotine user e- cigarettes E-Cigarette Details: vaporizer device Physical Exam Const: COMMON NORMALS: alert HENMT: COMMON NORMALS: normocephalic, atraumatic, TM's normal bilaterally and Normal external nose present HEAD & SCALP: normocephalic and atraumatic NOSE: Normal external nose present TYMPANIC MEMBRANE: TM's normal bilaterally Neck/C-Spine: CERVICAL SPINE: No Cervical spine tenderness and Yes Paracervical muscle tenderness Resp: COMMON NORMALS: normal respiratory effort Cardio: COMMON NORMALS: regular rate and regular rhythm RATE: regular rate RHYTHM: regular rhythm GI: COMMON NORMALS: Soft to palpation and non-tender PALPATION: Yes Soft to palpation Extremity: COMMON NORMALS: normal to inspection Neuro: SENSORIUM/ORIENTATION: Yes alert Skin: COMMON NORMALS: turgor normal GENERAL SKIN EXAM: turgor normal Course Vital Signs: Vital signs: Vital Signs Temperature 98.7 F 10/08/23 19:58 Pulse Rate 95 10/08/23 19:58 Respiratory Rate 18 10/08/23 19:58 Blood Pressure 109/77 10/08/23 19:58 Pulse Oximetry 97 10/08/23 19:58 Oxygen Delivery Me thod Room Air 10/08/23 19:07 MDM - Fall Medical Decision Making 33-year-old female comes in today for complaints of fall in the shower. On exam patient has no bruising or injury to the scalp or head. Patient does endorse some mild tenderness of the muscles of the neck. Pupils are equal and reactive. No blood is noted in the naris or in the ears canals. Posterior pharynx is pink and moist. Patient moves neck without difficulty. Patient ambulates without difficulty. Differential diagnosis includes concussion syndrome, contusion, intracranial bleeding, skull fracture. No signs of severe illness or injuries noted. Reviewed exam with patient and caregiver recommendations for treatment and follow-up. No radiology studies performed this visit Discharge Plan Discharge Patient Disposition: Home Clinical Impression: Concussion without loss of consciousness Qualifiers: Encounter type: initial encounter Qualified Code(s): S06.0X0A - Concussion without loss of consciousness, initial encounter Condition: Stable Prescriptions: No Action ergocalciferol (vitamin D2) 1,250 mcg (50,000 unit) capsule 1,250 mcg PO Q7D Rx Instructions: TAKES ON MONDAY eucalyptus-menthol Lozenge 1 jocelynn mucous membrane Q4H PRN (Reason: cough) Qty: 30 0RF Eliquis 5 mg tablet 5 mg PO BID diclofenac sodium [Voltaren Arthritis Pain] 1 % gel 2 g topical QID PRN (Reason: pain) Qty: 100 0RF Rx Instructions: apply to feet QID PRN pain (DME) Diabetic shoes with 3 sets of insoles See Rx Instructions .Route .MEDSUPPLY Qty: 1 0RF Rx Instructions: As directed by [facility] (DME) ASO to the left See Rx Instructions .Route .MEDSUPPLY Qty: 1 0RF Rx Instructions: As directed gabapentin 300 mg Capsule 300 mg PO TID atorvastatin 40 mg tablet 40 mg PO DAILY loratadine 10 mg tablet 10 mg PO DAILY Trulicity 1.5 mg/0.5 mL pen injector 3 mg SUBCUT Q7D Rx Instructions: On Monday bupropion HCl 150 mg tablet extended release 24 hr 150 mg PO DAILY Qty: 15 0RF ziprasidone HCl 60 mg capsule 60 mg PO BID Qty: 30 0RF multivitamin Tablet 1 tab PO DAILY acetaminophen 325 mg Tablet 650 mg PO Q6H PRN (Reason: Pain) levothyroxine 75 mcg Tablet 75 mcg PO DAILY trazodone 300 mg Tablet 300 mg PO BEDTIME ondansetron HCl 4 mg tablet 4 mg PO BID PRN (Reason: Nausea) olanzapine 5 mg tablet 5 mg PO TID prazosin 5 mg capsule 5 mg PO BEDTIME pantoprazole 40 mg Tablet,Delayed Release (Dr/Ec) 40 mg PO DAILY Qty: 30 0RF metformin 1,000 mg Tablet 1,000 mg PO BID hydroxyzine HCl 50 mg tablet 50 mg PO TID docusate sodium 100 mg capsule 100 mg PO DAILY buspirone 10 mg tablet 15 mg PO TID acetaminophen 500 mg capsule 1,000 mg PO Q8H PRN (Reason: pain) Qty: 60 0RF tramadol 50 mg tablet 25 mg PO Q6H PRN (Reason: pain) Qty: 14 0RF Discharge Orders: Discharge ED (Routine); Ordered 10/08/23 Ordered By: Fausto Silva Referrals: Alayna Holland FNP [Primary Care Provider] - Discharge Diet: Usual diet Discharge Activity: Increase activity as tolerated Patient Instructions: Concussion (ED) Activity Restrictions/Additional Instructions: Home and rest. Drink plenty water and fluids. Activity as tolerated. Follow- up with primary care in 3 to 5 days for recheck. Return to ED for new concerns or worsening symptoms such as persistent vomiting, seizure activity, unresponsiveness. Stand Alone Forms: Work/School Release Coding Level of Care Code ED Screenplay Writer for Eh Vallecillo
[2023-10-08 19:58] VITALS: BP 109/77; PULSE 95; RESP 18; TEMP 37.1; O2SAT 97
== END 2023-10-08 20:01 | disposition home or self-care (01) ==
PROVIDERS: Emergency Provider Nurse Practitioner Family; PCP Nurse Practitioner Family
DX: S06.0X0A Concussion without loss of consciousness, initial encounter (principal); Z79.01 Long term (current) use of anticoagulants; Z79.85 Long-term (current) use of injectable non-insulin antidiabetic drugs; Z79.84 Long term (current) use of oral hypoglycemic drugs; E11.9 Type 2 diabetes mellitus without complications; F17.290 Nicotine dependence, other tobacco product, uncomplicated; W18.2XXA Fall in (into) shower or empty bathtub, initial encounter
CPT/HCPCS: 99281

== ENCOUNTER 2023-10-10 21:46 | Emergency (ER) | payer MEDICAID, SELFPAY ==
--- NOTE | 2023-10-10 21:47 | ECG_ITS ---
[facility] Test Date: 2023-10-10 Pat Name: Afia Vidales Department: Room: Gender: Female Tub Attendant: : 1990 Requested By: Layo Anderson Order Number: [id number] Mark MD: Julio C Persaud M.D. Measurements Intervals [place] Rate: 94 P: 57 [place]: 150 QRS: 108 QRSD: 96 T: 56 QT: 382 QTc: 478 Interpretive Statements SINUS RHYTHM RIGHT AXIS DEVIATION [QRS AXIS > 100] LOW QRS VOLTAGE IN PRECORDIAL LEADS [QRS DEFLECTION < 1.0 mV IN CHEST LEADS] NONSPECIFIC T-WAVE ABNORMALITY Compared to ECG 11/18/2022 09:51:13 Low QRS voltage now present T-wave abnormality now present Incomplete right bundle-branch block no longer present Electronically Signed On 10-11-2023 10:31:59 CDT by Julio C Persaud M.D. [id number]
[2023-10-10 21:55] VITALS: BP 104/72; PULSE 91; RESP 18; TEMP 36.5; O2SAT 97
--- NOTE | 2023-10-10 22:08 | XRR_ITS ---
PROCEDURE INFORMATION: Exam: XR Chest Exam date and time: 10/10/2023 10:16 PM Age: 33 years old Clinical indication: Pain; Chest pressure; Additional info: Chest pain TECHNIQUE: Imaging protocol: Radiologic exam of the chest. Views: 1 view. COMPARISON: CR XR chest 1V portable [id number] 08/19/2022 10:24 PM FINDINGS: Lungs: Unremarkable. No consolidation. Pleural spaces: Unremarkable. No pleural effusion. No pneumothorax. Heart/Mediastinum: Unremarkable. No cardiomegaly. Bones/joints: Median sternotomy wires. XR/XR chest 1V portable [id number] IMPRESSION: No acute findings.
[2023-10-10 22:31] LABS: Basophils # 0.1 10^3/uL (0.0-0.1); Basophils % 0.4 %; Eosinophils # 0.6 10^3/uL (0.0-0.8); Eosinophils % 5.1 %; Hematocrit 38.7 % (36-47); Mean Corpuscular HGB Conc 32.8 g/dL (30-55); Mean Corpuscular Hemoglobin 27.7 pg (27-33); Mean Corpuscular Volume 84.5 fl (85-98); Mean Platelet Volume 9.2 fL (7.4-10.4); Monocytes # 0.9 10^3/uL (0.2-0.9); Monocytes % 7.6 %; Neutrophils # 6.19 10^3/uL (1.8-7.7); Neutrophils % 52.6 %; Nucleated Red Blood Cells % 0 %; Platelet Count 382 10^3/cmm (157-399); Red Blood Count 4.58 10^6/uL (3.85-5.65); Red Cell Distribution Width 12.6 % (12.1-15.1); White Blood Count 11.77 10^3/uL (3.29-11.43)
[2023-10-10 22:59] VITALS: BP 118/92; PULSE 90; RESP 16; O2SAT 98
[2023-10-10 23:01] LABS: Slide Review Slide Review Perform
[2023-10-10 23:05] LABS: Alanine Aminotransferase 15 U/L (0-33); Alkaline Phosphatase 57 U/L (35-105); Anion Gap 17.9 (5-19); Aspartate Amino Transferase 11 U/L (0-32); Blood Urea Nitrogen 9 mg/dL (6-20); Calcium 9.8 mg/dL (8.5-10.5); Carbon Dioxide 26 mmol/L (22-29); Chloride 103 mmol/L (98-107); Creatinine Clr Calc Pharmacy 113.5239; Globulin 1.9 g/dL (1.3-4.6); Glomerular Filtration Rate 114.4 mL/min (90-130); Glucose 87 mg/dL (65-115); Osmolality Calculated 294 mOsm/kg (285-295); Potassium 3.9 mmol/L (3.5-5.1); Sodium 143 mmol/L (136-145); Total Bilirubin 0.2 mg/dL (0.15-1.2); Total Protein 6.9 g/dL (6.6-8.7)
[2023-10-10 23:08] LABS: Troponin(5th) Baseline 9 ng/L (0-10)
--- NOTE | 2023-10-10 23:17 | ED_ITS ---
HPI - Chest Pain 2 General: Chief Complaint: Chest Pain Stated Complaint: Chest pain Time Seen by Provider: 10/10/23 22:07 History of Present Illness: Patient presented with her worker after complaining of having sharp stabbing left-sided chest pain that radiated into her arm. She stated this is worse when she takes a big deep breath. Patient is present with her worker. Patient is not having this pain or shortness of breath, diaphoresis, nausea vomiting currently. Review of Systems 2 General: Reports: 10 or more systems reviewed and unremarkable except in HPI and below PFSH ED 2 PFSH: Medical History Anticoagulation adequate with anticoagulant therapy Diabetes mellitus Nicotine dependence, chewing tobacco, uncomplicated Moderate intellectual disabilities Chronic post-traumatic stress disorder Schizoaffective disorder, bipolar type Surgical History S/P section S/P tonsillectomy History of heart surgery Family History Father Myocardial infarction Grandfather Myocardial infarction Social History Smoking and tobacco/nicotine status: current every day tobacco/nicotine user e- cigarettes E-Cigarette Details: vaporizer device Physical Exam 2 Const: COMMON NORMALS: no acute distress, average body habitus, patient oriented x3, no limitations, healthy appearing, alert and well nourished HENMT: COMMON NORMALS: normocephalic, atraumatic, hearing grossly normal bilaterally, external ears normal, Normal external nose present and moist oral mucous membranes HEAD & SCALP: normocephalic and atraumatic NOSE: Normal external nose present EXTERNAL EAR: Yes external ears normal Neck/C-Spine: COMMON NORMALS: no JVD Chest: COMMONS NORMALS: normal inspection of the chest and normal palpation of entire chest wall Resp: COMMON NORMALS: normal respiratory effort, No retractions, No use of accessory muscles and clear to auscultation bilaterally AUSCULTATION: clear to auscultation bilaterally Cardio: COMMON NORMALS: no JVD, regular rate, regular rhythm, S1 normal heart sound present, S2 normal heart sound present, No gallops present (Cardio), No clicks present (Cardio), No murmurs present (Cardio) and No rub (Cardio) R ATE: regular rate RHYTHM: regular rhythm HEART SOUNDS: S1 normal heart sound present and S2 normal heart sound present GI: COMMON NORMALS: Normal to inspection, nondistended, normoactive bowel sounds present, Soft to palpation, non-tender, No hepatosplenomegaly present and no masses PALPATION: Yes Soft to palpation and Yes No hepatosplenomegaly present Neuro: COMMON NORMALS: patient oriented x3 SENSORIUM/ORIENTATION: Yes alert Course 2 Vital Signs: Vital signs: Vital Signs Temperature 97.7 F 10/10/23 21:55 Pulse Rate 77 10/11/23 00:03 Respiratory Rate 16 10/11/23 00:03 Blood Pressure 122/65 10/11/23 00:03 Pulse Oximetry 95 10/11/23 00:03 Oxygen Delivery Me thod Room Air 10/10/23 22:59 MDM - Chest Pain Medical Decision Making Patient was worked up in a standard chest pain fashion with labs EKGs and chest x-ray, all of which was essentially benign and showed no acute cardiac component. Patient be discharged back to her facility. Differential Diagnosis Unlikely acute massive pulmonary embolism, acute respiratory failure, acute myocardial infarction, cardiac arrest or sudden cardiac Lab Data 10/10/23 22:20 10/10/23 22:20 Radiology Impressions Chest X-Ray 10/10/23 22:08 IMPRESSION: No acute findings. Laboratory Results WBC 11.77 10^3/uL (3.29-11.43) H 10/10/23 22:20 RBC 4.58 10^6/uL (3.85-5.65) 10/10/23 22:20 Hgb 12.70 g/dL (11.27-16.99) 10/10/23 22:20 Hct 38.7 % (36-47) 10/10/23 22:20 MCV 84.5 fl (85-98) L 10/10/23 22:20 MCH 27.7 pg (27-33) 10/10/23 22:20 MCHC 32.8 g/dL (30-55) 10/10/23 22:20 RDW 12.6 % (12.1-15.1) 10/10/23 22:20 Plt Count 382 10^3/cmm (157-399) 10/10/23 22:20 MPV 9.2 fL (7.4-10.4) 10/10/23 22:20 Neut % (Auto) 52.6 % 10/10/23 22:20 Lymph % (Auto) 34.0 % 10/10/23 22:20 [place] % (Auto) 7.6 % 10/10/23 22:20 Eos % (Auto) 5.1 % 10/10/23 22:20 Baso % (Auto) 0.4 % 10/10/23 22:20 Neut # (Auto) 6.19 10^3/uL (1.8-7.7) 10/10/23 22:20 Lymph # (Auto) 4.0 10^3/uL (0.8-4.8) 10/10/23 22:20 [place] # (Auto) 0.9 10^3/uL (0.2-0.9) 10/10/23 22:20 Eos # (Auto) 0.6 10^3/uL (0.0-0.8) 10/10/23 22:20 Baso # (Auto) 0.1 10^3/uL (0.0-0.1) 10/10/23 22:20 Nucleated RBC % (auto) 0 % 10/10/23 22:20 Nucleated RBCs # 0.0 /100WBC 10/10/23 22:20 Sodium 143 mmol/L (136-145) 10/10/23 22:20 Potassium 3.9 mmol/L (3.5-5.1) 10/10/23 22:20 Chloride 103 mmol/L (98-107) 10/10/23 22:20 Carbon Dioxide 26 mmol/L (22-29) 10/10/23 22:20 Anion Gap 17.9 (5-19) 10/10/23 22:20 BUN 9 mg/dL (6-20) 10/10/23 22:20 Creatinine 0.6 mg/dL (0.5-0.9) 10/10/23 22:20 GFR Calculation 114.4 mL/min (90-130) 10/10/23 22:20 Glucose 87 mg/dL (65-115) 10/10/23 22:20 Calculated Osmolality 294 mOsm/kg (285-295) 10/10/23 22:20 Calcium 9.8 mg/dL (8.5-10.5) 10/10/23 22:20 Total Bilirubin 0.2 mg/dL (0.15-1.2) 10/10/23 22:20 AST 11 U/L (0-32) 10/10/23 22:20 ALT 15 U/L (0-33) 10/10/23 22:20 Alkaline Phosphatase 57 U/L (35-105) 10/10/23 22:20 Troponin T Baseline 9 ng/L (0-10) 10/10/23 22:20 Total Protein 6.9 g/dL (6.6-8.7) 10/10/23 22:20 Albumin 5.0 g/dL (3.5-5.2) 10/10/23 22:20 Globulin 1.9 g/dL (1.3-4.6) 10/10/23 22:20 All radiology interpretation(s) finalized by discharge Discharge Plan Discharge Patient Disposition: Home Clinical Impression: Atypical chest pain Condition: Stable Prescriptions: No Action ergocalciferol (vitamin D2) 1,250 mcg (50,000 unit) capsule 1,250 mcg PO Q7D Rx Instructions: TAKES ON MONDAY eucalyptus-menthol Lozenge 1 jocelynn mucous membrane Q4H PRN (Reason: cough) Qty: 30 0RF Eliquis 5 mg tablet 5 mg PO BID diclofenac sodium [Voltaren Arthritis Pain] 1 % gel 2 g topical QID PRN (Reason: pain) Qty: 100 0RF Rx Instructions: apply to feet QID PRN pain (DME) Diabetic shoes with 3 sets of insoles See Rx Instructions .Route .MEDSUPPLY Qty: 1 0RF Rx Instructions: As directed by daily living medical (DME) ASO to the left See Rx Instructions .Route .MEDSUPPLY Qty: 1 0RF Rx Instructions: As directed gabapentin 300 mg Capsule 300 mg PO TID atorvastatin 40 mg tablet 40 mg PO DAILY loratadine 10 mg tablet 10 mg PO DAILY Trulicity 1.5 mg/0.5 mL pen injector 3 mg SUBCUT Q7D Rx Instructions: On Monday bupropion HCl 150 mg tablet extended release 24 hr 150 mg PO DAILY Qty: 15 0RF ziprasidone HCl 60 mg capsule 60 mg PO BID Qty: 30 0RF multivitamin Tablet 1 tab PO DAILY acetaminophen 325 mg Tablet 650 mg PO Q6H PRN (Reason: Pain) levothyroxine 75 mcg Tablet 75 mcg PO DAILY trazodone 300 mg Tablet 300 mg PO BEDTIME ondansetron HCl 4 mg tablet 4 mg PO BID PRN (Reason: Nausea) olanzapine 5 mg tablet 5 mg PO TID prazosin 5 mg capsule 5 mg PO BEDTIME pantoprazole 40 mg Tablet,Delayed Release (Dr/Ec) 40 mg PO DAILY Qty: 30 0RF metformin 1,000 mg Tablet 1,000 mg PO BID hydroxyzine HCl 50 mg tablet 50 mg PO TID docusate sodium 100 mg capsule 100 mg PO DAILY buspirone 10 mg tablet 15 mg PO TID acetaminophen 500 mg capsule 1,000 mg PO Q8H PRN (Reason: pain) Qty: 60 0RF tramadol 50 mg tablet 25 mg PO Q6H PRN (Reason: pain) Qty: 14 0RF Discharge Orders: Discharge ED (Routine); Ordered 10/10/23 Ordered By: Layo Anderson Referrals: Alayna Holland FNP [Primary Care Provider] - 1 week Patient Instructions: Chest Pain (ED) Activity Restrictions/Additional Instructions: Evaluation in ER that included physical exam, lab work, EKG, chest x-ray did not show any acute cardiac cause of your chest pain. Your chest pain is felt to be noncardiac in nature. Thank you for choosing [facility] for your healthcare needs today. Please realize that you were seen in the emergency department and that we are providing you with an emergency medical screening exam and this may not be a complete and all exclusive of all testing and/or medical workup we may need to determine your element or severity of your illness. It is very important that you follow-up as instructed with your primary care provider or specialist for the additional evaluation and to discuss your medical treatment plan. You may return to the emergency department should you have concerns or if your condition changes or worsens in any way. Coding Level of Care Code ED Revenue Settlements Administrator for Eh Vallecillo
[2023-10-11 00:03] VITALS: BP 122/65; PULSE 77; RESP 16; O2SAT 95
== END 2023-10-11 00:05 | disposition home or self-care (01) ==
PROVIDERS: Emergency Provider Emergency Medicine; PCP Nurse Practitioner Family
DX: R07.89 Other chest pain (principal); Z79.01 Long term (current) use of anticoagulants; Z79.85 Long-term (current) use of injectable non-insulin antidiabetic drugs; Z79.84 Long term (current) use of oral hypoglycemic drugs; E11.9 Type 2 diabetes mellitus without complications; F17.290 Nicotine dependence, other tobacco product, uncomplicated
CPT/HCPCS: 36415; 71045; 80053; 84484; 85025; 93005; 99285

== ENCOUNTER → 2023-12-28 14:13 | Outpatient (BNVA) | payer MEDICAID, SELFPAY | PROVIDERS: PCP Nurse Practitioner Family; Visit Provider Internal Medicine Cardiovascular Disease | DX: F29 Unspecified psychosis not due to a substance or known physiological condition (principal) | CPT/HCPCS: 93005 ==

== ENCOUNTER → 2024-03-05 08:58 | Outpatient (BNVA) | payer MEDICAID, SELFPAY | PROVIDERS: PCP Nurse Practitioner Family; Visit Provider Podiatrist Foot & Ankle Surgery | DX: E11.69 Type 2 diabetes mellitus with other specified complication (principal); Q66.51 Congenital pes planus, right foot; Q66.52 Congenital pes planus, left foot | CPT/HCPCS: 99213 ==

== ENCOUNTER 2024-05-25 14:31 | Emergency (ER) | payer MEDICAID, SELFPAY ==
[2024-05-25 14:37] VITALS: BP 114/75; PULSE 99; RESP 16; TEMP 36.6; O2SAT 99; BMI 27.9
--- NOTE | 2024-05-25 15:01 | CTR_ITS ---
PROCEDURE INFORMATION: Exam: CT Cervical Spine Without Contrast Exam date and time: 05/25/2024 3:13 PM Age: 34 years old Clinical indication: Injury or trauma; Fall; Blunt trauma TECHNIQUE: Imaging protocol: Computed tomography of the cervical spine without contrast. Radiation optimization: All CT scans at this facility use at least one of these dose optimization techniques: automated exposure control; mA and/or kV adjustment per patient size (includes targeted exams where dose is matched to clinical indication); or iterative reconstruction. COMPARISON: CT cervical spin wo con* [id number] 04/05/2023 8:46 PM RADIATION DOSE METRICS: Total DLP (mGy-cm): 179.4 FINDINGS: Bones/joints: Axial detail source and reconstructed image sets demonstrate no distinct linear areas of decreased density as might indicate the presence of the fracture. The C1-C2 complex as well seen on the reconstructed images and in the range of normal. Moderate osteoarthritic/degenerative disc changes are seen involving the C4-C5 and to lesser degrees C3-C4 and C5-C6 levels. Sagittal images demonstrate mild loss of lordosis along the upper to mid cervical region. Coronal images demonstrate minimal convexity of the cervical spine being directed to the right. C2-C3: Left of midline mild posterior spur/disc is noted with mild narrowing of the canal. Neural foramina are intact/patent. C3-C4: Pdivujtg-[id number]-utgyba broad-based posterior spurring is seen with moderate canal narrowing. Mild right and moderate left degenerative neural foraminal narrowing is present. C4-C5: Marked broad-based posterior spurring is noted eccentric to the left moderately narrowing the canal . Moderate right and vehqtsrq-ut-drzflx left degenerative foraminal narrowing is seen at this level. C5-C6: Mild broad-based posterior spurring is noted and mildly narrows the canal and both neural foramina. C6-C7: Minimal central posterior disc bulging is seen. Canal and neural foramina are relatively intact/patent. C7-T1: No significant disc bulge or herniation. No severe spinal canal stenosis. No significant neural foraminal narrowing. Lungs: Lung apices are normal. Soft tissues: Unremarkable. CT/CT cervical spin wo con* [id number] IMPRESSION: 1. No acute cervical spine CT findings. 2. Multilevel osteoarthritic/degenerative changes with canal and neural foraminal stenoses, as described
--- NOTE | 2024-05-25 15:02 | CTR_ITS ---
PROCEDURE INFORMATION: Exam: CT Head Without Contrast Exam date and time: 05/25/2024 3:13 PM Age: 34 years old Clinical indication: Injury or trauma; Fall; Blunt trauma (contusions or hematomas); Consciousness not specified; Additional info: Head trauma TECHNIQUE: Imaging protocol: Computed tomography of the head without contrast. Radiation optimization: All CT scans at this facility use at least one of these dose optimization techniques: automated exposure control; mA and/or kV adjustment per patient size (includes targeted exams where dose is matched to clinical indication); or iterative reconstruction. COMPARISON: CT head wo con* [id number] 04/05/2023 8:43 PM RADIATION DOSE METRICS: Total DLP (mGy-cm): 973.5 FINDINGS: Brain: Parenchymal structures of the brain demonstrate normal anatomy and attenuation. The midline is intact. Beam hardening artifact through the posterior fossa obscures resolution here to a mild degree. No hemorrhage. Unremarkable white matter. No mass effect. Cerebral ventricles: Ventricles demonstrate normal size shape and configuration Paranasal sinuses: Visualized sinuses are unremarkable. No fluid levels. Mastoid air cells: Visualized mastoid air cells are well aerated. Bones: Unremarkable. No acute fracture. Soft tissues: Unremarkable. Other findings: The patient is edentulous. CT/CT head wo con* [id number] IMPRESSION: No acute intracranial CT findings.
--- NOTE | 2024-05-25 15:40 | W.ED.HEATRA ---
HPI - Head Injury General: Chief complaint: Head Injury Stated complaint: hit head, headache Time Seen by Provider: 05/25/24 15:01 History of Present Illness: 34-year-old female who presents to the emergency room with complaint of having fallen in the shower hit the back of her head there is no loss consciousness she denies any significant neck pain. Patient has intellectual disability lives in the [facility] she denies any other injury at this time she was up and ambulatory after the fall she is ambulatory in the department. Associated symptoms: Deny neck pain Related Data Home Medications ?Medication ?Instructions ?Recorded ?Confirmed ergocalciferol (vitamin D2) 1,250 1,250 mcg PO Q7D 04/15/19 03/05/24 mcg (50,000 unit) capsule gabapentin 300 mg capsule 300 mg PO TID 08/15/19 03/05/24 atorvastatin 40 mg tablet 40 mg PO DAILY 11/25/21 03/05/24 loratadine 10 mg tablet 10 mg PO DAILY 11/25/21 03/05/24 buspirone 10 mg tablet 15 mg PO TID 05/19/22 03/05/24 docusate sodium 100 mg capsule 100 mg PO DAILY 05/19/22 03/05/24 acetaminophen 325 mg tablet 650 mg PO Q6H PRN Pain 08/03/22 03/05/24 levothyroxine 75 mcg tablet 75 mcg PO DAILY 08/03/22 03/05/24 multivitamin 1 tab PO DAILY 08/03/22 03/05/24 olanzapine 5 mg tablet 5 mg PO TID 08/03/22 03/05/24 ondansetron HCl 4 mg tablet 4 mg PO BID PRN Nausea 08/03/22 03/05/24 prazosin 5 mg capsule 5 mg PO BEDTIME 08/03/22 03/05/24 trazodone 300 mg tablet 300 mg PO BEDTIME 08/03/22 03/05/24 metformin 1,000 mg tablet 1,000 mg PO BID 08/04/22 03/05/24 apixaban 5 mg tablet (Eliquis) 5 mg PO BID 09/13/22 03/05/24 dulaglutide 1.5 mg/0.5 mL 3 mg SUBCUT Q7D 06/02/23 03/05/24 subcutaneous pen injector ([facility]) hydroxyzine HCl 50 mg tablet 50 mg PO TID anxiety 06/02/23 03/05/24 Previous Rx's ?Medication ?Instructions ?Recorded bupropion HCl 150 mg 24 hr tablet, 150 mg PO DAILY #15 tabs 04/21/22 extended release ziprasidone HCl 60 mg capsule 60 mg PO BID #30 caps 04/21/22 acetaminophen 500 mg capsule 1,000 mg (2 x 500 mg) PO Q8H PRN 05/21/22 pain #60 caps eucalyptus-menthol oral mucosal 1 jocelynn mucous membrane Q4H PRN 06/07/22 lozenge cough #30 ea pantoprazole 40 mg tablet,delayed 40 mg PO DAILY #30 tabs 08/04/22 release tramadol 50 mg tablet 25 mg (1/2 x 50 mg) PO Q6H PRN 08/12/22 pain #14 tabs diclofenac sodium 1 % topical gel 2 g topical QID PRN pain #100 grams 12/21/22 (Voltaren Arthritis Pain) ASO to the left #1 ea 03/23/23 Diabetic shoes with 3 sets of #1 ea 03/05/24 insoles Allergies Allergy/AdvReac Type Severity Reaction Status Date / Time ibuprofen Allergy Unknown Unknown Verified 03/05/24 09:00 Penicillins Allergy Unknown Unknown Verified 03/05/24 09:00 carbamazepine Allergy Unknown Verified 03/05/24 09:00 latex Allergy Unknown Verified 03/05/24 09:00 vancomycin Allergy ALGY-Rash Verified 03/05/24 09:00 Review of Systems Const: Denies: fever(s) or chills Card: Denies: chest pain Resp: Denies: dyspnea GI: Denies: abdominal pain : Denies: dysuria, urinary frequency or urinary urgency Musc: Denies: neck pain or back pain Skin/Breast: Denies: rash PFSH ED PFSH: Medical History Anticoagulation adequate with anticoagulant therapy Diabetes mellitus Nicotine dependence, chewing tobacco, uncomplicated Moderate intellectual disabilities Chronic post-traumatic stress disorder Schizoaffective disorder, bipolar type Surgical History S/P section S/P tonsillectomy History of heart surgery Family History Father Myocardial infarction Grandfather Myocardial infarction Social History Smoking and tobacco/nicotine status: never used tobacco/nicotine Physical Exam Const: COMMON NORMALS: no acute distress GENERAL APPEARANCE: cooperative and comfortable ORIENTATION/CONSCIOUSNESS: Yes awake, Yes oriented to person, Yes oriented to place and Yes oriented to time HENMT: COMMON NORMALS: normocephalic, atraumatic and hearing grossly normal bilaterally HEAD & SCALP: normocephalic and atraumatic Resp: COMMON NORMALS: normal respiratory effort, No retractions, No use of accessory muscles and clear to auscultation bilaterally AUSCULTATION: clear to auscultation bilaterally Cardio: COMMON NORMALS: regular rate, regular rhythm and No murmurs present (Cardio) RATE: regular rate RHYTHM: regular rhythm GI: COMMON NORMALS: Soft to palpation and No hepatosplenomegaly present AUSCULTATION: Yes normoactive bowel sounds PALPATION: Yes Soft to palpation, No Tenderness to palpation present (GI), No Guarding due to palpation present (GI) and Yes No hepatosplenomegaly present Extremity: COMMON NORMALS: normal to inspection, capillary refill normal, no clubbing, cyanosis or edema, no calf tenderness and no pedal edema Neuro: SENSORIUM/ORIENTATION: Yes oriented to person, Yes oriented to place and Yes oriented to time Skin: COMMON NORMALS: no rashes or lesions noted GENERAL SKIN EXAM: no rashes or lesions noted Course Vital Signs: Vital signs: Vital Signs Temperature 97.8 F 05/25/24 14:37 Pulse Rate 99 05/25/24 14:37 Respiratory Rate 16 05/25/24 14:37 Blood Pressure 114/75 05/25/24 14:37 Pulse Oximetry 99 05/25/24 14:37 Oxygen Delivery Me thod Room Air 05/25/24 14:37 MDM - Head Injury Medcial Decision Making Unremarkable exam imaging normal. CT head and CT cervical spine normal findings on physical exam of acute injury will discharge home follow-up as needed Medical Records I reviewed the patient's medical records. Lab Data I reviewed the patient's lab results. Radiology Impressions Cervical Spine CT 05/25/24 15:01 IMPRESSION: 1. No acute cervical spine CT findings. 2. Multilevel osteoarthritic/degenerative changes with canal and neural foraminal stenoses, as described Head CT 05/25/24 15:02 IMPRESSION: No acute intracranial CT findings. All radiology interpretation(s) finalized by discharge Discharge Plan Discharge Patient Disposition: Home Clinical Impression: Closed head injury, Fall Condition: Stable Prescriptions: No Action ergocalciferol (vitamin D2) 1,250 mcg (50,000 unit) capsule 1,250 mcg PO Q7D Rx Instructions: TAKES ON MONDAY eucalyptus-menthol Lozenge 1 jocelynn mucous membrane Q4H PRN (Reason: cough) Qty: 30 0RF Eliquis 5 mg tablet 5 mg PO BID diclofenac sodium [Voltaren Arthritis Pain] 1 % gel 2 g topical QID PRN (Reason: pain) Qty: 100 0RF Rx Instructions: apply to feet QID PRN pain (DME) Diabetic shoes with 3 sets of insoles See Rx Instructions .Route .MEDSUPPLY Qty: 1 0RF Rx Instructions: As directed by daily living medical (DME) ASO to the left See Rx Instructions .Route .MEDSUPPLY Qty: 1 0RF Rx Instructions: As directed gabapentin 300 mg Capsule 300 mg PO TID atorvastatin 40 mg tablet 40 mg PO DAILY loratadine 10 mg tablet 10 mg PO DAILY Trulicity 1.5 mg/0.5 mL pen injector 3 mg SUBCUT Q7D Rx Instructions: On Monday bupropion HCl 150 mg tablet extended release 24 hr 150 mg PO DAILY Qty: 15 0RF ziprasidone HCl 60 mg capsule 60 mg PO BID Qty: 30 0RF multivitamin Tablet 1 tab PO DAILY acetaminophen 325 mg Tablet 650 mg PO Q6H PRN (Reason: Pain) levothyroxine 75 mcg Tablet 75 mcg PO DAILY trazodone 300 mg Tablet 300 mg PO BEDTIME ondansetron HCl 4 mg tablet 4 mg PO BID PRN (Reason: Nausea) olanzapine 5 mg tablet 5 mg PO TID prazosin 5 mg capsule 5 mg PO BEDTIME pantoprazole 40 mg Tablet,Delayed Release (Dr/Ec) 40 mg PO DAILY Qty: 30 0RF metformin 1,000 mg Tablet 1,000 mg PO BID hydroxyzine HCl 50 mg tablet 50 mg PO TID docusate sodium 100 mg capsule 100 mg PO DAILY buspirone 10 mg tablet 15 mg PO TID acetaminophen 500 mg capsule 1,000 mg PO Q8H PRN (Reason: pain) Qty: 60 0RF tramadol 50 mg tablet 25 mg PO Q6H PRN (Reason: pain) Qty: 14 0RF Discharge Orders: Discharge ED (Routine); Ordered 05/25/24 Ordered By: Gus Ramirez Referrals: Alayna Holland FNP [Primary Care Provider] - Discharge Diet: Usual diet Discharge Activity: Use walker/crutches as instructed Patient Instructions: Opioid Safety, Pain Management Activity Restrictions/Additional Instructions: Thank you for choosing [facility] for your healthcare needs today. It is very important that you follow up as instructed or that you return to the Emergency Department should you have concerns or if your condition changes or worsens in any way. CT head and neck were negative follow-up with your doctor as needed. Print Language: Turkish Coding Level of Care Code ED Computer Systems Manager for Eh Vallecillo
[2024-05-25 16:25] VITALS: BP 128/78; PULSE 88; O2SAT 99
== END 2024-05-25 16:26 | disposition home or self-care (01) ==
PROVIDERS: Emergency Provider Family Medicine; PCP Nurse Practitioner Family
DX: S09.8XXA Other specified injuries of head, initial encounter (principal); Z79.01 Long term (current) use of anticoagulants; Z79.84 Long term (current) use of oral hypoglycemic drugs; E11.9 Type 2 diabetes mellitus without complications; W18.2XXA Fall in (into) shower or empty bathtub, initial encounter
CPT/HCPCS: 70450; 72125; 99284

== ENCOUNTER → 2024-07-04 13:51 | Outpatient (BNVA) | payer MEDICAID, SELFPAY | PROVIDERS: PCP Nurse Practitioner Family; Visit Provider Podiatrist Foot & Ankle Surgery | DX: M25.571 Pain in right ankle and joints of right foot (principal); S82.839A Other fracture of upper and lower end of unspecified fibula, initial encounter for closed fracture; S93.492A Sprain of other ligament of left ankle, initial encounter; E11.69 Type 2 diabetes mellitus with other specified complication; X50.1XXA Overexertion from prolonged static or awkward postures, initial encounter; F17.220 Nicotine dependence, chewing tobacco, uncomplicated | CPT/HCPCS: 73610; 99213 ==

== ENCOUNTER 2024-07-21 22:13 | Emergency (ER) | payer MEDICAID, SELFPAY ==
[2024-07-21 22:17] VITALS: BP 107/71; PULSE 93; RESP 16; TEMP 36.5; O2SAT 97; BMI 29.4
--- NOTE | 2024-07-21 22:24 | ECG_ITS ---
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 Measurements Intervals [place] Rate: 93 P: 68 SC: 116 QRS: 103 QRSD: 112 T: 35 QT: 393 QTc: 489 Interpretive Statements SINUS RHYTHM WITH SHORT SC INTERVAL POSSIBLE LEFT ATRIAL ENLARGEMENT [-0.1mV P-WAVE IN V1/V2] RIGHT AXIS DEVIATION [QRS AXIS > 100] LOW QRS VOLTAGE IN PRECORDIAL LEADS [QRS DEFLECTION < 1.0 mV IN CHEST LEADS] INCOMPLETE RIGHT BUNDLE BRANCH BLOCK [90+ ms QRS DURATION, TERMINAL R IN V1/V2, 40+ ms S IN I/aVL/V4/V5/V6] NONSPECIFIC T-WAVE ABNORMALITY Compared to ECG 12/28/2023 14:18:27 Short SC interval now present Right-axis deviation now present Low QRS voltage now present T-wave abnormality now present Electronically Signed On 07-22-2024 09:14:58 CDT by Julio C Persaud M.D. [email or web address]
[2024-07-21 22:58] LABS: Basophils # 0.1 10^3/uL (0.0-0.1); Basophils % 0.6 %; Eosinophils # 0.6 10^3/uL (0.0-0.8); Eosinophils % 6.4 %; Hematocrit 37.7 % (36-47); Lymphocytes # 3.3 10^3/uL (0.8-4.8); Mean Corpuscular HGB Conc 32.4 g/dL (30-55); Mean Corpuscular Hemoglobin 27.3 pg (27-33); Mean Corpuscular Volume 84.3 fl (85-98); Mean Platelet Volume 9.3 fL (7.4-10.4); Monocytes # 0.9 10^3/uL (0.2-0.9); Monocytes % 9.3 %; Neutrophils # 5.06 10^3/uL (1.8-7.7); Neutrophils % 50.3 %; Nucleated Red Blood Cells % 0 %; Platelet Count 307 10^3/cmm (157-399); Red Blood Count 4.47 10^6/uL (3.85-5.65); Red Cell Distribution Width 13.3 % (12.1-15.1); White Blood Count 10.05 10^3/uL (3.29-11.43)
[2024-07-21 23:18] LABS: Troponin(5th) Baseline < 6 ng/L (0-10)
--- NOTE | 2024-07-21 23:19 | XRR_ITS ---
PROCEDURE INFORMATION: Exam: XR Chest Exam date and time: 07/21/2024 11:29 PM Age: 34 years old Clinical indication: Sternal or substernal pain; Additional info: Cp TECHNIQUE: Imaging protocol: Radiologic exam of the chest. Views: 1 view. COMPARISON: CR XR chest 1V portable [id number] 10/10/2023 10:16 PM FINDINGS: Lungs: Unremarkable. No consolidation. Pleural spaces: Unremarkable. No pleural effusion. No pneumothorax. Heart/Mediastinum: Unremarkable. No cardiomegaly. Bones/joints: Post median sternotomy. XR/XR chest 1V portable [id number] IMPRESSION: No acute cardiopulmonary findings.
[2024-07-21 23:26] LABS: Blood Urea Nitrogen 8 mg/dL (6-20); Calcium 8.5 mg/dL (8.5-10.5); Creatinine Clr Calc Pharmacy 137.1921; NT Pro B Type Natriuretic Pept < 36 pg/mL (0-125)
[2024-07-21 23:28] VITALS: BP 98/61; PULSE 88; RESP 16; O2SAT 99
[2024-07-21 23:35] VITALS: BP 95/69; PULSE 86; RESP 16; O2SAT 98
--- NOTE | 2024-07-21 23:46 | W.ED.CHESTPA ---
HPI - Chest Pain General: Chief Complaint: Chest Pain Stated Complaint: Chest Pain Time Seen by Provider: 07/21/24 23:25 History of Present Illness: 34-year-old female with a history of pulmonary embolism. She presents with pleuritic type left-sided chest discomfort, worse with deep breathing. She is not short of breath. She has not had a fever or cough. No vomiting or diarrhea. She continues to be on apixaban for the history of pulmonary embolism. Related Data Home Medications ?Medication ?Instructions ?Recorded ?Confirmed ergocalciferol (vitamin D2) 1,250 1,250 mcg PO Q7D 04/15/19 07/04/24 mcg (50,000 unit) capsule gabapentin 300 mg capsule 300 mg PO TID 08/15/19 07/04/24 atorvastatin 40 mg tablet 40 mg PO DAILY 11/25/21 07/04/24 loratadine 10 mg tablet 10 mg PO DAILY 11/25/21 07/04/24 buspirone 10 mg tablet 15 mg PO TID 05/19/22 07/04/24 docusate sodium 100 mg capsule 100 mg PO DAILY 05/19/22 07/04/24 acetaminophen 325 mg tablet 650 mg PO Q6H PRN Pain 08/03/22 07/04/24 levothyroxine 75 mcg tablet 75 mcg PO DAILY 08/03/22 07/04/24 multivitamin 1 tab PO DAILY 08/03/22 07/04/24 olanzapine 5 mg tablet 5 mg PO TID 08/03/22 07/04/24 ondansetron HCl 4 mg tablet 4 mg PO BID PRN Nausea 08/03/22 07/04/24 prazosin 5 mg capsule 5 mg PO BEDTIME 08/03/22 07/04/24 trazodone 300 mg tablet 300 mg PO BEDTIME 08/03/22 07/04/24 metformin 1,000 mg tablet 1,000 mg PO BID 08/04/22 07/04/24 apixaban 5 mg tablet (Eliquis) 5 mg PO BID 09/13/22 07/04/24 dulaglutide 1.5 mg/0.5 mL 3 mg SUBCUT Q7D 06/02/23 07/04/24 subcutaneous pen injector (Trulicity) hydroxyzine HCl 50 mg tablet 50 mg PO BID anxiety 06/03/24 07/04/24 Previous Rx's ?Medication ?Instructions ?Recorded bupropion HCl 150 mg 24 hr tablet, 150 mg PO DAILY #15 tabs 04/21/22 extended release ziprasidone HCl 60 mg capsule 60 mg PO BID #30 caps 04/21/22 acetaminophen 500 mg capsule 1,000 mg (2 x 500 mg) PO Q8H PRN 05/21/22 pain #60 caps eucalyptus-menthol oral mucosal 1 jocelynn mucous membrane Q4H PRN 06/07/22 lozenge cough #30 ea pantoprazole 40 mg tablet,delayed 40 mg PO DAILY #30 tabs 08/04/22 release tramadol 50 mg tablet 25 mg (1/2 x 50 mg) PO Q6H PRN 08/12/22 pain #14 tabs diclofenac sodium 1 % topical gel 2 g topical QID PRN pain #100 grams 12/21/22 (Voltaren Arthritis Pain) ASO to the left #1 ea 03/23/23 Diabetic shoes with 3 sets of #1 ea 03/05/24 insoles ASO #1 ea 07/04/24 methylprednisolone 4 mg tablets in See Rx Instructions PO .COMPLEX 07/22/24 a dose pack (Medrol (Dorian)) #21 ea Allergies Allergy/AdvReac Type Severity Reaction Status Date / Time ibuprofen Allergy Unknown Unknown Verified 07/04/24 13:46 Penicillins Allergy Unknown Unknown Verified 07/04/24 13:46 carbamazepine Allergy Unknown Verified 07/04/24 13:46 latex Allergy Unknown Verified 07/04/24 13:46 vancomycin Allergy ALGY-Rash Verified 07/04/24 13:46 [facility] ED PFSH: Medical History (Updated 07/22/24 @ 00:05 by Elijah Cruz DO) Psychiatric care Anticoagulation adequate with anticoagulant therapy Diabetes mellitus Nicotine dependence, chewing tobacco, uncomplicated Moderate intellectual disabilities Chronic post-traumatic stress disorder Schizoaffective disorder, bipolar type Surgical History S/P section S/P tonsillectomy History of heart surgery Family History Father Myocardial infarction Grandfather Myocardial infarction Social History Smoking and tobacco/nicotine status: current every day tobacco/nicotine user (vape) e-cigarettes E-Cigarette Details: vaporizer device Physical Exam Const: COMMON NORMALS: no acute distress GENERAL APPEARANCE: cooperative; not ill appearing and not frail appearing HENMT: COMMON NORMALS: normocephalic, atraumatic and Normal external nose present HEAD & SCALP: normocephalic and atraumatic FACE & SINUS: normal facial exam and face symmetric NOSE: Normal external nose present Eye: COMMON NORMALS: Equal, round and reactive pupils present and EOMs intact bilaterally PUPIL: Yes Equal, round and reactive pupils present Neck/C-Spine: GENERAL: Yes trachea midline Chest: CHEST: Yes Symmetrical chest wall rise and Yes tenderness Resp: COMMON NORMALS: normal respiratory effort, No retractions, No use of accessory muscles and clear to auscultation bilaterally AUSCULTATION: clear to auscultation bilaterally Cardio: COMMON NORMALS: regular rate and regular rhythm RATE: regular rate RHYTHM: regular rhythm GI: COMMON NORMALS: Normal to inspection, nondistended, normoactive bowel sounds present Extremity: COMMON NORMALS: no pedal edema Neuro: ROBIN COMA SCALE: document GCS findings Robin coma scale eye opening: Spontaneous [place] coma scale verbal response: Orientated [place] coma scale motor response: Obey commands Robin coma scale total score: 15 SENSORY EXAM: Yes extremities (intact) Psych: COMMON NORMALS: speech normal SPEECH: Yes normal speech Skin: COMMON NORMALS: no rashes or lesions noted GENERAL SKIN EXAM: no rashes or lesions noted Course Vital Signs: Vital signs: Vital Signs Temperature 97.7 F 07/21/24 22:17 Pulse Rate 65 07/22/24 00:21 Respiratory Rate 16 07/22/24 00:21 Blood Pressure 94/62 07/22/24 00:21 Pulse Oximetry 100 07/22/24 00:21 Oxygen Delivery Me thod Room Air 07/21/24 22:17 MDM - Chest Pain Medical Decision Making Patient has no signs of pulmonary embolism clinically. Her CBC is normal. BMP shows a blood sugar of 206 and is otherwise normal. Troponin is nondetectable as is BNP. Clinically significant obstructive pulmonary embolism would not have nondetectable cardiac markers. She is nontachycardic, nonhypoxic. Saturations are 97 to 100% on room air. Pain is reproducible on chest wall palpation. She will be allowed discharge with a short course of steroid for this. To return for worsening symptoms. Lab Data 07/21/24 22:51 07/21/24 22:51 Radiology Impressions Chest X-Ray 07/21/24 23:19 IMPRESSION: No acute cardiopulmonary findings. Laboratory Results WBC 10.05 10^3/uL (3.29-11.43) 07/21/24 22:51 RBC 4.47 10^6/uL (3.85-5.65) 07/21/24 22:51 Hgb 12.20 g/dL (11.27-16.99) 07/21/24 22:51 Hct 37.7 % (36-47) 07/21/24 22:51 MCV 84.3 fl (85-98) L 07/21/24 22: MCH 27.3 pg (27-33) 07/21/24 22: MCHC 32.4 g/dL (30-55) 07/21/24 22: RDW 13.3 % (12.1-15.1) 07/21/24 22: Plt Count 307 10^3/cmm (157-399) 07/21/24 22:51 MPV 9.3 fL (7.4-10.4) 07/21/24 22:51 Neut % (Auto) 50.3 % 07/21/24 22:51 Lymph % (Auto) 33.0 % 07/21/24 22:51 [place] % (Auto) 9.3 % 07/21/24 22:51 Eos % (Auto) 6.4 % 07/21/24 22:51 Baso % (Auto) 0.6 % 07/21/24 22:51 Neut # (Auto) 5.06 10^3/uL (1.8-7.7) 07/21/24 22:51 Lymph # (Auto) 3.3 10^3/uL (0.8-4.8) 07/21/24 22:51 [place] # (Auto) 0.9 10^3/uL (0.2-0.9) 07/21/24 22:51 Eos # (Auto) 0.6 10^3/uL (0.0-0.8) 07/21/24 22:51 Baso # (Auto) 0.1 10^3/uL (0.0-0.1) 07/21/24 22:51 Nucleated RBC % (auto) 0 % 07/21/24 22:51 Nucleated RBCs # 0.0 /100WBC 07/21/24 22:51 Sodium 141 mmol/L (136-145) 07/21/24 22:51 Potassium 3.6 mmol/L (3.5-5.1) 07/21/24 22:51 Chloride 102 mmol/L (98-107) 07/21/24 22:51 Carbon Dioxide 25 mmol/L (22-29) 07/21/24 22:51 Anion Gap 17.6 (5-19) 07/21/24 22:51 BUN 8 mg/dL (6-20) 07/21/24 22:51 Creatinine 0.5 mg/dL (0.5-0.9) 07/21/24 22:51 GFR Calculation 113.8 mL/min (90-130) 07/21/24 22:51 Glucose 206 mg/dL (65-115) H 07/21/24 22:51 Calculated Osmolality 296 mOsm/kg (285-295) H 07/21/24 22:51 Calcium 8.5 mg/dL (8.5-10.5) 07/21/24 22:51 Troponin T Baseline < 6 ng/L (0-10) 07/21/24 22:51 NT-Pro-B Natriuret Pep < 36 pg/mL (0-125) 07/21/24 22:51 All radiology interpretation(s) finalized by discharge Discharge Plan Discharge Patient Disposition: Home Clinical Impression: Atypical chest pain, Acute costochondritis Condition: Stable Prescriptions: New methylprednisolone [Medrol (Dorian)] 4 mg tablets,dose pack See Rx Instructions .ROUTE .COMPLEX Qty: 21 0RF Rx Instructions: orally per package directions No Action ergocalciferol (vitamin D2) 1,250 mcg (50,000 unit) capsule 1,250 mcg PO Q7D Rx Instructions: TAKES ON MONDAY eucalyptus-menthol Lozenge 1 jocelynn mucous membrane Q4H PRN (Reason: cough) Qty: 30 0RF Eliquis 5 mg tablet 5 mg PO BID diclofenac sodium [Voltaren Arthritis Pain] 1 % gel 2 g topical QID PRN (Reason: pain) Qty: 100 0RF Rx Instructions: apply to feet QID PRN pain (DME) ASO See Rx Instructions .Route .MEDSUPPLY Qty: 1 0RF Rx Instructions: As directed (DME) Diabetic shoes with 3 sets of insoles See Rx Instructions .Route .MEDSUPPLY Qty: 1 0RF Rx Instructions: As directed by daily living medical (DME) ASO to the left See Rx Instructions .Route .MEDSUPPLY Qty: 1 0RF Rx Instructions: As directed gabapentin 300 mg Capsule 300 mg PO TID atorvastatin 40 mg tablet 40 mg PO DAILY loratadine 10 mg tablet 10 mg PO DAILY Trulicity 1.5 mg/0.5 mL pen injector 3 mg SUBCUT Q7D Rx Instructions: On Monday bupropion HCl 150 mg tablet extended release 24 hr 150 mg PO DAILY Qty: 15 0RF ziprasidone HCl 60 mg capsule 60 mg PO BID Qty: 30 0RF multivitamin Tablet 1 tab PO DAILY acetaminophen 325 mg Tablet 650 mg PO Q6H PRN (Reason: Pain) levothyroxine 75 mcg Tablet 75 mcg PO DAILY trazodone 300 mg Tablet 300 mg PO BEDTIME ondansetron HCl 4 mg tablet 4 mg PO BID PRN (Reason: Nausea) olanzapine 5 mg tablet 5 mg PO TID prazosin 5 mg capsule 5 mg PO BEDTIME pantoprazole 40 mg Tablet,Delayed Release (Dr/Ec) 40 mg PO DAILY Qty: 30 0RF metformin 1,000 mg Tablet 1,000 mg PO BID hydroxyzine HCl 50 mg tablet 50 mg PO BID docusate sodium 100 mg capsule 100 mg PO DAILY buspirone 10 mg tablet 15 mg PO TID acetaminophen 500 mg capsule 1,000 mg PO Q8H PRN (Reason: pain) Qty: 60 0RF tramadol 50 mg tablet 25 mg PO Q6H PRN (Reason: pain) Qty: 14 0RF Discharge Orders: Discharge ED (Routine); Ordered 07/22/24 Ordered By: Elijah Cruz Referrals: Alayna Holland FNP [Primary Care Provider, Unknown] - 1-3 days Patient Instructions: Costochondritis (ED), Opioid Safety, Pain Management Activity Restrictions/Additional Instructions: Medication as directed. Return for worsening pain despite treatment, fever, significant shortness of breath, other concerning symptoms. Call your doctor tomorrow for follow-up appointment Print Language: Greenlandic Coding Level of Care Code ED Executive Officer [employer] Team for Eh Vallecillo
[2024-07-21 23:57] LABS: Chloride 102 mmol/L (98-107); Potassium 3.6 mmol/L (3.5-5.1); Sodium 141 mmol/L (136-145)
[2024-07-21 23:58] LABS: Anion Gap 17.6 (5-19); Carbon Dioxide 25 mmol/L (22-29); Glomerular Filtration Rate 113.8 mL/min (90-130); Glucose 206 mg/dL (65-115); Osmolality Calculated 296 mOsm/kg (285-295)
[2024-07-22] VITALS: BP 91/64; PULSE 86; RESP 16; O2SAT 98
[2024-07-22] MEDS: ondansetron 2 mg/ML SDV 2 mL 4 MG IVP (00:17)
[2024-07-22] MEDS: ketorolac 30 mg/mL INJ IVP (00:17)
[2024-07-22 00:21] VITALS: BP 94/62; PULSE 65; RESP 16; O2SAT 100
== END 2024-07-22 00:22 | disposition home or self-care (01) ==
PROVIDERS: Emergency Provider Emergency Medicine; PCP Nurse Practitioner Family
DX: R07.89 Other chest pain (principal); M94.0 Chondrocostal junction syndrome [Tietze]; Z79.01 Long term (current) use of anticoagulants; Z79.84 Long term (current) use of oral hypoglycemic drugs; F17.290 Nicotine dependence, other tobacco product, uncomplicated; E11.9 Type 2 diabetes mellitus without complications
CPT/HCPCS: 36415; 71045; 80048; 83880; 84484; 85025; 93005; 96374; 96375; 99285; J1885; J2405

== ENCOUNTER → 2024-08-05 11:31 | Outpatient (BNVA) | payer MEDICAID, SELFPAY | PROVIDERS: PCP Nurse Practitioner Family; Visit Provider Podiatrist Foot & Ankle Surgery | DX: S93.402A Sprain of unspecified ligament of left ankle, initial encounter (principal); E11.69 Type 2 diabetes mellitus with other specified complication; Z79.84 Long term (current) use of oral hypoglycemic drugs; X58.XXXA Exposure to other specified factors, initial encounter | CPT/HCPCS: 73630; 99213 ==

== ENCOUNTER 2024-08-18 11:49 | Emergency (ER) | payer MEDICAID, SELFPAY ==
[2024-08-18 11:52] VITALS: BP 96/62; PULSE 100; RESP 16; TEMP 36.7; O2SAT 94; BMI 29.1
--- NOTE | 2024-08-18 11:56 | XRR_ITS ---
PROCEDURE INFORMATION: Exam: XR Chest Exam date and time: 08/18/2024 12:02 PM Age: 34 years old Clinical indication: Chest pressure; Prior surgery; Surgery date: 6+ months; Surgery type: Cabg; Chest pain TECHNIQUE: Imaging protocol: Radiologic exam of the chest. Views: 1 view. COMPARISON: CR (CHEST, ) 07/21/2024 11:29 PM FINDINGS: Lungs: Unremarkable. No consolidation. Pleural spaces: Unremarkable. No pleural effusion. No pneumothorax. Heart/Mediastinum: Unremarkable. No cardiomegaly. Bones/joints: Unremarkable. XR/XR chest 1V portable 16600 IMPRESSION: No acute findings.
--- NOTE | 2024-08-18 11:57 | ECG_ITS ---
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 Measurements Intervals [place] Rate: 97 P: 31 SC: 138 QRS: 73 QRSD: 88 T: 3 QT: 361 QTc: 460 Interpretive Statements SINUS RHYTHM Compared to ECG 07/21/2024 22:24:16 Short SC interval no longer present Right-axis deviation no longer present Incomplete right bundle-branch block no longer present T-wave abnormality no longer present Electronically Signed On 08-20-2024 11:39:35 CDT by Julio C Persaud M.D. [id number]
[2024-08-18 12:25] LABS: Basophils # 0.1 10^3/uL (0.0-0.1); Basophils % 0.8 %; Eosinophils # 0.4 10^3/uL (0.0-0.8); Eosinophils % 4.4 %; Lymphocytes # 2.4 10^3/uL (0.8-4.8); Lymphocytes % 26.5 %; Mean Corpuscular HGB Conc 31.8 g/dL (30-55); Mean Corpuscular Hemoglobin 27.2 pg (27-33); Mean Corpuscular Volume 85.6 fl (85-98); Mean Platelet Volume 9.1 fL (7.4-10.4); Monocytes # 0.6 10^3/uL (0.2-0.9); Monocytes % 6.4 %; Neutrophils # 5.48 10^3/uL (1.8-7.7); Neutrophils % 61.1 %; Nucleated Red Blood Cells % 0 %; Platelet Count 358 10^3/cmm (157-399); Red Blood Count 3.97 10^6/uL (3.85-5.65); Red Cell Distribution Width 13.2 % (12.1-15.1); White Blood Count 8.95 10^3/uL (3.29-11.43)
[2024-08-18 12:39] LABS: D Dimer <= 0.27 ug/mLFEU (0-0.59)
[2024-08-18 12:42] LABS: Troponin(5th) Baseline < 6 ng/L (0-10)
[2024-08-18 13:13] LABS: Alanine Aminotransferase 11 U/L (0-33); Alkaline Phosphatase 66 U/L (35-105); Aspartate Amino Transferase 8 U/L (0-32); Blood Urea Nitrogen 9 mg/dL (6-20); Carbon Dioxide 23 mmol/L (22-29); Chloride 104 mmol/L (98-107); Globulin 1.8 g/dL (1.3-4.6); Glomerular Filtration Rate 140.4 mL/min (90-130); Glucose 260 mg/dL (65-115); NT Pro B Type Natriuretic Pept 84 pg/mL (0-125); Osmolality Calculated 296 mOsm/kg (285-295); Sodium 139 mmol/L (136-145); Total Bilirubin 0.2 mg/dL (0.15-1.2); Total Protein 5.8 g/dL (6.6-8.7)
[2024-08-18 13:33] VITALS: BP 102/59; PULSE 101; O2SAT 98
--- NOTE | 2024-08-18 13:53 | W.ED.CHESTPA ---
HPI - Chest Pain General: Chief Complaint: Chest Pain Stated Complaint: CP Time Seen by Provider: 08/18/24 11:51 History of Present Illness: This patient is a 34-year-old white female who presents to the emergency department with chest pain. She came in by ambulance. Patient states the symptoms started this morning. She has been somewhat diaphoretic. She states the pain is worse with deep breathing. EMS did give her 324 mg of aspirin and 1 sublingual nitroglycerin tablet. Her blood pressure dropped significantly so they gave her a liter bolus of normal saline following the nitroglycerin. Associated symptoms: Reports diaphoresis and dyspnea Related Data Home Medications ?Medication ?Instructions ?Recorded ?Confirmed ergocalciferol (vitamin D2) 1,250 1,250 mcg PO Q7D 04/15/19 08/05/24 mcg (50,000 unit) capsule gabapentin 300 mg capsule 300 mg PO TID 08/15/19 08/05/24 atorvastatin 40 mg tablet 40 mg PO DAILY 11/25/21 08/05/24 loratadine 10 mg tablet 10 mg PO DAILY 11/25/21 08/05/24 docusate sodium 100 mg capsule 100 mg PO DAILY 05/19/22 08/05/24 acetaminophen 325 mg tablet 650 mg PO Q6H PRN Pain 08/03/22 08/05/24 levothyroxine 75 mcg tablet 75 mcg PO DAILY 08/03/22 08/05/24 multivitamin 1 tab PO DAILY 08/03/22 08/05/24 ondansetron HCl 4 mg tablet 4 mg PO BID PRN Nausea 08/03/22 08/05/24 metformin 1,000 mg tablet 1,000 mg PO BID 08/04/22 08/05/24 apixaban 5 mg tablet (Eliquis) 5 mg PO BID 09/13/22 08/05/24 dulaglutide 1.5 mg/0.5 mL 3 mg SUBCUT Q7D 06/02/23 08/05/24 [facility] Previous Rx's ?Medication ?Instructions ?Recorded acetaminophen 500 mg capsule 1,000 mg (2 x 500 mg) PO Q8H PRN 05/21/22 pain #60 caps eucalyptus-menthol oral mucosal 1 jocelynn mucous membrane Q4H PRN 06/07/22 lozenge cough #30 ea pantoprazole 40 mg tablet,delayed 40 mg PO DAILY #30 tabs 08/04/22 release tramadol 50 mg tablet 25 mg (1/2 x 50 mg) PO Q6H PRN 08/12/22 pain #14 tabs diclofenac sodium 1 % topical gel 2 g topical QID PRN pain #100 grams 12/21/22 (Voltaren Arthritis Pain) ASO to the left #1 ea 03/23/23 Diabetic shoes with 3 sets of #1 ea 03/05/24 insoles ASO #1 ea 07/04/24 methylprednisolone 4 mg tablets in See Rx Instructions PO .COMPLEX 07/22/24 a dose pack (Medrol (Dorian)) #21 ea bupropion HCl 150 mg 24 hr tablet, 150 mg PO DAILY #30 tabs 07/25/24 extended release buspirone 15 mg tablet 15 mg PO TID #90 tabs 07/25/24 hydroxyzine HCl 50 mg tablet 50 mg PO BID anxiety #60 tabs 07/25/24 olanzapine 5 mg tablet 5 mg PO TID #90 tabs 07/25/24 prazosin 5 mg capsule 5 mg PO BEDTIME #30 caps 07/25/24 trazodone 300 mg tablet 300 mg PO BEDTIME #30 tabs 07/25/24 ziprasidone HCl 60 mg capsule 60 mg PO BID #60 caps 07/25/24 Allergies Allergy/AdvReac Type Severity Reaction Status Date / Time ibuprofen Allergy Unknown Unknown Verified 08/05/24 11:41 Penicillins Allergy Unknown Unknown Verified 08/05/24 11:41 carbamazepine Allergy Unknown Verified 08/05/24 11:41 latex Allergy Unknown Verified 08/05/24 11:41 vancomycin Allergy ALGY-Rash Verified 08/05/24 11:41 Review of Systems General: Reports: 10 or more systems reviewed and unremarkable except in HPI and below Const: Reports: diaphoresis Card: Reports: chest pain Resp: Reports: dyspnea PFSH ED PFSH: Medical History Psychiatric care Anticoagulation adequate with anticoagulant therapy Diabetes mellitus Nicotine dependence, chewing tobacco, uncomplicated Moderate intellectual disabilities Chronic post-traumatic stress disorder Schizoaffective disorder, bipolar type Surgical History S/P section S/P tonsillectomy History of heart surgery Family History Father Myocardial infarction Grandfather Myocardial infarction Social History Smoking and tobacco/nicotine status: former use of tobacco/nicotine (Patient reports that she has quit tobacoo products) Physical Exam Const: COMMON NORMALS: no acute distress, patient oriented x3 and no limitations GENERAL APPEARANCE: cooperative and comfortable HENMT: COMMON NORMALS: normocephalic, atraumatic, Normal nasal mucous membranes and turbinates present, moist oral mucous membranes and oropharynx normal HEAD & SCALP: normal to inspection, normocephalic and atraumatic FACE & SINUS: normal facial exam NOSE: Normal nasal mucous membranes and turbinates present Eye: COMMON NORMALS: Equal, round and reactive pupils present, EOMs intact bilaterally and conjunctivae normal GENERAL EYE: appearance normal, both eyes and all related structures CONJUNCTIVA: Yes conjunctivae normal PUPIL: Yes Equal, round and reactive pupils present Neck/C-Spine: COMMON NORMALS: supple and no JVD Chest: COMMONS NORMALS: normal inspection of the chest Resp: COMMON NORMALS: normal respiratory effort and clear to auscultation bilaterally AUSCULTATION: clear to auscultation bilaterally Cardio: COMMON NORMALS: no JVD, regular rate, regular rhythm, No gallops present (Cardio), No murmurs present (Cardio) and No rub (Cardio) RATE: regular rate RHYTHM: regular rhythm GI: COMMON NORMALS: Normal to inspection, nondistended, normoactive bowel sounds present, Soft to palpation and non-tender AUSCULTATION: Yes normoactive bowel sounds PALPATION: Yes Soft to palpation : COMMON NORMALS: Yes no CVA tenderness BLADDER/KIDNEY EXAM: Yes no CVA tenderness Back/Pelvis: COMMON NORMALS: no CVA tenderness and thoracic and lumbar spine normal to inspection Extremity: COMMON NORMALS: normal to inspection Neuro: COMMON NORMALS: patient oriented x3 and CN's II-XII intact bilaterally Psych: COMMON NORMALS: mental status grossly normal, Normal thought process present and cooperative THOUGHT PROCESS: Normal thought process present Skin: COMMON NORMALS: no rashes or lesions noted, turgor normal and no jaundice GENERAL SKIN EXAM: no rashes or lesions noted and turgor normal Course Vital Signs: Vital signs: Vital Signs Temperature 98.1 F 08/18/24 11:52 Pulse Rate 101 H 08/18/24 13:33 Respiratory Rate 16 08/18/24 11:52 Blood Pressure 102/59 08/18/24 13:33 Pulse Oximetry 98 08/18/24 13:33 Oxygen Delivery Me thod Room Air 08/18/24 13:33 MDM - Chest Pain Medical Decision Making Patient was pain-free throughout her ER stay. Her EKG revealed normal sinus rhythm with no ST segment abnormalities. Chest x-ray was normal. CBC revealed a hemoglobin of 10.8. CMP revealed a blood sugar of 260. D-dimer was less than 0.27. Troponin less than 6. BNP 84. Patient is under some stress today evidently. She is moving in with her friend tomorrow. She is currently in a halfway. I think her symptoms are likely secondary to anxiety. I did recommend she follow-up with her primary care physician later this week for recheck and ongoing management. She was discharged in stable condition. Lab Data 08/18/24 12:18 08/18/24 12:18 Radiology Impressions Chest X-Ray 08/18/24 11:56 IMPRESSION: No acute findings. Laboratory Results WBC 8.95 10^3/uL (3.29-11.43) 08/18/24 12:18 RBC 3.97 10^6/uL (3.85-5.65) 08/18/24 12:18 Hgb 10.80 g/dL (11.27-16.99) L 08/18/24 12:18 Hct 34.0 % (36-47) L 08/18/24 12:18 MCV 85.6 fl (85-98) 08/18/24 12:18 MCH 27.2 pg (27-33) 08/18/24 12:18 MCHC 31.8 g/dL (30-55) 08/18/24 12:18 RDW 13.2 % (12.1-15.1) 08/18/24 12:18 Plt Count 358 10^3/cmm (157-399) 08/18/24 12:18 MPV 9.1 fL (7.4-10.4) 08/18/24 12:18 Neut % (Auto) 61.1 % 08/18/24 12:18 Lymph % (Auto) 26.5 % 08/18/24 12:18 [place] % (Auto) 6.4 % 08/18/24 12:18 Eos % (Auto) 4.4 % 08/18/24 12:18 Baso % (Auto) 0.8 % 08/18/24 12:18 Neut # (Auto) 5.48 10^3/uL (1.8-7.7) 08/18/24 12:18 Lymph # (Auto) 2.4 10^3/uL (0.8-4.8) 08/18/24 12:18 [place] # (Auto) 0.6 10^3/uL (0.2-0.9) 08/18/24 12:18 Eos # (Auto) 0.4 10^3/uL (0.0-0.8) 08/18/24 12:18 Baso # (Auto) 0.1 10^3/uL (0.0-0.1) 08/18/24 12:18 Nucleated RBC % (auto) 0 % 08/18/24 12:18 Nucleated RBCs # 0.0 /100WBC 08/18/24 12:18 D-Dimer <= 0.27 ug/mLFEU (0-0.59) 08/18/24 12:18 Sodium 139 mmol/L (136-145) 08/18/24 12:18 Potassium 4.0 mmol/L (3.5-5.1) 08/18/24 12:18 Chloride 104 mmol/L (98-107) 08/18/24 12:18 Carbon Dioxide 23 mmol/L (22-29) 08/18/24 12:18 Anion Gap 16.0 (5-19) 08/18/24 12:18 BUN 9 mg/dL (6-20) 08/18/24 12:18 Creatinine 0.5 mg/dL (0.5-0.9) 08/18/24 12:18 GFR Calculation 140.4 mL/min (90-130) H 08/18/24 12:18 Glucose 260 mg/dL (65-115) H 08/18/24 12:18 Calculated Osmolality 296 mOsm/kg (285-295) H 08/18/24 12:18 Calcium 9.0 mg/dL (8.5-10.5) 08/18/24 12:18 Total Bilirubin 0.2 mg/dL (0.15-1.2) 08/18/24 12:18 AST 8 U/L (0-32) 08/18/24 12:18 ALT 11 U/L (0-33) 08/18/24 12:18 Alkaline Phosphatase 66 U/L (35-105) 08/18/24 12:18 Troponin T Baseline < 6 ng/L (0-10) 08/18/24 12:18 NT-Pro-B Natriuret Pep 84 pg/mL (0-125) 08/18/24 12:18 Total Protein 5.8 g/dL (6.6-8.7) L 08/18/24 12:18 Albumin 4.0 g/dL (3.5-5.2) 08/18/24 12:18 Globulin 1.8 g/dL (1.3-4.6) 08/18/24 12:18 All radiology interpretation(s) finalized by discharge Discharge Plan Discharge Patient Disposition: Home Clinical Impression: Chest pain Qualifiers: Chest pain type: unspecified Qualified Code(s): R07.9 - Chest pain, unspecified Condition: Stable Prescriptions: No Action ergocalciferol (vitamin D2) 1,250 mcg (50,000 unit) capsule 1,250 mcg PO Q7D Rx Instructions: TAKES ON MONDAY eucalyptus-menthol Lozenge 1 jocelynn mucous membrane Q4H PRN (Reason: cough) Qty: 30 0RF Eliquis 5 mg tablet 5 mg PO BID diclofenac sodium [Voltaren Arthritis Pain] 1 % gel 2 g topical QID PRN (Reason: pain) Qty: 100 0RF Rx Instructions: apply to feet QID PRN pain (DME) ASO See Rx Instructions .Route .MEDSUPPLY Qty: 1 0RF Rx Instructions: As directed bupropion HCl 150 mg tablet extended release 24 hr 150 mg PO DAILY Qty: 30 11RF buspirone 15 mg tablet 15 mg PO TID Qty: 90 11RF hydroxyzine HCl 50 mg tablet 50 mg PO BID Qty: 60 11RF olanzapine 5 mg tablet 5 mg PO TID Qty: 90 11RF prazosin 5 mg capsule 5 mg PO BEDTIME Qty: 30 11RF trazodone 300 mg tablet 300 mg PO BEDTIME Qty: 30 11RF ziprasidone HCl 60 mg capsule 60 mg PO BID Qty: 60 11RF (DME) Diabetic shoes with 3 sets of insoles See Rx Instructions .Route .MEDSUPPLY Qty: 1 0RF Rx Instructions: As directed by daily living medical (DME) ASO to the left See Rx Instructions .Route .MEDSUPPLY Qty: 1 0RF Rx Instructions: As directed gabapentin 300 mg Capsule 300 mg PO TID atorvastatin 40 mg tablet 40 mg PO DAILY loratadine 10 mg tablet 10 mg PO DAILY Trulicity 1.5 mg/0.5 mL pen injector 3 mg SUBCUT Q7D Rx Instructions: On Monday multivitamin Tablet 1 tab PO DAILY acetaminophen 325 mg Tablet 650 mg PO Q6H PRN (Reason: Pain) levothyroxine 75 mcg Tablet 75 mcg PO DAILY ondansetron HCl 4 mg tablet 4 mg PO BID PRN (Reason: Nausea) pantoprazole 40 mg Tablet,Delayed Release (Dr/Ec) 40 mg PO DAILY Qty: 30 0RF metformin 1,000 mg Tablet 1,000 mg PO BID methylprednisolone [Medrol (Dorian)] 4 mg tablets,dose pack See Rx Instructions .ROUTE .COMPLEX Qty: 21 0RF Rx Instructions: orally per package directions docusate sodium 100 mg capsule 100 mg PO DAILY acetaminophen 500 mg capsule 1,000 mg PO Q8H PRN (Reason: pain) Qty: 60 0RF tramadol 50 mg tablet 25 mg PO Q6H PRN (Reason: pain) Qty: 14 0RF Discharge Orders: Discharge ED (Routine); Ordered 08/18/24 Ordered By: Phoenix Manley Referrals: Alayna Holland FNP [Primary Care Provider, Unknown] Patient Instructions: Chest Pain (ED) Activity Restrictions/Additional Instructions: Follow-up with your primary care provider for recheck this week and ongoing management. Print Language: Chilean Coding Level of Care Code ED Freelance Patternmaker for Eh Vallecillo
[2024-08-18 14:02] VITALS: BP 102/59; PULSE 89; O2SAT 98
== END 2024-08-18 14:03 | disposition home or self-care (01) ==
PROVIDERS: Emergency Provider Emergency Medicine; PCP Nurse Practitioner Family
DX: R07.9 Chest pain, unspecified (principal); Z79.01 Long term (current) use of anticoagulants; Z79.84 Long term (current) use of oral hypoglycemic drugs; Z87.891 Personal history of nicotine dependence; E11.9 Type 2 diabetes mellitus without complications
CPT/HCPCS: 36415; 71045; 80053; 83880; 84484; 85025; 85378; 93005; 99285

== ENCOUNTER → 2024-09-23 09:13 | Outpatient (BNVA) | payer MEDICAID, SELFPAY | PROVIDERS: PCP Nurse Practitioner Family; Visit Provider Internal Medicine Cardiovascular Disease | DX: F29 Unspecified psychosis not due to a substance or known physiological condition (principal) | CPT/HCPCS: 93005 ==

== ENCOUNTER 2024-09-28 14:46 | Emergency (ER) | payer MEDICAID, SELFPAY ==
--- OUTSIDE RECORDS SUMMARY | 2021-06-09 10:00 | XMS_ITS | Continuity of Care Document ---
Author Organization [facility] Address [address] [place] [address] Phone Care Team Providers Care Local City Driver Name Role Phone Jayne DAVIDTereza Unavailable Unavailable [...] Copied on Encounter PSYTX PT&/FAMILY 30 MINUTES [facility], [address] [place], [address], [place] tel:[phone] Gregorio Tony Post-traumatic stress disorder, chronicBipolar 1 disorder, current episode depressed, with psychotic featuresMild intellectual disabilities May- 2 Godoy Tereza. 200 [facility] [place], [address], [place]. tel:[phone] PSYTX PT&/FAMILY 30 MINUTES [facility], [address] [place], [address], [place] tel:[phone] Gregorio Tony Post-traumatic stress disorder, chronicBipolar 1 disorder, current episode depressed, with psychotic featuresMild intellectual disabilities May- 2 Godoy Tereza. [address] [facility] [place], [address], [place]. [phone] PSYTX PT&/FAMILY 30 MINUTES [facility], [address] [facility] [place], [address], [place] tel:[phone] Gregorio Chavo Post-traumatic stress disorder, chronicBipolar 1 disorder, current episode depressed, with psychotic featuresMild intellectual disabilities May-0 2 Godoy Tereza. [address] [facility] [place], [address], [place]. tel:[phone] PSYTX PT&/FAMILY 30 MINUTES [facility], [address] [place], [address], [place] tel:[phone] Gregorio Tony Post-traumatic stress disorder, chronicBipolar 1 disorder, current episode depressed, with psychotic featuresMild intellectual disabilities Apr- 2 Godoy Tereza. [address] [facility] [place], [address], [place]. tel:[phone] PSYTX PT&/FAMILY 30 MINUTES [facility], [address] [facility] [place], [address], [place] tel:[phone] Gregorio Tony Post-traumatic stress disorder, chronicBipolar 1 disorder, current episode depressed, with psychotic featuresMild intellectual disabilities 2 Godoy Tereza. [address] [place], [address], [place]. tel:[phone] PSYTX PT&/FAMILY 30 MINUTES [facility], [address] [facility] [place], [address], [place] tel:[phone] Gregorio Tony Post-traumatic stress disorder, chronicBipolar 1 disorder, current episode depressed, with psychotic featuresMild intellectual disabilities 2 Godoy Tereza. [address] [place], [address], [place]. tel:[phone] PSYTX PT&/FAMILY 30 MINUTES [facility], [address] [facility] [place], [address], [place] tel:[phone] Gregorio Tony Post-traumatic stress disorder, chronicBipolar 1 disorder, current episode depressed, with psychotic featuresMild intellectual disabilities 2 Godoy Tereza. [address] [place], [address], [place]. tel:[phone] PSYTX PT&/FAMILY 30 MINUTES [facility], [address] [facility] [place], [address], [place] tel:[phone] Gregorio Tony Post-traumatic stress disorder, chronicBipolar 1 disorder, current episode depressed, with psychotic featuresMild intellectual disabilities 2 Godoy Tereza. [address] [place], [address], [place]. tel:[phone] PSYTX PT&/FAMILY 30 MINUTES [facility], [address] [facility] [place], [address], [place] tel:[phone] [place] Post-traumatic stress disorder, chronicBipolar 1 disorder, current episode depressed, with psychotic featuresMild intellectual disabilities 1 Godoy Tereza. [address] [place], [address], [place]. tel:[phone] PSYTX PT&/FAMILY 30 MINUTES [facility], [address] [facility] [place], [address], [place] tel:[phone] Gregorio Tony Post-traumatic stress disorder, chronicBipolar 1 disorder, current episode depressed, with psychotic featuresMild intellectual disabilities 1 Jayne Starks. [address] [facility] [place], [address], [place]. tel: [phone] PSYTX PT&/FAMILY 30 MINUTES [facility], [address] [facility] [place], [address], [place] tel:[phone] Gregorio Tony Post-traumatic stress disorder, chronicBipolar 1 disorder, current episode depressed, with psychotic featuresMild intellectual disabilities 1 Jayne Starks. [address] [facility] [place], [address], [place]. tel: [phone] PSYTX PT&/FAMILY 30 MINUTES [facility], [address] [facility] [place], [address], [place] tel:[phone] Gregorio Tony Post-traumatic stress disorder, chronicBipolar 1 disorder, current episode depressed, with psychotic featuresMild intellectual disabilities 1 Jayne Starks. [address] [facility] [place], [address], [place]. tel: [phone] PSYTX PT&/FAMILY 30 MINUTES [facility], [address] [facility] [place], [address], [place] tel:[phone] Gregorio Tony Post-traumatic stress disorder, chronicBipolar 1 disorder, current episode depressed, with psychotic featuresMild intellectual disabilities 1 Jayne Starks. [address] [facility] [place], [address], [place]. tel: [phone] PSYTX PT&/FAMILY 30 MINUTES [facility], [address] [facility] [place], [address], [place] tel:[phone] Gregorio Tony Post-traumatic stress disorder, chronicBipolar 1 disorder, current episode depressed, with psychotic featuresMild intellectual disabilities 1 Jayne Starks. [address] [facility] [place], [address], [place]. tel: [phone] PSYTX PT&/FAMILY 30 MINUTES [facility], [address] [facility] [place], [address], [place] tel:[phone] Gregorio Tony Post-traumatic stress disorder, chronicBipolar 1 disorder, current episode depressed, with psychotic featuresMild intellectual disabilities Nov-1 0- 1 Jayne Starks. [address] [facility] [place], [address], [place]. tel: [phone] PSYTX PT&/FAMILY 30 MINUTES [facility], [address] [place], [address], [place] tel:[phone] Gregorio Tony Post-traumatic stress disorder, chronicBipolar 1 disorder, current episode depressed, with psychotic featuresMild intellectual disabilities Jan-0 - 1 Jayne Starks. [address] [facility] [place], [address], [place]. tel: [phone] PSYTX PT&/FAMILY 30 MINUTES [facility], [address] [facility] [place], [address], [place] tel:[phone] Gregorio Tony Post-traumatic stress disorder, chronicBipolar 1 disorder, current episode depressed, with psychotic featuresMild intellectual disabilities Oct-2 1 Jayne Starks. [address] [facility] [place], [address], [place]. tel: [phone] PSYTX PT&/FAMILY 30 MINUTES [facility], [address] [facility] [place], [address], [place] tel:[phone] Gregorio Tony Post-traumatic stress disorder, chronicBipolar 1 disorder, current episode depressed, with psychotic featuresMild intellectual disabilities Sep-2 1 Jayne Starks. [address] [facility] [place], [address], [place]. tel: [phone] PSYTX PT&/FAMILY 30 MINUTES [facility], [address] [facility] [place], [address], [place] tel:[phone] Gregorio Tony Post-traumatic stress disorder, chronicBipolar 1 disorder, current episode depressed, with psychotic featuresMild intellectual disabilities Sep-2 1 Jayne Starks. [address] [facility] [place], [address], [place]. tel:[phone] PSYTX PT&/FAMILY 30 MINUTES [facility], [address] [facility] [place], [address], [place] tel:[phone] Gregorio House Post-traumatic stress disorder, chronicBipolar 1 disorder, current episode depressed, with psychotic featuresMild intellectual disabilities Sep-1 1 Jayne Starks[address] [place], [address], [place]. tel: [phone] PSYTX PT&/FAMILY 30 MINUTES [facility], [address] [facility] [place], [address], [place] tel:[phone] Gregorio House Post-traumatic stress disorder, chronicBipolar 1 disorder, current episode depressed, with psychotic featuresMild intellectual disabilities Sep-0 [address] Jayne Starks[address] [place], [address], [place]. tel: [phone] PSYTX PT&/FAMILY 30 MINUTES [facility], [address] [facility] [place], [address], [place] tel:[phone] Gregorio Tony Post-traumatic stress disorder, chronicBipolar 1 disorder, current episode depressed, with psychotic featuresMild intellectual disabilities Sep-0 1 Jayne Starks. [address] [place], [address], [place]. tel: [phone] PSYTX PT&/FAMILY 30 MINUTES [facility], [address] [facility] [place], [address], [place] tel:[phone] Gregorio Tony Post-traumatic stress disorder, chronicBipolar 1 disorder, current episode depressed, with psychotic featuresMild intellectual disabilities Oct- 1 Jayne Starks. [address] [place], [address], [place]. tel: [phone] PSYTX PT&/FAMILY 30 MINUTES [facility], [address] [facility] [place], [address], [place] tel:[phone] Gregorio Tony Post-traumatic stress disorder, chronicBipolar 1 disorder, current episode depressed, with psychotic featuresMild intellectual disabilities Aug-0 [address] Jayne Starks[address] [place], [address], [place]. tel:[phone] PSYTX PT&/FAMILY 45 MINUTES [facility], [address] [place], [address], [place] tel:[phone] *[facility] Post-traumatic stress disorder, chronicBipolar 1 disorder, current episode depressed, with psychotic featuresMild intellectual disabilities 1 Jayne Starks. [address] [facility] [place], [address], [place]. tel:[phone] Family History Family Member Type Diagnosis Age At Onset No Information Payers Payer name Insurance type Covered democrat ID Authoriza tion(s) No Information Social History [...]
--- OUTSIDE RECORDS SUMMARY | 2021-12-06 09:40 | XMS_ITS | Continuity of Care Document ---
Author Organization [facility] Address [id number] [address] Phone Care Team Providers Care Tight Barrel Inspector Name Role Phone Unavailable Unavailable Unavailable Allergies, Adverse Reactions, Alerts Substance Reaction Status Criticality No Known allergies Medications Medication Instructions Dosage Effective Dates (start - stop) Status Comments Aspirin Childrens 81 mg chewable tablet chew 1 tablet by oral route every day 81 MG - Active atorvastatin 40 mg tablet take 1 tablet by oral route every day 40 MG - Active B-Complex tablet - Active buspirone 10 mg tablet take 1 tablet by oral route 2 times every day 10 MG - Active Estarylla 0.25 mg-35 mcg tablet take 1 tablet by oral route every day 1.00 tablet - Active gabapentin 300 mg capsule take 1 capsule by oral route 3 times every day 300 MG - Active levothyroxine 50 mcg capsule take 1 capsule by oral route every day 50 MCG - Active lorata-dine D 10 mg-240 mg tablet,extended release take 1 tablet by oral route every day 1.00 tablet - Active metformin 500 mg tablet take 1 tablet by oral route 2 times every day with morning and evening meals 500 MG - Active mirtazapine 15 mg tablet take 1 tablet by oral route every day before bedtime 15 MG - Active olanzapine 5 mg tablet take 1 tablet by oral route every day 5 MG - Active prazosin 5 mg capsule take 1 capsule by oral route 2 times every day 5 MG - Active Trokendi XR 50 mg capsule, extended release take 1 capsule by oral route every day 50 MG - Active trazodone 100 mg tablet take 1 tablet by oral route 2 times every day after meals 100 MG - Active valacyclovir 500 mg tablet take 1 tablet by oral route every day 500 MG - Active Vitamin D2 1,250 mcg (50,000 unit) capsule - Active Trulicity 0.75 mg/0.5 mL subcutaneous pen injector inject (0.75MG) by subcutaneous route every week 0.75 MG - Active naltrexone 50 mg tablet take 1 tablet by oral route every day 50 MG - Active Vistaril 25 mg capsule take 1 capsule by oral route 4 times every day - Active Tylenol 325 mg capsule - Active Procedures Procedure Date Comprehensive Oral Evaluatio n New Or Established Panoramic Film Advance Directives Directive Yes / No Effective Date File Name No Information Encounters Encounter Description Practice Location Reason(s) For Visit Diagnoses Date Provider Providers Copied on Encounter [facility], [id number] [facility], [place], [place], [id number], [place] tel:[phone] [facility] No Information No Information Family History Family Member Type Diagnosis Age At Onset No Information Payers Payer name Insurance type Covered republican ID Artur barkley(s) D Medicaid [id number] Social History Type Description Quantity Date Captured Comments Alcohol Use Details No Caffeine Use Details Unknown Tobacco Use Status Chews tobacco Smoking Status Unknown if ever smoked Non-Smoking Tobacco Use Details Chewing: No Details Available Chewin.5 Units per day Sex Female Chief Complaint And Reason For Visit No Information Reason For Referral Reason For Referral No Information History Of Present Illness Encounter Date Complaint History Of Prese nt Illness No Information Functional Status Date Functional Assessmen t No Information Instructions Date Instruction Additional Infor mation No Information Assessments Type Assessment Date No Information Patient Care Teams Name Effective Dates (start - stop) Status Members No Information
--- OUTSIDE RECORDS SUMMARY | 2024-09-28 14:49 | XMS_ITS | Patient Health Record ---
Author Organization [facility] Address [address] [place] [address] Care Team Providers Care Graphic Specialist Name Role Phone Alayna Holland APRN Primary Care Provider Josy Paz Unavailable [phone] Allergies Allergen (clinical drug ingredient) Drug/Non Drug Allergy documented on EMR Reaction Allergy Type Onset Date Status Latex and Strawberri es (uncoded) Unknown Allergy Active carbamazepine Carbamazepine , Drug Allergy Active ibuprofen Ibuprofen hives Drug Allergy Active penicillin G Penicillin G Potassium hives Drug Allergy Active carbamazepine TEGretol hives Drug Allergy Act rajesh Reason For Referral No Information Medications Medication SIG (Take, Route, Frequency, Duration) Notes Start Date End Date Status Trazodone Hydrochloride 100 MG Oral Tablet Trazodone Hydrochloride 100 MG Oral Tablet 12/30/2014 Active Haloperidol 0.5 MG Oral Tablet Haloperidol 0.5 MG Oral Tablet 07/17/2014 Active Keppra *please review f or potential update for e-prescription and drug interaction check* Active benztropine mesylate 1 MG Oral Tablet benztropine mesylate 1 MG Oral Tablet 07/17/2014 Active Levothyroxine Sodium *please rev iew for potential update for e-prescription and drug interaction check* Active Levothyroxine Sodium 0.05 MG Oral Tablet Levothyroxine Sodium 0.05 MG Oral Tablet 12/30/2014 Active Fluoxetine *please review f or potential update for e-prescription and drug interaction check* Active Invega *please review f or potential update for e-prescription and drug interaction check* Active Citalopram 20 MG Oral Tablet Citalopram 20 MG Oral Tablet 07/17/2014 Active pantoprazole 40 MG Enteric Coated Tablet pantoprazole 40 MG Enteric Coated Tablet 12/30/2014 Active Levetiracetam 500 MG Oral Tablet Levetiracetam 500 MG Oral Tablet 12/30/2014 Active Lurasidone Hydrochloride 80 MG Oral Tablet Lurasidone Hydrochloride 80 MG Oral Tablet 12/30/2014 Active Bactrim DS 800-160 MG Tablet 1 tablet Orally Twice a day; Duration: 7 days 07/10/2016 Active Social History Social History Additional Details Category Social Info Options Details zzMigrated Social History Migrated Social History Social History(Smoking(MU):):Smoki ng Status: Current smoker 1 PPD ;Social History(Occupation:):On disability ; Problems Problem Type SNOMED Code ICD Code Onset Dates Problem Status W/U Status Risk Notes Problem Generalized anxiety disorder (04385969) ELEUTERIO (generalized anxiety disorder) (F41.1) Active confirmed Problem Psychosis (06729678) Psychosis (F29) Active confirmed Problem Moderate recurrent major depression (52144193) Major depressive disorder, recurrent episode, moderate (F33.1) Active confirmed Plan Of Treatment No Information Insurance Providers Payer Name Payer Address Payer Phone Subscriber Number Group Number Insured Name Patient Relationship to Insured Coverage Start Date Coverage End Date [place] Medicaid [address] [place] [address] [phone] [id number] KARINE LARSON Self - patient is the insured Medical (General) History Medical History History ICD Code Sezu[place] Biploar/Shizo Anxiety PTSD Lack of self care defects and small head
[2024-09-28 14:50] VITALS: BP 104/72; PULSE 91; RESP 16; TEMP 36.7; O2SAT 98; BMI 28.0
--- OUTSIDE RECORDS SUMMARY | 2024-09-28 14:50 | XMS_ITS | Data Portability ---
Author Organization [place] [facility], [facility] Address [address] [place] [address] Assessment No assessment recorded. Plan of Treatment Reminders Order Date Submit Date Provider Last Modified By Organization Details Last Modified Time Details Appointments None record ed. Lab None record ed. Referral None record ed. Procedures None record ed. Surgeries None record ed. Imaging None record ed. Medication Orders None record ed. Patient TargetsNo targets recorded. Patient Instructions Encounter Date Encounter Id Patient Instructions Last Modified By Organization Details Last Modified Time 05/05/2021 [id number] stopping smokeless tobacco use: care instructions [id number] Not available 05/05/2021 11:48:52 Hospital Discharge Instructions Patient Instructions None recorded. Patient Goals None recorded. Results Created Date Observation Date Name Description Value Unit Range Abnormal Flag Note LastModifiedBy Organization Detail LastModifiedTime 12/26/19 20 12/26/2019 Tropo shine I.car diac [Mass /volu me] in Serum or Plasm a by Detec tion limit <= 0.01 ng/mL TROP <0.02 ng/ml 0.00-0 .03 Not Available [facility] (Lab) [address] [place] [address], [address], Not Available 12/26/19 20 12/26/2019 Thyro tropi n [Unit s/vol ume] in Serum or Plasm a by Detec tion limit <= 0.005 mIU/L TSH 2.130 uIU/m L 0.450- 5.330 Not Available [facility] (Lab) [address] [place] [address], [address], Not Available 12/26/19 20 12/26/2019 Urina lysis compl ete W Refle x Cultu re panel - Urine COLOR Yellow YELLOW Not Available [facility] (Lab) [address] [place] [address] [place], [address], Not Available 12/26/19 20 12/26/2019 Urina lysis compl ete W Refle x Cultu re panel - Urine CRISTY Slight ly Cloudy CLEAR Not Available [facility] (Lab) [address] [place] [address] [place], [address], Not Available 12/26/1912/26/2019 Urina lysis compl ete W Refle x Cultu re panel - Urine GLU Negati ve mg/dL NEGATI VE Not Available [facility] (Lab) [address] [place] [address] [place], [address], Not Available 12/26/1912/26/2019 Urina lysis compl ete W Refle x Cultu re panel - Urine BILI Negati ve NEGATI VE Not Available [facility] (Lab) [address] [place] [address] [place], [address], Not Available 12/26/1912/26/2019 Urina lysis compl ete W Refle x Cultu re panel - Urine KETONE Negati ve NEGATI VE Not Available [facility] (Lab) [address] [place] [address] [place], [address], Not Available 12/26/19 20 12/26/2019 Urina lysis compl ete W Refle x Cultu re panel - Urine SG 1.025 1.005- 1.020 Not Available [facility] (Lab) [address] [place] [address] [place], [address], Not Available 12/26/19 20 12/26/2019 Urina lysis compl ete W Refle x Cultu re panel - Urine BLOOD 1+ NEGATI VE Not Available [facility] (Lab) [address] [place] [address] [place], [address], Not Available 12/26/19 20 12/26/2019 Urina lysis compl ete W Refle x Cultu re panel - Urine PH 8.0 5.5-7. 5 Not Available [facility] (Lab) [address] [place] [address] [place], [address], Not Available 12/26/19 20 12/26/2019 Urina lysis compl ete W Refle x Cultu re panel - Urine PRO Negati ve mg/dL NEGATI VE Not Available [facility] (Lab) [address] [place] [address], [place], [address], Not Available 12/26/1912/26/2019 Urina lysis compl ete W Refle x Cultu re panel - Urine URO 0.2 E.U./d L 0.2-1. 0 Not Available [facility] (Lab) [address] [place] [address], [place], [place], [address], Not Available 12/26/19 20 12/26/2019 Urina lysis compl ete W Refle x Cultu re panel - Urine NITR Negati ve NEGATI VE Not Available [facility] (Lab) [address] [place] [address] [place], [address], Not Available 12/26/19 20 12/26/2019 Urina lysis compl ete W Refle x Cultu re panel - Urine LEUK Negati ve NEGATI VE Not Available [facility] (Lab) [address] [place] [address] [place], [address], Not Available 12/26/19 20 12/26/2019 Urina lysis compl ete W Refle x Cultu re panel - Urine UWBC 0-3 0-3 Not Available [facility] (Lab) [address] [place] [address] [place], [address], Not Available 12/26/19 20 12/26/2019 Urina lysis compl ete W Refle x Cultu re panel - Urine URBC 0-3 0-3 Not Available [facility] (Lab) [address] [place] [address], [place], [address], Not Available 12/26/19 20 12/26/2019 Urina lysis compl ete W Refle x Cultu re panel - Urine SQEPCELLS 10-20 NONE SEEN Not Available [facility] (Lab) [address] [place] [address], [place], [address], Not Available 12/26/19 20 12/26/2019 Urina lysis compl ete W Refle x Cultu re panel - Urine BACTERIA TRACE NONE SEEN Not Available [facility] (Lab) [address] [place] [address], [place], [address], Not Available 12/26/19 20 12/26/2019 Urina lysis compl ete W Refle x Cultu re panel - Urine UACR NO Not Available [facility] (Lab) [address] [place] [address], [place], [place], [address], Not Available 12/26/19 20 12/26/2019 SARS- CoV-2 (COVI D-19) Ag [Pres ence] in Respi rator y syste m speci men by Rapid immun oassa y COVID RAPID NEGATI VE NEGATI VE Negat rajesh resul ts, from patie nts with sympt om onset beyon d five days, shoul d be treat ed as presu mptiv e and confi rmati on with a molec ular assay , if neces yoon, for patie nt manag ement , may be perfo rmed. Negat rajesh resul ts do not rule out COVID -19 and shoul d not be used as the sole basis for treat ment or patie nt manag ement decis ions, inclu ding infec tion contr ol decis ions. Negat rajesh resul ts shoul d be consi dered in the ankit xt of a patie nt's recen t expos ures, histo ry and the prese nce of clini karla signs and sympt oms consi stent with COVID -19. Not Available [facility] (Lab) [address] [place] [address] [place], [place], [address], Not Available 12/26/19 20 12/26/2019 Josh ol [Mass /volu me] in Blood ETOH <10.00 mg/dL 0.00-3 00.00 Not Available [facility] (Lab) [address] [place] [address], [place], [address], Not Available 12/26/19 20 12/26/2019 Drugs ident ified in Urine by Scree n metho d Nomin al AMP NEGATI VE NEGATI VE THRES HOLD 500 NG/ML Not Available [facility] (Lab) [address] [address], [place], [address], Not Available 12/26/19 20 12/26/2019 Drugs ident ified in Urine by Scree n metho d Nomin al JERSEY NEGATI VE NEGATI VE THRES HOLD 200 NG/ML Not Available [facility] (Lab) [address] [address], [place], [address], Not Available 12/26/19 20 12/26/2019 Drugs ident ified in Urine by Scree n metho d Nomin al NANETTE NEGATI VE NEGATI VE THRES HOLD 150 NG/ML Not Available [facility] (Lab) [address] [place] [address], [place], [address], Not Available 12/26/19 20 12/26/2019 Drugs ident ified in Urine by Scree n metho d Nomin al CANNA NEGATI VE NEGATI VE THRES HOLD 50 ng/mL Not Available [facility] (Lab) [address] [address], [place], [address], Not Available 12/26/19 20 12/26/2019 Drugs ident ified in Urine by Scree n metho d Nomin al COCA NEGATI VE NEGATI VE THRES HOLD 150 NG/ML Not Available [facility] (Lab) [address] [place] [address], [place], [address], Not Available 12/26/19 20 12/26/2019 Drugs ident ified in Urine by Scree n metho d Nomin al METHADON NEGATI VE NEGATI VE THRES HOLD 300 ng/mL Not Available [facility] (Lab) [address] [address], [place], [address], Not Available 12/26/19 20 12/26/2019 Drugs ident ified in Urine by Scree n metho d Nomin al OPIATE NEGATI VE NEGATI VE THRES HOLD 300 ng/mL Not Available [facility] (Lab) [address] [place], [place] [address], [address], Not Available 12/26/19 20 12/26/2019 Drugs ident ified in Urine by Shayy Julien al PHENCY NEGATI VE NEGATI VE THRES HOLD 25 ng/mL Not Available [facility] (Lab) [address] [place] [address] [place], [address], Not Available 12/26/19 20 12/26/2019 CBC W Auto Diffe renti al panel - Blood WBC 12.20 x10^3 /UL 4.60-1 0.20 Not Available [facility] (Lab) [address] [place] [address] [place], [address], Not Available 12/26/19 20 12/26/2019 CBC W Auto Diffe renti al panel - Blood RBC 4.66 X10^6 /UL 4.04-5 .48 Not Available [facility] (Lab) [address] [place] [address] [place], [address], Not Available 12/26/19 20 12/26/2019 CBC W Auto Diffe renti al panel - Blood HGB 13.0 g/dL 12.2-1 6.2 Not Available [facility] (Lab) [address] [place] [address] [place], [address], Not Available 12/26/19 20 12/26/2019 CBC W Auto Diffe renti al panel - Blood HCT 39.1 % 37.7-4 7.9 Not Available [facility] (Lab) [address] [place] [address] [place], [address], Not Available 12/26/19 20 12/26/2019 CBC W Auto Diffe renti al panel - Blood MCV 83.8 fL 80.0-9 7.0 Not Available [facility] (Lab) [address] [place] [address] [place], [address], Not Available 12/26/19 20 12/26/2019 CBC W Auto Diffe renti al panel - Blood MCH 27.8 PG 27.0-3 1.2 Not Available [facility] (Lab) [address] [place] [address] [place], [address], Not Available 12/26/19 20 12/26/2019 CBC W Auto Diffe renti al panel - Blood MCHC 33.2 g/dL 31.8-3 5.4 Not Available [facility] (Lab) [address] [place] [address] [place], [address], Not Available 12/26/1912/26/2019 CBC W Auto Diffe renti al panel - Blood RDW 13.9 % 0.0-14 .8 Not Available [facility] (Lab) [address] [place] [address] [place], 564[address], Not Available 12/26/1912/26/2019 CBC W Auto Diffe renti al panel - Blood PLT 359 x10^3 /UL 142-42 4 Not Available [facility] (Lab) [address] [place] [address] [place], [address], Not Available 12/26/1912/26/2019 CBC W Auto Diffe renti al panel - Blood MPV 7.90 fL 7.00-1 1.50 Not Available [facility] (Lab) [address] [place] [address] [place], 408[address], Not Available 12/26/19 20 12/26/2019 CBC W Auto Diffe renti al panel - Blood %NEUT 49.60 % 37.00- 80.00 Not Available [facility] (Lab) [address] [place] [address] [place], 59[address], Not Available 12/26/19 20 12/26/2019 CBC W Auto Diffe renti al panel - Blood %LYMPH 39.50 % 10.00- 50.00 Not Available [facility] (Lab) [address] [place] [address] [place], 948[address], Not Available 12/26/19 20 12/26/2019 CBC W Auto Diffe renti al panel - Blood %MONO 7.40 % 3.00-1 2.00 Not Available [facility] (Lab) [address] [place] [address] [place], 395[address], Not Available 12/26/19 20 12/26/2019 CBC W Auto Diffe renti al panel - Blood %EOS 2.7 % 0.0-7. 0 Not Available [facility] (Lab) [address] [place] [address] [place], [address], Not Available 12/26/19 20 12/26/2019 CBC W Auto Diffe renti al panel - Blood %BASO 0.80 % 0.00-2 .00 Not Available [facility] (Lab) [address] [place] [address] [place], [address], Not Available 12/26/19 20 12/26/2019 CBC W Auto Diffe renti al panel - Blood #NEUT 6.100 x10^3 /UL 2.000- 6.900 Not Available [facility] (Lab) [address] [place] [address] [place], [address], Not Available 12/26/19 20 12/26/2019 CBC W Auto Diffe renti al panel - Blood #LYMPH 4.800 x10^3 /UL 0.600- 3.400 Not Available [facility] (Lab) [address] [place] [address] [place], [address], Not Available 12/26/19 20 12/26/2019 CBC W Auto Diffe renti al panel - Blood #MONO 0.900 x10^3 /UL 0.100- 0.900 Not Available [facility] (Lab) [address] [place] [address] [place], [address], Not Available 12/26/19 20 12/26/2019 CBC W Auto Diffe renti al panel - Blood #EOS 0.300 K/uL 0.000- 0.700 Not Available [facility] (Lab) [address] [place] [address] [place], [address], Not Available 12/26/19 20 12/26/2019 CBC W Auto Diffe renti al panel - Blood #BASO 0.100 K/uL 0.000- 0.200 Not Available [facility] (Lab) [address] [place] [address] [place], [address], Not Available 12/26/19 20 12/26/2019 Creat ine kinas e.MB [Mass /volu me] in Serum or Plasm a CKMB 1.54 ng/mL 0.60-6 .30 Not Available [facility] (Lab) [address] [place] [address] [place], [address], Not Available 12/26/19 20 12/26/2019 pregn elkin test, urine PREGU Negati ve NEGATI VE Not Available [facility] (Lab) [address] [place] [address] [place], 8[address], Not Available 12/26/1912/26/2019 Salic ylate s [Mass /volu me] in Serum or Plasm a EB <5.0 mg/dL 0.0-6. 0 Not Available [facility] (Lab) [address] [place] [address] [place], 835[address], Not Available 12/26/19 20 12/26/2019 Compr ehens rajesh metab olic 2000 panel - Serum or Plasm a GLUC 198 mg/dL 74-109 Not Available [facility] (Lab) [address] [place] [address] [place], [address]75[address], Not Available 12/26/19 20 12/26/2019 Compr ehens rajesh metab olic 2000 panel - Serum or Plasm a BUN 7 mg/dL 7-25 Not Available [facility] (Lab) [address] [place] [address] [place], 525[address], Not Available 12/26/19 20 12/26/2019 Compr ehens rajesh metab olic 2000 panel - Serum or Plasm a CREAT 0.64 mg/dl 0.60-1 .20 Not Available [facility] (Lab) [address] [place] [address] [place], 399[address], Not Available 12/26/19 20 12/26/2019 Compr ehens rajesh metab olic 2000 panel - Serum or Plasm a NA 138 mmol/ L 136-14 5 Not Available [facility] (Lab) [address] [place] [address] [place], 918[address], Not Available 12/26/19 20 12/26/2019 Compr ehens rajesh metab olic 2000 panel - Serum or Plasm a K 3.6 mmol/ L 3.5-5. 1 Not Available [facility] (Lab) [address] [place] [address] [place], 450[address], Not Available 12/26/1912/26/2019 Compr ehens rajesh metab olic 2000 panel - Serum or Plasm a CL 108 mmol/ L 98-107 Not Available [facility] (Lab) [address] [place] [address] [place], 79[address], Not Available 12/26/1912/26/2019 Compr ehens rajesh metab olic 2000 panel - Serum or Plasm a CO2 21 mmol/ L 21-31 Not Available [facility] (Lab) [address] [place] [address] [place], 88[address], Not Available 12/26/19 20 12/26/2019 Compr ehens arjesh metab olic 2000 panel - Serum or Plasm a CA 8.9 mg/dL 8.6-10 .3 Not Available [facility] (Lab) [address] [place] [address] [place], 945[address], Not Available 12/26/19 20 12/26/2019 Compr ehens rajesh metab olic 2000 panel - Serum or Plasm a TP 7.1 g/dL 6.4-8. 9 Not Available [facility] (Lab) [address] [place] [address] [place], 89[address], Not Available 12/26/19 20 12/26/2019 Compr ehens rajesh metab olic 2000 panel - Serum or Plasm a ALB 4.6 g/dL 3.5-5. 7 Not Available [facility] (Lab) [address] [place] [address] [place], 08[address], Not Available 12/26/19 20 12/26/2019 Compr ehens rajesh metab olic 2000 panel - Serum or Plasm a GLOB 2.6 g/dL Not Available [facility] (Lab) [address] [place] [address] [place], 546[address], Not Available 12/26/19 20 12/26/2019 Compr ehens rajesh metab olic 2000 panel - Serum or Plasm a ALKP 54 U/L 34-104 Not Available [facility] (Lab) [address] [place] [address] [place], [place], 37[address], Not Available 12/26/19 20 12/26/2019 Compr ehens rajesh metab olic 2000 panel - Serum or Plasm a ALT 17 U/L 7-52 Not Available [facility] (Lab) [address] [place] [address] [place], [address], Not Available 12/26/19 20 12/26/2019 Compr ehens rajesh metab olic 2000 panel - Serum or Plasm a AST 11 U/L 13-39 Not Available [facility] (Lab) [address] [place] [address] [place], 439[address], Not Available 12/26/19 20 12/26/2019 Compr ehens rajesh metab olic 2000 panel - Serum or Plasm a TBIL 0.4 mg/dL 0.3-1. 0 Not Available [facility] (Lab) [address] [place] [address] [place], [address], Not Available 12/26/19 20 12/26/2019 Compr ehens rajesh metab olic 2000 panel - Serum or Plasm a BCRATIO 11 ratio 6-25 Not Available [facility] (Lab) [address] [place] [address] [place], [address], Not Available 12/26/19 20 12/26/2019 Compr ehens rajesh metab olic 2000 panel - Serum or Plasm a AGRATIO 1.8 ratio Not Available [facility] (Lab) [address] [place] [address] [place], [address], Not Available 12/26/19 20 12/26/2019 Compr ehens rajesh metab olic 2000 panel - Serum or Plasm a EGFRAA 140 mL/mi n Not Available [facility] (Lab) [address] [place] [address] [place], [address], Not Available 12/26/19 20 12/26/2019 Compr ehens rajesh metab olic 2000 panel - Serum or Plasm a EGFRNAA 116 mL/mi n Not Available [facility] (Lab) [address] [place] [address] [place], 45[address], Not Available 12/26/19 20 12/26/2019 Compr ehens rajesh metab olic 2000 panel - Serum or Plasm a ANIONG 9.00 Not Available [facility] (Lab) [address] [place] [address] [place], [address], Not Available 12/26/19 20 12/26/2019 Creat ine kinas e [Enzy matic activ ity/v olume ] in Serum or Plasm a CK 136 U/L 30-223 Not Available [facility] (Lab) [address] [place] [address] [place], [address], Not Available 12/26/19 20 12/26/2019 unkno wn ACTM <10 ug/mL 0-30 Not Available [facility] (Lab) [address] [place] [address] [place], [address], Not Available 08/13/19 21 08/12/2020 CBC W Auto Diffe renti al panel - Blood WBC 15.30 x10^3 /UL 4.60-1 0.20 Not Available [facility] (Lab) [address] [place] [address] [place], [address], Not Available 08/13/19 21 08/12/2020 CBC W Auto Diffe renti al panel - Blood RBC 4.99 X10^6 /UL 4.04-5 .48 Not Available [facility] (Lab) [address] [place] [address] [place], [address], Not Available 08/13/19 21 08/12/2020 CBC W Auto Diffe renti al panel - Blood HGB 14.4 g/dL 12.2-1 6.2 Not Available [facility] (Lab) [address] [place] [address] [place], [address], Not Available 08/13/19 21 08/12/2020 CBC W Auto Diffe renti al panel - Blood HCT 43.2 % 37.7-4 7.9 Not Available [facility] (Lab) [address] [place] [address] [place], [address], Not Available 08/13/19 21 08/12/2020 CBC W Auto Diffe renti al panel - Blood MCV 86.5 fL 80.0-9 7.0 Not Available [facility] (Lab) [address] [place] [address] [place], [address], Not Available 08/13/19 21 08/12/2020 CBC W Auto Diffe renti al panel - Blood MCH 28.9 PG 27.0-3 1.2 Not Available [facility] (Lab) [address] [place] [address] [place], [address], Not Available 08/13/19 21 08/12/2020 CBC W Auto Diffe renti al panel - Blood MCHC 33.4 g/dL 31.8-3 5.4 Not Available [facility] (Lab) [address] [place] [address] [place], [address], Not Available 08/13/19 21 08/12/2020 CBC W Auto Diffe renti al panel - Blood RDW 14.0 % 0.0-14 .8 Not Available [facility] (Lab) [address] [place] [address] [place], [address], Not Available 08/13/1908/12/2020 CBC W Auto Diffe renti al panel - Blood PLT 363 x10^3 /UL 142-42 4 Not Available [facility] (Lab) [address] [place] [address] [place], [address], Not Available 08/13/19 21 08/12/2020 CBC W Auto Diffe renti al panel - Blood MPV 7.80 fL 7.00-1 1.50 Not Available [facility] (Lab) [address] [place] [address] [place], [address], Not Available 08/13/19 21 08/12/2020 CBC W Auto Diffe renti al panel - Blood %NEUT 54.90 % 37.00- 80.00 Not Available [facility] (Lab) [address] [place] [address] [place], [address], Not Available 08/13/19 21 08/12/2020 CBC W Auto Diffe renti al panel - Blood %LYMPH 35.10 % 10.00- 50.00 Not Available [facility] (Lab) [address] [place] [address] [place], [address], Not Available 08/13/19 21 08/12/2020 CBC W Auto Diffe renti al panel - Blood %MONO 4.40 % 3.00-1 2.00 Not Available [facility] (Lab) [address] [place] [address] [place], [address], Not Available 08/13/19 21 08/12/2020 CBC W Auto Diffe renti al panel - Blood %EOS 5.0 % 0.0-7. 0 Not Available [facility] (Lab) [address] [place] [address] [place], [address], Not Available 08/13/19 21 08/12/2020 CBC W Auto Diffe renti al panel - Blood %BASO 0.60 % 0.00-2 .00 Not Available [facility] (Lab) [address] [place] [address] [place], [address], Not Available 08/13/19 21 08/12/2020 CBC W Auto Diffe renti al panel - Blood #NEUT 8.400 x10^3 /UL 2.000- 6.900 Not Available [facility] (Lab) [address] [place] [address] [place], [address], Not Available 08/13/19 21 08/12/2020 CBC W Auto Diffe renti al panel - Blood #LYMPH 5.400 x10^3 /UL 0.600- 3.400 Not Available [facility] (Lab) [address] [place] [address] [place], [address], Not Available 08/13/19 21 08/12/2020 CBC W Auto Diffe renti al panel - Blood #MONO 0.700 x10^3 /UL 0.100- 0.900 Not Available [facility] (Lab) [address] [place] [address] [place], [address], Not Available 08/13/19 21 08/12/2020 CBC W Auto Diffe renti al panel - Blood #EOS 0.800 K/uL 0.000- 0.700 Not Available [facility] (Lab) [address] [place] [address], [address], Not Available 08/13/19 21 08/12/2020 CBC W Auto Diffe renti al panel - Blood #BASO 0.100 K/uL 0.000- 0.200 Not Available [facility] (Lab) [address] [place] [address], [address], Not Available 08/13/19 21 08/12/2020 Urina lysis compl ete W Refle x Cultu re panel - Urine COLOR COLORL ESS YELLOW Not Available [facility] (Lab) [address] [place] [address], [address], Not Available 08/13/19 21 08/12/2020 Urina lysis compl ete W Refle x Cultu re panel - Urine CRISTY CLEAR CLEAR Not Available [facility] (Lab) [address] [place] [address] [place], [address], Not Available 08/13/19 21 08/12/2020 Urina lysis compl ete W Refle x Cultu re panel - Urine GLU NEGATI VE mg/dL NEGATI VE Not Available [facility] (Lab) [address] [place] [address], [address], Not Available 08/13/19 21 08/12/2020 Urina lysis compl ete W Refle x Cultu re panel - Urine BILI NEGATI VE NEGATI VE Not Available [facility] (Lab) [address] [place] [address] [place], [address], Not Available 08/13/19 21 08/12/2020 Urina lysis compl ete W Refle x Cultu re panel - Urine KETONE TRACE NEGATI VE Not Available [facility] (Lab) [address] [place] [address] [place], [address], Not Available 08/13/19 21 08/12/2020 Urina lysis compl ete W Refle x Cultu re panel - Urine SG 1.010 1.005- 1.020 Not Available [facility] (Lab) [address] [place] [address] [place], [address], Not Available 08/13/19 21 08/12/2020 Urina lysis compl ete W Refle x Cultu re panel - Urine BLOOD TRACE NEGATI VE Not Available [facility] (Lab) [address] [place] [address] [place], [address], Not Available 08/13/19 21 08/12/2020 Urina lysis compl ete W Refle x Cultu re panel - Urine PH 5.5 5.5-7. 5 Not Available [facility] (Lab) [address] [place] [address] [place], [address], Not Available 08/13/19 21 08/12/2020 Urina lysis compl ete W Refle x Cultu re panel - Urine PRO NEGATI VE mg/dL NEGATI VE Not Available [facility] (Lab) [address] [place] [address] [place], [address], Not Available 08/13/19 21 08/12/2020 Urina lysis compl ete W Refle x Cultu re panel - Urine URO 0.2 E.U./d L 0.2-1. 0 Not Available [facility] (Lab) [address] [place] [address] [place], [address], Not Available 08/13/19 21 08/12/2020 Urina lysis compl ete W Refle x Cultu re panel - Urine NITR NEGATI VE NEGATI VE Not Available [facility] (Lab) [address] [place] [address] [place], [address], Not Available 08/13/19 21 08/12/2020 Urina lysis compl ete W Refle x Cultu re panel - Urine LEUK NEGATI VE NEGATI VE Not Available [facility] (Lab) [address] [place] [address], [address], Not Available 08/13/19 21 08/12/2020 Urina lysis compl ete W Refle x Cultu re panel - Urine UWBC 0-3 0-3 Not Available [facility] (Lab) [address] [place] [address], [address], Not Available 08/13/19 21 08/12/2020 Urina lysis compl ete W Refle x Cultu re panel - Urine URBC 3-5 0-3 Not Available [facility] (Lab) [address] [place] [address], [address], Not Available 08/13/19 21 08/12/2020 Urina lysis compl ete W Refle x Cultu re panel - Urine SQEPCELLS NONE SEEN NONE SEEN Not Available [facility] (Lab) [address] [place] [address], [address], Not Available 08/13/19 21 08/12/2020 Urina lysis compl ete W Refle x Cultu re panel - Urine BACTERIA NONE SEEN NONE SEEN Not Available [facility] (Lab) [address] [place] [address], [address], Not Available 08/13/19 21 08/12/2020 Urina lysis compl ete W Refle x Cultu re panel - Urine UACR NO Not Available [facility] (Lab) [address] [place] [address], [address], Not Available 08/13/19 21 08/12/2020 Compr ehens rajesh metab olic 2000 panel - Serum or Plasm a GLUC 203 mg/dL 66-112 Not Available [facility] (Lab) [address] [place] [address], [address], Not Available 08/13/19 21 08/12/2020 Compr ehens rajesh metab olic 2000 panel - Serum or Plasm a BUN 8 mg/dL 8-28 Not Available [facility] (Lab) [address] [place] [address] [place], [address], Not Available 08/13/19 21 08/12/2020 Compr ehens rajesh metab olic 2000 panel - Serum or Plasm a CREAT 0.71 mg/dl 0.60-1 .40 Not Available [facility] (Lab) [address] [place] [address] [place], [address], Not Available 08/13/19 21 08/12/2020 Compr ehens rajesh metab olic 2000 panel - Serum or Plasm a NA 145 mmol/ L 134-14 5 Not Available [facility] (Lab) [address] [place] [address] [place], [address], Not Available 08/13/19 21 08/12/2020 Compr ehens rajesh metab olic 1999 panel - Serum or Plasm a K 3.7 mmol/ L 3.5-5. 2 Not Available [facility] (Lab) [address] [place] [address] [place], [address], Not Available 08/13/19 21 08/12/2020 Compr ehens rajesh metab olic 2000 panel - Serum or Plasm a CL 114 mmol/ L 97-109 Not Available [facility] (Lab) [address] [place] [address] [place], [address], Not Available 08/13/19 21 08/12/2020 Compr ehens rajesh metab olic 2000 panel - Serum or Plasm a CO2 15 mmol/ L 19-29 Not Available [facility] (Lab) [address] [place] [address] [place], [address], Not Available 08/13/19 21 08/12/2020 Compr ehens rajesh metab olic 2000 panel - Serum or Plasm a CA 8.4 mg/dL 8.5-10 .3 Not Available [facility] (Lab) [address] [place] [address] [place], [address], Not Available 08/13/19 21 08/12/2020 Compr ehens rajesh metab olic 2000 panel - Serum or Plasm a TP 6.7 g/dL 6.3-8. 3 Not Available [facility] (Lab) [address] [place] [address] [place], [address], Not Available 08/13/19 21 08/12/2020 Compr ehens rajesh metab olic 2000 panel - Serum or Plasm a ALB 4.6 g/dL 3.4-4. 7 Not Available [facility] (Lab) [address] [place] [address] [place], [address], Not Available 08/13/19 21 08/12/2020 Compr ehens rajesh metab olic 2000 panel - Serum or Plasm a GLOB 2.1 g/dL Not Available [facility] (Lab) [address] [place] [address] [place], [address], Not Available 08/13/19 21 08/12/2020 Compr ehens rajesh metab olic 2000 panel - Serum or Plasm a ALKP 51 U/L 36-103 Not Available [facility] (Lab) [address] [place] [address] [place], [address], Not Available 08/13/19 21 08/12/2020 Compr ehens rajesh metab olic 2000 panel - Serum or Plasm a ALT 16 U/L 6-55 Not Available [facility] (Lab) [address] [place] [address] [place], [address], Not Available 08/13/19 21 08/12/2020 Compr ehens rajesh metab olic 2000 panel - Serum or Plasm a AST 13 U/L 9-42 Not Available [facility] (Lab) [address] [place] [address] [place], [address], Not Available 08/13/19 21 08/12/2020 Compr ehens rajesh metab olic 2000 panel - Serum or Plasm a TBIL 0.4 mg/dL 0.2-0. 9 Not Available [facility] (Lab) [address] [place] [address] [place], [address], Not Available 08/13/19 21 08/12/2020 Compr ehens rajesh metab olic 2000 panel - Serum or Plasm a BCRATIO 11 ratio 6-25 Not Available [facility] (Lab) [address] [place] [address] [place], [address], Not Available 08/13/19 21 08/12/2020 Compr ehens rajesh metab olic 1999 panel - Serum or Plasm a AGRATIO 2.1 ratio Not Available [facility] (Lab) [address] [place] [address] [place], [address], Not Available 08/13/19 21 08/12/2020 Compr ehens rajesh metab olic 2000 panel - Serum or Plasm a EGFRAA 124 mL/mi n Not Available [facility] (Lab) [address] [place] [address] [place], [address], Not Available 08/13/19 21 08/12/2020 Compr ehens rajesh metab olic 2000 panel - Serum or Plasm a EGFRNAA 102 mL/mi n Not Available [facility] (Lab) [address] [place] [address] [place], [address], Not Available 08/13/19 21 08/12/2020 Compr ehens rajesh metab olic 1999 panel - Serum or Plasm a ANIONG 16.00 Not Available [facility] (Lab) [address] [place] [address] [place], [address], Not Available 08/13/19 21 08/12/2020 Josh ol [Mass /volu me] in Blood ETOH 241.00 mg/dL 0.00-3 00.00 Not Available [facility] (Lab) [address] [place] [address] [place], [address], Not Available 08/13/19 21 08/12/2020 Drugs ident ified in Urine by Scree n metho d Nomin al AMP NEGATI VE NEGATI VE THRES HOLD 500 NG/ML Not Available [facility] (Lab) [address] [place] [address] [place], [address], Not Available 08/13/19 21 08/12/2020 Drugs ident ified in Urine by Scree n metho d Nomin al JERSEY NEGATI VE NEGATI VE THRES HOLD 200 NG/ML Not Available [facility] (Lab) [address] [place] [address], [place], [address], Not Available 08/13/19 21 08/12/2020 Drugs ident ified in Urine by Scree n metho d Nomin al NANETTE NEGATI VE NEGATI VE THRES HOLD 150 NG/ML Not Available [facility] (Lab) [address] [place] [address], [place], [address], Not Available 08/13/19 21 08/12/2020 Drugs ident ified in Urine by Scree n metho d Nomin al CANNA NEGATI VE NEGATI VE THRES HOLD 50 ng/mL Not Available [facility] (Lab) [address] [place] [address], [place], [address], Not Available 08/13/19 21 08/12/2020 Drugs ident ified in Urine by Scree n metho d Nomin al COCA NEGATI VE NEGATI VE THRES HOLD 150 NG/ML Not Available [facility] (Lab) [address] [place] [address], [place], [address], Not Available 08/13/19 21 08/12/2020 Drugs ident ified in Urine by Scree n metho d Nomin al METHADON NEGATI VE NEGATI VE THRES HOLD 300 ng/mL Not Available [facility] (Lab) [address] [place] [address], [place], [address], Not Available 08/13/19 21 08/12/2020 Drugs ident ified in Urine by Scree n metho d Nomin al OPIATE NEGATI VE NEGATI VE THRES HOLD 300 ng/mL Not Available [facility] (Lab) [address] [place] [address], [place], [address], Not Available 08/13/19 21 08/12/2020 Drugs ident ified in Urine by Scree n metho d Nomin al PHENCY NEGATI VE NEGATI VE THRES HOLD 25 ng/mL Not Available [facility] (Lab) [address] [place] [address], [place], [address], Not Available 08/13/19 21 08/12/2020 Catrachitaa franky acosta al panel - Blood NEUTROPHILS 53 % 37-80 Not Available [facility] (Lab) [address] [place] [address], [place], [address], Not Available 08/13/19 21 08/12/2020 Catrachitaa frnaky acosta al panel - Blood LYMPHOCY 37 % 10-50 Not Available [facility] (Lab) [address] [place] [address], [place], [address], Not Available 08/13/19 21 08/12/2020 Catrachitaa franky acosta al panel - Blood MONOCYTE 7 % 1-8 Not Available [facility] (Lab) [address] [place] [address], [place], [address], Not Available 08/13/19 21 08/12/2020 Perfecto acosta al panel - Blood BANDS 1 % 0-0 Not Available [facility]) [address] [place] [address], [place], [address], Not Available 08/13/19 21 08/12/2020 Perfecto acosta al panel - Blood EOSINO 2 % 1-4 Not Available [facility] (Lab) [address] [place] [address], [place], [address], Not Available 08/13/19 21 08/12/2020 Perfecto acosta al panel - Blood BASOPHIL 0 % 0-2 Not Available [facility] (Lab) [address] [place] [address], [place], [address], Not Available 08/13/19 21 08/12/2020 Perfecto vance panel - Blood RBC MORPH NORMAL NORMAL Not Available [facility] (Lab) [address] [place] [address], [place], [address], Not Available 08/13/19 21 08/12/2020 Perfecto vance panel - Blood PLATELET ESTIMATE ADEQUA TE ADEQUA TE Not Available [facility] (Lab) [address] [place] [address], [place], [address], Not Available Result Notes None recorded. Procedures Surgical History Date Name Laterality Status Provider Name and Address Organization Details Recorded Time 05/05/19 Date of Last Pap Smear completed [facility] 05/12/2021 12:52:15 Heart Surgery completed [facility] 05/05/2021 10:17:20 section completed [facility] 05/05/2021 10:17:29 Tonsillectomy completed [facility] 05/05/2021 10:17:34 excision of bunion completed [facility] 05/05/2021 10:17:42 Imaging Results None recorded. Procedure Notes None recorded. Medical Equipment None Reported. Allergies Allergen ID Allergen Name Allergen Category Reaction Reaction Severity Criticality Documentation Date Start Date Code Code System Note Provider Name and Address Organization Details Recorded Time 9936 Product containin g penicilli n (product) medicatio n Not available Not available Not available 05/05/2021 28869 8001 SNOMED [facility] 2 10:13:45 9937 carbamaze pine medicatio n Not available Not available Not available 05/05/20212001 [facility] 10:13:58 9938 ibuprofen medicatio n Not available Not available Not available 05/05/2021 5640 [facility] 10:14:10 9939 wheat gluten extract food Not available Not available Not available 05/05/2021 01898 81 RxNorm [facility] 2 10:14:17 9940 latex environme nt,medica tion Not available Not available Not available 05/05/2021 65323 91 [facility] 10:14:24 9941 egg extract food,medi cation Not available Not available Not available 05/05/2021 83979 15 RxNorm Jolene Mustafa [facility] 2 10:14:34 9942 strawberr y allergeni c extract food Not available Not available Not available 05/05/2021 43249 4 RxNorm Jolene Moon [facility] 2 10:14:41 Medications Name Sig Start Date Stop Date Status Note LastModified by Organization Details LastModified Time atorvastatin 40 mg tablet Take 1 tablet every day by oral route. active Not Available Not Available No t Available metformin 500 mg tablet Take 4 tablets every day by oral route. active Not Available Not Available No t Available acetaminophe n 325 mg tablet TAKE1- 2 TABLETS (650 MG) BY ORAL ROUTE EVERY 6 HOURS NEEDED active Not Available Not Available No t Available olanzapine 5 mg tablet Take 1 tablet twice a day by oral route. active Not Available Not Available No t Available olanzapine 10 mg tablet Take 0.5 tablets every day by oral route as needed. active Not Available Not Available No t Available hydroxyzine HCl 50 mg tablet Take 1 tablet every day by oral route as needed. active Not Available Not Available No t Available valacyclovir 500 mg tablet Take 1 tablet every day by oral route. active Not Available Not Available No t Available trazodone 100 mg tablet Take 1 tablet every day by oral route at bedtime. active Not Available Not Available No t Available levothyroxin e 50 mcg tablet Take 1 tablet every day by oral route. active Not Available Not Available No t Available cyanocobalam in (vit B-12) 1,000 mcg/mL injection solution Inject 1 mL every month by subcutaneou s route. active Not Available Not Available No t Available buspirone 10 mg tablet Take 1 tablet 3 times a day by oral route. active Not Available Not Available No t Available Carmex topical ointment active Not Available Not Available Not Available gabapentin 300 mg capsule Take 1 capsule 3 times a day by oral route. active Not Available Not Available No t Available mirtazapine 15 mg tablet Take 1 tablet every day by oral route at bedtime. active Not Available Not Available No t Available ergocalcifer ol (vitamin D2) 1,250 mcg (50,000 unit) capsule Take 1 capsule every week by oral route. active Not Available Not Available No t Available ziprasidone 60 mg capsule Take 1 capsule every day by oral route. active Not Available Not Available No t Available medroxyproge sterone 150 mg/mL intramuscula r suspension Inject 1 mL every 3 months by intramuscul ar route. active Not Available Not Available No t Available loratadine 10 mg tablet Take 1 tablet every day by oral route. active Not Available Not Available No t Available prazosin 2 mg capsule Take 2 capsules twice a day by oral route. active Not Available Not Available No t Available nystatin (bulk) 1 billion unit powder active Not Available Not Available Not Available topiramate 50 mg tablet Take 1 tablet every day by oral route in the evening. active Not Available Not Available No t Available Trulicity 0.75 mg/0.5 mL subcutaneous pen injector Inject 0.5 mL every week by subcutaneou s route. active Not Available Not Available No t Available Vitals Date Recorded Respiratory rate Body height Body mass index (BMI) Body weight Body temperature Oxygen saturation Oxygen saturation in Arterial blood by Pulse oximetry Heart rate Systolic And Diastolic Provider Name and Address Organization Details Last Updated DateTime 2 16 /min 143.51 cm 28.2 kg/m2 17689.8 2 g 98.6 [degF] 98 % 98 % 92 /min 100/78 mm[Hg] Jolene Moon [facility] 2 10:20:18 Social History Question Answer Notes LastModified by Organizat ion Details LastModified Time Tobacco Smoking Status Former Smoker Jolene Meadowseel [facility] 05/05/2021 10:16:20 Are You Blind Or Do You Have Difficulty Seeing? Yes Glasses Information not available 05/05/2021 What Is Your Level Of Caffeine Consumption? Moderate Information not available 05/05/2021 What Is Your Code Status? 0 HILTON Information not available 09/27/2020 Are You Deaf Or Do You Have Serious Difficulty Hearing? No Information not available 05/05/2021 What Was The Date Of Your Most Recent Tobacco Screening? 05/05/2021 Information not available 05/05/2021 Are You Passively Exposed To Smoke? Yes Information not available 05/05/2021 Are There Any Smokers In Your House? Yes Information not available 05/05/2021 How Many Years Have You Smoked Tobacco? 2 Information not available 05/05/2021 Sex: Unknown Functional Status Question Answer Note LastModified by Organizat ion Details LastModified Time Do you use any illicit or recreational drugs? No Information not available 05/05/2021 Do you or have you ever used any other forms of tobacco or nicotine? Yes Information not available 05/05/2021 What is your level of alcohol consumption? None Information not available 05/05/2021 Do you or have you ever used smokeless tobacco? Former smokeless tobacco user Information not available 05/05/2021 Are you able to walk? YESWOREST Information not available 05/05/2021 Are you able to care for yourself? No Information not available 05/05/2021 Do you or have you ever used e-cigarettes or vape? Never used electronic cigarettes Information not available 05/05/2021 Mental Status None recorded. Family History Nothing Reported. Medical History Condition Response Diabetes Y Vitamin D Deficiency Y Peripheral Vascular Disease Y High Cholesterol Y Mental Illness Y Depression Y Hypothyroidism Y Gynecological History Statement/Question Response Date of Last Pap Smear 05/05/2021 Obstetrics History GPAL:G 0 P 0 0 0 0 Immunizations Vaccine Type Date Status Note Provider Nam e and Address Organization Details Recorded Time COVID-19, mRNA, LNP-S, PF, 100 mcg/0.5mL dose or 50 mcg/0.25mL dose 05/11/2020 completed Jolene Mustafa [facility] 05/05/2021 10:16:48 COVID-19, mRNA, LNP-S, PF, 100 mcg/0.5mL dose or 50 mcg/0.25mL dose 06/08/2020 [facility] 10:16:56 COVID-19, mRNA, LNP-S, PF, 100 mcg/0.5mL dose or 50 mcg/0.25mL dose 01/26/2021 completed Jolene Mustafa [facility] 05/05/2021 10:17:12 Past Encounters Encounter ID Performer Location Encounter Start Date Encounter Closed Date Diagnosis/Indication Diagnosis SNOMED-CT Code Diagnosis ICD10 Code Diagnosis Note [id number] Radha Escamilla MD Emergency Room [address] [address] [place] [id number] 12/26/2019 17:20:00 12/27/2019 00:25:00 [id number] Eddi Mcguire MD Emergency Room [address] [address] [place] [id number] 08/11/2020 22:30:00 08/12/2020 08:14:00 Health Concerns Section Related Observation LastModified by Organization Detai ls LastModified Time None Recorded Concern Status LastModified by Organization Details LastModified Time None Recorded Advance Directives Directive None Recorded Payers Insurance Date Sequence Insurance Name Policy Number Policy Baca Covered Member ID Baca Member ID Guarantor Name 05/05/2021 1 [place] Afia Franky Vidales [id number] Afia Franky V[place]ales 05/06/2021 [place] [facility] Afia L Jaspalamjopez [id number] Afia Franky Vidales Notes Date Note Type Note Provider Name and Address Organization Details Recorded Time 05/05/2021 text/html Annual GYNReport ed bypatient.History: no gynecologic complaints Menstrual cycle:amenorrhea; using depo provera Urinary symptoms:No hematuria Vagina:Normal vaginal discharge Breast:No breast pain Current Contraception:Sati sfied with current contraception; depo provera Sexual complaints:last encounter a few weeks ago; did not use condoms; pt reporting latex allergy Preventive measures:Encourage self breast examinationNotes:[age] year NEW female presents today for her wwe Kalie Camara, [place] [address] [address], [place], [phone], [facility] 05/05/2021 11:49:15 OBGyn Episode No OBEpisode recorded.
--- OUTSIDE RECORDS SUMMARY | 2024-09-28 14:51 | XMS_ITS | Data Portability ---
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 Overall she has been doing well. Not available 05/28/2024 22:25:57 Plan of Treatment Reminders Order Date Submit Date Provider Last Modified By Organization Details Last Modified Time Details Appointments OFFICE VISIT 20 2024 10:00A M HUMERA YEUNG Not available Not available Not available Lab CMP, serum or plasma 2024 025 [place] [facility], [address], [place], [address], 05/28/2024 14:05:26 lipid panel, blood 2024 025 [place] [facility], [address], [address], [place], [address], 05/28/2024 14:05:29 CBC 2024 025 [place] [facility], [address], [address], [place], [address], 05/28/2024 12:55:34 microalbu min/creat inine, mass ratio, urine 2024 [place] [facility], [address] [facility] [address], [place], [address], 05/29/2024 15:45:19 thyrotrop in, QN, serum or plasma 2024 [facility], [address], [address], [place], [address], 05/28/2024 13:40:59 Referral None recorded. Procedures None recorded. Surgeries None recorded. Imaging None recorded. Medication Orders polyethyl dashawn glycol 3350 17 gram oral powder packet 2024 [facility], [address], [place], [address], 09/23/2024 11:16:26 Preparati on H Hydrocort isone 1 % topical cream 2024 025 [facility], [address], [place], [address], 09/23/2024 11:16:32 magnesium citrate oral solution 2024 025 [facility], [address], [place], [address], 08/03/2024 05:00:49 Fleet Enema 19 gram-7 gram/118 mL 2024 025 [facility], [address], [place], [address], 08/09/2024 05:01:14 ondansetr on 4 mg disintegr ating tablet 2024 025 [facility], [address], [place], [address], 06/25/2024 14:53:13 Patient TargetsNo targets recorded. Patient Instructions Encounter Date Encounter Id Patient Instructions Last Modified By Organization Details Last Modified Time 05/28/2024 [id number] Call or return for questions or concerns. Not available 05/28/2024 12:25:42 Reason for Referral None Reported. Results Created Date Observation Date Name Description Value Unit Range Abnormal Flag Note LastModifiedBy Organization Detail LastModifiedTime 05/29/1905/28/2024 CBC WBC 11.4 x10 4.0-10 .5 high Not Available [facility] [address] [facility] [address], [place], [address], 05/28/2024 12:55:34 05/29/1905/28/2024 CBC RBC 4.68 x10 3.50-5 .50 Not Available [facility] [address] [facility] [address], [place], [address], 05/28/2024 12:55:34 05/29/19 25 05/28/2024 CBC HGB 13.5 g/dL 12.0-1 6.0 Not Available [facility] [address] [facility] [address], [place], [address], 05/28/2024 12:55:34 05/29/19 25 05/28/2024 CBC HCT 38.2 % 37.0-4 7.0 Not Available [facility] [address] [facility], [place], [address], 05/28/2024 12:55:34 05/29/19 25 05/28/2024 CBC MCV 81.7 fL 80.0-9 9.9 Not Available [facility] [address] [facility] [address], [place], [address], 05/28/2024 12:55:34 05/29/19 25 05/28/2024 CBC MCH 28.8 pg 27.0-3 2.0 Not Available [facility] [address] [facility] [address], [place], [address], 05/28/2024 12:55:34 05/29/19 25 05/28/2024 CBC MCHC 35.3 g/dL 32.0-3 6.0 Not Available [facility] [address] [facility], [place], [address], 05/28/2024 12:55:34 05/29/19 25 05/28/2024 CBC RDW 14.9 % 11.5-1 4.5 high Not Available [facility] [address] [facility], [place], [address], 05/28/2024 12:55:34 05/29/19 25 05/28/2024 CBC plt 298.9 x10 140.0- 451.0 Not Available [facility] [address] [facility], [place], [address], 05/28/2024 12:55:34 05/29/19 25 05/28/2024 CBC lymphocytes % 27.7 % 20.0-5 0.0 Not Available [facility] [address] [facility] [address], [place], [address], 05/28/2024 12:55:34 05/29/19 25 05/28/2024 CBC granulcytes % 61.3 % 30.0-7 0.0 Not Available [facility] [address] [facility], [place], [address], 05/28/2024 12:55:34 05/29/19 25 05/28/2024 CBC monocytes % 6.8 % 2.0-16 .0 Not Available [facility] [address] [facility], [place], [address], 05/28/2024 12:55:34 05/29/19 25 05/28/2024 CBC granulcytes# 7.0 x10 Not [facility]ou [facility] [address] [facility], [place], [address], 05/28/2024 12:55:34 05/29/19 25 05/28/2024 CBC lymphocytes # 3.2 x10 Not Available [facility] [address] [address], [place], [address], 05/28/2024 12:55:34 05/29/19 25 05/28/2024 CBC monocytes # 0.8 x10 Not Avai lable [facility] [address] [address], [place], [address], 05/28/2024 12:55:34 05/29/19 25 05/28/2024 TSH TSH 1.35 uIU/m L 0.49-3 .82 Not Available [facility] [address] [address], [place], [address], 05/28/2024 13:40:59 05/29/19 25 05/28/2024 CMP (FEMA LE) glucose 99.0 mg/dL 60.0-9 9.0 Not Available [facility] [address] [address], [place], [address], 05/28/2024 14:05:26 05/29/19 25 05/28/2024 CMP (FEMA LE) BUN (blood urea nitrogen) 16.0 mg/dL 10.0-2 6.0 Not Available [facility] [address] [facility] [address] [address], [place], [address], 05/28/2024 14:05:26 05/29/19 25 05/28/2024 CMP (FEMA LE) creatinine (serum) 0.7 mg/dL 0.4-1. 5 Not Available [facility] [address] [facility] [address] [address], [place], [address], 05/28/2024 14:05:26 05/29/19 25 05/28/2024 CMP (FEMA LE) BUN/creatini ne ratio 22.86 ratio Not Available [facility] [address] [facility] 1, [place], [address], 05/28/2024 14:05:26 05/29/19 25 05/28/2024 CMP (FEMA LE) eGFR calculated 101.2 Not Available [facility] [address] [facility] [address], [place], [address], 05/28/2024 14:05:26 05/29/19 25 05/28/2024 CMP (FEMA LE) total protein 7.7 g/dL 6.0-8. 5 Not Available [facility] [address] [facility] [address], [place], [address], 05/28/2024 14:05:26 05/29/19 25 05/28/2024 CMP (FEMA LE) total bilirubin 0.5 mg/dL 0.2-1. 3 Not Available [facility] [address] [facility] [address], [place], [address], 05/28/2024 14:05:26 05/29/19 25 05/28/2024 CMP (FEMA LE) albumin 4.9 g/dL 3.5-5. 5 Not Available [facility] [address] [facility] [address], [place], [address], 05/28/2024 14:05:26 05/29/19 25 05/28/2024 CMP (FEMA LE) globulin 2.8 calc Not Available [facility] [address] [facility] [address], [place], [address], 05/28/2024 14:05:26 05/29/19 25 05/28/2024 CMP (FEMA LE) AST (SGOT) 21.0 U/L 0.0-46 .0 Not Available [facility] [address] [facility] [address], [place], [address], 05/28/2024 14:05:26 05/29/19 25 05/28/2024 CMP (FEMA LE) altv (SGPT) 23.0 U/L 13.0-6 9.0 normal Not Available [facility] [address] [facility] [address], [place], [address], 05/28/2024 14:05:26 05/29/19 25 05/28/2024 CMP (FEMA LE) A/G ratio 1.8 ratio Not Available [facility] [address] [facility] [address], [place], [address], 05/28/2024 14:05:26 05/29/19 25 05/28/2024 CMP (FEMA LE) ALP phos 59.0 U/L 30.0-1 40.0 normal Not Available [facility] [address] [facility] [address], [place], [address], 05/28/2024 14:05:26 05/29/19 25 05/28/2024 CMP (FEMA LE) calcium 9.6 mg/dL 8.4-10 .5 Not Available [facility] [address] [facility] [address], [place], [address], 05/28/2024 14:05:26 05/29/19 25 05/28/2024 CMP (FEMA LE) sodium 138.0 mmol/ L 136.0- 145.0 Not Available [facility] [address] [facility] [address], [place], [address], 05/28/2024 14:05:26 05/29/19 25 05/28/2024 CMP (FEMA LE) potassium 4.2 mmol/ L 3.5-5. 1 Not Available [facility] [address] [facility], [place], [address], 05/28/2024 14:05:26 05/29/19 25 05/28/2024 CMP (FEMA LE) chloride 101.0 mmol/ L 98.0-1 10.0 normal Not Available [facility] [address] [facility] [address], [place], [address], 05/28/2024 14:05:26 05/29/19 25 05/28/2024 CMP (FEMA LE) C02 26.0 mmol/ L 22.0-3 1.0 Not Available [facility] [address] [facility], [place], [address], 05/28/2024 14:05:26 05/29/19 25 05/28/2024 CMP (FEMA LE) anion gap 11.0 calc Not Available [facility] [address] [facility], [place], [address], 05/28/2024 14:05:26 05/29/19 25 05/28/2024 CMP (FEMA LE) osmolality 286.3 calc Not Available [facility] [address] [facility] [address], [place], [address], 05/28/2024 14:05:26 05/29/19 25 05/28/2024 LIPID PROFI LE (FEMA LE) cholesterol 133.0 mg/dL 0.0-20 0.0 Not Available [facility] [address] [facility], [place], [address], 05/28/2024 14:05:29 05/29/19 25 05/28/2024 LIPID PROFI LE (FEMA LE) trig 195.0 mg/dL 0.0-15 0.0 high Not Available [facility] [address] [facility], [place], [address], 05/28/2024 14:05:29 05/29/19 25 05/28/2024 LIPID PROFI LE (FEMA LE) HDL - direct 56.0 mg/dL >40.0 Not Available [facility] [address] [facility] [address], [place], [address], 05/28/2024 14:05:29 05/29/19 25 05/28/2024 LIPID PROFI LE (FEMA LE) VLDL - direct 39.0 mg/dL Not Available [facility] [address] [facility] [address], [place], [address], 05/28/2024 14:05:29 05/29/19 25 05/28/2024 LIPID PROFI LE (FEMA LE) LDL - direct 38.0 mg/dL 0.0-13 0.0 Not Available [facility] [address] [facility] [address], [place], [address], 05/28/2024 14:05:29 05/29/19 25 05/29/2024 ALBUM IN, RANDO M URINE W/CRE ATINI NE creatinine, random urine 48 mg/dL 20-275 normal Not Available [facility] [address] [place], [address], 05/29/2024 15:45:18 05/29/19 25 05/29/2024 ALBUM IN, RANDO M URINE W/CRE ATINI NE albumin, urine <0.2 mg/dL see note: normal Refer ence Range : Refer ence Range Not estab lishe d Not Available [facility] [address] [place], [address], 05/29/2024 15:45:18 05/29/19 25 05/29/2024 ALBUM IN, RANDO M URINE W/CRE ATINI NE albumin/crea tinine ratio, random urine NOTE mg/g_ creat <30 normal NOTE: The urine album in value is less than 0.2 mg/dL there fore we are unabl e to calcu late excre tion and/o r creat inine ratio . The ADA defin es abnor malit ies in album in excre tion as follo ws: Album inuri a Categ ory Resul t (mg/g creat inine ) Harmony l to Mildl y incre ased <30 Moder ately incre ased 30-29 9 Sever lion incre ased > OR = 300 The ADA recom mends that at least two of three speci mens colle cted withi n a 3-6 month perio d be abnor mal befor e consi kg g a patie nt to be withi n a diagn ostic categ ory. Not Available [address], [address], 05/29/2024 15:45:18 Result Notes None recorded. Problems Name Problem SNOMED Code Status Onset Date Resolution Date Notes Provider Name and Address Organization Details Recorded Time Bipolar disorder 26549943 Active 2023 RENNY lawson [facility] 4 17:03:40 Posttrauma tic stress disorder 44610327 Active 2023 RENNY lawson [facility] 4 17:03:51 Urinary incontinen ce 653125301 Active 2023 RENNY lawson [facility] 4 17:04:02 Type 2 diabetes mellitus 71954870 Active 2023 RENNY lawson [facility] 4 17:04:14 Hyperlipid emia 16111645 Active 2023 RENNY lawson [facility] 4 17:04:26 Vitamin D deficiency 79203664 Active 2023 RENNY lawson [facility] 4 17:04:39 Major depressive disorder 057385674 Active 2023 RENNY lawson [facility] 4 17:04:50 Psychotic disorder 99552328 Active 2023 RENNY lawson [facility] 4 17:05:08 Laboratory procedure Active 2023 Annual physical. annual dental. TB test or assessment annually. RENNY lawson [facility] 4 17:05:52 Lives in [facility] home 500706056 Active 2023 [facility] RENNY lawson [facility] 4 17:25:26 Mixed anxiety and depressive disorder 676613796 Active 2023 RENNYYELENA lawson [facility] 4 01:58:15 Intellectu al disability 877789979 Active 2023 RENNY lawson [facility] 4 01:59:37 Migraine 64615285 Active 2023 RENNY lawson [facility] 4 01:59:55 Hypothyroi dism 39657115 Active 2023 RENNYYELENA lawson [facility] 4 02:00:14 Alopecia 72860435 Active 2023 RENNY lawson [facility] 4 02:00:32 Hallucinat ions 7798846 Active 2023 RENNY lawson [facility] 4 02:00:57 Schizophre susan 86615473 Active 2023 RENNYYELENA lawson [facility] 4 02:01:20 Chronic constipati on 137075462 Active 2023 RENNY GARDINER [facility] 02:04:32 Acute constipati on 149202249 Active 2024 Ahsan Ford MD [address] [place] [address], [id number], [facility] Problem Notes None recorded. Procedures Surgical History Date Name Laterality Status Provider Name and Address Organization Details Recorded Time 09/26/19 25 [facility] 18:11:25 05/26/19 25 [address] [facility] 05/27/2024 11:14:01 05/26/[address] [facility] head [facility] 05/27/2024 11:14:22 12/29/19 24 plain [facility] 12/31/2023 20:45:54 12/17/19 22 screening for malignant neoplasm [facility]ix [facility]/17/2023 02:03:55 [facility] of [facility]al defect [facility] 09/17/2023 02:02:26 [facility] 09/17/2023 02:03:10 [facility] 09/14/2022 09:37:35 correction of ventricular septal defect [facility] 09/14/2022 09:39:29 [facility] 05/27/2024 11:12:45 Imaging Results None recorded. Procedure Notes None recorded. Medical Equipment None Reported. Allergies Allergen ID Allergen Name Allergen Category Reaction Reaction Severity Criticality Documentation Date Start Date Code Code System Note Provider Name and Address Organization Details Recorded Time 2139 Tegretol medicatio n hives mild low 07/12/202220292 9 [facility] 16:19:29 214 ibuprofen medicatio n hives mild low 07/12/2022 5640 RxNorm ZULEYKA [facility] 3 16:19:49 38138 egg extract food,medi cation Not available Not available Not available 10/15/2022 19570 15 RxNorm RENNY GARDINER [facility] 4 01:55:39 00755 strawberr y allergeni c extract food,medi cation angioedem a severe high 10/15/2022 46008 4 RxNorm Debo Michaeldonna [facility] 4 17:19:38 05359 Latex Exam Gloves medicatio n Not available Not available Not available 10/15/2022 31208 UNK RENNY GARDINER [facility] 4 01:55:53 66663 penicilli n V potassium medicatio n Not available Not available Not available 10/15/2022 82823 5 RxNorm RENNY GARDINER [facility] 4 01:56:04 5586 Product containin g penicilli n (product) medicatio n Not available Not available Not available 10/10/2022 18194 8001 SNOMED RENNY GARDINER [facility] 4 17:25:01 76441 vancomyci n medicatio n Not available Not available Not available 03/28/2023 23602 RxNorm Debo Arrdeondo [facility] 4 11:19:45 [address]9727 Adderall medicatio n Not available Not available Not available 08/25/2023 38134 RxNorm RENNY GARDINER renny [facility] 4 17:24:54 Medications Name Sig Start Date Stop Date Status Note LastModified by Organization Details LastModified Time multivita min tablet TAKE ONE TABLET BY MOUTH DAILY 08/24 completed Not Available Not Available Not Available ziprasido ne 80 mg capsule two times daily 01/18 completed 0; Recorded 05/06/19 23 1:01PM by HUMERA Garcia, Office Visit; Not Available Not Available Not Available Preparati on H Hydrocort isone 1 % topical cream APPLY A THIN LAYER TO THE AFFECTED AREA(S) BY TOPICAL ROUTE 2 TIMES PER DAY for 3 days when hemorrho id is present 2024 active Not Available Not Available Not Avai lable atorvasta tin 40 mg tablet TAKE ONE TABLET BY MOUTH DAILY active Not Available Not Available No t Available acetamino phen 325 mg tablet TAKE TWO TABLETS BY MOUTH EVERY SIX HOURS NEEDED active Not Available Not Available No t Available doxycycli ne hyclate 100 mg capsule TAKE ONE CAPSULE BY MOUTH TWICE DAILY FOR 7 DAYS 05/02 completed Not Available Not Available Not Available polyethyl dashawn glycol 3350 17 gram oral powder packet Take 1 packet every day by oral route for 90 days. 2024 active Not Available Not Available Not Avai lable nicotine (polacril ex) 2 mg gum CHEW ONE PIECE OF GUM EVERY 2 HOURS NEEDED 01/18 completed Not Available Not Available Not Available naltrexon e 50 mg tablet TAKE ONE TABLET BY MOUTH EVERY MORNING 08/03 completed Not Available Not Available Not Available ondansetr on HCl 4 mg tablet TAKE ONE TABLET BY MOUTH TWICE DAILY NEEDED FOR 10 DAYS 08/03 completed Not Available Not Available Not Available prednison e 20 mg tablet TAKE TWO TABLETS BY MOUTH EVERY DAY FOR 5 DAYS 09/14 completed Not Available Not Available Not Available sertralin e 100 mg tablet TAKE ONE TABLET BY MOUTH DAILY IN THE MORNING active Not Available Not Available No t Available olanzapin e 5 mg tablet TAKE ONE TABLET BY MOUTH IN THE MORNING, TAKE ONE TABLET AT 400PM AND TAKE TWO TABLETS AT BEDTIME active Not Available Not Available No t Available hydroxyzi ne pamoate 50 mg capsule TAKE TWO CAPSULES BY MOUTH AT BEDTIME active Not Available Not Available No t Available Calcium Antacid 200 mg (as calcium carbonate 500 mg) chewable tablet CHEW TWO TABLETS BY MOUTH TWICE DAILY NEEDED FOR STOMACH active Not Available Not Available No t Available topiramat e 25 mg tablet TAKE TWO TABLETS BY MOUTH IN THE MORNING FOR 3 DAYS THEN TAKE ONE TABLET BY MOUTH IN THE MORNING FOR 3 DAYS - THEN STOP 01/18 completed Not Available Not Available Not Available hydroxyzi ne HCl 50 mg tablet TAKE ONE TABLET BY MOUTH AT 400PM AND AT BEDTIME NEEDED FOR AGITATIO N. active Not Available Not Available No t Available valacyclo vir 500 mg tablet TAKE ONE TABLET BY MOUTH DAILY 07/12 completed Not Available Not Available Not Available sulfameth oxazole 800 mg-trimet hoprim 160 mg tablet TAKE ONE TABLET BY MOUTH DAILY 08/03 completed Not Available Not Available Not Available tramadol 50 mg tablet TAKE TWO TABLETS BY MOUTH EVERY 8 HOURS NEEDED FOR PAIN 05/30 completed Not Available Not Available Not Available acetamino phen 500 mg tablet TAKE TWO TABLETS BY MOUTH EVERY 8 HOURS NEEDED FOR PAIN 09/14 completed Not Available Not Available Not Available ondansetr on 8 mg disintegr ating tablet DISSOLVE ONE TABLET BY MOUTH EVERY 8 HOURS NEEDED FOR NAUSEA AND VOMITING FOR 5 DAYS 09/14 completed Not Available Not Available Not Available levothyro xine 75 mcg tablet TAKE ONE TABLET BY MOUTH EVERY DAY active Not Available Not Available No t Available prazosin 5 mg capsule TAKE ONE CAPSULE BY MOUTH AT BEDTIME active Not Available Not Available No t Available ziprasido ne 20 mg capsule TAKE ONE CAPSULE BY MOUTH DAILY AT 400PM AND ONE CAPSULE AT BEDTIME active Not Available Not Available No t Available Fleet Enema 19 gram-7 gram/118 mL Insert 133 mL every day by rectal route as needed for 1 day. 08/09 completed Not Available Not Available Not Available trazodone 100 mg tablet TAKE ONE TABLET BY MOUTH AT BEDTIME WITH 300 MG TABLET active Not Available Not Available No t Available Christa Valentine s 15 %-10 % topical cream Apply 1 applicat ion twice a day by topical route as needed. 07/23 completed Not Available Not Available Not Available isopropyl alcohol 70 % solution two times daily 01/18 completed Recorded 09/29/19 22 9:21AM by Zuleyka Parrish LPN, Office Visit; Refill Quantity : 200; Pad; Not Available Not Available Not Available levothyro xine 50 mcg tablet TAKE ONE TABLET BY MOUTH DAILY 08/03 completed Not Available Not Available Not Available hydrocodo ne 7.5 mg-acetam inophen 325 mg tablet TAKE ONE TABLET BY MOUTH EVERY 6 HOURS NEEDED FOR PAIN FOR 7 DAYS 09/14 completed Not Available Not Available Not Available cephalexi n 500 mg capsule TAKE ONE CAPSULE BY MOUTH THREE TIMES DAILY FOR 5 DAYS 05/30 completed Not Available Not Available Not Available pantopraz ole 40 mg tablet,de layed release TAKE ONE TABLET BY MOUTH DAILY active Not Available Not Available No t Available oseltamiv ir 75 mg capsule TAKE ONE CAPSULE BY MOUTH TWICE DAILY 08/24 completed Not Available Not Available Not Available buspirone 10 mg tablet TAKE ONE TABLET BY MOUTH THREE TIMES DAILY FOR ANXIETY active Not Available Not Available No t Available trazodone 300 mg tablet TAKE ONE TABLET BY MOUTH AT BEDTIME active Not Available Not Available No t Available docusate sodium 100 mg capsule TAKE ONE CAPSULE BY MOUTH EVERY DAY active Not Available Not Available No t Available gabapenti n 300 mg capsule TAKE ONE CAPSULE BY MOUTH THREE TIMES DAILY active Not Available Not Available No t Available magnesium citrate oral solution Take 300 mL every day by oral route for 1 day. 08/03 completed Not Available Not Available Not Available aspirin 81 mg chewable tablet TAKE ONE TABLET BY MOUTH DAILY 08/24 completed Not Available Not Available Not Available hydroxyzi ne HCl 25 mg tablet TAKE TWO TABLETS BY MOUTH TWICE DAILY NEEDED 09/14 completed Not Available Not Available Not Available ziprasido ne 40 mg capsule Take 1 capsule twice a day by oral route. active Not Available Not Available No t Available mirtazapi ne 15 mg tablet TAKE ONE TABLET BY MOUTH AT BEDTIME 08/03 completed Not Available Not Available Not Available ergocalci ferol (vitamin D2) 1,250 mcg (50,000 unit) capsule TAKE ONE CAPSULE BY MOUTH WEEKLY 2024 active Not Available Not Available Not Avai lable polyethyl dashawn glycol 3350 17 gram/dose oral powder MIX ONE CAPFUL IN LIQUID AND DRINK DAILY NEEDED FOR CONSTIPA TION IF NO BOWEL MOVEMENT IN THREE DAYS 09/18 completed Not Available Not Available Not Available methylpre dnisolone 4 mg tablets in a dose pack TAKE BY MOUTH DIRECTED PER PACKAGE INSTRUCT IONS active Not Available Not Available No t Available Bengay Ultra Strength 4 %-30 %-10 % topical cream APPLY TOPICALL Y TO THE AFFECTED AREA TWICE DAILY NEEDED 08/24 completed Not Available Not Available Not Available ziprasido ne 60 mg capsule TAKE ONE CAPSULE BY MOUTH TWICE DAILY 08/01 completed Not Available Not Available Not Available ondansetr on 4 mg disintegr ating tablet DISSOLVE ONE TABLET UNDER THE TONGUE THREE TIMES DAILY NEEDED FOR 10 DAYS active Not Available Not Available No t Available metformin ER 500 mg tablet,ex tended release 24 hr TAKE TWO TABLETS BY MOUTH TWICE DAILY active Not Available Not Available No t Available Cough Drops 5 mg Take 1 lozenge 4 times a day by mucous route as needed. 08/24 completed Not Available Not Available Not Available loratadin e 10 mg tablet TAKE ONE TABLET BY MOUTH EVERY DAY active Not Available Not Available No t Available buspirone 15 mg tablet TAKE ONE TABLET BY MOUTH THREE TIMES DAILY FOR ANXIETY active Not Available Not Available No t Available Mucinex 600 mg tablet, extended release Take 1 tablet every 12 hours by oral route as needed for 10 days. 2023 active Not Available Not Available Not Avai lable bupropion HCl XL 150 mg 24 hr tablet, extended release TAKE ONE TABLET BY MOUTH EVERY DAY active Not Available Not Available No t Available topiramat e 50 mg tablet two times daily 01/18 completed 0; Recorded 05/06/19 23 1:01PM by HUMERA Garcia, Office Visit; Not Available Not Available Not Available mirtazapi ne 7.5 mg tablet TAKE ONE TABLET BY MOUTH EVERY DAY AT BEDTIME 08/03 completed Not Available Not Available Not Available Answer Blood Glucose System kit daily 03/02 completed dispense whatever insuranc e covers. DM Type 2; Recorded 09/29/19 22 9:21AM by Zuleyka Parrish LPN, Office Visit; Refill Quantity : 0; Not Available Not Available Not Available nitrofura ntoin monohydra te/macroc rystals 100 mg capsule TAKE ONE CAPSULE BY MOUTH TWICE DAILY FOR SEVEN DAYS 08/03 completed Not Available Not Available Not Available olanzapin e twice daily 01/18 completed 0; Recorded 05/06/19 1:01PM by HUMERA Garcia, Office Visit; Not Available Not Available Not Available Minipress at bedtime 01/18 completed 0; Recorded 05/06/19 1:01PM by HUMERA Garcia, Office Visit; Not Available Not Available Not Available lancets daily 01/18 completed dispense whatever insuranc e covers. DM Type 2; 46145; Recorded 03/30/19 9:21AM by Renny Gardiner CMT (Authori zed through HUMERA Garcia), Refill Request; Refill Quantity : 100; Each; Not Available Not Available Not Available Multivita mins daily 01/18 completed Recorded 05/06/19 1:01PM by HUMERA Garcia, Office Visit; Refill Quantity : 100; Tablet; Not Available Not Available Not Available Vitamin D3 weekly 01/18 completed Recorded 05/04/19 9:52AM by Renny Gardiner CMT, Office Visit; Refill Quantity : 4; Capsule; Not Available Not Available Not Available Remeron one at bedtime 01/18 completed 0; Recorded 05/06/19 1:01PM by HUMERA Garcia, Office Visit; Not Available Not Available Not Available Miralax as needed for constipa tion if no BM in 3 days 01/18 completed 52798; Recorded 05/31/19 6:34PM by Vanessa Silva (Authori zed through Ahsan Ford MD), Refill Request; Refill Quantity : 0; Not Available Not Available Not Available multivita min 1 tablet daily active Not Available Not Available No t Available Trazodone at bedtime 01/18 completed 0; Recorded 05/06/19 23 1:01PM by HUMERA Garcia, Office Visit; Not Available Not Available Not Available FeroSul 325 mg (65 mg iron) tablet TAKE ONE TABLET BY MOUTH EVERY DAY active Not Available Not Available No t Available Ricola 4.8 mg lozenges USE ONE LOZENGE FOUR TIMES DAILY NEEDED active Not Available Not Available No t Available B-100 Complex ER 100 mg tablet,ex tended release TAKE ONE TABLET BY MOUTH EVERY DAY 01/18 completed Not Available Not Available Not Available B-Complex Plus Vitamin C (and calcium) 300 mg-150 mg calcium tablet TAKE ONE TABLET BY MOUTH DAILY 01/18 completed Not Available Not Available Not Available TRUEplus Lancets 33 gauge USE ONE LANCET DAILY active Not Available Not Available No t Available Eliquis 5 mg tablet TAKE ONE TABLET BY MOUTH TWICE DAILY active Not Available Not Available No t Available Estarylla 0.25 mg-0.035 mg tablet TAKE ONE TABLET BY MOUTH DAILY 09/14 completed Not Available Not Available Not Available Cough Drops 5.4 mg TAKE ONE LOZENGE BY MOUTH EVERY 4 HOURS NEEDED FOR COUGH 08/24 completed Not Available Not Available Not Available MVW Complete Formulati on Multivita min 1,500 unit-800 mcg capsule TAKE ONE CAPSULE BY MOUTH TWICE DAILY 08/24 completed Not Available Not Available Not Available Trulicity 1.5 mg/0.5 mL subcutane ous pen injector INJECT CONTENTS OF ONE PEN UNDER SKIN WEEKLY 05/30 completed Not Available Not Available Not Available naloxone 4 mg/actuat ion nasal spray Take 1 spray every day by nasal route as needed. 04/02 completed emergenc y use only Not Available Not Available Not Available DEKAs Plus (folic acid) 200 mcg-1,000 mcg-10 mg capsule TAKE ONE CAPSULE BY MOUTH EVERY DAY active Not Available Not Available No t Available Antacid 215 mg (as calcium carbonate 500 mg) chewable tablet Take 2 tablets twice a day by oral route as needed, for stomach. 2024 active Not Available Not Available Not Avai lable Eliquis DVT-PE Treatment 30-Day Starter 5 mg (74 tablets) in dose pack TAKE DIRECTED PER PACKAGE DIRECTIO NS 09/14 completed Not Available Not Available Not Available OneTouch Delica Plus Lancet 30 gauge USE ONE LANCET DAILY 08/24 completed Not Available Not Available Not Available B Complex 1 (with folic acid) 0.4 mg tablet Take 1 tablet every day by oral route for 30 days. 01/18 completed Not Available Not Available Not Available Trulicity 3 mg/0.5 mL subcutane ous pen injector INJECT 0.5 ML UNDER SKIN EVERY WEEK 2024 active Not Available Not Available Not Avai lable Contour Plus Test Strip USE ONE STRIP EVERY DAY FOR TYPE 2 DIABETES MELLITUS active Not Available Not Available No t Available Contour Plus Blue Meter USE TO TEST GLUCOSE EVERY DAY active Not Available Not Available No t Available Vitals Date Recorded Body height Body mass index (BMI) Body weight Oxygen saturation Oxygen saturation in Arterial blood by Pulse oximetry Heart rate Respiratory rate Systolic And Diastolic Provider Name and Address Organization Details Last Updated DateTime 5 143.51 cm 25.5 kg/m2 29869.7 1 g 98 % 98 % 84 /min 18 /min 108/68 mm[Hg] RENNY GARDINER [facility] 5 12:01:36 Date Recorded Body height Body mass index (BMI) Body weight Body temperature Heart rate Oxygen saturation Oxygen saturation in Arterial blood by Pulse oximetry Systolic And Diastolic Provider Name and Address Organization Details Last Updated DateTime 5 143.51 cm 26.4 kg/m2 70945.0 8 g 98.5 [degF] 85 /min 97 % 97 % 110/64 mm[Hg] Chanell Loco [facility] 5 17:21:44 Date Recorded Body height Body mass index (BMI) Body weight Oxygen saturation Oxygen saturation in Arterial blood by Pulse oximetry Heart rate Respiratory rate Body temperature Systolic And Diastolic Provider Name and Address Organization Details Last Updated DateTime 5 143.51 cm 26.4 kg/m2 69442.0 8 g 97 % 97 % 86 /min 16 /min 98.2 [degF] 116/80 mm[Hg] Haley Samuels [facility] 5 14:16:26 Date Recorded Body height Body mass index (BMI) Body weight Oxygen saturation Oxygen saturation in Arterial blood by Pulse oximetry Heart rate Respiratory rate Body temperature Systolic And Diastolic Provider Name and Address Organization Details Last Updated DateTime 5 143.51 cm 27.1 kg/m2 76682.8 6 g 97 % 97 % 84 /min 16 /min 98.2 [degF] 118/66 mm[Hg] Haley Samuels [facility] 17:16:47 Date Recorded Body height Body mass index (BMI) Body weight Oxygen saturation Oxygen saturation in Arterial blood by Pulse oximetry Heart rate Body temperature Systolic And Diastolic Provider Name and Address Organization Details Last Updated DateTime 5 143.51 cm 27 kg/m2 18887.3 7 g 97 % 97 % 73 /min 98.4 [degF] 110/70 mm[Hg] Kenna Gomez [facility] 5 12:51:33 Social History Question Answer Notes LastModified by [employer] Details LastModified Time Tobacco Smoking Status Former Smoker Haley Samuels [facility] 07/24/2024 14:16:42 What Was The Date Of Your Most Recent Tobacco Screening? 09/18/2024 [email or web address] Information not available 09/18/2024 What Is Your Relationship Status? Single [email or web address] Information not available 09/14/2022 Has Tobacco Cessation Counseling Been Provided? Yes Information not available 09/27/2023 On What Date Was Tobacco Cessation Counseling Provided? 10/18/2023 Information not available 10/18/2023 Have You Recently Traveled Abroad? No [email or web address] Information not available 09/14/2022 How Many Years Have You Used E-cigarettes Or Vape? 2 Information not available 09/27/2023 How Many Years Have You Used Smokeless Tobacco? 3 Information not available 09/27/2023 Sex: Unknown Functional Status Question Answer Note LastModified by [employer] Details LastModified Time Do you use any illicit or recreational drugs? No Information not available 10/18/2023 Do you or have you ever used any other forms of tobacco or nicotine? Yes Information not available 09/27/2023 What is your level of alcohol consumption? None [email or web address] Information not available 09/14/2022 Do you or have you ever used smokeless tobacco? Former smokeless tobacco user Information not available 09/27/2023 Are you able to care for yourself? No [facility] resident [email or web address] Information not available 09/14/2022 Do you or have you ever used e-cigarettes or vape? Current user of electronic cigarettes Information not available 09/27/2023 Do you or have you ever used any nicotine-free cigarettes, vape, or chewing tobacco? No Information not available 09/27/2023 Mental Status None recorded. Family History Relationship Description Onset Age of this Age Resolved Age Notes LastModified by Organization Details LastModified Time Father Myocardial infarction [email or web address] Not available 08/19 09:36:28 Medical History Condition Response Hypothyroidism Y Depression Y Developmental or Behavioral Disorders Y Anxiety Disorder Y High Cholesterol Y Mental Illness Y Diabetes Y Gynecological HistoryNo gynecological history recorded. Obstetrics History GPAL:G 0 P 0 0 0 0 Immunizations Vaccine Type Date Status Note Provider Nam e and Address Organization Details Recorded Time TST-PPD intradermal 0 completed Not Available [facility] 10/15/2022 02:32:40 Past Encounters Encounter ID Performer Location Encounter Start Date Encounter Closed Date Diagnosis/Indication Diagnosis SNOMED-CT Code Diagnosis ICD10 Code Diagnosis Note [id number] HUMERA YEUNG [facility] ([facility]) [address] [place] [address] 07/12/2022 15:59:00 07/12/2022 18:09:18 Injury of head 17510753 S09.90XD Symptoms have resolved. Nicotine dependence 5629 4008 F17.200 Use nicotine pouches as well but she is out. Lives in [facility] 526013912 Z59.3 Okay to discontinu e Valacyclov ir, she is no longer with the same per who previously gave her cold sores. Swelling o f bilateral lower limbs 750704432 M79.89 Recent surgery on her left foot. Type 2 cecilia betes mellitus 61949383 E11.21 [id number] HUMERA YEUNG [facility] ([facility]) [address] [place] [id number] 5 08/02/2022 15:40:29 08/02/2022 18:16:43 Chest pain 56681768 R07.9 Syncope and collapse 309 719047 R55 Needs handrails in shower please. Pleuritic pain 1492796 R 07.81 Seasonal a llergic rhinitis 464438992 J30.2 [id number] TRISH JARA [facility] ([facility]) [address] [place] [id number] 5 08/07/2022 14:20:26 09/27/2022 17:26:26 Sprain of left ankle 9129935004 2770382 S93.402A Reassured with negative exam today. Caregiver declined x-ray today. Patient has full ROM of ankle joint and normal strength. Discussed with patient that due to being able to bear weight without pain, okay to monitor for the next week. If still having pain and swelling in 7 days, return for re-evaluat ion and probable x-ray. Stool flec ked with blood 916839805 R19.5 Discussed with patient and caregiver that this blood is likely due to menstrual cycle. Patient will continue to monitor blood in stool after cycle. Discussed with patient and caregiver that if having and nose bleeds, gum bleeding, or other bleeding, patient needs to go to ED to be re-evaluat ed. Patient and caregiver verbalized understand ing and agreed to plan of care. [id number] HUMERA YEUNG [facility] ([facility]) [address] [place] [id number] 5 08/10/2022 11:51:16 08/21/2022 19:24:22 Pulmonary embolism 31005793 I26.99 Continues to have pain that comes and goes, referrals in place to pulmonolog y and cardiology . Acute pharyngitis 797934 003 J02.9 Warm salt water gargles. Menorrhagia 767803377 N9 2.0 Does not want OCPs again, history of PE. Contact office is soaking through more than 3 pads in an hour. [id number] HUMERA YEUNG [facility] ([facility]) [address] [place] [address] [id number] 5 09/14/2022 12:06:11 09/14/2022 13:12:22 Hypothyroidism 78510502 E03.9 Chest pain 43713648 R07. 9 Following with cardiology . Lives in s upported home 865184688 Z76.89 Type 2 cecilia betes mellitus 13940720 E11.21 Nicotine dependence 5629 4008 F17.200 Stop nicotine gum. [id number] JORDAN MCCORMACK NP [facility] ([facility]) [address] [place] [address] [id number] 5 10/10/2022 12:37:13 10/10/2022 14:37:29 Acute sinusitis 79585091 J01.90 Increase PO fluidsDisc ussed taking antibiotic as prescribed Use humidifier in bedroom at nightDiscu ssed using OTC allergy medicine and Flonase as box directsMay also use vicks vapor rubMay use OTC sinus medicine or pseudaphed from pharmacy if no history of HTNIf you develop worsening pressure or symptoms follow up with PCP or return to the walk-in clinic Return to clinic if any changes, any worsening, any concernsPa tient verbalized understand ing of plan. [id number] HUMERA YEUNG [facility] ([facility]) [address] [place] [address] [id number] 5 01/18/2023 12:59:53 01/18/2023 16:47:56 Neuropathy due to type 2 diabetes mellitus 7692697424 33929 E11.40 Pain in left foot 485053 1641 99986 M79.672 Anemia 835266577 D64.9 [id number] TRISH JARA [facility] ([facility]) [address] [place] [address] [id number] 5 02/21/2023 10:11:52 02/21/2023 18:03:58 Cough 16545652 R05.9 Negative COVID test. Negative strep test. Viral syndrome 505274270 B34.9 Reassured with negative strep test and negative COVID test. Discussed withpatien t that this is likely viral and will have to run its course. Can take tylenol and use cough drops as needed for pain and fevers. If worsening condition or no improvemen t in 7-10 days, return for further evaluation . Patient verbalizes understand ing. [id number] HUMERA YEUNG [facility] ([facility]) [address] [place] [address] [id number] 5 03/02/2023 10:54:57 03/02/2023 12:02:23 Tuberculosis screening 439325668 Z11.1 TB assessment negative, no need for further testing. Type 2 cecilia betes mellitus without complication 061396327 E11.9 Gastroenteritis 76943159 K52.9 Improving. Encouraged her to drink plenty of fluids and a bland diet. [id number] [facility] ([facility]) [address] [place] [address] [id number] 5 03/28/2023 10:51:22 03/28/2023 12:20:54 Nausea and vomiting 86072061 R11.2 Viral gastroenteritis 11 9218838 A08.4 Discussed with caregiver that this is viral and will need to run its course. Continue to push fluids and eat foods as tolerated. If fever occurs, tylenol and ibuprofen are okay. Will start ondansetro n PRN today. Reassured with normal activity and eating habits today. If worsening condition or no improvemen t in 7-10 days, return for further evaluation . Patient and caregiver verbalizes understand ing. [id number] HUMERA YEUNG [facility] ([facility]) [address] [place] [address] [id number] 5 03/30/2023 16:48:14 04/03/2023 09:17:15 Uncontrolled type 2 diabetes mellitus 620150095 E11.65 Trulicity. Acute sinusitis 58407930 J01.90 [id number] FREDO PATEL INSTRUMENT CALIBRATOR [facility] ([facility]) [address] [place] [address] [id number] 5 05/02/2023 11:27:00 05/02/2023 13:08:05 Diabetes mellitus 84670711 E11.65 Oral infection 589750056 K13.79 [id number] LAUREN ADAMS [facility] ([facility]) [address] [place] [address] [id number] 5 05/31/2023 09:15:19 05/31/2023 10:48:57 Accidental fall 798601948 W19.XXXA Closed injury of head 45 83888534 06 S09.90XA Patient is on Elliquis, however, due to no visible trauma and no change in behavior or evidence of concussion s, no imaging completed. Discussed with caregiver that if patient develops REINOSO, increased sleep, nausea, vomiting, change in speech, or change in behavior, will need to go to ED. Patient and caregiver verbalized understand ing. Will have patient use ice PRN and tylenol PRN if pain or swelling occurs. Patient has a follow up with PCP on Monday. [id number] HUMERA YEUNG [facility] ([facility]) [address] [place] [address] [id number] 5 06/20/2023 12:04:09 06/20/2023 13:18:09 Increased frequency of urination 543188132 R35.0 Recurrent falls 55345089 2 R29.6 Advised patient to be more cautious getting out of bed. Note to facility to see about lowering bed. Amenorrhea 25133740 N91. 2 [id number] HUMERA YEUNG [facility] ([facility]) [address] [place] [address] [id number] 5 08/30/2023 10:51:23 08/30/2023 11:51:23 Type 2 diabetes mellitus 58568933 E11.21 Eating better. Pulmonary embolism 88724 003 I26.99 Continue on apixaban. [id number] HUMERA YEUNG [facility] ([facility]) [address] [place] [address] [id number] 5 12/29/2023 10:25:19 12/29/2023 10:58:28 Type 2 diabetes mellitus 76679743 E11.21 Bipolar disorder 8311348 4 F31.9 Mood improving with medication changes. Abdominal pain 55079317 R10.9 [id number] HUMERA YEUNG [facility] ([facility]) [address] [place] [address] [id number] 5 09/27/2023 09:56:28 09/27/2023 10:45:07 Type 2 diabetes mellitus 44583172 E11.9 Eating better. Vaping 593932067 Z77.29 Anticoagulant therapy 18 4815766 Z79.01 [id number] MAGI LORD [facility] ([facility]) [address] [place] [address] [id number] 5 10/02/2023 15:03:21 10/02/2023 17:50:57 Contusion of head 564780662 S00.93XA Patient struck her head twice this morning around 7:30 a.m. No LOC. Has no neuro findings on exam today. Discussed with back up worker if the patient develops vomiting, altered mental status, to f/u in ER. [id number] MAGI LORD [facility] ([facility]) [address] [place] [address] [id number] 5 10/11/2023 11:55:43 10/11/2023 17:52:58 Concussion with no loss of consciousness 73936105 S06.0X0A No persistant symptoms. No changes. [id number] MAGI LORD [facility]) [address] [place] [address] [id number] 5 10/18/2023 17:00:23 10/18/2023 17:54:05 Dysuria 14453600 R30.0 Urine dip normal.Uri ne cx sent out. Will call with results. Push oral fluids. [id number] MAGI LORD [facility] ([facility]) [address] [place] [address] [id number] 5 11/22/2023 16:51:47 11/25/2023 08:03:48 Acute gastroenteritis 02572654 K52.9 Discussed BRATS diet, small frequent sips of fluid. Rest.VSS. No signs of acute abd on exam today.If you develop fever, no urine output over 24 hours, bloody stools/kenisha sis, abd pain, or concerns arise return for re-eval. Hemorrhoids 53926039 K64 .9 Hemorrhoid not engorged/s wollen. Non tender on exam today. Small in size. Discussed increase fiber in diet. [id number] FREDO PATEL [facility] ([facility]) [address] [place] [address] [id number] 5 11/30/2023 09:52:38 11/30/2023 11:30:17 Type 2 diabetes mellitus 36854515 E11.9 Eating better. Influenza vaccination declined 462420158 Z28.21 [id number] FREDO PATEL [facility] ([facility]) [address] [place] [address] [id number] 5 02/27/2024 14:47:27 02/27/2024 16:26:42 Nasal congestion 73312900 R09.81 [id number] FREDO PATEL [facility] ([facility]) [address] [place] [address] [id number] 5 04/02/2024 14:42:07 04/02/2024 15:57:52 Type 2 diabetes mellitus 18276161 E11.21 Foot callus 688319490 L8 4 Trying new shoe inserts. [id number] ABIEL SNIDER APRN [facility] ([facility]) [address] [place] [address] [id number] 5 05/25/2024 15:06:49 05/25/2024 15:35:33 Accidental fall 156502521 W19.XXXA Anticoagulant therapy 18 7412684 Z79.01 [id number] FREDO PATEL [facility] ([facility]) [address] [place] [address] [id number] 5 05/28/2024 11:28:02 05/28/2024 12:35:09 Abdominal pain 38708815 R10.9 Stomach ache comes and goes with bowel movements, soda helps as well. Type 2 cecilia betes mellitus without complication 492751819 E11.9 A1C done 04/02/2024, 5.7 Annual phy sical examination for people with mental illness completed 2640994347 Z00.8 Annual Physical: 05/28/2024D ental: Dentures, 05/28/2024V ision: 2023TB: 01/2024Lab s: 05/28/2024W [facility]: 12/16/2021 Adaptive Equipment: Glasses, diabetic shoes, glucometer Diet: Diabetic diet, carb counting, 100 or less carbs per daySpecial ists: Dr. Solano (cardiolog ist), Dr. Francisco (podiatris t), Dr. Castro (psychiatr ist) Injury of head 46106918 S09.90XD Symptoms have resolved. She was seen in the ER. Bipolar disorder 5054738 4 F31.9 Mood improving with medication changes. Pulmonary embolism 02215 003 I26.99 Continue on apixaban. [id number] Galo Cisneros DO [facility] ([facility]) [address] [place] [address] [id number] 5 06/24/2024 17:13:32 06/24/2024 18:15:58 Viral gastroenteritis 851391911 A08.4 I counseled the patient on the cause of symptoms most likely being a viral stomach bug. Counseled on staying hydrated and signs and symptoms of worsening and concern. We will start an antiemetic .full liquid diet for 12-36 hrs, then increase to bland diet for at least 24 hrs, then advance to regular diet when tolerated. Return with worsening. If dehydrated go to the ER for evaluation for IV fluids [id number] HUMEAR CRAIG [facility] ([facility]) [address] [place] [address] [id number] 5 07/24/2024 14:04:04 07/29/2024 15:54:52 Viral upper respiratory tract infection 454639132 J06.9 VSS. Pt reports symptoms are improving and she feels better. Denies wheezing, sputum production , or fever. Complete medication s as prescribed .Paperwork completed for back up worker. [id number] Ahsan Ford MD [facility] ([facility]) [address] [place] [address] [id number] 5 08/01/2024 17:11:59 08/05/2024 08:45:50 Acute constipation 531159200 K59.00 The patient is having significan t issues with constipati on. Discussed utilizing mag citrate and fleets enemas to help get things to move. Encouraged follow-up with PCP if recurrent constipati on is a problem. [id number] HUMERA CRAIG [facility] ([facility]) [address] [place] [address] [id number] 5 09/18/2024 12:25:33 09/18/2024 16:40:33 External hemorrhoids 27917832 K64.4 Will change miralax to daily and give pt a PRN order for preparatio n H to use when hemorrhoid s flare.F/u with PCP if any other concerns arise Health Concerns Section Related Observation LastModified by Organization Detai ls LastModified Time None Recorded Concern Status LastModified by Organization Details LastModified Time None Recorded Advance Directives Directive None Recorded Payers Insurance Date Sequence Insurance Name Policy Number Policy Baca Covered Member ID Baca Member ID Guarantor Name 09/18/2024 1 [place] Afia Vidales [id number] Stu Rinaldi 09/18/2024 [place] [facility] Afia Arturo Vidales [id number] Stu Rinaldi Notes Date Note Type Note Provider Name and Address Organization Details Recorded Time 05/28/2024 text/html Abdominal PainRe ported bypatient.Location[facility] Quality:aching Severity:mild; better Duration:intermittent Alleviating Factors:moving bowels; belching Associated Symptoms:no fever; no chills; no nausea; no vomiting; no diarrheaAnnual WellnessReported bypatient.Diet and Nutrition:healthy diet Fracture Risk:no history of fractures Additional Lifestyle Factors:no tobacco use; no alcohol intake Depression Risk:never feels sad, empty, or tearful; no loss of interest in activities Hearing:difficulty hearing over background noise Vision:blurred vision FREDO JORGE, INSTRUMENT CALIBRATOR [address] [place], [address], [facility], [place] 05/28/2024 22:26:51 06/24/2024 text/html [facility] headache, sinus drainage and sore throat for 2 days. Vomited x1 today, feels nauseous when she eats.no diarrhea. no constipation. mild intermittant abd pain. Galo Cisneros, DO [address] [place], [address], [facility], [place]. 06/24/2024 17:53:35 07/24/2024 text/html [facility] from her visit on 07/21/24 for a respiratory infectionpatient is taking antibiotic and steroids. States she is feeling better. Public Relations Writer states they just need a f/u from the ER visit. No concerns. Public Relations Writer agrees pt appears to be improving. HUMERA CRAIG [address] [place], [address], [facility], [place]. 07/29/2024 12:33:31 08/01/2024 text/html walk in patientp atient is here today for not being able to have a bowel movement for the last 9 days Ahsan Ford MD [address] [place], [address], [facility], [place]. 08/04/2024 13:26:23 09/18/2024 text/html walk inPt is bro ught in by her back up worker with c/o a hemorrhoid this last week. Public Relations Writer states pt has a PRN order for miralax that can be used if pt doesn't have a BM in 3 days. Public Relations Writer and pt feel this is too long to weight. Pt states she has constipation issues quite frequency. No bleeding when wiping after a BM HUMERA CRAIG [address] [place], [address], [facility], LStanislavLMary. 09/18/2024 16:35:01 OBGyn Episode No OBEpisode recorded.
--- NOTE | 2024-09-28 15:59 | CTR_ITS ---
PROCEDURE INFORMATION: Exam: CT Head Without Contrast Exam date and time: 09/28/2024 4:12 PM Age: 34 years old Clinical indication: Injury or trauma; Fall; Blunt trauma (contusions or hematomas); Additional info: Fall with contusion and altered mentation TECHNIQUE: Imaging protocol: Computed tomography of the head without contrast. Radiation optimization: All CT scans at this facility use at least one of these dose optimization techniques: automated exposure control; mA and/or kV adjustment per patient size (includes targeted exams where dose is matched to clinical indication); or iterative reconstruction. COMPARISON: CT head wo con* [id number] 05/25/2024 3:13 PM RADIATION DOSE METRICS: Total DLP (mGy-cm): 942.8 FINDINGS: Brain: Normal. No hemorrhage. Unremarkable white matter. No mass effect. Cerebral ventricles: No ventriculomegaly. Paranasal sinuses: Visualized sinuses are unremarkable. No fluid levels. Mastoid air cells: Visualized mastoid air cells are well aerated. Bones: Unremarkable. No acute fracture. The patient is edentulous. Soft tissues: Unremarkable. CT/CT head wo con* [id number] IMPRESSION: 1. Stable noncontrast head CT without evidence of intracranial injury or other sequela of trauma. 2. No evidence of intracranial pathology.
--- NOTE | 2024-09-28 15:59 | CTR_ITS ---
PROCEDURE INFORMATION: Exam: CT Cervical Spine Without Contrast Exam date and time: 09/28/2024 4:12 PM Age: 34 years old Clinical indication: Injury or trauma; Fall; Blunt trauma; Additional info: Fall with contusion TECHNIQUE: Imaging protocol: Computed tomography of the cervical spine without contrast. Radiation optimization: All CT scans at this facility use at least one of these dose optimization techniques: automated exposure control; mA and/or kV adjustment per patient size (includes targeted exams where dose is matched to clinical indication); or iterative reconstruction. COMPARISON: CT cervical spin wo con* [id number] 05/25/2024 3:13 PM RADIATION DOSE METRICS: Total DLP (mGy-cm): 152.5 FINDINGS: Bones: Spine is imaged from upper clivus through T2. AP alignment and curvature are normal. There is no indication of fracture, lytic, or blastic lesions. There are no significant facet degenerative changes present. Bony neural foramina appear to be adequately patent at all cervical and upper thoracic levels. Posteriorly directed hypertrophic endplate changes are seen at C3-C4 through C5-C6 causing potential mild cord deformation at the C4-C5 level and possible compromise of the left C5 root at the foramina root entry zone. There is moderate disc space narrowing at C4-C5 and C5-C6. The remaining disc spaces are height. Lungs: Lung apices appear normal. There is no prevertebral soft tissue swelling or hemorrhage. No vascular calcifications are apparent. Is no evidence of cervical lymphadenopathy. Thyroid: A 4 mm hypodensity is seen in the left thyroid lobe. Soft tissues: See Lungs finding. CT/CT cervical spin wo con* [id number] IMPRESSION: 1. No evidence of cervical spine injury. 2. Degenerative changes as noted above with potential flattening of the ventral cord surface and compromise of the right C5 nerve root at C4-C5 due to a disc osteophyte complex. 3. Incidental 4 mm left thyroid hypodensity. No follow-up is recommended. REFERENCES: Anyi Edwards, et al. (2015). Managing Incidental Thyroid Nodules Detected on Imaging: White Paper of the ACR Incidental Thyroid Findings Committee. Journal of the [employer] [employer], 12(2), 143-150.
--- NOTE | 2024-09-28 17:37 | W.ED.FALL ---
HPI - Fall General: Chief Complaint: Fall Stated Complaint: fall in shower Time Seen by Provider: 09/28/24 14:48 History of Present Illness: Patient is 34-year-old female with intellectual disabilities, resides chronically at home with guardian, presents after standing up from the tub, was dizzy, and started to fall, and hit her head on the tub. She stated she saw stars. No nausea or vomiting. No gait instability. No other concerns or neurological changes from staff. Associated symptoms-after fall: Reports headache(s); Denies abdominal pain, chest pain or neck pain Related Data Home Medications ?Medication ?Instructions ?Recorded ?Confirmed ergocalciferol (vitamin D2) 1,250 1,250 mcg PO Q7D 04/15/19 08/05/24 mcg (50,000 unit) capsule gabapentin 300 mg capsule 300 mg PO TID 08/15/19 08/05/24 atorvastatin 40 mg tablet 40 mg PO DAILY 11/25/21 08/05/24 loratadine 10 mg tablet 10 mg PO DAILY 11/25/21 08/05/24 docusate sodium 100 mg capsule 100 mg PO DAILY 05/19/22 08/05/24 acetaminophen 325 mg tablet 650 mg PO Q6H PRN Pain 08/03/22 08/05/24 levothyroxine 75 mcg tablet 75 mcg PO DAILY 08/03/22 08/05/24 multivitamin 1 tab PO DAILY 08/03/22 08/05/24 ondansetron HCl 4 mg tablet 4 mg PO BID PRN Nausea 08/03/22 08/05/24 metformin 1,000 mg tablet 1,000 mg PO BID 08/04/22 08/05/24 apixaban 5 mg tablet (Eliquis) 5 mg PO BID 09/13/22 08/05/24 dulaglutide 1.5 mg/0.5 mL 3 mg SUBCUT Q7D 06/02/23 08/05/24 subcutaneous pen injector (Trulicity) Previous Rx's ?Medication ?Instructions ?Recorded acetaminophen 500 mg capsule 1,000 mg (2 x 500 mg) PO Q8H PRN 05/21/22 pain #60 caps eucalyptus-menthol oral mucosal 1 jocelynn mucous membrane Q4H PRN 06/07/22 lozenge cough #30 ea pantoprazole 40 mg tablet,delayed 40 mg PO DAILY #30 tabs 08/04/22 release tramadol 50 mg tablet 25 mg (1/2 x 50 mg) PO Q6H PRN 08/12/22 pain #14 tabs diclofenac sodium 1 % topical gel 2 g topical QID PRN pain #100 grams 12/21/22 (Voltaren Arthritis Pain) ASO to the left #1 ea 03/23/23 Diabetic shoes with 3 sets of #1 ea 03/05/24 insoles ASO #1 ea 07/04/24 methylprednisolone 4 mg tablets in See Rx Instructions PO .COMPLEX 07/22/24 a dose pack (Medrol (Dorian)) #21 ea bupropion HCl 150 mg 24 hr tablet, 150 mg PO DAILY #30 tabs 07/25/24 extended release buspirone 15 mg tablet 15 mg PO TID #90 tabs 07/25/24 hydroxyzine HCl 50 mg tablet 50 mg PO BID anxiety #60 tabs 07/25/24 olanzapine 5 mg tablet 5 mg PO TID #90 tabs 07/25/24 prazosin 5 mg capsule 5 mg PO BEDTIME #30 caps 07/25/24 trazodone 300 mg tablet 300 mg PO BEDTIME #30 tabs 07/25/24 ziprasidone HCl 60 mg capsule 60 mg PO BID #60 caps 07/25/24 Allergies Allergy/AdvReac Type Severity Reaction Status Date / Time ibuprofen Allergy Unknown Unknown Verified 08/05/24 11:41 Penicillins Allergy Unknown Unknown Verified 08/05/24 11:41 carbamazepine Allergy Unknown Verified 08/05/24 11:41 latex Allergy Unknown Verified 08/05/24 11:41 vancomycin Allergy ALGY-Rash Verified 08/05/24 11:41 Review of Systems General: Reports: 10 or more systems reviewed and unremarkable except in HPI and below Const: Denies: fever(s) or chills Eyes: Reports: blurry vision and blind spots; Denies: change in vision ENMT: Denies: throat pain or mouth pain Card: Denies: chest pain or palpitations Resp: Denies: dyspnea or productive cough GI: Denies: abdominal pain, nausea or vomiting : Denies: flank pain or difficulty voiding Musc: Denies: neck pain, back pain or extremity pain Skin/Breast: Denies: rash or pruritus Neuro: Reports: headache(s); Denies: numbness in extremities Psych: Denies: anxiety or depression Walter/Lymph: Denies: easy bruising or easy bleeding All/Imm: Denies: urticaria or throat swelling PFSH ED PFSH: Medical History (Updated 09/28/24 @ 17:39 by ROSA Bee) Psychiatric care Anticoagulation adequate with anticoagulant therapy Diabetes mellitus Nicotine dependence, chewing tobacco, uncomplicated Moderate intellectual disabilities Chronic post-traumatic stress disorder Schizoaffective disorder, bipolar type Surgical History S/P section S/P tonsillectomy History of heart surgery Family History Father Myocardial infarction Grandfather Myocardial infarction Social History Smoking and tobacco/nicotine status: former use of tobacco/nicotine (Patient reports that she has quit tobacoo products) Physical Exam Const: COMMON NORMALS: no acute distress, average body habitus and patient oriented x3 HENMT: COMMON NORMALS: normocephalic HEAD & SCALP: normocephalic HEAD IMAGES:  1. minimal contusion without bleeding FACE & SINUS: normal facial exam and sinuses nontender NOSE: Normal nares present MOUTH: Normal oral and palatal mucosa present, lip normal and tongue normal Neck/C-Spine: COMMON NORMALS: full ROM and no lymphadenopathy Lymph: LYMPHATIC: no lymphadenopathy noted Chest: COMMONS NORMALS: normal inspection of the chest and normal palpation of entire chest wall Resp: COMMON NORMALS: normal respiratory effort and No retractions Cardio: COMMON NORMALS: regular rate and regular rhythm RATE: regular rate RHYTHM: regular rhythm GI: COMMON NORMALS: Normal to inspection, nondistended, normoactive bowel sounds present and Soft to palpation PALPATION: Yes Soft to palpation : COMMON NORMALS: Yes no CVA tenderness BLADDER/KIDNEY EXAM: Yes no CVA tenderness Back/Pelvis: COMMON NORMALS: no CVA tenderness Extremity: COMMON NORMALS: normal to inspection, full ROM and capillary refill normal Neuro: COMMON NORMALS: patient oriented x3 Psych: COMMON NORMALS: mental status grossly normal and Normal thought process present THOUGHT PROCESS: Normal thought process present Skin: COMMON NORMALS: no rashes or lesions noted and no wounds GENERAL SKIN EXAM: no rashes or lesions noted Course Vital Signs: Vital signs: Vital Signs Temperature 98.1 F 09/28/24 14:50 Pulse Rate 91 09/28/24 14:50 Respiratory Rate 16 09/28/24 14:50 Blood Pressure 104/72 09/28/24 14:50 Pulse Oximetry 98 09/28/24 14:50 Oxygen Delivery Me thod Room Air 09/28/24 14:50 MDM - Fall Medical Decision Making Patient is 34-year-old female with contusion to her posterior parietal. CT is negative for acute bleed. Suspect underlying concussion with association of horizontal nystagmus to the left. Discussed concussion with patient and caregiver. They state understanding. Directions have been given. No high impact sports warning given. All of her questions answered to their satisfaction. Lab Data Radiology Impressions Cervical Spine CT 09/28/24 15:59 IMPRESSION: 1. No evidence of cervical spine injury. 2. Degenerative changes as noted above with potential flattening of the ventral cord surface and compromise of the right C5 nerve root at C4-C5 due to a disc osteophyte complex. 3. Incidental 4 mm left thyroid hypodensity. No follow-up is recommended. REFERENCES: Anyi Edwards, et al. (2015). Managing Incidental Thyroid Nodules Detected on Imaging: White Paper of the ACR Incidental Thyroid Findings Committee. Journal of the [employer], 12(2), 143-[address]. Head CT 09/28/24 15:59 IMPRESSION: 1. Stable noncontrast head CT without evidence of intracranial injury or other sequela of trauma. 2. No evidence of intracranial pathology. All radiology interpretation(s) finalized by discharge ED provider radiology interpretation(s): no acute Discharge Plan Discharge Patient Disposition: Home Clinical Impression: Contusion of head Qualifiers: Encounter type: initial encounter Contusion of head detail: scalp Qualified Code(s): S00.03XA - Contusion of scalp, initial encounter Concussion Qualifiers: Encounter type: initial encounter Loss of consciousness presence/duration: without LOC Qualified Code(s): S06.0X0A - Concussion without loss of consciousness, initial encounter Condition: Stable Prescriptions: No Action ergocalciferol (vitamin D2) 1,250 mcg (50,000 unit) capsule 1,250 mcg PO Q7D Rx Instructions: TAKES ON MONDAY eucalyptus-menthol Lozenge 1 jocelynn mucous membrane Q4H PRN (Reason: cough) Qty: 30 0RF Eliquis 5 mg tablet 5 mg PO BID diclofenac sodium [Voltaren Arthritis Pain] 1 % gel 2 g topical QID PRN (Reason: pain) Qty: 100 0RF Rx Instructions: apply to feet QID PRN pain (DME) ASO See Rx Instructions .Route .MEDSUPPLY Qty: 1 0RF Rx Instructions: As directed bupropion HCl 150 mg tablet extended release 24 hr 150 mg PO DAILY Qty: 30 11RF buspirone 15 mg tablet 15 mg PO TID Qty: 90 11RF hydroxyzine HCl 50 mg tablet 50 mg PO BID Qty: 60 11RF olanzapine 5 mg tablet 5 mg PO TID Qty: 90 11RF prazosin 5 mg capsule 5 mg PO BEDTIME Qty: 30 11RF trazodone 300 mg tablet 300 mg PO BEDTIME Qty: 30 11RF ziprasidone HCl 60 mg capsule 60 mg PO BID Qty: 60 11RF (DME) Diabetic shoes with 3 sets of insoles See Rx Instructions .Route .MEDSUPPLY Qty: 1 0RF Rx Instructions: As directed by daily living [facility] (DME) ASO to the left See Rx Instructions .Route .MEDSUPPLY Qty: 1 0RF Rx Instructions: As directed gabapentin 300 mg Capsule 300 mg PO TID atorvastatin 40 mg tablet 40 mg PO DAILY loratadine 10 mg tablet 10 mg PO DAILY Trulicity 1.5 mg/0.5 mL pen injector 3 mg SUBCUT Q7D Rx Instructions: On Monday multivitamin Tablet 1 tab PO DAILY acetaminophen 325 mg Tablet 650 mg PO Q6H PRN (Reason: Pain) levothyroxine 75 mcg Tablet 75 mcg PO DAILY ondansetron HCl 4 mg tablet 4 mg PO BID PRN (Reason: Nausea) pantoprazole 40 mg Tablet,Delayed Release (Dr/Ec) 40 mg PO DAILY Qty: 30 0RF metformin 1,000 mg Tablet 1,000 mg PO BID methylprednisolone [Medrol (Dorian)] 4 mg tablets,dose pack See Rx Instructions .ROUTE .COMPLEX Qty: 21 0RF Rx Instructions: orally per package directions docusate sodium 100 mg capsule 100 mg PO DAILY acetaminophen 500 mg capsule 1,000 mg PO Q8H PRN (Reason: pain) Qty: 60 0RF tramadol 50 mg tablet 25 mg PO Q6H PRN (Reason: pain) Qty: 14 0RF Discharge Orders: Discharge ED (Routine); Ordered 09/28/24 Ordered By: Sri Rinaldi Referrals: Alayna Holland FNP [Primary Care Provider, Unknown] Discharge Diet: Usual diet Discharge Activity: Resume usual activity Patient Instructions: Contusion, Patient Portal & [place] Instructions Activity Restrictions/Additional Instructions: Increase noncaffeinated beverage intake Follow concussion instructions. No high impact sports. Return to ED for nausea/vomiting more than once, change in your gait, inability to think, fever greater than 100.4 ?F or neurological changes of concern. It is important to follow-up with your doctor regarding today's visit. Please call on Monday to make an appointment for follow-up. Print Language: Chinese Coding Level of Care Code ED Production Director for Eh Vallecillo
== END 2024-09-28 17:46 | disposition home or self-care (01) ==
PROVIDERS: Emergency Provider Physician Assistant; PCP Nurse Practitioner Family
DX: S00.03XA Contusion of scalp, initial encounter (principal); S06.0X0A Concussion without loss of consciousness, initial encounter; W18.2XXA Fall in (into) shower or empty bathtub, initial encounter; E11.9 Type 2 diabetes mellitus without complications; Z87.891 Personal history of nicotine dependence; Z79.01 Long term (current) use of anticoagulants; Z79.84 Long term (current) use of oral hypoglycemic drugs; Z79.85 Long-term (current) use of injectable non-insulin antidiabetic drugs
CPT/HCPCS: 70450; 72125; 99284

== ENCOUNTER → 2024-10-16 09:56 | Outpatient (BNVA) | payer MEDICAID, SELFPAY | PROVIDERS: PCP Nurse Practitioner Family; Visit Provider Podiatrist Foot & Ankle Surgery | DX: M79.672 Pain in left foot (principal); M25.572 Pain in left ankle and joints of left foot; E11.69 Type 2 diabetes mellitus with other specified complication; L60.3 Nail dystrophy; S93.492A Sprain of other ligament of left ankle, initial encounter; S92.155A Nondisplaced avulsion fracture (chip fracture) of left talus, initial encounter for closed fracture; W18.39XA Other fall on same level, initial encounter; Z79.84 Long term (current) use of oral hypoglycemic drugs | CPT/HCPCS: 11721; 73610; 73630; 99214 ==

== ENCOUNTER → 2024-11-13 10:14 | Outpatient (BNVA) | payer MEDICAID, SELFPAY | PROVIDERS: PCP Nurse Practitioner Family; Visit Provider Podiatrist Foot & Ankle Surgery | DX: M25.572 Pain in left ankle and joints of left foot (principal); S82.832A Other fracture of upper and lower end of left fibula, initial encounter for closed fracture; S93.492A Sprain of other ligament of left ankle, initial encounter; X58.XXXA Exposure to other specified factors, initial encounter | CPT/HCPCS: 73610; 99213 ==

== ENCOUNTER 2024-12-08 12:28 | Emergency (ER) | payer MEDICAID, SELFPAY ==
--- OUTSIDE RECORDS SUMMARY | 2021-06-09 10:00 | XMS_ITS | Continuity of Care Document ---
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 Biofuels Technology Manager Name Role Phone Jayne DAVIDTereza Unavailable Unavailable Procedures Procedure Date PSYTX PT&/FAMILY 30 MINUTES PSYTX PT&/FAMILY 30 MINUTES PSYTX PT&/FAMILY 30 MINUTES PSYTX PT&/FAMILY 30 MINUTES PSYTX PT&/FAMILY 30 MINUTES PSYTX PT&/FAMILY 30 MINUTES PSYTX PT&/FAMILY 30 MINUTES PSYTX PT&/FAMILY 30 MINUTES PSYTX PT&/FAMILY 30 MINUTES PSYTX PT&/FAMILY 30 MINUTES PSYTX PT&/FAMILY 30 MINUTES PSYTX PT&/FAMILY 30 MINUTES PSYTX PT&/FAMILY 30 MINUTES PSYTX PT&/FAMILY 30 MINUTES PSYTX PT&/FAMILY 30 MINUTES PSYTX PT&/FAMILY 30 MINUTES PSYTX PT&/FAMILY 30 MINUTES PSYTX PT&/FAMILY 30 MINUTES PSYTX PT&/FAMILY 30 MINUTES PSYTX PT&/FAMILY 30 MINUTES PSYTX PT&/FAMILY 30 MINUTES PSYTX PT&/FAMILY 30 MINUTES PSYTX PT&/FAMILY 30 MINUTES PSYTX PT&/FAMILY 30 MINUTES PSYTX PT&/FAMILY 45 MINUTES Advance Directives Directive Yes / No Effective Date File Name No Information Encounters Encounter Description Practice Location Reason(s) For Visit Diagnoses Date Provider Providers Copied on Encounter PSYTX PT&/FAMILY 30 MINUTES [facility], [address] [place], [address], [place] tel:[phone] Gregorio Tony Post-traumatic stress disorder, chronicBipolar 1 disorder, current episode depressed, with psychotic featuresMild intellectual disabilities May- 2 Godoy Tereza. [address] [facility] [place], [address], [place]. tel:[phone] PSYTX PT&/FAMILY 30 MINUTES [facility], [address] [place], [address], [place] tel:[phone] Gregorio Tony Post-traumatic stress disorder, chronicBipolar 1 disorder, current episode depressed, with psychotic featuresMild intellectual disabilities May- 2 Godoy Tereza. [address] [facility] [place], [address], [place]. [phone] PSYTX PT&/FAMILY 30 MINUTES [facility], [address] [facility] [place], [address], [place] tel:[phone] Gregorio Chavo Post-traumatic stress disorder, chronicBipolar 1 disorder, current episode depressed, with psychotic featuresMild intellectual disabilities May-0 2 Godoy Tereza. [address] [facility] [place], [address], [place]. tel:[phone] PSYTX PT&/FAMILY 30 MINUTES [facility], [address] [place], [address], [place] tel:[phone] Gregorio Tony Post-traumatic stress disorder, chronicBipolar 1 disorder, current episode depressed, with psychotic featuresMild intellectual disabilities Apr- 2 Godoy Tereza. [address] [facility] [place], [address], [place]. tel:[phone] PSYTX PT&/FAMILY 30 MINUTES [facility], [address] [facility] [place], [address], [place] tel:[phone] Gregorio Tony Post-traumatic stress disorder, chronicBipolar 1 disorder, current episode depressed, with psychotic featuresMild intellectual disabilities 2 Ogdoy Tereza. [address] [place], [address], [place]. tel:[phone] PSYTX PT&/FAMILY 30 MINUTES [facility], [address] [facility] [place], [address], [place] tel:[phone] Gregorio Tony Post-traumatic stress disorder, chronicBipolar 1 disorder, current episode depressed, with psychotic featuresMild intellectual disabilities 2 Godoy Tereza. [address] [place], [address], [place]. tel:[phone] PSYTX PT&/FAMILY 30 MINUTES [facility], [address] [facility] [place], [address], [place] tel:[phone] Gregorio Tony Post-traumatic stress disorder, chronicBipolar 1 disorder, current episode depressed, with psychotic featuresMild intellectual disabilities 2 Godoy Tereza. [address] [place], [address], [place]. tel:[phone] PSYTX PT&/FAMILY 30 MINUTES [facility], [address] [facility] [place], [address], [place] tel:[phone] Gregorio Tony Post-traumatic stress disorder, chronicBipolar 1 disorder, current episode depressed, with psychotic featuresMild intellectual disabilities 2 Godoy Tereza. [address] [place], [address], [place]. tel:[phone] PSYTX PT&/FAMILY 30 MINUTES [facility], [address] [facility] [place], [address], [place] tel:[phone] [place] Post-traumatic stress disorder, chronicBipolar 1 disorder, current episode depressed, with psychotic featuresMild intellectual disabilities 1 Godoy Tereza. [address] [place], [address], [place]. tel:[phone] PSYTX PT&/FAMILY 30 MINUTES [facility], [address] [facility] [place], [address], [place] tel:[phone] Gregorio Tony Post-traumatic stress disorder, chronicBipolar 1 disorder, current episode depressed, with psychotic featuresMild intellectual disabilities 1 Jayne Starks. [address] [facility] [place], [address], [place]. tel: [phone] PSYTX PT&/FAMILY 30 MINUTES [facility], [address] [facility] [place], [address], [place] tel:[phone] Gregorio Tony Post-traumatic stress disorder, chronicBipolar 1 disorder, current episode depressed, with psychotic featuresMild intellectual disabilities 1 Jayne Starks. [address] [facility] [place], [address], [place]. tel: [phone] PSYTX PT&/FAMILY 30 MINUTES [facility], [address] [facility] [place], [address], [place] tel:[phone] Gregorio Tony Post-traumatic stress disorder, chronicBipolar 1 disorder, current episode depressed, with psychotic featuresMild intellectual disabilities 1 Jayne Starks. [address] [facility] [place], [address], [place]. tel: [phone] PSYTX PT&/FAMILY 30 MINUTES [facility], [address] [facility] [place], [address], [place] tel:[phone] Gregorio Tony Post-traumatic stress disorder, chronicBipolar 1 disorder, current episode depressed, with psychotic featuresMild intellectual disabilities 1 Jayne Starks. [address] [facility] [place], [address], [place]. tel: [phone] PSYTX PT&/FAMILY 30 MINUTES [facility], [address] [facility] [place], [address], [place] tel:[phone] Gregorio Tony Post-traumatic stress disorder, chronicBipolar 1 disorder, current episode depressed, with psychotic featuresMild intellectual disabilities 1 Jayne Starks. [address] [facility] [place], [address], [place]. tel: [phone] PSYTX PT&/FAMILY 30 MINUTES [facility], [address] [facility] [place], [address], [place] tel:[phone] Gregorio Tony Post-traumatic stress disorder, chronicBipolar 1 disorder, current episode depressed, with psychotic featuresMild intellectual disabilities Nov-1 0- 1 Jayne Starks. [address] [facility] [place], [address], [place]. tel: [phone] PSYTX PT&/FAMILY 30 MINUTES [facility], [address] [place], [address], [place] tel:[phone] Gregorio Tony Post-traumatic stress disorder, chronicBipolar 1 disorder, current episode depressed, with psychotic featuresMild intellectual disabilities Jan-0 - 1 Jayne Starks. [address] [facility] [place], [address], [place]. tel: [phone] PSYTX PT&/FAMILY 30 MINUTES [facility], [address] [facility] [place], [address], [place] tel:[phone] Gregorio Tony Post-traumatic stress disorder, chronicBipolar 1 disorder, current episode depressed, with psychotic featuresMild intellectual disabilities Oct-2 1 Jayne Starks. [address] [facility] [place], [address], [place]. tel: [phone] PSYTX PT&/FAMILY 30 MINUTES [facility], [address] [facility] [place], [address], [place] tel:[phone] Gregorio Tony Post-traumatic stress disorder, chronicBipolar 1 disorder, current episode depressed, with psychotic featuresMild intellectual disabilities Sep-2 1 Jayne Starks. [address] [facility] [place], [address], [place]. tel: [phone] PSYTX PT&/FAMILY 30 MINUTES [facility], [address] [facility] [place], [address], [place] tel:[phone] Gregorio Tony Post-traumatic stress disorder, chronicBipolar 1 disorder, current episode depressed, with psychotic featuresMild intellectual disabilities Sep-2 1 Jayne Starks. [address] [facility] [place], [address], [place]. tel:[phone] PSYTX PT&/FAMILY 30 MINUTES [facility], [address] [facility] [place], [address], [place] tel:[phone] Gregorio House Post-traumatic stress disorder, chronicBipolar 1 disorder, current episode depressed, with psychotic featuresMild intellectual disabilities Sep-1 [address] Jayne Starks[address] [place], [address], [place]. tel: [phone] PSYTX PT&/FAMILY 30 MINUTES [facility], [address] [facility] [place], [address], [place] tel:[phone] Gregorio House Post-traumatic stress disorder, chronicBipolar 1 disorder, current episode depressed, with psychotic featuresMild intellectual disabilities Sep-0 [address] Jayne Starks[address] [place], [address], [place]. tel: [phone] PSYTX PT&/FAMILY 30 MINUTES [facility], [address] [facility], [address], [place] tel:[phone] Gregorio Tony Post-traumatic stress disorder, chronicBipolar 1 disorder, current episode depressed, with psychotic featuresMild intellectual disabilities Sep-0 1 Jayne Starks. [address] [place], [address], [place]. tel: [phone] PSYTX PT&/FAMILY 30 MINUTES [facility], [address] [facility] [place], [address], [place] tel:[phone] Gregorio Tony Post-traumatic stress disorder, chronicBipolar 1 disorder, current episode depressed, with psychotic featuresMild intellectual disabilities Oct- 1 Jayne Starks. [address] [place], [address], [place]. tel: [phone] PSYTX PT&/FAMILY 30 MINUTES [facility], [address] [facility], [address], [place] tel:[phone] Gregorio Tony Post-traumatic stress disorder, chronicBipolar 1 disorder, current episode depressed, with psychotic featuresMild intellectual disabilities Aug-0 1 Jayne Starks[address] [place], [address], [place]. tel:[phone] PSYTX PT&/FAMILY 45 MINUTES [facility], [address] [place], [address], [place] tel:[phone] *[facility] Post-traumatic stress disorder, chronicBipolar 1 disorder, current episode depressed, with psychotic featuresMild intellectual disabilities 1 Jayne Starks. [address] [facility] [place], [address], [place]. tel:[phone] Family History Family Member Type Diagnosis Age At Onset No Information Payers Payer name Insurance type Covered alliance party ID Authoriza tion(s) No Information Social History Type Description Quantity Date Captured Comments Sex Female Smoking Status No Information Chief Complaint And Reason For Visit No Information Reason For Referral Reason For Referral No Information History Of Present Illness Encounter Date Complaint History Of Prese nt Illness No Information Functional Status Date Functional Assessmen t No Information Instructions Date Instruction Additional Infor mation No Information Assessments Type Assessment Date assessment Post-traumatic stress disorder, chronic assessment Bipolar 1 disorder, current episode depressed, with psychotic features assessment Mild intellectual disabilities M Patient Care Teams Name Effective Dates (start - stop) Status Members No Information
--- OUTSIDE RECORDS SUMMARY | 2021-12-06 09:40 | XMS_ITS | Continuity of Care Document ---
Author Organization [facility] Address [id number] [address] Phone Care Team Providers Care Trainman Name Role Phone Unavailable Unavailable Unavailable Allergies, [...] 1 tablet by oral route every day - Active metformin 500 mg tablet take [...] Diagnoses Date Provider Providers Copied on Encounter [facility], [id number] [facility], [place], [place], [id number], [place] tel:[phone] [facility] No Information No Information Family History Family Member Type Diagnosis Age At Onset No Information Payers Payer name Insurance type Covered constitution party ID Authoriza tiallie(s) D Medicaid [id number] Social History Type Description Quantity Date Captured [...]
[2024-12-08 12:34] VITALS: BP 107/74; PULSE 84; RESP 18; TEMP 36.7; O2SAT 95; BMI 26.9
--- OUTSIDE RECORDS SUMMARY | 2024-12-08 12:34 | XMS_ITS | Patient Health Record ---
Author Organization [facility] Address [address] [place] [address] Care Team Providers Care Box Car Checker Name Role Phone Alayna Holland APRN Primary Care Provider Josy Paz Unavailable [phone] Allergies Allergen (clinical drug ingredient) Drug/Non Drug [...] Status Risk Notes Problem Generalized anxiety disorder (81103179) ELEUTERIO (generalized anxiety disorder) (F41.1) Active confirmed Problem Psychosis (85426229) Psychosis (F29) Active confirmed Problem Moderate recurrent major depression (83107152) Major depressive disorder, recurrent episode, moderate (F33.1) Active confirmed Plan Of Treatment No Information Insurance Providers Payer Name Payer Address Payer Phone Subscriber Number Group Number Insured Name Patient Relationship to Insured Coverage Start Date Coverage End Date [place] Medicaid [address] [place] [address] [id number] KARINE LARSON Self - patient is the insured Medical (General) History Medical History History ICD Code Sezuires Biploar/Shizo Anxiety PTSD Lack of self care defects and small head
[2024-12-08 12:38] VITALS: BP 107/74; O2SAT 96
--- NOTE | 2024-12-08 12:42 | CTR_ITS ---
PROCEDURE INFORMATION: Exam: CT Head Without Contrast Exam date and time: 12/08/2024 1:00 PM Age: 34 years old Clinical indication: Injury or trauma; Fall; Blunt trauma (contusions or hematomas); Additional info: Fall; On blood thinner TECHNIQUE: Imaging protocol: Computed tomography of the head without contrast. Radiation optimization: All CT scans at this facility use at least one of these dose optimization techniques: automated exposure control; mA and/or kV adjustment per patient size (includes targeted exams where dose is matched to clinical indication); or iterative reconstruction. COMPARISON: CT head wo con* [id number] 09/28/2024 4:12 PM RADIATION DOSE METRICS: Total DLP (mGy-cm): 895.37 FINDINGS: Brain: Normal. No hemorrhage. Unremarkable white matter. No mass effect. Cerebral ventricles: No ventriculomegaly. Paranasal sinuses: Visualized sinuses are unremarkable. No fluid levels. Mastoid air cells: Visualized mastoid air cells are well aerated. Bones: Unremarkable. No acute fracture. Soft tissues: Unremarkable. CT/CT head wo con* [id number] IMPRESSION: 1. No acute intracranial abnormality. 2. No interval changes since the prior exam.
--- NOTE | 2024-12-08 12:44 | W.ED.HEATRA ---
HPI - Head Injury General: Chief complaint: Fall Stated complaint: fell, hit head, dizziness, abd pain Time Seen by Provider: 12/08/24 12:30 Source: patient and other (care staff) Mode of arrival: ambulatory Limitations: no limitations History of Present Illness: Patient is a 34 female presents to ED today along with her care staff from her skilled nursing/[facility] here following a head injury. Patient states she was in the shower when her left knee gave out causing her to fall and strike her head. Reportedly no LOC. Care staff states she is on Eliquis due to previous blood clots. Patient here is not complaining of a headache. She is not having any neck or back pain. She does complain of abdominal pain but care staff states this has been intermittent and present for several weeks and is following up with primary care for this for additional testing and scopes . Care staff states she is continuing to eat and drink normally. No bloody stools. No vomiting apart some a one day stomach bug that they all had several days ago. No fevers. MD Complaint: head injury Onset (ago): hour(s) Mechanism of Injury: fall Place: home Loss of Consciousness: no Location of injury: parietal Severity: mild Radiation: none Other Injuries: none Associated symptoms: Deny confusion, nausea, neck pain, syncope or vomiting Related Data Home Medications ?Medication ?Instructions ?Recorded ?Confirmed ergocalciferol (vitamin D2) 1,250 1,250 mcg PO Q7D 04/15/19 12/08/24 mcg (50,000 unit) capsule gabapentin 300 mg capsule 300 mg PO TID 08/15/19 12/08/24 atorvastatin 40 mg tablet 40 mg PO DAILY 11/25/21 12/08/24 loratadine 10 mg tablet 10 mg PO DAILY 11/25/21 12/08/24 docusate sodium 100 mg capsule 100 mg PO DAILY 05/19/22 12/08/24 acetaminophen 325 mg tablet 650 mg PO Q6H PRN Pain 08/03/22 12/08/24 levothyroxine 75 mcg tablet 75 mcg PO DAILY 08/03/22 12/08/24 multivitamin 1 tab PO DAILY 08/03/22 12/08/24 ondansetron HCl 4 mg tablet 4 mg PO BID PRN Nausea 08/03/22 12/08/24 apixaban 5 mg tablet (Eliquis) 5 mg PO BID 09/13/22 12/08/24 dulaglutide 1.5 mg/0.5 mL 3 mg SUBCUT Q7D 06/02/23 12/08/24 subcutaneous pen injector (Trulicity) buspirone 10 mg tablet 10 mg PO TID 12/08/24 12/08/24 calcium carbonate 500 mg PO TID PRN Indigestion 12/08/24 12/08/24 hydroxyzine HCl 50 mg tablet See Rx Instructions .Route 12/08/24 12/08/24 .COMPLEX anxiety hydroxyzine pamoate 50 mg capsule 100 mg PO BEDTIME 12/08/24 12/08/24 metformin 500 mg tablet,extended 500 mg PO BID 12/08/24 12/08/24 release 24 hr olanzapine 5 mg tablet See Rx Instructions .Route .COMPLEX 12/08/24 12/08/24 phenylephrine 0.25 %-mineral oil 1 applic TX DAILY PRN Hemorrhoids 12/08/24 12/08/24 14 %-petrolatm 74.9 % rectal ointment (Preparation H) polyethylene glycol 3350 17 See Rx Instructions .Route .COMPLEX 12/08/24 12/08/24 gram/dose oral powder sertraline 100 mg tablet 100 mg PO QAM 12/08/24 12/08/24 sodium phosphates 19 gram-7 118 ml TX DAILY PRN Constipation 12/08/24 12/08/24 gram/118 mL enema (Fleet Enema) trazodone 100 mg tablet 100 mg PO BEDTIME 12/08/24 12/08/24 vit B complex with C 300 1 tab PO DAILY 12/08/24 12/08/24 mg-calcium carbonate 150 mg calcium tablet (B-Complex Plus Vitamin C (and calcium)) ziprasidone HCl 20 mg capsule See Rx Instructions .Route .COMPLEX 12/08/24 12/08/24 ziprasidone HCl 40 mg capsule See Rx Instructions .Route .COMPLEX 12/08/24 12/08/24 Previous Rx's ?Medication ?Instructions ?Recorded eucalyptus-menthol oral mucosal 1 jocelynn mucous membrane Q4H PRN 06/07/22 lozenge cough #30 ea pantoprazole 40 mg tablet,delayed 40 mg PO DAILY #30 tabs 08/04/22 release diclofenac sodium 1 % topical gel 2 g topical QID PRN pain #100 grams 10/04/23 (Voltaren Arthritis Pain) Diabetic shoes with 3 sets of #1 ea 03/05/24 insoles ASO #1 ea 07/04/24 bupropion HCl 150 mg 24 hr tablet, 150 mg PO DAILY #30 tabs 07/25/24 extended release prazosin 5 mg capsule 5 mg PO BEDTIME #30 caps 07/25/24 trazodone 300 mg tablet 300 mg PO BEDTIME #30 tabs 07/25/24 ASO to the left #1 ea 10/16/24 Allergies Allergy/AdvReac Type Severity Reaction Status Date / Time ibuprofen Allergy Unknown Unknown Verified 11/13/24 10:16 Penicillins Allergy Unknown Unknown Verified 11/13/24 10:16 carbamazepine Allergy Unknown Verified 11/13/24 10:16 latex Allergy Unknown Verified 11/13/24 10:16 vancomycin Allergy ALGY-Rash Verified 11/13/24 10:16 Review of Systems Const: Denies: fever(s) Eyes: Denies: change in vision, blurry vision, floaters or seeing flashes Card: Denies: lightheadedness, syncope or pre-syncope GI: Reports: abdominal pain; Denies: nausea, vomiting, change in bowel habits, hematochezia or melena : Denies: flank pain, dysuria or hematuria Musc: Denies: neck pain, back pain, extremity pain or joint pain Neuro: Denies: numbness in extremities, weakness in extremities, sensory changes, lack of coordination, difficulty walking, dizziness, confusion, behavioral changes or seizure-like activity PFS ED PFSH: Medical History Psychiatric care Anticoagulation adequate with anticoagulant therapy Diabetes mellitus Nicotine dependence, chewing tobacco, uncomplicated Moderate intellectual disabilities Chronic post-traumatic stress disorder Schizoaffective disorder, bipolar type Surgical History S/P section S/P tonsillectomy History of heart surgery Family History Father Myocardial infarction Grandfather Myocardial infarction Social History Smoking and tobacco/nicotine status: former use of tobacco/nicotine (Patient reports that she has quit tobacoo products) Physical Exam Const: COMMON NORMALS: no acute distress, average body habitus, patient oriented x3, healthy appearing, alert and well nourished EXAM LIMITATIONS: other limitations GENERAL APPEARANCE: cooperative OTHER: cognitive delay-at baseline per care staff HENMT: COMMON NORMALS: normocephalic and atraumatic HEAD & SCALP: normal to inspection, normocephalic and atraumatic FACE & SINUS: normal facial exam Eye: GENERAL EYE: appearance normal, both eyes and all related structures and normal light reflex DIRECT OPHTHALMOSCOPY: Yes normal light reflex Neck/C-Spine: COMMON NORMALS: full ROM GENERAL: Yes normal visual inspection CERVICAL SPINE: No Cervical spine tenderness Resp: COMMON NORMALS: normal respiratory effort and clear to auscultation bilaterally AUSCULTATION: clear to auscultation bilaterally Cardio: COMMON NORMALS: regular rate and regular rhythm RATE: regular rate RHYTHM: regular rhythm GI: COMMON NORMALS: Normal to inspection, nondistended, normoactive bowel sounds present, Soft to palpation, No hepatosplenomegaly present and no masses INSPECTION: Yes normal to inspection AUSCULTATION: Yes normoactive bowel sounds PALPATION: Yes Soft to palpation, Yes Tenderness to palpation present (GI) (mild diffuse-non surgical examination), No Guarding due to palpation present (GI), No Rigid due to palpation and Yes No hepatosplenomegaly present : COMMON NORMALS: Yes no CVA tenderness BLADDER/KIDNEY EXAM: Yes no CVA tenderness Back/Pelvis: COMMON NORMALS: no CVA tenderness, thoracic and lumbar spine normal to inspection and no thoracic nor lumbar tenderness Extremity: COMMON NORMALS: normal to inspection and full ROM GENERAL: Yes normal exam except as noted Neuro: ROBIN COMA SCALE: document GCS findings [place] coma scale eye opening: Spontaneous [place] coma scale verbal response: Orientated Robin coma scale motor response: Obey commands [place] coma scale total score: 15 COMMON NORMALS: patient oriented x3, moves all extremities, no focal motor deficits, no sensory deficits noted and gait normal SENSORIUM/ORIENTATION: Yes alert Skin: TRAUMA: no lacerations or abrasions Course Vital Signs: Vital signs: Vital Signs Temperature 98.1 F 12/08/24 12:34 Pulse Rate 84 12/08/24 12:34 Respiratory Rate 18 12/08/24 12:34 Blood Pressure 107/74 12/08/24 12:38 Pulse Oximetry 96 12/08/24 12:38 Oxygen Delivery Me thod Room Air 12/08/24 12:34 MDM - Head Injury Medcial Decision Making Head CT obtained due to head injury in a patient on Eliquis. This was unremarkable. She clinically is stable for discharge. Recommend she continue to follow-up with her primary care provider abdominal pain. Abdomen was nonsurgical today. I do not feel we need blood work at this time. Her main reason for presenting to the emergency department was protocol per her care staff due to her head injury. Differential Diagnosis Likely concussion without loss of consciousness, epidural hematoma, closed head injury, subarachnoid hematoma and subdural hematoma Medical Records I reviewed the patient's medical records. Lab Data Radiology Impressions Head CT 12/08/24 12:42 IMPRESSION: 1. No acute intracranial abnormality. 2. No interval changes since the prior exam. All radiology interpretation(s) finalized by discharge Discharge Plan Discharge Patient Disposition: Home Clinical Impression: Minor closed head injury Condition: Stable Prescriptions: No Action ergocalciferol (vitamin D2) 1,250 mcg (50,000 unit) capsule 1,250 mcg PO Q7D Rx Instructions: TAKES ON MONDAY eucalyptus-menthol Lozenge 1 jocelynn mucous membrane Q4H PRN (Reason: cough) Qty: 30 0RF Eliquis 5 mg tablet 5 mg PO BID diclofenac sodium [Voltaren Arthritis Pain] 1 % gel 2 g topical QID PRN (Reason: pain) Qty: 100 0RF Rx Instructions: apply to feet QID PRN pain (DME) ASO See Rx Instructions .Route .MEDSUPPLY Qty: 1 0RF Rx Instructions: As directed bupropion HCl 150 mg tablet extended release 24 hr 150 mg PO DAILY Qty: 30 11RF prazosin 5 mg capsule 5 mg PO BEDTIME Qty: 30 11RF trazodone 300 mg tablet 300 mg PO BEDTIME Qty: 30 11RF Rx Instructions: along with 100mg [id number] total (DME) ASO to the left See Rx Instructions .Route .MEDSUPPLY Qty: 1 0RF Rx Instructions: As directed by HOME length of need is 99days (DME) Diabetic shoes with 3 sets of insoles See Rx Instructions .Route .MEDSUPPLY Qty: 1 0RF Rx Instructions: As directed by [facility] gabapentin 300 mg Capsule 300 mg PO TID atorvastatin 40 mg tablet 40 mg PO DAILY loratadine 10 mg tablet 10 mg PO DAILY Trulicity 1.5 mg/0.5 mL pen injector 3 mg SUBCUT Q7D Rx Instructions: On Monday multivitamin Tablet 1 tab PO DAILY acetaminophen 325 mg Tablet 650 mg PO Q6H PRN (Reason: Pain) levothyroxine 75 mcg Tablet 75 mcg PO DAILY ondansetron HCl 4 mg tablet 4 mg PO BID PRN (Reason: Nausea) pantoprazole 40 mg Tablet,Delayed Release (Dr/Ec) 40 mg PO DAILY Qty: 30 0RF docusate sodium 100 mg capsule 100 mg PO DAILY sertraline 100 mg tablet 100 mg PO QAM hydroxyzine pamoate 50 mg capsule 100 mg PO BEDTIME ziprasidone HCl 20 mg capsule See Rx Instructions .ROUTE .COMPLEX Rx Instructions: TAKE ONE CAPSULE BY MOUTH DAILY AT 8 AM, 4PM AND 8PM. trazodone 100 mg tablet 100 mg PO BEDTIME Rx Instructions: along with 300mg [id number] total buspirone 10 mg tablet 10 mg PO TID calcium carbonate [Tums 500] 500 mg calcium (1,250 mg) Tablet,Chewable 500 mg PO TID PRN (Reason: Indigestion) ziprasidone HCl 40 mg capsule See Rx Instructions .ROUTE .COMPLEX Rx Instructions: Take 1 capsule by mouth at 8 am and 8 pm daily. polyethylene glycol 3350 17 gram/dose powder See Rx Instructions .ROUTE .COMPLEX Rx Instructions: DISSOLVE ONE CAPFUL (17 GRAMS) IN LIQUID AND DRINK DAILY AND NEEDED FOR CONSTIPATION. metformin 500 mg tablet extended release 24 hr 500 mg PO BID B-Complex Plus Vit C (calcium) 300 mg-150 mg calcium tablet 1 tab PO DAILY Preparation H 0.25-14-74.9 % Ointment 1 applic TX DAILY PRN (Reason: Hemorrhoids) olanzapine 5 mg tablet See Rx Instructions .ROUTE .COMPLEX Rx Instructions: Take 1 tablet by mouth at 8am, 2 tablets at 4pm and 2 tablets at 8pm. hydroxyzine HCl 50 mg tablet See Rx Instructions .ROUTE .COMPLEX Rx Instructions: Take 1 tablet by mouth twice daily at 4 and 8pm. Fleet Enema 19-7 gram/118 mL Enema 118 ml TX DAILY PRN (Reason: Constipation) Discharge Orders: Discharge ED (Routine); Ordered 12/08/24 Ordered By: Jovana Carlin Referrals: Alayna Holland FNP [Primary Care Provider, Unknown] Patient Instructions: Head Injury (DC), Patient Portal & [place] Instructions Print Language: Italian Coding Level of Care Code ED [employer] for [employer] [place]
--- NOTE | 2024-12-08 13:36 | PC.PHAR ---
Pt is from [facility].
[2024-12-08 13:43] VITALS: BP 105/92; PULSE 92; RESP 17; O2SAT 96
== END 2024-12-08 13:44 | disposition home or self-care (01) ==
PROVIDERS: Emergency Provider Physician Assistant; PCP Nurse Practitioner Family
DX: S09.8XXA Other specified injuries of head, initial encounter (principal); Z79.01 Long term (current) use of anticoagulants; Z79.85 Long-term (current) use of injectable non-insulin antidiabetic drugs; Z79.84 Long term (current) use of oral hypoglycemic drugs; Z87.891 Personal history of nicotine dependence; E11.9 Type 2 diabetes mellitus without complications; W18.2XXA Fall in (into) shower or empty bathtub, initial encounter
CPT/HCPCS: 70450; 99284

== ENCOUNTER → 2024-12-11 08:57 | Outpatient (BNVA) | payer MEDICAID, SELFPAY | PROVIDERS: PCP Nurse Practitioner Family; Visit Provider Podiatrist Foot & Ankle Surgery | DX: S82.832A Other fracture of upper and lower end of left fibula, initial encounter for closed fracture (principal); S93.492A Sprain of other ligament of left ankle, initial encounter; X58.XXXA Exposure to other specified factors, initial encounter; L60.3 Nail dystrophy; E11.9 Type 2 diabetes mellitus without complications; Z79.84 Long term (current) use of oral hypoglycemic drugs | CPT/HCPCS: 99213 ==

== ENCOUNTER → 2025-01-29 10:11 | Outpatient (BNVA) | payer MEDICAID, SELFPAY | PROVIDERS: PCP Nurse Practitioner Family; Visit Provider Podiatrist Foot & Ankle Surgery | DX: S93.492A Sprain of other ligament of left ankle, initial encounter (principal); E11.9 Type 2 diabetes mellitus without complications; X58.XXXA Exposure to other specified factors, initial encounter; Z79.84 Long term (current) use of oral hypoglycemic drugs | CPT/HCPCS: 99213 ==

== ENCOUNTER → 2025-03-10 09:55 | Outpatient (BNVA) | payer MEDICAID, SELFPAY | PROVIDERS: PCP Nurse Practitioner Family; Visit Provider Podiatrist Foot & Ankle Surgery | DX: M20.41 Other hammer toe(s) (acquired), right foot (principal); M20.42 Other hammer toe(s) (acquired), left foot; M21.621 Bunionette of right foot; M21.622 Bunionette of left foot; E11.69 Type 2 diabetes mellitus with other specified complication; L60.3 Nail dystrophy; M21.611 Bunion of right foot; M21.612 Bunion of left foot | CPT/HCPCS: 99213 ==